=== PATIENT | female | born 1950 | race Caucasian/White ===

== ENCOUNTER 2017-09-06 06:12 | Inpatient (IN) | payer MEDICARE ==
[~2017-09-06] VITALS: Ht 167.6 cm; Wt 57.2 kg
[2017-09-06] VITALS (16 sets, daily range): BP systolic 103–135; BP diastolic 53–79
[~2017-09-06 06:12] MED LIST: AMLODIPINE-BEN1 EAC5 ORAL; AZELASTINE137 MCG/0. NS; DIAZEPAM5 MG ORAL; FLUOXETINE HCL20 M2 ORAL; SOMA350 MG PO
[2017-09-06] MEDS ORDERED: Vancomycin 1gm inj IVPB ONE (06:18)
[2017-09-06] MEDS ORDERED: LR 1000ml 1,000 ML IVLG SCH (06:37)
[2017-09-06] MEDS ORDERED: Acetaminophen (Non formulary) 100 ML IV ONE (06:45)
[2017-09-06] MEDS ORDERED: Atropine Inj 1mg/10ml Syr IV PRN (06:45)
[2017-09-06] MEDS ORDERED: Ketorolac 30mg Inj IV PRN ×2 (06:45)
[2017-09-06] MEDS ORDERED: Labetalol 5mg/ml 20ml vial IV PRN (06:45)
[2017-09-06] MEDS ORDERED: DiphenhydrAMINE 50mg/ml Inj IVP PRN (06:45)
[2017-09-06] MEDS ORDERED: HYDROcodone/Acetamin 7.5/325 tab ORAL PRN ×2 (06:45→10:45)
[2017-09-06] MEDS ORDERED: oxyCODONE HCL/Acetaminophen 5/325mg ORAL PRN (06:45)
[2017-09-06] MEDS ORDERED: LORazepam Inj 2mg/ml 1ml IV PRN (06:45)
[2017-09-06] MEDS ORDERED: Midazolam 2mg/2ml Inj IVP PRN (06:45)
[2017-09-06] MEDS ORDERED: Norco 5mg/325mg tab ORAL PRN (06:45)
[2017-09-06] MEDS ORDERED: Hydromorphone 0.5mg/0.5ml inj IVP PRN (06:45)
[2017-09-06] MEDS ORDERED: Zemuron 50mg/5ml Inj IV ONE ×2 (06:47→07:00)
[2017-09-06 06:49] LABS: APPEARANCE,URINE SLIGHTLY CLOUDY; BILIRUBIN, URINE NEGATIVE (NEGATIVE); GLUCOSE, URINE (UA) NEGATIVE (NEGATIVE); KETONES,URINE 1+ (NEGATIVE); LEUKOCYTE ESTERASE ,URINE 3+ (NEGATIVE); NITRITE,URINE NEGATIVE (NEGATIVE); PH,URINE 6.5 (4.5-8.0); PROTEIN,URINE 1+ (NEGATIVE); UROBILINOGEN,URINE NORMAL MG/DL (0.0-1.0)
[2017-09-06 06:58] LABS: COLOR,URINE YELLOW
[2017-09-06] MEDS ORDERED: Dexamethasone 4mg/ml vial ONE (07:00)
[2017-09-06] MEDS ORDERED: Pantoprazole Inj IVP ONE (07:00)
[2017-09-06] MEDS ORDERED: Lidocaine 1% MPF 10mg/ml 5ml ONE (07:00)
[2017-09-06] MEDS ORDERED: Neostigmine 1mg/ml 10ml Inj ONE (07:00)
[2017-09-06] MEDS ORDERED: Ketamine 500mg Inj ONE (07:00)
[2017-09-06] MEDS ORDERED: Vancomycin 1gm/D5W 275ml IVPB ONE ×2 (07:00)
[2017-09-06] MEDS ORDERED: NS Irrig 1000ml ONE (07:00)
[2017-09-06] MEDS ORDERED: Sterile Water Irrig 1000ml IRRIG ONE (07:00)
[2017-09-06] MEDS ORDERED: Midazolam 2mg/2ml Inj ONE (07:00)
[2017-09-06] MEDS ORDERED: Glycopyrrolate 0.2mg/ml 1ml Vial ONE (07:00)
[2017-09-06] MEDS ORDERED: LR 1000ml ONE (07:00)
[2017-09-06] MEDS ORDERED: Propofol 200mg/20ml IV ONE (07:00)
--- NOTE | 2017-09-06 07:08 | Anethesia Preoperative Eval ---
Anesthesia Pre-op PMH/ROS General Date of Evaluation: Sep 06, 2017 Time of Evaluation: 07:41 Anesthesiologist: Cristine ASA Score: ASA 2 Mallampati Score Class I : Soft palate, uvula, fauces, pillars visible Class II: Soft palate, uvula, fauces visible Class III: Soft palate, base of uvula visible Class IV: Only hard plate visible Mallampati Classification: Class I Surgeon: Kellee Diagnosis: Neck Pain Surgical Procedure: ACDF C2-3 Anesthesia History: none Family History: no anesthesia problems Allergies: Coded Allergies: SULFA (SULFONAMIDE ANTIBIOTICS) (Verified Allergy, Severe, 09/06/17) hives hives and itching Medications: see eMAR Anesthesia Pre-op Phys. Exam Physician Exam Constitutional: NAD Neurologic: CN 2-12 intact Cardiovascular: RRR Respiratory: CTA Gastrointestinal: S/NT/ND Airway Exam Mallampati Score: Class I MO: full ROM: limited Teeth: intact Anesthesia Pre-op A/P Risk Assessment & Plan Assessment: ASA 2 Plan: GA, BIS, GlideScope Go Status Change Before Surgery: No Pre-Antibiotics Dru Gram Vancomycin IV Given Within 1 Hr of Incision: Yes Time Given: 08:06 Handy Colunga MD Sep 06, 2017 07:08
[2017-09-06] MEDS ORDERED: NORCO 10-325 T1 EACH ORAL (07:15)
[2017-09-06] MEDS ORDERED: EPINEPHrine 1mg/1ml Amp ONE (07:16)
[2017-09-06] MEDS ORDERED: VITAMIN C500 M1 ORAL (07:17)
[2017-09-06] MEDS ORDERED: Thrombin 5000 units TOPIC ONE ×2 (07:17→08:35)
[2017-09-06] MEDS ORDERED: Thrombin 5000 units spray kit TOPIC ONE ×2 (07:17→08:35)
[2017-09-06] MEDS ORDERED: VITAMIN D1000 UNI1 ORAL (07:17)
[2017-09-06] MEDS ORDERED: MULTIVITAMINS1 EA14 PO (07:17)
[2017-09-06] MEDS ORDERED: Gelfoam Absorbable 1gm powder pkt TOPIC ONE ×2 (07:17→08:35)
[2017-09-06] MEDS ORDERED: Bupivacaine 0.5% Inj 30 ml vial INJ ONE ×2 (07:17→08:35)
[2017-09-06] MEDS ORDERED: Bacitracin 50000 Units Vial ONE (07:18)
[2017-09-06] MEDS ORDERED: Heparin 1000 units/ml 1ml Vial ONE (07:20)
--- NOTE | 2017-09-06 07:35 | Immediate Post-Op Evaluation ---
Immediate Post-Op Evalulation Immediate Post-Op Evalulation Procedure: ACDF C2-3 Date of Evaluation: Sep 06, 2017 Time of Evaluation: 10:29 IV Fluids: 500 LR Blood Products: 0 Estimated Blood Loss: 15 Urinary Output: 0 Blood Pressure Systolic: 114 Blood Pressure Diastolic: 75 Pulse Rate: 79 Respiratory Rate: 16 O2 Sat by Pulse Oximetry: 96 Temperature (Fahrenheit): 97.5 Pain Score (1-10): 2 Nausea: No Vomiting: No Complications 0 Patient Status: awake, reacts, patent, extubated, none Hydration Status: adequate Dru Gram Vancomycin IV Given Within 1 Hr of Incision: Yes Time Given: 08:06 Handy Colunga MD Sep 06, 2017 07:35
[2017-09-06] MEDS ORDERED: Propofol 1,000mg/ 100ml btl IV ONE (07:45)
--- NOTE | 2017-09-06 07:50 | Pre-Procedure Note/Attestation ---
Pre-Procedure Note/Attestation Complete Prior to Procedure Planned Procedure: bilateral Procedure Narrative: Anterior cervical discectomy and interbody fusion with use of PEEK, allograft and autograft at the C2-3 level. Attestation I attest that I discussed the nature of the procedure; its benefits; risks and complications; and alternatives (and the risks and benefits of such alternatives ), prior to the procedure, with the patient (or the patient's legal packaging sales representative). I attest that, if there was a reasonable possibility of needing a blood transfusion, the patient (or the patient's legal packaging sales representative) was given the [facility] standardized written summary, pursuant to the [place] Blood Safety Act ([place] Health and Safety Code # 1645, as amended). I attest that I re-evaluated the patient just prior to the surgery and that there has been no change in the patient's H&P, except as documented below: CARLY HOUGH Sep 06, 2017 07:50
[2017-09-06] MEDS ORDERED: Bacitracin 50000 Units Vial IRRIG ONE (08:35)
[2017-09-06] MEDS ORDERED: EPINEPHrine 1mg/1ml Amp INJ ONE (08:35)
--- NOTE | 2017-09-06 10:44 | General Progress Note ---
Progress Note Progress Note Neurosurgery Recovery Room S/ No arm pain. Incision pain under control O/ Vs Last 24 Hour Vital Signs Date Time Temp Pulse Resp B/P (MAP) Pulse Ox O2 Delivery O2 Flow Rate FiO2 09/06/17 10:18 207.5 79 16 96 09/06/17 07:07 98.3 83 18 135/79 98 Room Air 98.3 Alert and oriented x 4 Moves all extremities well Incision dressing C/D/I doing well Pt's updated Observe. Pain control CARLY HOUGH Sep 06, 2017 10:43
[2017-09-06] MEDS ORDERED: Milk of Magnesia 30ml Ud ORAL PRN (10:45)
[2017-09-06] MEDS ORDERED: Cyclobenzaprine 10mg Tab ORAL PRN (10:45)
[2017-09-06] MEDS: fentaNYL 100 mcg/2 mL IV PRN ×2 (11:06→11:40)
[2017-09-06] MEDS ORDERED: D5 1/2NS w/KCl 20mEq 1,000 ML IV SCH (14:00)
[2017-09-06] MEDS: HYDROcodone/Acetamin 7.5/325 tab ORAL PRN ×3 (14:02→21:44)
--- NOTE | 2017-09-06 14:02 | Diagnostic Imaging Report ---
Indication: Neck Pain Findings: 5 fluoroscopic obtained views of the cervical spine were obtained. Images demonstrating localization followed by anterior fusion at C2-3. IMPRESSION: Intraoperative imaging
[2017-09-06] MEDS: Docusate 100mg cap ORAL SCH (18:08)
[2017-09-06] MEDS: Docusate Sod/Senna tab ORAL SCH (18:08)
--- NOTE | 2017-09-06 19:30 | Operative Note - Dictated ---
DATE OF OPERATION: 09/06/2017 PREOPERATIVE DIAGNOSES: 1. Cervical myelopathy, severe cord compression at C2-C3 level. 2. Progressive upper extremity weakness with poor balance. 3. Disk herniation of the thoracolumbar region. 4. History of prior lumbar fusion. POSTOPERATIVE DIAGNOSES: 1. Cervical myelopathy, severe cord compression at C2-C3 level. 2. Progressive upper extremity weakness with poor balance. 3. Disk herniation of the thoracolumbar region. 4. History of prior lumbar fusion. PROCEDURES: 1. Right-sided retropharyngeal approach with total diskectomy at the C2-C3 level. 2. Resection of posterior osteophyte at C2-C3 level and central canal decompression. 3. Insertion of biomechanical device cage, PEEK, 8 x 15 x 15.5 mm, LDR System at C2-C3 level under fluoroscopic guidance. 4. Anterior arthrodesis using 11 mm plates at C2-C3 level under fluoroscopic guidance. 5. Aspiration of bone marrow from the C3 vertebral body for grafting. 6. [place] of bone from vertebral body for grafting. 7. Intraoperative use, supervision and interpretation of fluoroscopy for localization of spine using instruments. 8. Microdissection using operative microscope. 9. Neuromonitoring, somatosensory evoked potentials, and dermatomals. 10. Modifier 22 for degree of difficulty in approach for the high cervical diskectomy. 11. Plastic surgical closure of an 8 cm cervical wound. SURGEON: Aleta Goodson M.D. GARDEN MACHINERY MECHANIC: Teddy Izquierdo M.D. ANESTHESIOLOGIST: Handy Colunga M.D. ANESTHESIA TYPE: Video-assisted intubation and general endotracheal anesthesia. EBL: Minimal. IV FLUIDS: 500 mL. SPECIMEN: Disk. INDICATION: The patient is a pleasant 67-year-old woman with neck pain, lower back pain, difficulty with ambulation, poor balance, and upper extremity weakness. She had a significant workup including MRI of the cervical, thoracic, and lumbar spine. There was evidence of severe cord compression with myelomalacia involving the C2-C3 level. Risk of the operation including, but not limited to risk of infection, bleeding, nerve damage, paralysis, pseudoarthrosis/nonunion requiring revision surgery, adjacent segment disease requiring revision surgery or additional surgery were all discussed with her in detail. Other risks such as vocal cord injury or hoarseness were also discussed as well. The patient voiced understanding of these risks, signed the consent to proceed. DETAILS OF PROCEDURE: The patient was taken to the operating room. She was identified. She underwent an uneventful video assisted endotracheal intubation. Neuromonitoring leads were attached. She was placed in gentle axial cervical traction using a Holter system. Neck was pre-prepped. The radiopaque markers were attached to the skin and fluoroscopic images were obtained to localize the cervical region. Neck was then prepped and draped in sterile fashion. Time-out was observed and the circulating nurse called the time-out. Microscope was brought to the field. The incision site was infiltrated using local anesthetic. Using a #15 blade, a curvilinear incision was made on the right side of the neck in one of the natural lines of the neck in the high cervical region. Dissection was carried down to the level of the platysma. Platysma muscle was opened and subplatysmal dissection was carried out cephalad and caudad. A bloodless plane was then created to the prevertebral fascia. Careful attention was given to the critical structures of the neck, particularly to get the carotid artery laterally and the esophagus medially. Modifier 22 will be used to denote degree of difficulty and the approach. Longus colli muscles were identified. The prevertebral fascia was incised and opened. The midline of the cervical spine was identified using intraoperative fluoroscopic images. The correct level was identified using a spinal needle with lateral images. Longus colli muscles were then elevated adjacent to the C2-C3 level bilaterally. The Shadow-Line retractor was then used. Shadow Line blades were padded using Gelfoam to protect the esophagus and the carotid artery. Then, using a #15 blade, the diskectomy was carried out at the C2-C3 level. The C2 vertebral body was unstable relative to the C3 with anterolisthesis. Using Kerrison punch, the osteophytes were removed anteriorly. Using angled curettes, the cartilage was removed from the C2 and C3 endplates. Using high-speed drill, the endplates were decorticated. The intervertebral distractor was then introduced. Osteophytes from the C2 and C3 vertebral body were removed using Kerrison punches for central decompression. Foraminotomies were carried out using a 2 Kerrison punch laterally. Posterior longitudinal ligament was maintained medially and was opened laterally. Epidural bleeding was controlled with a Gelfoam without incident. The intervertebral cage was then sized using sequential sizers. An 8 mm LDR cage was then filled with autologous bone graft and bone marrow aspirate obtained from the C3 vertebrae. A 10 mL of bone marrow was obtained from the C3 vertebral body using a Jamshidi needle. Jamshidi needle was inserted and the insertion site was sealed using a FloSeal and bone wax. Bone marrow aspirate was then mixed. The combination of harvested bone from the vertebral body with [place] and bone marrow aspirate was then packed within the center portion of the PEEK cage. PEEK cage was then inserted under fluoroscopic guidance at the C2-C3 level. Excellent height reconstruction was obtained and the anterolisthesis was also resolved at the C2 level. Using 11 mm plates, arthrodesis was performed at the C2 and C3 levels. Final x-rays showed excellent placement of the graft. Neuromonitoring remained stable throughout the case. Wound was washed with antibiotic irrigation. Meticulous hemostasis was obtained using bipolar cautery along with Surgiflo. Incision was closed in multiple layers in plastic surgical manner. The subcutaneous layers were closed using 3-0 Vicryl stitches in multiple layers. The subcuticular layer was closed with 4-0 Monocryl in a running fashion. Dermabond was used to seal the incision. Steri-Strips were then used to seal the top portion of the incision as well. Sterile dressing was applied. The patient was placed in a cervical collar. She was extubated. At the end the case moving all extremities. COMPLICATIONS: None. Aleta Goodson M.D. DR: CLEMENTE JOB#: [id number] CC: RICHELLE
[2017-09-06] MEDS ORDERED: Zolpidem 5mg tab ORAL PRN (23:00)
[2017-09-07] VITALS: BP 123/71
[2017-09-07 04:00] VITALS: BP 120/70
[2017-09-07 08:00] VITALS: BP 121/72
[2017-09-07] MEDS ORDERED: Vancomycin 1 GM in D5W 275 ML IVPB SCH (08:00)
[2017-09-07] MEDS: Docusate 100mg cap ORAL SCH (09:12)
[2017-09-07] MEDS: Docusate Sod/Senna tab ORAL SCH (09:13)
--- NOTE | 2017-09-07 09:56 | General Progress Note ---
Progress Note Progress Note Neurosuregry POD #1 S/ Ambulating, Voided, No arm pain. Tolerating po's. No dysuria. O/ Last 24 Hour Vital Signs Date Time Temp Pulse Resp B/P (MAP) Pulse Ox O2 Delivery O2 Flow Rate FiO2 09/07/17 09:12 121/72 09/07/17 09:12 96 121/72 09/07/17 08:00 97.3 96 19 121/72 97 Room Air 97.3 09/07/17 04:00 97.9 82 17 120/70 95 Room Air 97.9 09/07/17 00:00 97.7 104 18 123/71 95 Room Air 97.7 09/06/17 20:22 98.1 97 18 127/78 97 Room Air 98.1 09/06/17 16:41 97.8 77 16 120/74 96 Nasal Cannula 3.0 97.8 09/06/17 12:30 98.0 88 16 107/63 98 Nasal Cannula 3.0 98.0 09/06/17 12:00 97.6 85 16 106/59 95 Nasal Cannula 3.0 97.6 09/06/17 11:55 98.9 79 13 114/63 97 Nasal Cannula 3.0 98.9 09/06/17 11:55 98.9 09/06/17 11:40 76 15 103/60 98 Nasal Cannula 3.0 09/06/17 11:40 98.3 09/06/17 11:35 90 19 120/56 98 Nasal Cannula 3.0 09/06/17 11:20 75 20 117/61 98 Nasal Cannula 3.0 09/06/17 11:06 69 16 125/66 98 Simple Mask 6.0 09/06/17 11:06 98.3 09/06/17 10:55 82 18 122/73 98 Simple Mask 6.0 09/06/17 10:45 74 18 109/53 98 Simple Mask 6.0 09/06/17 10:45 98.3 09/06/17 10:35 83 20 127/55 98 Simple Mask 6.0 09/06/17 10:28 71 16 120/66 98 Simple Mask 6.0 09/06/17 10:23 80 18 123/66 97 Simple Mask 6.0 09/06/17 10:18 98.0 76 18 106/74 97 Simple Mask 6.0 98.0 09/06/17 10:18 207.5 79 16 96 Exam Alert and Oriented Voice is normal Dressing dry and supple. Motor exam 5/5 in the upper extremities Moves all extremities well Doing Well. D/c instructions reviewed with patient and her No clinical evidence of UTI. Patient asked to follow-up with PMD in case of dysuria Continue with cervical collar. CARLY HOUGH Sep 07, 2017 09:56
--- NOTE | 2017-09-07 10:18 | General Progress Note ---
Progress Note Progress Note Addendum to progress note Pt had a recent UTI that was treated by PMD. Will send urine culture. Pt is provided with Cipro 500 mg BID for d days to treat. labs Labs Test 09/06/17 06:30 Urine Color Yellow Urine Appearance Slightly cloudy Urine pH 6.5 (4.5-8.0) Urine Specific [place] 1.010 (1.005-1.035) Urine Protein 1+ (NEGATIVE) Urine Glucose (UA) Negative (NEGATIVE) Urine Ketones 1+ (NEGATIVE) Urine Occult Blood 2+ (NEGATIVE) Urine Nitrite Negative (NEGATIVE) Urine Bilirubin Negative (NEGATIVE) Urine Urobilinogen Normal MG/DL (0.0-1.0) Urine Leukocyte Esterase 3+ (NEGATIVE) Urine RBC 2-4 /HPF (0 - 2) Urine WBC 40-60 /HPF (0 - 2) Urine Squamous Epithelial Cells Few /LPF (NONE/OCC) Urine Bacteria Few /HPF (NONE) CARLY HOUGH Sep 07, 2017 10:18
[2017-09-07] MEDS ORDERED: NORCO 10-325 T1 EACH ORAL (11:08)
[2017-09-07] MEDS ORDERED: CIPRO500 MG PO (11:10)
[2017-09-07 11:56] VITALS: BP 139/89
[2017-09-07] MEDS ORDERED: fentaNYL 100 mcg/2 mL IV ONE (12:59)
[2017-09-07 16:03] VITALS: BP 136/74
--- NOTE | 2017-09-07 16:03 | 48 Hour Post Anesthesia Eval ---
Post Anesthesia Evaluation Procedure: ACDF C2-3 Date of Evaluation: Sep 07, 2017 Time of Evaluation: 11:25 Blood Pressure Systolic: 136 0: 74 Pulse Rate: 62 Respiratory Rate: 20 Temperature (Fahrenheit): 97.6 O2 Sat by Pulse Oximetry: 98 Airway: patent Nausea: No Vomiting: No Pain Intensity: 2 Hydration Status: adequate Cardiopulmonary Status: Stable Mental Status/LOC: patient returned to baseline Follow-up Care/Observations: n/a Post-Anesthesia Complications: none Follow-up care needed: ready to discharge HARSHAL ORDOÑEZ M.D. Sep 07, 2017 16:03
--- NOTE | 2017-09-07 23:45 | Discharge Summary ---
DATE OF ADMISSION: 09/06/2017 DATE OF DISCHARGE: 09/07/2017 DISCHARGE DIAGNOSES: 1. Status post anterior cervical diskectomy, fusion, stabilization at the C2-3 level. 2. History of cervical myeloradiculopathy. 3. History of lumbar fusion. 4. 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 HISTORY OF PRESENT ILLNESS: Please refer to the chart for detailed History and Physical. The patient was admitted on 09/06/2017 and underwent an uneventful anterior cervical diskectomy, fusion, and stabilization at the C2-3 level. The patient has done well postoperatively. She is ambulating. She is tolerating p.o. intake. She is being discharged home with appropriate discharge instructions. DISPOSITION: Home. DISCHARGE MEDICATIONS: The patient is to continue home medications. She is also prescribed [place] with appropriate usage instructions. DISCHARGE INSTRUCTIONS: The patient is instructed regarding diet to have soft mechanical diet until her swelling improves. She is encouraged to have high-protein diet. She is instructed to wear a cervical collar. In case of fever more than 101, the patient is to call Dr. Goodson and go to the nearest ER. In case of signs of symptoms of dysuria, the patient is to contact her primary medical doctor for urinalysis. CONDITION: Stable. COMPLICATIONS: None. Aleta Goodson M.D. DR: CHIDI JOB#: [id number] CC:
== END 2017-09-07 13:00 | disposition home or self-care (01) | DRG 473 ==
LOC: SDSOVERFLO 06:12 → 3E 12:06
PROC: 0RB30ZZ Excision of Cervical Vertebral Disc, Open Approach (ICD-10-PCS; principal; 2017-09-06 07:30)
PROC: 0RG10A0 Fusion of Cervical Vertebral Joint with Interbody Fusion Device, Anterior Approach, Anterior Column, Open Approach (ICD-10-PCS; principal; 2017-09-06 07:30)
DX: M50.01 Cervical disc disorder with myelopathy, high cervical region (principal); M50.11 Cervical disc disorder with radiculopathy, high cervical region; M48.02 Spinal stenosis, cervical region; Z88.2 Allergy status to sulfonamides
CPT/HCPCS: 72040; 76001; 81003; 87081; 87086; 87181; C9399; J2250; J2405; J2710

== ENCOUNTER 2018-01-17 09:14 | Inpatient (IN) | payer MEDICARE, OTHER ==
[2018-01-17] VITALS (11 sets, daily range): BP systolic 100–142; BP diastolic 60–89
[~2018-01-17] VITALS: Ht 165.1 cm; Wt 56.7 kg
[~2018-01-17 09:14] MED LIST changes: +CIPRO500 MG PO; +MULTIVITAMINS1 EA14 PO; +NORCO 10-325 T1 EACH ORAL; +Pantoprazole Inj IVP ONE; +VITAMIN C500 M1 ORAL; +VITAMIN D1000 UNI1 ORAL; +Vancomycin 1gm/D5W 275ml IVPB ONE
[2018-01-17] MEDS ORDERED: LISINOPRIL40 MG ORAL (10:26)
[2018-01-17] MEDS ORDERED: LR 1000ml 1,000 ML IVLG SCH (11:36)
--- NOTE | 2018-01-17 11:37 | Anethesia Preoperative Eval ---
Anesthesia Pre-op PMH/ROS General Date of Evaluation: Jan 17, 2018 Time of Evaluation: 13:06 Anesthesiologist: Cristine ASA Score: ASA 2 Mallampati Score Class I : Soft palate, uvula, fauces, pillars visible Class II: Soft palate, uvula, fauces visible Class III: Soft palate, base of uvula visible Class IV: Only hard plate visible Mallampati Classification: Class I Surgeon: Kellee Diagnosis: Back Pain Surgical Procedure: T12-L1 Post. Decompression Anesthesia History: none Family History: no anesthesia problems Allergies: Coded Allergies: SULFA (SULFONAMIDE ANTIBIOTICS) (Verified Allergy, Severe, 09/06/17) hives hives and itching Medications: see eMAR Past Medical History Cardiovascular: Reports: HTN Neurologic/Psychiatric: Reports: depression/anxiety Musculoskeletal/Integumentary: Reports: OA PSxH Narrative: Lumbar Fusion, Cervical Fusion, Foot SX, DIMITRIOS Anesthesia Pre-op Phys. Exam Physician Exam Last Vital Signs Date Time Temp Pulse Resp B/P (MAP) Pulse Ox O2 Delivery O2 Flow Rate FiO2 01/17/18 10:29 Room Air 01/17/18 10:16 97.9 77 18 129/89 (102) 95 97.9 Constitutional: NAD Neurologic: CN 2-12 intact Cardiovascular: RRR Respiratory: CTA Gastrointestinal: S/NT/ND Airway Exam Mallampati Score: Class I MO: full ROM: limited Teeth: missing, intact Anesthesia Pre-op A/P Risk Assessment & Plan Assessment: ASA 2 Plan: GA, BIS, GlideScope Status Change Before Surgery: No Pre-Antibiotics Dru Gram Vancomycin IV Time Given: 13:21 Handy Colunga MD Jan 17, 2018 11:37
[2018-01-17] MEDS ORDERED: Sodium Chloride 10ml vial INJ ONE (11:44)
[2018-01-17] MEDS ORDERED: Lidocaine 1% MPF 10mg/ml 5ml ONE (11:44)
[2018-01-17] MEDS ORDERED: Lidocaine 1% Plain 30 ml INJ ONE ×2 (11:44→15:41)
[2018-01-17] MEDS ORDERED: LORazepam Inj 2mg/ml 1ml IV PRN (11:45)
[2018-01-17] MEDS ORDERED: Acetaminophen (Non formulary) 100 ML IV ONE (11:45)
[2018-01-17] MEDS ORDERED: Ketorolac 30mg Inj IV PRN ×2 (11:45)
[2018-01-17] MEDS ORDERED: Hydromorphone 0.5mg/0.5ml inj IVP PRN (11:45)
[2018-01-17] MEDS ORDERED: fentaNYL 100 mcg/2 mL IV PRN (11:45)
[2018-01-17] MEDS ORDERED: Atropine Inj 1mg/10ml Syr IV PRN (11:45)
[2018-01-17] MEDS ORDERED: DiphenhydrAMINE 50mg/ml Inj IVP PRN (11:45)
[2018-01-17] MEDS ORDERED: Labetalol 5mg/ml 20ml vial IV PRN (11:45)
[2018-01-17] MEDS ORDERED: oxyCODONE HCL/Acetaminophen 5/325mg ORAL PRN (11:45)
[2018-01-17] MEDS ORDERED: HYDROcodone/Acetamin 7.5/325 tab ORAL PRN ×2 (11:45→20:00)
[2018-01-17] MEDS ORDERED: Norco 5mg/325mg tab ORAL PRN (11:45)
[2018-01-17] MEDS ORDERED: fentaNYL 100 mcg/2 mL IV ONE ×4 (11:45→17:32)
[2018-01-17] MEDS ORDERED: Metoclopramide 10mg/2ml Inj IVP PRN (11:45)
[2018-01-17] MEDS ORDERED: Midazolam 2mg/2ml Inj IVP PRN (11:45)
[2018-01-17] MEDS ORDERED: Thrombin 5000 units spray kit TOPIC ONE (12:32)
[2018-01-17] MEDS ORDERED: Bacitracin Oint 15gm Tube TOPIC ONE (12:32)
[2018-01-17] MEDS ORDERED: EPINEPHrine 1mg/1ml Amp ONE (12:32)
[2018-01-17] MEDS ORDERED: Gelfoam Absorbable 1gm powder pkt TOPIC ONE (12:33)
[2018-01-17] MEDS ORDERED: Thrombin 5000 units TOPIC ONE ×2 (12:33→12:34)
[2018-01-17] MEDS ORDERED: Gelfoam Size TOPIC ONE (12:33)
[2018-01-17] MEDS ORDERED: Bupivacaine 0.5% Inj 30 ml vial INJ ONE (12:33)
[2018-01-17] MEDS ORDERED: Bacitracin 50000 Units Vial ONE (12:33)
--- NOTE | 2018-01-17 12:45 | Pre-Procedure Note/Attestation ---
Pre-Procedure Note/Attestation Complete Prior to Procedure Planned Procedure: bilateral Procedure Narrative: Posterior T12-L1 decompression with possible instrumented fusion with pedicle screws and posterolateral arthrodesis with, autograft and allograft. Attestation I attest that I discussed the nature of the procedure; its benefits; risks and complications; and alternatives (and the risks and benefits of such alternatives ), prior to the procedure, with the patient (or the patient's legal jewelry sales representative). I attest that, if there was a reasonable possibility of needing a blood transfusion, the patient (or the patient's legal jewelry sales representative) was given the [facility] standardized written summary, pursuant to the [place] Blood Safety Act ([place] Health and Safety Code # 1645, as amended). I attest that I re-evaluated the patient just prior to the surgery and that there has been no change in the patient's H&P, except as documented below: Aleta Goodson MD Jan 17, 2018 12:45
[2018-01-17] MEDS ORDERED: Zemuron 50mg/5ml Inj IV ONE (12:48)
[2018-01-17] MEDS ORDERED: Pantoprazole Inj ONE (12:51)
[2018-01-17] MEDS ORDERED: Propofol 1,000mg/ 100ml btl IV ONE (13:00)
[2018-01-17] MEDS ORDERED: Sterile Water Irrig 1000ml IRRIG ONE (13:00)
[2018-01-17] MEDS ORDERED: LR 1000ml ONE (13:00)
[2018-01-17] MEDS ORDERED: NS Irrig 1000ml ONE (13:00)
--- NOTE | 2018-01-17 14:18 | Immediate Post-Op Evaluation ---
Immediate Post-Op Evalulation Immediate Post-Op Evalulation Procedure: T12-L1 Post. Decompression Date of Evaluation: Jan 17, 2018 Time of Evaluation: 18:20 IV Fluids: 1200 LR Blood Products: 0 Estimated Blood Loss: 100 Urinary Output: 200 Blood Pressure Systolic: 142 Blood Pressure Diastolic: 68 Pulse Rate: 61 Respiratory Rate: 16 O2 Sat by Pulse Oximetry: 100 Temperature (Fahrenheit): 97.8 Pain Score (1-10): 2 Nausea: No Vomiting: No Complications 0 Patient Status: awake, reacts, patent, extubated, none Hydration Status: adequate Dru Gram Ancef IV Given Within 1 Hr of Incision: Yes Time Given: 13:21 Handy Colunga MD Jan 17, 2018 14:18
--- NOTE | 2018-01-17 18:23 | Brief Operative Note ---
Immediate Post Operative Note Operative Note Chief Complaint: left-sided thoracic to Abd pain Pre-op Diagnosis: Cervical myelopathy chronic back pain Extruded disc at T12-L1 with thoracic myelopathy History of L4 to S1 fusion. Procedure: 1. Bilateral T12 hemilaminectomies, medial facetectomies, central ligamentectomies with lateral and central decompression. 2. Bilateral transpedicular approach for resection of extruded disc and osteophytes T12-L1. 3. Posterolateral arthrodesis T12-L1 with allograft and autograft. 4. [place] of local bone from laminectomy 5. Neurolysis of T12 and L1 roots bilaterally with wide foraminotomies 5. Intra-op supervision, use and interpretation of fluoroscopy for localization of spine. 6. Intra-op neuromonitoring, including, SSEPs, MEPs and free run EMG 7. Application of epidural fat graft bilaterally T12-L1. 8. Modifier 22 due degree of difficulty of the case. Post-op Diagnosis: same as pre-op Findings: consistent w/pre-op dx studies Surgeon: Aleta Goodson M.D Superintendent Marine: Teddy Izquierdo M.D. Anesthesiologist: Dr. Colunga Anesthesia: general Specimen: yes - disc Complications: none Condition: stable Fluids: 1200 Estimated Blood Loss: volume - 50 cc Drains: none Implant(s) used?: Yes - Aleta Baldwin MD Jan 17, 2018 18:23
--- NOTE | 2018-01-17 18:52 | General Progress Note ---
Progress Note Progress Note Neurosurgery Post-op S/ No incisonal pain. Comfortable O/ vs: Last 24 Hour Vital Signs Date Time Temp Pulse Resp B/P (MAP) Pulse Ox O2 Delivery O2 Flow Rate FiO2 01/17/18 18:45 67 13 112/63 100 Nasal Cannula 3 01/17/18 18:19 65 16 119/60 100 Simple Mask 8 01/17/18 18:14 73 16 129/65 100 Simple Mask 8 01/17/18 18:11 208.0 61 16 100 01/17/18 18:09 97.8 61 16 142/88 100 Simple Mask 8 97.8 01/17/18 10:29 Room Air 01/17/18 10:16 97.9 77 18 129/89 (102) 95 97.9 Arousable oriented Moves all extremities well normal sensation doing well admit Pt's updated Aleta Goodson MD Jan 17, 2018 18:52
[2018-01-17] MEDS ORDERED: Cyclobenzaprine 10mg Tab ORAL PRN (20:00)
[2018-01-17] MEDS ORDERED: Milk of Magnesia 30ml Ud ORAL PRN (20:00)
[2018-01-17] MEDS ORDERED: Lisinopril 20mg tab ORAL SCH (20:00)
--- NOTE | 2018-01-17 21:15 | Operative Note - Dictated ---
DATE OF OPERATION: 01/17/2018 PREOPERATIVE DIAGNOSES: 1. History of cervical myelopathy status post anterior cervical diskectomy fusion at C2-3 level. 2. 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 3. Lack of improvement from conservative measures, physical therapy, and narcotic medications. POSTOPERATIVE DIAGNOSES: 1. History of cervical myelopathy status post anterior cervical diskectomy fusion at C2-3 level. 2. 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 3. Lack of improvement from conservative measures, physical therapy, and narcotic medications. PROCEDURES: 1. Bilateral T12 hemilaminectomies, medial facetectomies, and foraminotomies with central ligamentectomy with central decompression and lateral decompression. 2. Bilateral transpedicular approach for resection of extruded disc and osteophytes at T12-L1. 3. Posterolateral arthrodesis at T12-L1 with allograft and autograft bilaterally. 4. Hardin of local bone from laminectomy for grafting. 5. Neurolysis of the T12 and L1 nerve roots bilaterally. 6. Intraoperative supervision use and interpretation of fluoroscopy for localization of spine. 7. Intraoperative neuro monitoring including somatosensory-evoked potentials, motor-evoked potentials, and free-run EMG. 8. Application of epidural fat graft bilaterally at T12-L1 laminectomy. 9. Modifier 22 will be used due to the degree of difficulty of the case. SURGEON: Aleta Goodson M.D. TANGIBLE PERSONAL PROPERTY APPRAISER SURGEON: Teddy Izquierdo M.D. ANESTHESIOLOGIST: Handy Colunga M.D. ANESTHESIA TYPE: General endotracheal anesthesia. EBL: Less than 50 mL. IV FLUIDS: 1.2 liters. URINE OUTPUT: 200 mL. SPECIMEN: Disc. INDICATION: The patient is a pleasant 67-year-old woman with a history of chronic back pain. She developed a cervical myelopathy, underwent a successful anterior cervical diskectomy, fusion, and stabilization of C2-3 level. She has developed thoracic myelopathy with left-sided thoracic radiculopathy with radiation of pain to the flank and abdomen. MRI and CT scans of the thoracic spine were obtained. There was evidence of an extruded disc at the T12-L1 level. There was significant severe compression of the spinal cord at this level as well. After discussions with the patient and her and review of risks, benefits, and alternatives to surgery, she has elected to proceed with the above procedure and signed the consent. The risks of the operation including, but not limited to risk of infection, bleeding, nerve damage, paralysis, spinal fluid leakage requiring revision surgery, and worsening back pain requiring instrumented fusion were all discussed with her in detail. DETAILS OF PROCEDURE: The patient was taken to the operating room. She was identified. She underwent an uneventful endotracheal intubation. Neuro monitoring leads were attached. Alonso catheter was inserted. The patient was then placed prone on a Guero frame. Care was taken to pad all pressure points from the top of the head to the tip of the toes. Back was pre-prepped. Radiopaque markers were attached to the skin and the thoracolumbar junction was localized. The back was then prepped and draped in the sterile fashion. Time-out was observed and the circulating nurse, read out the intended procedure. Microscope was brought to the field. The incision was infiltrated using Marcaine with epinephrine. Incision was made in the midline using a #15 blade. Dissection was carried down to the level of the subcutaneous fascia. The subcutaneous fat fascia was opened and the deep fat layer was encountered. A fat specimen was then removed with sharp dissection using #15 blade and placed in antibiotic irrigation solution. The thoracolumbar fascia was then opened using a Bovie knife. Subperiosteal dissection was carried out and the T12 hemilamina along with the T12-L1 facets were exposed bilaterally. Using a high-speed drill, bilateral T12 hemilaminectomies were performed. Using angled curettes, the ligamentum flavum was undermined and removed using pituitary rongeurs and #2 Kerrison punches. This provided significant decompression of the central canal bilaterally. Attention was given to the T12-L1 facet. A complete medial facetectomy of the T12 facet joint was performed. The L1 superior articulating facet was exposed. Using high-speed drill, the medial facet was completely removed and the L1 pedicle was identified. Intraoperative fluoroscopic image was performed to verify the correct level using a spinal needle. Using high-speed drill, the pedicle was entered. The pedicular resection was carried out to the level of the T12-L1 disc space. There was a large extruded disc osteophyte complex on the left side, which was mobilized using micro instrument and down pushing curette. Using pituitary rongeurs, the disc fragments were removed piecemeal. Throughout the diskectomy and removal of the osteophyte, the dura was completely intact without any pressure. There was ample room created by the resection of the pedicle superiorly. The transpedicular approach was performed bilaterally. The T12 and L1 nerve roots were removed from the adhesions in the epidural space. The T12 nerve roots were completely freed within the foramen and neurolysis was necessary to mobilize the T12 nerve root cephalad in order to expose the disk space. After diskectomy, both T12 and L1 nerve roots were completely free from compression. Epidural bleeding was controlled with bipolar cautery and FloSeal. The fat specimen was then incised and placed over the dura at the laminectomy defects bilaterally. The posterolateral T12-L1 facet was decorticated. Using the harvested bone from the laminectomies and [place] allograft, a bone putty was created and placed in the posterolateral gutters bilaterally. The wound was irrigated with copious amount of antibiotic irrigation. Incision was closed using 0, 2-0, and 3-0 Vicryl stitches in intraoperative fashion. Skin was dressed with Dermabond and Steri-Strips. Sterile dressing was applied. Modifier 22 will be used due to the degree of difficulty imposed by the depth of the incision and part of the calcified disc and osteophytic overgrowth that needed to be taken down prior to the diskectomy. The neuro monitoring was used throughout the case. Motor-evoked potentials remained stable throughout the case. The patient was extubated at the end of the case and moving all extremities. COMPLICATIONS: None. Aleta Goodson M.D. DR: CHIDI JOB#: [id number] CC:
[2018-01-17] MEDS: NS w/KCl 20mEq 1,000 ML IV SCH (21:32)
[2018-01-17] MEDS: ceFAZolin sod 2 GM in D5W 110 ML IV SCH (21:32)
[2018-01-18] VITALS: BP 110/60
[2018-01-18] MEDS: HYDROcodone/Acetamin 7.5/325 tab ORAL PRN ×3 (00:05→16:05)
[2018-01-18 03:53] VITALS: BP 112/61
[2018-01-18] MEDS: ceFAZolin sod 2 GM in D5W 110 ML IV SCH ×2 (06:22→13:34)
[2018-01-18 07:46] LABS: ANION GAP 8 mmol/L (5-15); BLOOD UREA NITROGEN 10 mg/dL (7-18); CALCIUM 7.5 MG/DL (8.5-10.1); CARBON DIOXIDE 27 MMOL/L (21-32); CHLORIDE 104 MMOL/L (98-107); CREATININE 0.8 MG/DL (0.55-1.30); POTASSIUM 3.4 MMOL/L (3.5-5.1); SODIUM 139 MMOL/L (136-145)
[2018-01-18 08:00] VITALS: BP 131/73
--- NOTE | 2018-01-18 08:10 | Diagnostic Imaging Report ---
Indication: Back pain, intraoperative Technique: Intraoperative images Comparison: none Findings: Intraoperative images demonstrate localizer needle projected posterior to what appears to be the superior aspect of L1. Subsequent images demonstrate surgical retractors and fusion hardware. Pre-existing fusion hardware is seen in the lower lumbar spine Impression: Intraoperative imaging, as described
[2018-01-18] MEDS ORDERED: Docusate Sod/Senna tab ORAL SCH (09:00)
[2018-01-18] MEDS ORDERED: Docusate 100mg cap ORAL SCH (09:00)
[2018-01-18] MEDS: HYDROmorphone 1mg/ml Carpuject IVP PRN ×2 (09:49→13:35)
[2018-01-18] MEDS: NS w/KCl 20mEq 1,000 ML IV SCH (09:49)
[2018-01-18 12:00] VITALS: BP 122/76
[2018-01-18 12:48] VITALS: BP 122/76
--- NOTE | 2018-01-18 12:48 | 48 Hour Post Anesthesia Eval ---
Post Anesthesia Evaluation Procedure: T12-L1 Post. Decompression Date of Evaluation: Jan 18, 2018 Time of Evaluation: 12:00 Blood Pressure Systolic: 122 0: 76 Pulse Rate: 86 Respiratory Rate: 19 Temperature (Fahrenheit): 98 O2 Sat by Pulse Oximetry: 97 Airway: patent Nausea: No Vomiting: No Pain Intensity: 0 Hydration Status: adequate Mental Status/LOC: patient returned to baseline Post-Anesthesia Complications: none Follow-up care needed: N/A Nessa Concepcion M.D. Jan 18, 2018 12:47
--- NOTE | 2018-01-18 13:27 | General Progress Note ---
Progress Note Progress Note Neurosurgery POD#1 S/ Ambulated with PT. Improved balance. Radiating left flank pain resolved. O/ Vs. Last 24 Hour Vital Signs Date Time Temp Pulse Resp B/P (MAP) Pulse Ox O2 Delivery O2 Flow Rate FiO2 01/18/18 12:48 208.4 86 19 97 01/18/18 12:37 98.0 01/18/18 12:00 98.0 86 19 122/76 (91) 97 98.0 01/18/18 11:38 97.2 01/18/18 10:19 97.2 01/18/18 09:49 97.2 01/18/18 09:00 Room Air Room Air 01/18/18 08:00 97.2 78 18 131/73 (92) 96 97.2 01/18/18 03:53 97.3 71 17 112/61 (78) 94 97.3 01/18/18 00:00 97.8 79 19 110/60 (77) 96 97.8 01/17/18 21:00 Nasal Cannula 2.0 Nasal Cannula 2.0 01/17/18 20:30 97.9 81 18 108/62 (77) 95 97.9 01/17/18 20:00 97.6 81 18 111/64 (80) 95 97.6 01/17/18 20:00 100/60 01/17/18 19:30 97.6 77 18 100/60 (73) 99 97.6 01/17/18 18:50 68 14 112/60 100 Nasal Cannula 3 01/17/18 18:45 67 13 112/63 100 Nasal Cannula 3 01/17/18 18:35 69 15 111/63 100 Simple Mask 8 01/17/18 18:25 66 16 113/62 100 Simple Mask 8 01/17/18 18:19 65 16 119/60 100 Simple Mask 8 01/17/18 18:14 73 16 129/65 100 Simple Mask 8 01/17/18 18:11 208.0 61 16 100 01/17/18 18:09 97.8 61 16 142/88 100 Simple Mask 8 97.8 Alert and oriented x 4 Moves all extremities. Lowers are strong, distally and proximally normal sensation in the lowers. Numbness in the lateral arm at baseline. Incision is completely dry Labs. Laboratory Tests Test 01/18/18 06:15 Sodium Level 139 MMOL/L (136-145) Potassium Level 3.4 MMOL/L (3.5-5.1) L Chloride Level 104 MMOL/L (98-107) Carbon Dioxide Level 27 MMOL/L (21-32) Anion Gap 8 mmol/L (5-15) Blood Urea Nitrogen 10 mg/dL (7-18) Creatinine 0.8 MG/DL (0.55-1.30) Estimat Glomerular Filtration Rate > 60 mL/min (>60) Glucose Level 86 MG/DL (74-106) Calcium Level 7.5 MG/DL (8.5-10.1) L doing well d/c instructions reviewed with pt and nursing Aleta Goodson MD Jan 18, 2018 13:27
--- NOTE | 2018-01-18 17:14 | Discharge Summary ---
Discharge Summary Discharge Summary _ DATE OF ADMISSION: 01/17/2018 DATE OF DISCHARGE: 01/18/2018 BRIEF HOSPITAL COURSE: Patient is a 67-year-old female, with history of chronic back pain. She developed cervical myelopathy and underwent successful anterior cervical discectomy, fusion and stabilization of C2-3 level. She developed thoracic myelopathy with left sided thoracic radiculopathy with radiation of pain to the flank and abdomen. MRI and CT scan of the thoracic spine were obtained. There was evidence of extruded disc at the T12-L1 level. There was significant severe compression of the spinal cord at this level. She failed conservative measures such as physical therapy and narcotic medications. Surgical intervention was elected. She was admitted on 01/17/2018 and underwent bilateral T12 hemilaminectomy, medial facetectomy and foraminotomy with central ligamentectomy with central decompression and lateral decompression. She tolerated procedure well. Postoperatively she was given pain management. She was encouraged use of incentive spirometry. She was seen by PT and OT. Diet was advanced. She had low potassium and was given potassium replacement. She ambulated with PT well with improved balance. Radiating left flank pain resolved. She was able to move all extremities. She had normal strength and sensation in lower extremities. Numbness in bilateral arm was at baseline. Surgical incision was completely dry. She was cleared for discharge home. FINAL DIAGNOSES: History of cervical myelopathy status post anterior cervical discectomy fusion at C2-3 level Extruded thoracic disc, T12-L1 with left-sided flank to abdomen pain and thoracic myelopathy Lack of improvement from conservative measures, physical therapy and narcotic medications Status post bilateral T12 hemilaminectomy, medial facetectomy, central ligament neck dummies lateral and central decompression Bilateral transpedicular approach for resection of extruded disc and osteophytes T12-L1 (Refer to operative report) DISPOSITION: Patient was discharged home. DISCHARGE MEDICATIONS: Refer to Discharge Medication List. DISCHARGE INSTRUCTIONS: Home diet: High-protein low-carb diet may use muscle milk 70 g of protein per day; wear binder for 3 weeks; in case of fever, redness or chills call Dr. Goodson or go to ER; avoid NSAIDs for 7 days; icepack to incision site 30 minutes every 2 hours as needed; keep wound dry for 4 days then change top dressing. Follow-up with Dr. Goodson call for appointment. I have been assigned to dictate discharge summary on this account, and I was not involved in the patient's management. Priscilla Contreras NP Jan 18, 2018 17:14
--- NOTE | 2018-01-19 00:45 | Discharge Summary ---
DATE OF ADMISSION: 01/17/2018 DATE OF DISCHARGE: 01/18/2018 DISCHARGE DIAGNOSIS: Status post bilateral transpedicular approach at T12-L1 for removal of extruded disc and osteophyte. HISTORY OF PRESENT ILLNESS: Refer to chart for History and Physical. HOSPITAL COURSE: The patient was admitted on 01/17/2018, underwent uneventful bilateral T12-L1 transpedicular decompression and diskectomy. The patient has done very well postoperatively. Her balance has improved. Her thoracic radiculopathy has resolved. She is being discharged home with appropriate discharge instructions. DISPOSITION: Home. DISCHARGE INSTRUCTIONS: The patient is asked not to do any bending, lifting, or twisting. She is asked to wear a binder for the next three weeks. She is asked to keep the incision dry for four days. In case of fever, chills, or drainage from the incision, the patient is instructed to call Dr. Goodson or go to the nearest ER. Follow up with Dr. Goodson in two weeks. DIET: High-protein low carb diet. MEDICATIONS: The patient is taking [place] for pain. She also is on blood pressure medications and nasal decongestant, which was reviewed in the chart and has been deemed safe for her to take. COMPLICATIONS: None. CONSULTATIONS: Included physical therapy. Aleta Goodson M.D. DR: ULI JOB#: [id number] CC:
== END 2018-01-18 16:00 | disposition home or self-care (01) | DRG 460 ==
LOC: SDSOVERFLO 09:19 → 3E 19:15
PROC: 4A11X4G Monitoring of Peripheral Nervous Electrical Activity, Intraoperative, External Approach (ICD-10-PCS; principal; 2018-01-17 10:30)
PROC: 0RTB0ZZ Resection of Thoracolumbar Vertebral Disc, Open Approach (ICD-10-PCS; principal; 2018-01-17 10:30)
PROC: 0RGA071 Fusion of Thoracolumbar Vertebral Joint with Autologous Tissue Substitute, Posterior Approach, Posterior Column, Open Approach (ICD-10-PCS; principal; 2018-01-17 10:30)
DX: M51.04 Intervertebral disc disorders with myelopathy, thoracic region (principal); I10 Essential (primary) hypertension; Z98.1 Arthrodesis status
CPT/HCPCS: 36415; 72020; 76001; 80048; 86850; 86900; 86901; 87081; C9399; J2405; J8499

== ENCOUNTER 2018-01-20 13:57 | Inpatient (IN) | payer MEDICARE, OTHER ==
[~2018-01-20] VITALS: Ht 162.6 cm; Wt 36.3 kg
[~2018-01-20 13:57] MED LIST changes: +LISINOPRIL40 MG ORAL; -Pantoprazole Inj IVP ONE; -Vancomycin 1gm/D5W 275ml IVPB ONE
[2018-01-20 14:30] VITALS: BP 205/111
[2018-01-20] MEDS ORDERED: HYDROmorphone 1mg/ml Carpuject IVP ONE (14:30)
--- NOTE | 2018-01-20 14:31 | Emergency Room Report ---
History of Present Illness General Chief Complaint: Pain Source: Patient Present Illness HPI 67-year-old female presents with severe back pain, worse with movement, sharp, constant, nonradiating, reports she's had this pain ever since her recent discectomy, she was sent here by Dr. Goodson for admission because she was just discharged today and couldn't tolerate the pain so she needs to be admitted. Allergies: Coded Allergies: SULFA (SULFONAMIDE ANTIBIOTICS) (Verified Allergy, Severe, 09/06/17) hives hives and itching Patient History Past Medical History: see triage record Reviewed Nursing Documentation: PMH: Agreed; PSxH: Agreed Nursing Documentation-PMH Past Medical History: No History, Except For Hx Cardiac Problems: Yes Hx Hypertension: Yes Hx Cancer: No Hx Gastrointestinal Problems: No Hx Neurological Problems: No - back surgery Review of Systems All Other Systems: negative except mentioned in HPI Physical Exam Vital Signs Date Time Temp Pulse Resp B/P (MAP) Pulse Ox O2 Delivery O2 Flow Rate FiO2 01/20/18 14:07 98.2 86 19 205/111 98 Room Air 98.2 Sp02 EP Interpretation: reviewed, normal General Appearance: no apparent distress, alert, non-toxic Head: normocephalic Eyes: bilateral eye normal inspection, bilateral eye PERRL, bilateral eye EOMI ENT: normal ENT inspection, hearing grossly normal, normal pharynx, no angioedema, normal voice, moist mucus membranes Neck: normal inspection, full range of motion, supple, supple/symm/no masses Respiratory: chest non-tender, lungs clear, normal breath sounds, chest symmetrical, palpation of chest normal Cardiovascular #1: normal peripheral pulses, regular rate, rhythm Cardiovascular #2: 2+ radial (R), 2+ radial (L), 2+ dorsalis pedis (R), 2+ dorsalis pedis (L) Gastrointestinal: normal inspection, non tender, soft, no mass, no guarding, no rebound Rectal: deferred Genitourinary: normal inspection, no CVA tenderness Musculoskeletal: back normal, gait/station normal, normal range of motion, non- tender, no calf tenderness Neurologic: alert, responsive, 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 Patient neurologically intact, surgically site intact without signs of breakdown or infection. Dr. Goodson will readmit, requests thoracolumbar 2V xr's. Other X-Ray Diagnostic Results Other X-Ray Diagnostic Results #1: X-Ray ordered: Thoracic spine # of Views/Limited Vs Complete: 2 View Indication: Pain EP Interpretation: Yes Interpretation: no dislocation, no soft tissue swelling, no fractures, nonspecific bowel gas Impression: No acute disease Electronically Signed by: Javon Fonseca MD Other X-Ray Diagnostic Results #2: X-Ray ordered: Lumbar Spine # of Views/Limited Vs Complete: Limited Indication: Pain EP Interpretation: Yes Interpretation: no dislocation, no soft tissue swelling, no fractures, nonspecific bowel gas, no sbo Impression: No acute disease Electronically Signed by: Javon Fonseca MD Last Vital Signs Date Time Temp Pulse Resp B/P (MAP) Pulse Ox O2 Delivery O2 Flow Rate FiO2 01/20/18 14:07 98.2 86 19 205/111 98 Room Air 98.2 Disposition: ADMITTED INPATIENT Admit Decision Time: 14:41 Condition: Stable Signed Out To: JAVON Bean M.D Jan 20, 2018 14:31
[2018-01-20 15:26] LABS: HEMATOCRIT 44.4 % (37.0-47.0); HEMOGLOBIN 15.2 G/DL (12.0-16.0); MEAN CORPUSCULAR VOLUME 96 FL (80-99); PLATELET COUNT 279 K/UL (150-450); RED BLOOD COUNT 4.61 M/UL (4.20-5.40); RED CELL DISTRIBUTION WIDTH 11.7 % (11.6-14.8); WHITE BLOOD COUNT 13.1 K/UL (4.8-10.8)
[2018-01-20 15:27] LABS: EOSINOPHILS % (AUTO) 0.5 % (0.0-3.0); LYMPHOCYTES % (AUTO) 5.5 % (20.0-45.0); MONOCYTES % (AUTO) 7.5 % (1.0-10.0); NEUTROPHILS % (AUTO) 85.5 % (45.0-75.0)
[2018-01-20 15:38] LABS: ANION GAP 9 mmol/L (5-15); BLOOD UREA NITROGEN 3 mg/dL (7-18); CALCIUM 8.7 MG/DL (8.5-10.1); CARBON DIOXIDE 25 MMOL/L (21-32); CHLORIDE 97 MMOL/L (98-107); CREATININE 0.5 MG/DL (0.55-1.30); POTASSIUM 5.6 MMOL/L (3.5-5.1); SODIUM 131 MMOL/L (136-145)
[2018-01-20 15:43] LABS: ALANINE AMINOTRANSFERASE 27 U/L (12-78); ALBUMIN 3.1 G/DL (3.4-5.0); ALBUMIN/GLOBULIN RATIO 0.7 (1.0-2.7); ALKALINE PHOSPHATASE 68 U/L (46-116); ASPARTATE AMINO TRANSFERASE 74 U/L (15-37); BILIRUBIN,TOTAL 0.9 MG/DL (0.2-1.0)
[2018-01-20 15:58] VITALS: BP 145/82
[2018-01-20 16:00] VITALS: BP 160/99
[2018-01-20] MEDS ORDERED: Milk of Magnesia 30ml Ud ORAL PRN (16:45)
[2018-01-20] MEDS ORDERED: Lisinopril 20mg tab ORAL SCH (16:58)
[2018-01-20] MEDS: Docusate 250mg cap ORAL SCH (17:29)
[2018-01-20] MEDS ORDERED: Flonase Nasal Inhaler 16gm NASAL SCH (18:00)
[2018-01-20 20:00] VITALS: BP 152/64
[2018-01-20 20:28] LABS: APPEARANCE,URINE CLEAR; BILIRUBIN, URINE NEGATIVE (NEGATIVE); COLOR,URINE PALE YELLOW; GLUCOSE, URINE (UA) NEGATIVE (NEGATIVE); KETONES,URINE 4+ (NEGATIVE); LEUKOCYTE ESTERASE ,URINE 1+ (NEGATIVE); NITRITE,URINE NEGATIVE (NEGATIVE); PH,URINE 8 (4.5-8.0); PROTEIN,URINE 1+ (NEGATIVE); UROBILINOGEN,URINE NORMAL MG/DL (0.0-1.0)
[2018-01-20] MEDS: oxyCONTIN 10mg tab ORAL SCH (21:17)
--- NOTE | 2018-01-20 21:45 | History and Physical Report ---
DATE OF ADMISSION: 01/20/2018 CHIEF COMPLAINT: Localized back pain, severe pain with spasms with movements. History of thoracolumbar decompressive surgery on January 17. HISTORY OF PRESENT ILLNESS: The patient is a pleasant 67-year-old woman with history of chronic low back pain, cervical and thoracic myelopathy. She was admitted recently for a thoracic decompressive surgery. She had an uneventful posterior cervical lumbar decompressive surgery at T12-L1 with bilateral transpedicular approaches, diskectomy for thoracic myeloradiculopathy. She did very well postoperatively. She was able to ambulate. Her pain was well controlled and she was discharged home. The next day, she had severe pain with spasms, particularly with movement. I spoke to her. She went to the emergency room at [facility]. She was admitted under the care of Dr. Patricio. I was in communication with Dr. Patricio regarding pain management. She was stabilized as far as her pain and then the patient came to [place] ER for further evaluation. She is now being admitted for pain control. She does not report any fevers. She does not report any chills, drainage, or redness at the incision site. She does not report any weakness in her extremities except for spasms which she experiences in the front of the legs with movement. PAST MEDICAL HISTORY: Significant for hypertension which is controlled with medications. She has history of degenerative disk disease in the cervical, thoracic, and lumbar spine. PAST SURGICAL HISTORY: Significant for prior cervical diskectomy and fusion at C2-C3 level. History of lumbar fusion from L4 through S1 level. Recent history of thoracolumbar decompression, diskectomy, and posterolateral arthrodesis. MEDICATIONS: Include vitamin D3, [place], nasal inhaler, Zoloft, and lisinopril. ALLERGIES: Sulfa. REVIEW OF SYSTEMS: She denies fever, chills, or drainage from the incision. She has history of hypertension controlled with medication. She denies shortness of breath or chest pain. She denies swelling in her legs. She denies hemoptysis, hematuria, or hematochezia. She has not had a bowel movement since the surgery. PHYSICAL EXAMINATION: GENERAL: She is pleasant, interactive. Her pain is well controlled while flat in bed. She does experience spasms with movement side to side. BACK: Shows a clean, dry, and intact incision in the thoracolumbar region. There is evidence of subcutaneous fluid collection. Under sterile conditions, about 20 mL of bloody seroma was drained with immediate relief of localized pain. NEUROLOGIC: Motor examination of lower extremity shows good strength in the proximal and distal muscle groups, 5/5. Sensory examination is grossly normal. LABORATORY FINDINGS: White count is 13.1, hemoglobin is 15.2, hematocrit is 44.4%, platelet count 279,000. Serum sodium is 131, potassium is 5.6, BUN is 3, creatinine 0.5, serum glucose is 104, serum calcium is 8.7, serum albumin is 3.1. IMAGING STUDIES: I reviewed the AP, lateral x-rays of the thoracic and lumbar spine personally. Studies were reviewed in Radiology department. There is evidence of thoracic scoliosis which is longstanding. The thoracolumbar junction shows no evidence of gross instability or slippage at the T12-L1 level. There is evidence of prior surgical intervention in the lumbar region from L4 through S1 with hardware intact. IMPRESSION: 1. Status post T12-L1 lumbar decompressive surgery, diskectomy with postoperative pain. 2. Hyponatremia. Sodium 131. 3. Hypoalbuminemia. DISCUSSION AND RECOMMENDATIONS: I reviewed the findings with the patient and in detail at bedside. Internal Medicine, Dr. Caba, has been asked to consult as well. Presently, the patient is on a regimen of pain control with narcotic medications and muscle relaxants. Additionally, the patient is on free water restriction with addition of salt to her diet to correct her hyponatremia. She will be placed on protein supplementation for her low albumin as well. As soon as her pain is better controlled, she will be evaluated and ambulated with help of physical therapy. Venous Doppler studies have also been ordered to rule out deep venous thrombosis. I will follow the patient closely along with Internal Medicine. Aleta Goodson M.D. DR: Keerthi JOB#: [id number] CC:
[2018-01-20] MEDS: Cyclobenzaprine 10mg Tab ORAL PRN (22:19)
[2018-01-21] VITALS: BP 142/77
[2018-01-21] MEDS: Zolpidem 5mg tab ORAL PRN (00:35)
[2018-01-21] MEDS: oxyCONTIN 10mg tab ORAL PRN ×3 (01:35→10:50)
[2018-01-21 04:00] VITALS: BP 173/81
[2018-01-21 05:36] LABS: HEMATOCRIT 44.6 % (37.0-47.0); HEMOGLOBIN 15.1 G/DL (12.0-16.0); MEAN CORPUSCULAR VOLUME 95 FL (80-99); PLATELET COUNT 340 K/UL (150-450); RED BLOOD COUNT 4.67 M/UL (4.20-5.40); RED CELL DISTRIBUTION WIDTH 11.3 % (11.6-14.8); WHITE BLOOD COUNT 13.9 K/UL (4.8-10.8)
[2018-01-21 05:58] LABS: ALANINE AMINOTRANSFERASE 102 U/L (12-78); ALBUMIN 3.3 G/DL (3.4-5.0); ALBUMIN/GLOBULIN RATIO 0.8 (1.0-2.7); ALKALINE PHOSPHATASE 72 U/L (46-116); ANION GAP 8 mmol/L (5-15); ASPARTATE AMINO TRANSFERASE 32 U/L (15-37); BILIRUBIN,TOTAL 0.7 MG/DL (0.2-1.0); BLOOD UREA NITROGEN 8 mg/dL (7-18); CALCIUM 8.3 MG/DL (8.5-10.1); CARBON DIOXIDE 28 MMOL/L (21-32); CHLORIDE 96 MMOL/L (98-107); CREATININE 0.8 MG/DL (0.55-1.30); POTASSIUM 4.1 MMOL/L (3.5-5.1); SODIUM 132 MMOL/L (136-145)
[2018-01-21 08:00] VITALS: BP 176/111
[2018-01-21] MEDS: Docusate 250mg cap ORAL SCH ×2 (08:34→17:31)
[2018-01-21] MEDS: oxyCONTIN 10mg tab ORAL SCH (08:35)
[2018-01-21] MEDS: Vitamin D 1000 IU Tab ORAL SCH (08:36)
[2018-01-21] MEDS ORDERED: Lisinopril 20mg tab ORAL SCH (09:00)
[2018-01-21] MEDS: Cyclobenzaprine 10mg Tab ORAL PRN (09:23)
--- NOTE | 2018-01-21 10:45 | History and Physical Report ---
DATE OF ADMISSION: 01/20/2018 HISTORY OF PRESENT ILLNESS: I was asked to evaluate this patient by Dr. Aleta Goodson. Vital signs also obtained on the patient, temperature of 98.2 degrees, pulse of 74, blood pressure 145/82 to 170/70, respirations 16, and saturating 98% to 99%. REVIEW OF SYSTEMS: Status post thoracolumbar spine surgery few days ago at [facility]. She was subsequently sent home and then had very progressive pain. She was brought into the hospital. She denies any nausea. She denies any vomiting. She has not had any bowel movement since last . She denies double vision, blurred vision. PAST MEDICAL HISTORY: Includes hypertension, on lisinopril. PAST SURGICAL HISTORY: Includes, 1. Foot surgery. 2. Total abdominal hysterectomy. 3. Cervical fusion and recent lumbar fusion. ALLERGIES: Sulfa. SOCIAL HISTORY: She does not abuse alcohol or illicit drugs. PHYSICAL EXAMINATION: GENERAL: The patient is well developed and well nourished female in some distress. HEENT: Normocephalic. No jugular venous distention. CARDIAC: S1 and S2. Regular rate. LUNGS: Clear. ABDOMEN: Soft. EXTREMITIES: No clubbing, cyanosis or edema. IMPRESSION AND PLAN: 1. Postoperative 01:31, status post thoracolumbar surgery with postoperative pain. Monitor patient closely. She is noted to have a postoperative white count of 13.2. 2. Chest x-ray will be ordered on the patient. 3. Venous Doppler to be ordered to make sure if she has DVT. 4. Urinalysis. Urine culture will be ordered on the patient. 5. The patient has a preoperative 01:56, it was capped. We will monitor and check culture results when they are available. 6. Hyperkalemia with history of lisinopril on board. Discontinue lisinopril. We will put her on Norvasc for blood pressure and p.r.n. clonidine. We will monitor the patient closely. 7. Hyponatremia. She is getting IV normal saline. We will monitor her sodium. 8. Avoid taking too much fluid. Consideration of putting the patient on fluid restriction. 9. Case was discussed with the patient at length. Hilario Mark Caba DR: VINCE JOB#: [id number] CC:
--- NOTE | 2018-01-21 10:48 | General Progress Note ---
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 stress leukiocytosis post op comnsider starting her on antibiotic for pyuria Subjective Date patient seen: Jan 21, 2018 Time patient seen: 10:44 Constitutional: Reports: no symptoms HEENT: Reports: no symptoms Cardiovascular: Reports: no symptoms Allergies: Coded Allergies: SULFA (SULFONAMIDE ANTIBIOTICS) (Verified Allergy, Severe, 09/06/17) hives hives and itching Subjective has been having a lot of pain no fever no chills no ches tpain has been haivng pain no nausea noted to have wbc of 13.9 has positive leukocyte estrace on the urine no fever urine culture not seen chest xray not done the aspiraiton results are pending Objective Last 24 Hour Vital Signs Date Time Temp Pulse Resp B/P (MAP) Pulse Ox O2 Delivery O2 Flow Rate FiO2 01/21/18 09:00 Room Air 01/21/18 08:36 87 149/87 01/21/18 08:00 99.5 90 16 176/111 (132) 95 99.5 01/21/18 07:43 176/111 01/21/18 04:00 98.1 96 18 173/81 (111) 93 98.1 01/21/18 00:00 98.1 84 18 142/77 (98) 93 98.1 01/20/18 21:00 Room Air 01/20/18 20:00 98.6 81 18 152/64 (93) 95 98.6 01/20/18 19:00 74 154/70 01/20/18 17:30 170/70 01/20/18 16:16 98.0 74 20 145/82 99 Room Air 208.8 01/20/18 16:00 Room Air 01/20/18 16:00 98.2 93 18 160/99 (119) 95 98.2 01/20/18 15:58 208.8 74 20 145/82 99 Room Air 208.8 01/20/18 15:58 Room Air 01/20/18 15:13 98.2 01/20/18 15:00 Room Air 8/26/18 14:30 98.2 86 205/111 98 Room Air 98.2 01/20/18 14:07 98.2 86 205/111 98 Room Air 98.2 Intake and Output 01/20/18 01/21/18 19:00 07:00 Intake Total 150 ml 780 ml Output Total 0 ml Balance 150 ml 780 ml Intake Oral 120 ml 480 ml IV Total 30 ml 300 ml Output Urine Total 0 ml # Voids 2 Laboratory Tests 01/20/18 14:52: White Blood Count 13.1H, Red Blood Count 4.61, Hemoglobin 15.2, Hematocrit 44.4 , Mean Corpuscular Volume 96, Mean Corpuscular Hemoglobin 33.0H, Mean Corpuscular Hemoglobin Concent 34.3, Red Cell Distribution Width 11.7, Platelet Count 279, Mean Platelet Volume 7.1, Neutrophils (%) (Auto) 85.5H, Lymphocytes ( %) (Auto) 5.5L, Monocytes (%) (Auto) 7.5, Eosinophils (%) (Auto) 0.5, Basophils (%) (Auto) 1.0, Sodium Level 131L, Potassium Level 5.6H, Chloride Level 97L, Carbon Dioxide Level 25, Anion Gap 9, Blood Urea Nitrogen 3L, Creatinine 0.5L, Estimat Glomerular Filtration Rate > 60, Glucose Level 104, Calcium Level 8.7, Total Bilirubin 0.9, Aspartate Amino Transf (AST/SGOT) 74H, Alanine Aminotransferase (ALT/SGPT) 27, Alkaline Phosphatase 68, Total Protein 7.5, Albumin 3.1L, Globulin 4.4, Albumin/Globulin Ratio 0.7L 01/20/18 20:16: Urine Color Pale yellow, Urine Appearance Clear, Urine pH 8, Urine Specific [place] 1.010, Urine Protein 1+H, Urine Glucose (UA) Negative, Urine Ketones 4+H , Urine Blood 1+H, Urine Nitrite Negative, Urine Bilirubin Negative, Urine Urobilinogen Normal, Urine Leukocyte Esterase 1+H, Urine RBC 2-4H, Urine WBC 2-4 , Urine Squamous Epithelial Cells Few, Urine Bacteria None 01/21/18 04:50: White Blood Count 13.9H, Red Blood Count 4.67, Hemoglobin 15.1, Hematocrit 44.6 , Mean Corpuscular Volume 95, Mean Corpuscular Hemoglobin 32.4H, Mean Corpuscular Hemoglobin Concent 33.9, Red Cell Distribution Width 11.3L, Platelet Count 340, Mean Platelet Volume 7.4, Neutrophils (%) (Auto) , Lymphocytes (%) (Auto) , Monocytes (%) (Auto) , Eosinophils (%) (Auto) , Basophils (%) (Auto) , Sodium Level 132L, Potassium Level 4.1, Chloride Level 96L, Carbon Dioxide Level 28, Anion Gap 8, Blood Urea Nitrogen 8, Creatinine 0.8 #, Estimat Glomerular Filtration Rate > 60, Glucose Level 137H, Calcium Level 8.3L, Total Bilirubin 0.7, Aspartate Amino Transf (AST/SGOT) 32, Alanine Aminotransferase (ALT/SGPT) 102H, Alkaline Phosphatase 72, Total Protein 7.7, Albumin 3.3L, Globulin 4.4, Albumin/Globulin Ratio 0.8L, Differential Total Cells Counted 100, Neutrophils % (Manual) 89H, Lymphocytes % (Manual) 7L, Monocytes % (Manual) 4, Eosinophils % (Manual) 0, Basophils % (Manual) 0, Band Neutrophils 0, Platelet Estimate Adequate, Platelet Morphology Normal, Red Blood Cell Morphology Normal, Cortisol [Pending] Height (Feet): 5 Height (Inches): 4.00 Weight (Pounds): 123 General Appearance: WD/WN Neck: normal alignment Cardiovascular: normal rate, regular rhythm, no JVD Respiratory/Chest: lungs clear Abdomen: soft Extremities: other - no edemqa Hilario Caba MD Jan 21, 2018 10:48
--- NOTE | 2018-01-21 11:09 | Diagnostic Imaging Report ---
Indication: Chest pain Comparison: None A single view chest radiograph was obtained. Findings: Cardiomediastinal appearance is within normal limits for age. Aorta is mildly ectatic. Pulmonary vascularity is appropriate. The diaphragmatic contour is smooth and costophrenic angles are sharp. No pleural effusions are identified. The bones are mildly osteopenic. Impression: No acute cardiopulmonary findings
--- NOTE | 2018-01-21 11:12 | Diagnostic Imaging Report ---
Indication: Back pain Comparison: None Findings: 3 views of the lumbar spine were obtained. Relatively recent lumbar surgery was performed, 01/17/2018. The current study demonstrates 3 level fusion with pedicle screws fusion rods L4, L5 and S1. Disc replacement at L4-5 noted. Probable laminotomy at L4 noted. Moderate osteopenia is present. Multilevel degenerative disc disease with vacuum phenomena and endplate osteophyte formation demonstrated within the lumbar spine and the visualized part of the lower thoracic spine. Hardware alignment and position appear unremarkable on the basis of the limited plain film evaluation. IMPRESSION: Status post L4-S1 fusion. Multilevel degenerative disease involving the intervertebral discs as described above.
--- NOTE | 2018-01-21 11:14 | Diagnostic Imaging Report ---
Indication: Back pain Comparison: None Findings: 2 views of the thoracic spine were obtained. Moderate to severe degenerative disc disease demonstrated with vacuum phenomena and narrowing, accompanying endplate osteophyte formation multiple levels throughout the thoracic and visualized upper lumbar spine. The bones are osteopenic. There is a mild scoliosis slightly convex to the right at about the mid thoracic spine level. Hypertrophic facets noted at multiple levels. IMPRESSION: Degenerative spondylosis as described above
[2018-01-21] MEDS ORDERED: Fleet's Enema 133ml RECTAL PRN (12:30)
[2018-01-21] MEDS: oxyCONTIN 20mg tab ORAL SCH ×2 (13:31→21:44)
[2018-01-21 13:35] VITALS: BP 180/110
[2018-01-21] MEDS ORDERED: HydrALAZINE 25mg tab ORAL SCH (15:30)
[2018-01-21 16:00] VITALS: BP 134/96
[2018-01-21] MEDS ORDERED: oxyCONTIN 10mg tab ORAL PRN (17:45)
--- NOTE | 2018-01-21 19:07 | General Progress Note ---
Progress Note Progress Note Neurosurgery S/ Incisional pain requiring IV pain medications. Lower extremity spasms better controlled. Ambulated to bathroom. Had a bowel movement. Tolerating po 's supplemented with hi protein drinks. O/ vs. Last 24 Hour Vital Signs Date Time Temp Pulse Resp B/P (MAP) Pulse Ox O2 Delivery O2 Flow Rate FiO2 01/21/18 17:31 97 126/89 01/21/18 16:00 97.7 95 19 134/96 (109) 95 97.7 01/21/18 15:36 177/100 01/21/18 14:00 180/110 01/21/18 13:35 98.5 93 18 180/110 (133) 98 98.5 01/21/18 09:00 Room Air 01/21/18 08:36 87 149/87 01/21/18 08:00 99.5 90 16 176/111 (132) 95 99.5 01/21/18 07:43 176/111 01/21/18 04:00 98.1 96 18 173/81 (111) 93 98.1 01/21/18 00:00 98.1 84 18 142/77 (98) 93 98.1 01/20/18 21:00 Room Air 01/20/18 20:00 98.6 81 18 152/64 (93) 95 98.6 Alert and oriented. Pleasant and smiling Incision is dry. Fluctuance present. 15 cc of serosanguinous fluid tapped under sterile conditions. Specimen sent for cell count and microbiology. Patient tolerated the tap very well. On neuro exam of extremities, pt has 5/5 strength in th eupper and lower extremities, in the distal and proximal muscle groups. Labs: Laboratory Tests Test 01/20/18 20:16 01/21/18 04:50 Urine Color Pale yellow Urine Appearance Clear Urine pH 8 (4.5-8.0) Urine Specific [place] 1.010 (1.005-1.035) Urine Protein 1+ (NEGATIVE) H Urine Glucose (UA) Negative (NEGATIVE) Urine Ketones 4+ (NEGATIVE) H Urine Blood 1+ (NEGATIVE) H Urine Nitrite Negative (NEGATIVE) Urine Bilirubin Negative (NEGATIVE) Urine Urobilinogen Normal MG/DL (0.0-1.0) Urine Leukocyte Esterase 1+ (NEGATIVE) H Urine RBC 2-4 /HPF (0 - 2) H Urine WBC 2-4 /HPF (0 - 2) Urine Squamous Epithelial Cells Few /LPF (NONE/OCC) Urine Bacteria None /HPF (NONE) White Blood Count 13.9 K/UL (4.8-10.8) H Red Blood Count 4.67 M/UL (4.20-5.40) Hemoglobin 15.1 G/DL (12.0-16.0) Hematocrit 44.6 % (37.0-47.0) Mean Corpuscular Volume 95 FL (80-99) Mean Corpuscular Hemoglobin 32.4 PG (27.0-31.0) H Mean Corpuscular Hemoglobin Concent 33.9 G/DL (32.0-36.0) Red Cell Distribution Width 11.3 % (11.6-14.8) L Platelet Count 340 K/UL (150-450) Mean Platelet Volume 7.4 FL (6.5-10.1) Neutrophils (%) (Auto) % (45.0-75.0) Lymphocytes (%) (Auto) % (20.0-45.0) Monocytes (%) (Auto) % (1.0-10.0) Eosinophils (%) (Auto) % (0.0-3.0) Basophils (%) (Auto) % (0.0-2.0) Differential Total Cells Counted 100 Neutrophils % (Manual) 89 % (45-75) H Lymphocytes % (Manual) 7 % (20-45) L Monocytes % (Manual) 4 % (1-10) Eosinophils % (Manual) 0 % (0-3) Basophils % (Manual) 0 % (0-2) Band Neutrophils 0 % (0-8) Platelet Estimate Adequate Platelet Morphology Normal Red Blood Cell Morphology Normal Sodium Level 132 MMOL/L (136-145) L Potassium Level 4.1 MMOL/L (3.5-5.1) Chloride Level 96 MMOL/L (98-107) L Carbon Dioxide Level 28 MMOL/L (21-32) Anion Gap 8 mmol/L (5-15) Blood Urea Nitrogen 8 mg/dL (7-18) Creatinine 0.8 MG/DL (0.55-1.30) # Estimat Glomerular Filtration Rate > 60 mL/min (>60) Glucose Level 137 MG/DL (74-106) H Calcium Level 8.3 MG/DL (8.5-10.1) L Total Bilirubin 0.7 MG/DL (0.2-1.0) Aspartate Amino Transf (AST/SGOT) 32 U/L (15-37) Alanine Aminotransferase (ALT/SGPT) 102 U/L (12-78) H Alkaline Phosphatase 72 U/L (46-116) Total Protein 7.7 G/DL (6.4-8.2) Albumin 3.3 G/DL (3.4-5.0) L Globulin 4.4 g/dL Albumin/Globulin Ratio 0.8 (1.0-2.7) L Cortisol 27.8 UG/DL Post-op pain UTI-on IV Levaquin PT/OT optimize protein intake Electrolytes improving. Increase salt intake d/c planning Aleta Goodson MD Jan 21, 2018 19:07
[2018-01-21 20:00] VITALS: BP 128/84
[2018-01-21] MEDS: HydrALAZINE 25mg tab ORAL SCH (21:38)
[2018-01-22] VITALS: BP 135/78
[2018-01-22] MEDS: Cyclobenzaprine 10mg Tab ORAL PRN ×2 (02:12→11:59)
[2018-01-22 04:00] VITALS: BP 160/87
[2018-01-22] MEDS: HydrALAZINE 25mg tab ORAL SCH ×3 (05:13→21:17)
[2018-01-22] MEDS: oxyCONTIN 20mg tab ORAL SCH ×3 (05:14→21:17)
[2018-01-22 08:00] VITALS: BP 159/91
[2018-01-22] MEDS: Vitamin D 1000 IU Tab ORAL SCH (08:26)
[2018-01-22] MEDS: Hydromorphone 0.5mg/0.5ml inj IVP PRN ×2 (08:26→13:23)
[2018-01-22] MEDS: Docusate 250mg cap ORAL SCH ×2 (08:27→17:53)
[2018-01-22 12:00] VITALS: BP 163/87
[2018-01-22 16:00] VITALS: BP 163/97
[2018-01-22] MEDS ORDERED: Dexamethasone 4mg/ml vial IM SCH (19:20)
--- NOTE | 2018-01-22 19:23 | General Progress Note ---
Progress Note Progress Note Neurosurgery S/ Ambulated in the layne. No incisional pain. Complains of spasms affecting the groins and anterior thighs, right > left. Had confusion this evening. Now clear after stopping pain medications. Complains of white discharge introitus/ vaginal O/ vs. Last 24 Hour Vital Signs Date Time Temp Pulse Resp B/P (MAP) Pulse Ox O2 Delivery O2 Flow Rate FiO2 01/22/18 17:53 98 163/97 01/22/18 16:00 98.5 98 22 163/97 (119) 97 98.5 01/22/18 15:21 171/99 01/22/18 14:00 171/99 01/22/18 13:23 97.7 01/22/18 12:00 98.3 60 22 163/87 (112) 95 98.3 01/22/18 09:00 Room Air 01/22/18 08:32 92 159/91 01/22/18 08:00 97.7 92 18 159/91 (113) 97 97.7 01/22/18 05:13 160/84 01/22/18 04:00 98.3 84 17 160/87 (111) 96 98.3 01/22/18 00:00 99.5 92 19 135/78 (97) 96 99.5 01/21/18 21:38 128/84 01/21/18 21:00 Room Air 01/21/18 20:00 99.0 96 19 128/84 (99) 96 99.0 Alert and oriented x4. Interactive at bedside Incision is dry and intact. No fluctuance Lower extremity strength is 5/5 in the proximal and distal muscle groups. Normal sensation Labs: Microbiology Date/Time Source Procedure Growth Status 01/21/18 19:09 Drainage Fluid Gram Stain - Final Resulted 01/21/18 19:09 Drainage Fluid Body Fluid Culture - Preliminary NO GROWTH Resulted 01/21/18 19:09 Wound Gram Stain - Final Resulted 01/21/18 19:09 Wound Wound Culture - Preliminary NO GROWTH Resulted 01/20/18 15:42 Nasal Nares MRSA Culture - Final NO METHICILLIN RESISTANT STAPH AUREUS... Complete 01/21/18 11:30 Urine,Clean Catch Urine Culture - Preliminary Resulted 01/20/18 15:42 Rectum VRE Culture - Final NO VANCOMYCIN RESISTANT ENTEROCOCCUS ... Complete 8/26/18 15:42 Rectum - Final NO CARBAPENEM-RESISTANT ENTEROBACTERI... Complete Lower extremity post-op spasms will change pain meds to IV Tylenol for less TIME CHECKER side effects Diflucan vaginal suppository Decadron for post-op radiculitis CT of T10 to L4 Continue with PT encourage PO intake. IV MgSO4 for spasms will likely need SNIF Care plan d/w nursing, pt and her Aleta Goodson MD Jan 22, 2018 19:23
--- NOTE | 2018-01-22 19:50 | General Progress Note ---
Assessment/Plan Assessment/Plan popstop pain hyponatremia stres leukocytosis pyuria await culture resuklt plan dc dilaudid tommorow decrease rthe oxycontin and likley to send to snf Subjective Date patient seen: Jan 22, 2018 Time patient seen: 19:49 Constitutional: Reports: no symptoms HEENT: Reports: no symptoms Cardiovascular: Reports: no symptoms Respiratory: Reports: no symptoms Allergies: Coded Allergies: SULFA (SULFONAMIDE ANTIBIOTICS) (Verified Allergy, Severe, 09/06/17) hives hives and itching Subjective was altered inthe middle of night andnow better no ches tpain no headache no diplopia Objective Last 24 Hour Vital Signs Date Time Temp Pulse Resp B/P (MAP) Pulse Ox O2 Delivery O2 Flow Rate FiO2 01/22/18 17:53 98 163/97 01/22/18 16:00 98.5 98 22 163/97 (119) 97 98.5 01/22/18 15:21 171/99 01/22/18 14:00 171/99 01/22/18 13:23 97.7 01/22/18 12:00 98.3 60 22 163/87 (112) 95 98.3 01/22/18 09:00 Room Air 01/22/18 08:32 92 159/91 01/22/18 08:00 97.7 92 18 159/91 (113) 97 97.7 01/22/18 05:13 160/84 01/22/18 04:00 98.3 84 17 160/87 (111) 96 98.3 01/22/18 00:00 99.5 92 19 135/78 (97) 96 99.5 01/21/18 21:38 128/84 01/21/18 21:00 Room Air 01/21/18 20:00 99.0 96 19 128/84 (99) 96 99.0 Intake and Output 01/21/18 01/22/18 19:00 07:00 Intake Total 360 ml 90 ml Balance 360 ml 90 ml Intake Oral 240 ml IV Total 120 ml 90 ml # Voids 1 2 Height (Feet): 5 Height (Inches): 4.00 Weight (Pounds): 123 General Appearance: WD/WN Neck: supple Cardiovascular: no JVD Respiratory/Chest: lungs clear Hilario Caba MD Jan 22, 2018 19:50
[2018-01-22 20:00] VITALS: BP 150/80
[2018-01-22] MEDS ORDERED: Acetaminophen (Non formulary) 100 ML IV ONE (20:00)
[2018-01-22 20:15] LABS: EOSINOPHILS % (AUTO) 0.4 % (0.0-3.0); HEMATOCRIT 40.8 % (37.0-47.0); HEMOGLOBIN 14.4 G/DL (12.0-16.0); MEAN CORPUSCULAR VOLUME 95 FL (80-99); MONOCYTES % (AUTO) 10.7 % (1.0-10.0); NEUTROPHILS % (AUTO) 79.9 % (45.0-75.0); PLATELET COUNT 345 K/UL (150-450); RED BLOOD COUNT 4.29 M/UL (4.20-5.40); RED CELL DISTRIBUTION WIDTH 11.3 % (11.6-14.8); WHITE BLOOD COUNT 13.6 K/UL (4.8-10.8)
[2018-01-22 21:28] LABS: ALANINE AMINOTRANSFERASE 28 U/L (12-78); ALBUMIN 2.9 G/DL (3.4-5.0); ALBUMIN/GLOBULIN RATIO 0.7 (1.0-2.7); ALKALINE PHOSPHATASE 64 U/L (46-116); ANION GAP 9 mmol/L (5-15); ASPARTATE AMINO TRANSFERASE 34 U/L (15-37); BILIRUBIN,TOTAL 0.8 MG/DL (0.2-1.0); BLOOD UREA NITROGEN 15 mg/dL (7-18); CALCIUM 8.3 MG/DL (8.5-10.1); CARBON DIOXIDE 28 MMOL/L (21-32); CHLORIDE 94 MMOL/L (98-107); CREATININE 0.8 MG/DL (0.55-1.30); POTASSIUM 3.6 MMOL/L (3.5-5.1); SODIUM 131 MMOL/L (136-145)
[2018-01-22] MEDS: Zolpidem 5mg tab ORAL PRN (21:57)
[2018-01-23] VITALS: BP 142/87
[2018-01-23 04:00] VITALS: BP 137/82
[2018-01-23] MEDS: HydrALAZINE 25mg tab ORAL SCH ×3 (05:48→21:50)
[2018-01-23] MEDS: oxyCONTIN 10mg tab ORAL SCH ×2 (05:48→13:11)
[2018-01-23] MEDS ORDERED: LORazepam 1mg tab ORAL SCH (08:06)
[2018-01-23] MEDS: Docusate 250mg cap ORAL SCH (08:17)
[2018-01-23] MEDS: Magnesium Sulfate 1gm/100ml IVPB SCH ×2 (08:18→10:22)
[2018-01-23] MEDS: Vitamin D 1000 IU Tab ORAL SCH (08:18)
[2018-01-23 08:43] VITALS: BP 179/111
--- NOTE | 2018-01-23 09:11 | General Progress Note ---
Progress Note Progress Note Neurosurgery S/ Lower extremity spasms Improved and patient ambulated several times. However, she had hallucination after Decadron. She has improved after Ativan and stopping Decadron O/ vs. Last 24 Hour Vital Signs Date Time Temp Pulse Resp B/P (MAP) Pulse Ox O2 Delivery O2 Flow Rate FiO2 01/23/18 08:43 98.0 74 19 179/111 (133) 96 98.0 01/23/18 08:18 74 174/111 01/23/18 05:48 137/82 01/23/18 04:00 98.6 104 20 137/82 (100) 100 98.6 01/23/18 00:00 98.0 102 20 142/87 (105) 97 98.0 01/22/18 21:17 150/80 01/22/18 21:00 Room Air 01/22/18 20:00 99.2 100 20 150/80 (103) 98 99.2 01/22/18 17:53 98 163/97 01/22/18 16:00 98.5 98 22 163/97 (119) 97 98.5 01/22/18 15:21 171/99 01/22/18 14:00 171/99 01/22/18 13:23 97.7 01/22/18 12:00 98.3 60 22 163/87 (112) 95 98.3 On exam, She is alert and oriented. Cooperative. pt's at bedside. Incision is dry and intact upper and lower extremities are strong proximal and distal muscle groups, 5/5 sensory exam normal to light touch Laboratory Tests Test 01/22/18 19:55 White Blood Count 13.6 K/UL (4.8-10.8) H Red Blood Count 4.29 M/UL (4.20-5.40) Hemoglobin 14.4 G/DL (12.0-16.0) Hematocrit 40.8 % (37.0-47.0) Mean Corpuscular Volume 95 FL (80-99) Mean Corpuscular Hemoglobin 33.7 PG (27.0-31.0) H Mean Corpuscular Hemoglobin Concent 35.4 G/DL (32.0-36.0) Red Cell Distribution Width 11.3 % (11.6-14.8) L Platelet Count 345 K/UL (150-450) Mean Platelet Volume 7.2 FL (6.5-10.1) Neutrophils (%) (Auto) 79.9 % (45.0-75.0) H Lymphocytes (%) (Auto) 8.0 % (20.0-45.0) L Monocytes (%) (Auto) 10.7 % (1.0-10.0) H Eosinophils (%) (Auto) 0.4 % (0.0-3.0) Basophils (%) (Auto) 1.0 % (0.0-2.0) Sodium Level 131 MMOL/L (136-145) L Potassium Level 3.6 MMOL/L (3.5-5.1) Chloride Level 94 MMOL/L (98-107) L Carbon Dioxide Level 28 MMOL/L (21-32) Anion Gap 9 mmol/L (5-15) Blood Urea Nitrogen 15 mg/dL (7-18) Creatinine 0.8 MG/DL (0.55-1.30) Estimat Glomerular Filtration Rate > 60 mL/min (>60) Glucose Level 163 MG/DL (74-106) H Calcium Level 8.3 MG/DL (8.5-10.1) L Total Bilirubin 0.8 MG/DL (0.2-1.0) Aspartate Amino Transf (AST/SGOT) 34 U/L (15-37) Alanine Aminotransferase (ALT/SGPT) 28 U/L (12-78) Alkaline Phosphatase 64 U/L (46-116) Total Protein 6.9 G/DL (6.4-8.2) Albumin 2.9 G/DL (3.4-5.0) L Globulin 4.0 g/dL Albumin/Globulin Ratio 0.7 (1.0-2.7) L Thyroid Stimulating Hormone (TSH) 0.690 uiU/mL (0.358-3.740) Microbiology Date/Time Source Procedure Growth Status 01/21/18 11:45 Blood Blood Culture - Preliminary NO GROWTH AFTER 24 HOURS Resulted 01/21/18 11:35 Blood Blood Culture - Preliminary NO GROWTH AFTER 24 HOURS Resulted 01/21/18 19:09 Drainage Fluid Gram Stain - Final Resulted 01/21/18 19:09 Drainage Fluid Body Fluid Culture - Preliminary NO GROWTH Resulted 01/21/18 19:09 Wound Gram Stain - Final Resulted 8/27/18 19:09 Wound Wound Culture - Preliminary NO GROWTH Resulted 01/20/18 15:42 Nasal Nares MRSA Culture - Final NO METHICILLIN RESISTANT STAPH AUREUS... Complete 01/21/18 11:30 Urine,Clean Catch Urine Culture - Final Mixed Urogenital Contaminants Complete 01/20/18 15:42 Rectum VRE Culture - Final NO VANCOMYCIN RESISTANT ENTEROCOCCUS ... Complete 01/20/18 15:42 Rectum - Final NO CARBAPENEM-RESISTANT ENTEROBACTERI... Complete Pain control...IV tylenol will minimize narcotics due to confusion Decadron stopped due to hallucination Hyponatremia - on NS. oral electrolyte enhanced fluids PT/OT when pt more cooperative history of EtOH intake - will start Diazepam 5 mg Q6 po Microbiology - no growth leukocytosis - post-op Nutrition - on oral protein supplementation CT thoracolumbar ordered will await until pt able to tolerate the test Aleta Goodson MD Jan 23, 2018 09:11
[2018-01-23 09:33] LABS: HEMATOCRIT 46.1 % (37.0-47.0); HEMOGLOBIN 15.1 G/DL (12.0-16.0); MEAN CORPUSCULAR VOLUME 93 FL (80-99); PLATELET COUNT 383 K/UL (150-450); RED BLOOD COUNT 4.95 M/UL (4.20-5.40); WHITE BLOOD COUNT 14.1 K/UL (4.8-10.8)
[2018-01-23 09:48] LABS: ANION GAP 7 mmol/L (5-15); BLOOD UREA NITROGEN 17 mg/dL (7-18); CALCIUM 9.7 MG/DL (8.5-10.1); CARBON DIOXIDE 29 MMOL/L (21-32); CHLORIDE 97 MMOL/L (98-107); CREATININE 0.9 MG/DL (0.55-1.30); POTASSIUM 3.7 MMOL/L (3.5-5.1); SODIUM 133 MMOL/L (136-145)
[2018-01-23] MEDS ORDERED: NS w/KCl 20mEq 1,000 ML IV SCH ×2 (10:00→16:57)
[2018-01-23] MEDS ORDERED: Acetaminophen (Non formulary) 100 ML IV SCH (10:00)
[2018-01-23 12:00] VITALS: BP 142/75
[2018-01-23] MEDS ORDERED: Folic Acid 1 MG, Magnesium Sulfate 2,000 MG, Multivitamin - 12 Injection 10 ML in NS 10... IV SCH (12:00)
[2018-01-23] MEDS ORDERED: Thiamine HCl 100 MG in D5W 110 ML IVPB SCH (12:00)
[2018-01-23] MEDS ORDERED: Sodium Chloride 500ML 500 ML IV SCH (15:11)
--- NOTE | 2018-01-23 15:16 | Consultation ---
History of Present Illness General Date patient seen: Jan 23, 2018 Chief Complaint: Pain Present Illness HPI 67-year-old woman with history of chronic low back pain, cervical and thoracic myelopathy and thoracic decompressive surgery. The pt is severely agitated, coming out of bed, hallucinating however is able to answer the questions appropriately. The pt was able to understand, process, appreciate and was able to communicate appropriately. The pt stated that she would take the medications that I would recommend. the pt is able to make decisions. Allergies: Coded Allergies: SULFA (SULFONAMIDE ANTIBIOTICS) (Verified Allergy, Severe, 09/06/17) hives hives and itching Medication History Scheduled Ascorbic Acid* (Vitamin C*), 500 MG ORAL DAILY, (Reported) Azelastine Hcl (Azelastine Hcl), 137 MCG NS BID, (Reported) Cholecalciferol (Vitamin D3)* (Vitamin D*), 1,000 UNIT ORAL DAILY, (Reported) Fluoxetine Hcl* (Fluoxetine Hcl*), 40 MG ORAL DAILY, (Reported) Lisinopril* (Lisinopril*), 40 MG ORAL DAILY, (Reported) Multivitamin (Multivitamins), 1 EACH PO DAILY, (Reported) Scheduled PRN Hydrocodone Bit/Acetaminophen 10-325* ([place] 10-325*), 1 TAB ORAL Q6H PRN for For Pain, (Reported) Discontinued Medications Amlodipine Besylate/Benazepril 5-40 Mg (Amlodipine-Benazepril 5-40 Mg), 1 CAP ORAL DAILY, (Reported) Discontinued Reason: MD discontinued med Ciprofloxacin* (Cipro*), 500 MG PO BID, (Reported) Discontinued Reason: Therapy completed Patient History Limited by: medical condition History Provided By: Patient, Medical Record, PMD Healthcare decision maker Resuscitation status Chemical (Meds Only) Advanced Directive on File Past Medical/Surgical History Past Medical/Surgical History: (1) Pain (2) S/P cervical spinal fusion (3) S/P fusion of thoracic spine Review of Systems Psychiatric: Reports: prior hx, anxiety, depressed feelings, emotional problems Physical Exam General Appearance: no apparent distress, alert, agitated Neurologic: oriented x 3, responsive Last 24 Hour Vital Signs Date Time Temp Pulse Resp B/P (MAP) Pulse Ox O2 Delivery O2 Flow Rate FiO2 01/23/18 13:36 130/77 01/23/18 12:00 98.0 113 21 142/75 (97) 96 98.0 01/23/18 11:47 98.0 01/23/18 10:48 98.0 01/23/18 09:00 Room Air 01/23/18 08:43 98.0 74 19 179/111 (133) 96 98.0 01/23/18 08:18 74 174/111 01/23/18 05:48 137/82 01/23/18 04:00 98.6 104 20 137/82 (100) 100 98.6 01/23/18 00:00 98.0 102 20 142/87 (105) 97 98.0 01/22/18 21:17 150/80 01/22/18 21:00 Room Air 01/22/18 20:00 99.2 100 20 150/80 (103) 98 99.2 01/22/18 17:53 98 163/97 01/22/18 16:00 98.5 98 22 163/97 (119) 97 98.5 01/22/18 15:21 171/99 Intake and Output 01/22/18 01/23/18 19:00 07:00 Intake Total 610 ml 300 ml Balance 610 ml 300 ml Intake Oral 480 ml IV Total 130 ml 300 ml # Voids 3 6 # Bowel Movements 1 Laboratory Tests Test 01/22/18 19:55 01/23/18 09:15 White Blood Count 13.6 K/UL (4.8-10.8) H 14.1 K/UL (4.8-10.8) H Red Blood Count 4.29 M/UL (4.20-5.40) 4.95 M/UL (4.20-5.40) Hemoglobin 14.4 G/DL (12.0-16.0) 15.1 G/DL (12.0-16.0) Hematocrit 40.8 % (37.0-47.0) 46.1 % (37.0-47.0) Mean Corpuscular Volume 95 FL (80-99) 93 FL (80-99) Mean Corpuscular Hemoglobin 33.7 PG (27.0-31.0) H 30.5 PG (27.0-31.0) Mean Corpuscular Hemoglobin Concent 35.4 G/DL (32.0-36.0) 32.8 G/DL (32.0-36.0) Red Cell Distribution Width 11.3 % (11.6-14.8) L 11.0 % (11.6-14.8) L Platelet Count 345 K/UL (150-450) 383 K/UL (150-450) Mean Platelet Volume 7.2 FL (6.5-10.1) 7.0 FL (6.5-10.1) Neutrophils (%) (Auto) 79.9 % (45.0-75.0) H % (45.0-75.0) Lymphocytes (%) (Auto) 8.0 % (20.0-45.0) L % (20.0-45.0) Monocytes (%) (Auto) 10.7 % (1.0-10.0) H % (1.0-10.0) Eosinophils (%) (Auto) 0.4 % (0.0-3.0) % (0.0-3.0) Basophils (%) (Auto) 1.0 % (0.0-2.0) % (0.0-2.0) Sodium Level 131 MMOL/L (136-145) L 133 MMOL/L (136-145) L Potassium Level 3.6 MMOL/L (3.5-5.1) 3.7 MMOL/L (3.5-5.1) Chloride Level 94 MMOL/L (98-107) L 97 MMOL/L (98-107) L Carbon Dioxide Level 28 MMOL/L (21-32) 29 MMOL/L (21-32) Anion Gap 9 mmol/L (5-15) 7 mmol/L (5-15) Blood Urea Nitrogen 15 mg/dL (7-18) 17 mg/dL (7-18) Creatinine 0.8 MG/DL (0.55-1.30) 0.9 MG/DL (0.55-1.30) Estimat Glomerular Filtration Rate > 60 mL/min (>60) > 60 mL/min (>60) Glucose Level 163 MG/DL (74-106) H 215 MG/DL (74-106) H Calcium Level 8.3 MG/DL (8.5-10.1) L 9.7 MG/DL (8.5-10.1) Total Bilirubin 0.8 MG/DL (0.2-1.0) Aspartate Amino Transf (AST/SGOT) 34 U/L (15-37) Alanine Aminotransferase (ALT/SGPT) 28 U/L (12-78) Alkaline Phosphatase 64 U/L (46-116) Total Protein 6.9 G/DL (6.4-8.2) Albumin 2.9 G/DL (3.4-5.0) L Globulin 4.0 g/dL Albumin/Globulin Ratio 0.7 (1.0-2.7) L Thyroid Stimulating Hormone (TSH) 0.690 uiU/mL (0.358-3.740) Differential Total Cells Counted 100 Neutrophils % (Manual) 90 % (45-75) H Lymphocytes % (Manual) 3 % (20-45) L Monocytes % (Manual) 7 % (1-10) Eosinophils % (Manual) 0 % (0-3) Basophils % (Manual) 0 % (0-2) Band Neutrophils 0 % (0-8) Platelet Estimate Adequate Platelet Morphology Normal Red Blood Cell Morphology Normal Magnesium Level 2.6 MG/DL (1.8-2.4) H Height (Feet): 5 Height (Inches): 4.00 Weight (Pounds): 125 Medications Current Medications Medications (Trade) Dose Ordered Sig/Terrell Route PRN Reason Start Time Stop Time Status Last Admin Dose Admin Acetaminophen 100 ml @ 400 mls/hr DAILY IV 01/23/18 10:00 01/25/18 09:14 01/23/18 10:48 Amlodipine Besylate (Norvasc) 5 mg BID ORAL 01/23/18 09:00 02/22/18 08:59 01/23/18 08:18 Clonidine HCl (Catapres Tab) 0.1 mg Q6H PRN ORAL For High Blood Pressure 01/20/18 17:02 02/19/18 17:01 01/22/18 15:21 Cyclobenzaprine HCl (Flexeril) 10 mg Q8H PRN ORAL Muscle Spasm 01/20/18 17:00 02/19/18 16:59 01/22/18 11:59 Diazepam (Valium) 10 mg EVERY 4 HOURS ORAL 01/23/18 17:00 01/30/18 16:59 Docusate Sodium (Colace) 250 mg BID ORAL 01/20/18 18:00 02/19/18 17:59 01/23/18 08:17 Folic Acid 1 mg/ Magnesium Sulfate 2000 mg/ Multivitamins 10 ml/Sodium Chloride 1,014.2 ml @ 50 mls/hr Q24H IV 01/23/18 12:00 02/22/18 11:59 01/23/18 12:00 Gabapentin (Neurontin) 300 mg TID ORAL 01/20/18 18:00 02/19/18 17:59 01/23/18 13:35 Hydralazine HCl (Apresoline) 25 mg Q8HR ORAL 01/21/18 22:00 02/20/18 15:29 01/23/18 05:48 Levofloxacin (Levaquin) 250 mg DAILY ORAL 01/23/18 11:00 01/30/18 10:59 01/23/18 11:52 Magnesium Hydroxide (Mom) 30 ml DAILYPRN PRN ORAL Constipation 01/20/18 16:45 02/19/18 16:44 Magnesium Sulfate 100 ml @ 100 mls/hr Q1H IVPB 01/24/18 09:00 01/24/18 10:59 Multivitamins (Multivitamins) 1 tab DAILY ORAL 01/21/18 09:00 02/20/18 08:59 01/23/18 08:18 Oxycodone HCl (OxyCONTIN) 10 mg Q4H PRN ORAL SEVERE BREAKTHROUGH PAIN 01/21/18 17:45 01/27/18 16:59 01/22/18 10:37 Oxycodone HCl (OxyCONTIN) 10 mg Q8HR ORAL 01/23/18 06:00 01/28/18 13:59 01/23/18 05:48 Oxycodone/ Acetaminophen (Percocet 10/325) 1 tab Q4H PRN ORAL Moderate Breakthru Pain (4-6) 01/21/18 17:45 01/28/18 17:44 01/23/18 01:23 Sodium Chloride 1,000 ml @ 30 mls/hr Q24H IV 01/23/18 10:00 02/22/18 09:59 01/23/18 10:47 Sodium Phosphate (Fleet's Sodium Phosl Enema) 133 ml DAILYPRN PRN RECTAL Constipation 01/21/18 12:30 02/20/18 12:29 01/21/18 12:50 Thiamine HCl 100 mg/Dextrose 111 ml @ 222 mls/hr Q24H IVPB 01/23/18 12:00 02/22/18 11:59 01/23/18 11:52 Vitamin D (Vitamin D) 1,000 intlu DAILY ORAL 01/21/18 09:00 02/20/18 08:59 01/23/18 08:18 Assessment/Plan Assessment/Plan Alcohol dependence 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
[2018-01-23 16:00] VITALS: BP 168/107
[2018-01-23] MEDS ORDERED: Metoprolol Tartrate 50mg tab ORAL SCH (16:54)
--- NOTE | 2018-01-23 16:55 | General Progress Note ---
Assessment/Plan Assessment/Plan impending delirium tremons banan bag valium rtransfer to the monitor bed metoprolol 50 bid will follow doug banana bag Subjective Date patient seen: Jan 23, 2018 Allergies: Coded Allergies: SULFA (SULFONAMIDE ANTIBIOTICS) (Verified Allergy, Severe, 09/06/17) hives hives and itching Subjective note didctated Objective Last 24 Hour Vital Signs Date Time Temp Pulse Resp B/P (MAP) Pulse Ox O2 Delivery O2 Flow Rate FiO2 01/23/18 16:00 98.9 115 20 168/107 (127) 97 98.9 01/23/18 13:36 130/77 01/23/18 12:00 98.0 113 21 142/75 (97) 96 98.0 01/23/18 11:47 98.0 01/23/18 10:48 98.0 01/23/18 09:00 Room Air 01/23/18 08:43 98.0 74 19 179/111 (133) 96 98.0 01/23/18 08:18 74 174/111 01/23/18 05:48 137/82 01/23/18 04:00 98.6 104 20 137/82 (100) 100 98.6 01/23/18 00:00 98.0 102 20 142/87 (105) 97 98.0 01/22/18 21:17 150/80 01/22/18 21:00 Room Air 01/22/18 20:00 99.2 100 20 150/80 (103) 98 99.2 01/22/18 17:53 98 163/97 Intake and Output 01/22/18 01/23/18 19:00 07:00 Intake Total 610 ml 300 ml Balance 610 ml 300 ml Intake Oral 480 ml IV Total 130 ml 300 ml # Voids 3 6 # Bowel Movements 1 Laboratory Tests 01/22/18 19:55: White Blood Count 13.6H, Red Blood Count 4.29, Hemoglobin 14.4, Hematocrit 40.8 , Mean Corpuscular Volume 95, Mean Corpuscular Hemoglobin 33.7H, Mean Corpuscular Hemoglobin Concent 35.4, Red Cell Distribution Width 11.3L, Platelet Count 345, Mean Platelet Volume 7.2, Neutrophils (%) (Auto) 79.9H, Lymphocytes (%) (Auto) 8.0L, Monocytes (%) (Auto) 10.7H, Eosinophils (%) (Auto) 0.4, Basophils (%) (Auto) 1.0, Sodium Level 131L, Potassium Level 3.6, Chloride Level 94L, Carbon Dioxide Level 28, Anion Gap 9, Blood Urea Nitrogen 15, Creatinine 0.8, Estimat Glomerular Filtration Rate > 60, Glucose Level 163H, Calcium Level 8.3L, Total Bilirubin 0.8, Aspartate Amino Transf (AST/SGOT) 34, Alanine Aminotransferase (ALT/SGPT) 28, Alkaline Phosphatase 64, Total Protein 6.9, Albumin 2.9L, Globulin 4.0, Albumin/Globulin Ratio 0.7L, Thyroid Stimulating Hormone (TSH) 0.690 01/23/18 09:15: White Blood Count 14.1H, Red Blood Count 4.95, Hemoglobin 15.1, Hematocrit 46.1 , Mean Corpuscular Volume 93, Mean Corpuscular Hemoglobin 30.5, Mean Corpuscular Hemoglobin Concent 32.8, Red Cell Distribution Width 11.0L, Platelet Count 383, Mean Platelet Volume 7.0, Neutrophils (%) (Auto) , Lymphocytes (%) (Auto) , Monocytes (%) (Auto) , Eosinophils (%) (Auto) , Basophils (%) (Auto) , Sodium Level 133L, Potassium Level 3.7, Chloride Level 97L, Carbon Dioxide Level 29, Anion Gap 7, Blood Urea Nitrogen 17, Creatinine 0.9, Estimat Glomerular Filtration Rate > 60, Glucose Level 215H, Calcium Level 9.7, Differential Total Cells Counted 100, Neutrophils % (Manual) 90H, Lymphocytes % (Manual) 3L, Monocytes % (Manual) 7, Eosinophils % (Manual) 0, Basophils % (Manual) 0, Band Neutrophils 0, Platelet Estimate Adequate, Platelet Morphology Normal, Red Blood Cell Morphology Normal, Magnesium Level 2.6H Height (Feet): 5 Height (Inches): 4.00 Weight (Pounds): 125 Hilario Caba MD Jan 23, 2018 16:55
[2018-01-23] MEDS ORDERED: Norco 5mg/325mg tab ORAL PRN ×2 (17:00→23:00)
[2018-01-23] MEDS: NS w/KCl 20mEq 1,000 ML IV SCH ×2 (18:15→19:46)
[2018-01-23] MEDS ORDERED: Fleet's Enema 133ml RECTAL PRN (18:18)
[2018-01-23 20:00] VITALS: BP 137/101
[2018-01-23] MEDS ORDERED: Metoprolol 25mg tab ORAL SCH (21:00)
[2018-01-23] MEDS: Norco 5mg/325mg tab ORAL PRN (21:52)
[2018-01-24] VITALS: BP 116/63
[2018-01-24 04:00] VITALS: BP 149/79
--- NOTE | 2018-01-24 04:00 | History and Physical Report ---
DATE OF ADMISSION: 01/20/2018 HISTORY OF PRESENT ILLNESS: The patient was admitted to the hospital with a lot of spasm and postoperative pain. This is an unfortunate female, who has had history of chronic [place] use in the past, who comes in to the hospital. The patient's last alcohol was 7 to 10 days ago. She drinks 2 glasses every night, sometimes on weekends a bottle, and sometimes less and sometimes more. She has had a history of depression, history of chronic disc disease, and has had increased pain, and was admitted for further evaluation. She was seen and evaluated today by Dr. Aleta Goodson. The patient has a tremor, maybe early DT and was started on banana bag, intravenous fluid, and was given Valium 5 mg q.6 h. She is having audio hallucinations. She is having visual hallucinations. She does have tremor. She does not look good at this time. CURRENT MEDICATIONS: 1. Tylenol IV. 2. Flexeril 10 q.8 hours p.r.n. 3. Docusate. 4. Fleet enema. 5. Folic acid. 6. Gabapentin. 7. Hydralazine. 8. Levofloxacin. 9. Mag sulfate. 10. Multivitamin. 11. Zyprexa was started p.r.n. 12. Diazepam 10 q.6 hours. 13. Clonidine, she has. 14. Oxycodone. The following will be done on the patient. 15. I will stop the Flexeril as Valium works as a muscle relaxant as well. 16. I will stop the Zyprexa that has not been started on the patient. 17. I will stop the clonidine p.r.n. 18. I will stop the oxycodone and OxyContin. 19. For pain, we will put her on [place] 5 mg 3 times a day as needed for severe pain and try not to give it as much as possible. 20. IV fluids will be given to the patient. Banana bag will be given to the patient. Serum magnesium and potassium will be checked daily. Serum sodium will be checked on the patient daily. 21. The patient will be put on aspiration precaution. 22. The patient will be put on seizure precaution. 23. Keep the head of the bed elevated at 30 degrees. 24. Case was discussed at length with the patient. 25. The case was discussed with Dr. Goodson. CONDITION: Guarded. The patient will be transferred to the monitored bed. The patient is on pulse ox monitor. Temperature is 98.9, heart rate is 115, and blood pressure 168/107. Metoprolol will be given to the patient as soon as possible. Microbiology lab that was obtained on the patient, urine culture showed mixed urogenital contaminants. The patient is negative for vancomycin-resistant enterococcus. The patient is negative for methicillin-resistant Staphylococcus aureus screen. Blood cultures that was obtained on the patient was reviewed. Laboratory data shows white blood cells 14.1, RDW 11, hemoglobin 15, and platelets 383,000. Sodium 132, potassium 3.7, chloride 97, bicarb 29, creatinine 0.9, and glucose is noted to be at 215. Magnesium is 2.6. Case was discussed with the patient and family. Plan is to transfer the patient. Hilario Caba M.D. DR: YEE JOB#: [id number] CC:
[2018-01-24] MEDS: HydrALAZINE 25mg tab ORAL SCH ×3 (06:14→22:18)
[2018-01-24 06:55] LABS: BASOPHILS % (AUTO) 0.8 % (0.0-2.0); EOSINOPHILS % (AUTO) 0.9 % (0.0-3.0); HEMATOCRIT 43.7 % (37.0-47.0); HEMOGLOBIN 14.6 G/DL (12.0-16.0); LYMPHOCYTES % (AUTO) 11.1 % (20.0-45.0); MEAN CORPUSCULAR VOLUME 93 FL (80-99); MONOCYTES % (AUTO) 11.2 % (1.0-10.0); PLATELET COUNT 374 K/UL (150-450); RED CELL DISTRIBUTION WIDTH 11.1 % (11.6-14.8); WHITE BLOOD COUNT 12.2 K/UL (4.8-10.8)
[2018-01-24] MEDS: Norco 5mg/325mg tab ORAL PRN (07:20)
[2018-01-24 07:30] LABS: ALANINE AMINOTRANSFERASE 45 U/L (12-78); ALBUMIN 2.9 G/DL (3.4-5.0); ALBUMIN/GLOBULIN RATIO 0.7 (1.0-2.7); ALKALINE PHOSPHATASE 70 U/L (46-116); ANION GAP 10 mmol/L (5-15); ASPARTATE AMINO TRANSFERASE 45 U/L (15-37); BLOOD UREA NITROGEN 15 mg/dL (7-18); CALCIUM 8.8 MG/DL (8.5-10.1); CARBON DIOXIDE 24 MMOL/L (21-32); CHLORIDE 102 MMOL/L (98-107); CREATININE 0.6 MG/DL (0.55-1.30); POTASSIUM 3.4 MMOL/L (3.5-5.1); SODIUM 135 MMOL/L (136-145)
[2018-01-24 08:00] VITALS: BP 151/92
[2018-01-24] MEDS ORDERED: HYDROmorphone 1mg/ml Carpuject IVP SCH (08:15)
[2018-01-24] MEDS: Docusate 250mg cap ORAL SCH ×2 (08:54→18:02)
[2018-01-24] MEDS: Vitamin D 1000 IU Tab ORAL SCH (08:54)
[2018-01-24] MEDS: Metoprolol Tartrate 50mg tab ORAL SCH ×2 (08:55→20:24)
[2018-01-24] MEDS ORDERED: Magnesium Sulfate 1gm/100ml IVPB SCH (09:00)
[2018-01-24] MEDS ORDERED: Metoprolol Tartrate 50mg tab ORAL SCH (09:00)
--- NOTE | 2018-01-24 09:17 | General Progress Note ---
Progress Note Progress Note Neurosurgery S/ Feeling better. No more hallucination this am. No back or incisional pain. Complains of spasms in the right leg. Slept well last night. O/ vs. Last 24 Hour Vital Signs Date Time Temp Pulse Resp B/P (MAP) Pulse Ox O2 Delivery O2 Flow Rate FiO2 01/24/18 08:55 87 151/92 01/24/18 08:54 87 151/92 01/24/18 08:23 98.2 01/24/18 08:23 98.2 01/24/18 08:19 98.2 01/24/18 08:00 99.3 87 23 151/92 (111) 97 99.3 01/24/18 06:14 138/72 01/24/18 04:00 98.2 89 22 149/79 (102) 98 98.2 01/24/18 04:00 87 01/24/18 00:00 90 01/24/18 00:00 96.4 89 22 116/63 (80) 97 96.4 01/23/18 21:50 138/97 01/23/18 21:00 Room Air 01/23/18 20:00 97.7 93 22 137/101 (113) 95 97.7 01/23/18 20:00 88 01/23/18 17:01 115 168/107 01/23/18 16:00 98.9 115 20 168/107 (127) 97 98.9 01/23/18 13:36 130/77 01/23/18 12:00 98.0 113 21 142/75 (97) 96 98.0 01/23/18 11:47 98.0 01/23/18 10:48 98.0 On exam, Alert and oriented and coherent. Face symmetric No pronator drift Moves all extremities well Incision dressing changed. No erythema, drainage or fluctuance. Non-tender labs Laboratory Tests Test 01/23/18 09:15 01/24/18 06:35 White Blood Count 14.1 K/UL (4.8-10.8) H 12.2 K/UL (4.8-10.8) H Red Blood Count 4.95 M/UL (4.20-5.40) 4.70 M/UL (4.20-5.40) Hemoglobin 15.1 G/DL (12.0-16.0) 14.6 G/DL (12.0-16.0) Hematocrit 46.1 % (37.0-47.0) 43.7 % (37.0-47.0) Mean Corpuscular Volume 93 FL (80-99) 93 FL (80-99) Mean Corpuscular Hemoglobin 30.5 PG (27.0-31.0) 31.1 PG (27.0-31.0) H Mean Corpuscular Hemoglobin Concent 32.8 G/DL (32.0-36.0) 33.4 G/DL (32.0-36.0) Red Cell Distribution Width 11.0 % (11.6-14.8) L 11.1 % (11.6-14.8) L Platelet Count 383 K/UL (150-450) 374 K/UL (150-450) Mean Platelet Volume 7.0 FL (6.5-10.1) 7.0 FL (6.5-10.1) Neutrophils (%) (Auto) % (45.0-75.0) 76.0 % (45.0-75.0) H Lymphocytes (%) (Auto) % (20.0-45.0) 11.1 % (20.0-45.0) L Monocytes (%) (Auto) % (1.0-10.0) 11.2 % (1.0-10.0) H Eosinophils (%) (Auto) % (0.0-3.0) 0.9 % (0.0-3.0) Basophils (%) (Auto) % (0.0-2.0) 0.8 % (0.0-2.0) Differential Total Cells Counted 100 Neutrophils % (Manual) 90 % (45-75) H Lymphocytes % (Manual) 3 % (20-45) L Monocytes % (Manual) 7 % (1-10) Eosinophils % (Manual) 0 % (0-3) Basophils % (Manual) 0 % (0-2) Band Neutrophils 0 % (0-8) Platelet Estimate Adequate Platelet Morphology Normal Red Blood Cell Morphology Normal Sodium Level 133 MMOL/L (136-145) L 135 MMOL/L (136-145) L Potassium Level 3.7 MMOL/L (3.5-5.1) 3.4 MMOL/L (3.5-5.1) L Chloride Level 97 MMOL/L (98-107) L 102 MMOL/L (98-107) Carbon Dioxide Level 29 MMOL/L (21-32) 24 MMOL/L (21-32) Anion Gap 7 mmol/L (5-15) 10 mmol/L (5-15) Blood Urea Nitrogen 17 mg/dL (7-18) 15 mg/dL (7-18) Creatinine 0.9 MG/DL (0.55-1.30) 0.6 MG/DL (0.55-1.30) Estimat Glomerular Filtration Rate > 60 mL/min (>60) > 60 mL/min (>60) Glucose Level 215 MG/DL (74-106) H 106 MG/DL (74-106) # Calcium Level 9.7 MG/DL (8.5-10.1) 8.8 MG/DL (8.5-10.1) Magnesium Level 2.6 MG/DL (1.8-2.4) H 2.1 MG/DL (1.8-2.4) Total Bilirubin 1.0 MG/DL (0.2-1.0) Aspartate Amino Transf (AST/SGOT) 45 U/L (15-37) H Alanine Aminotransferase (ALT/SGPT) 45 U/L (12-78) Alkaline Phosphatase 70 U/L (46-116) Total Protein 7.1 G/DL (6.4-8.2) Albumin 2.9 G/DL (3.4-5.0) L Globulin 4.2 g/dL Albumin/Globulin Ratio 0.7 (1.0-2.7) L Microbiology Date/Time Source Procedure Growth Status 01/21/18 11:45 Blood Blood Culture - Preliminary NO GROWTH AFTER 48 HOURS Resulted 01/21/18 11:35 Blood Blood Culture - Preliminary NO GROWTH AFTER 48 HOURS Resulted 01/21/18 19:09 Drainage Fluid Gram Stain - Final Resulted 01/21/18 19:09 Drainage Fluid Body Fluid Culture - Preliminary Resulted 01/21/18 19:09 Wound Gram Stain - Final Resulted 01/21/18 19:09 Wound Wound Culture - Preliminary NO GROWTH AFTER 24 HOURS Resulted 01/21/18 11:30 Urine,Clean Catch Urine Culture - Final Mixed Urogenital Contaminants Complete Feeling better pain control increase [place] and dilaudid for breakthrough pain PT/OT CT TL spine when pt able to tolerate the test. Improvement in hyponatremia improved WBC on Abx for pyuria DT improved with diazepam Aleta Goodosn MD Jan 24, 2018 09:17
[2018-01-24] MEDS: Acetaminophen (Non formulary) 100 ML IV SCH (10:03)
--- NOTE | 2018-01-24 11:48 | General Progress Note ---
Assessment/Plan Status: stable Assessment/Plan Alcohol w/d Alcohol dependence Subjective Date patient seen: Jan 24, 2018 Neurologic/Psychiatric: Reports: anxiety Allergies: Coded Allergies: SULFA (SULFONAMIDE ANTIBIOTICS) (Verified Allergy, Severe, 09/06/17) hives hives and itching Subjective the pts much improved vitals normalized not hallucinating. pain meds were increase. not agitated. poor memory unable to recall the events occurred yesterday. the pt has been calm and asleep not combative attempted to get up. manageable Objective Last 24 Hour Vital Signs Date Time Temp Pulse Resp B/P (MAP) Pulse Ox O2 Delivery O2 Flow Rate FiO2 01/24/18 11:07 98.2 01/24/18 10:03 98.2 01/24/18 09:00 Room Air 01/24/18 08:55 87 151/92 01/24/18 08:54 87 151/92 01/24/18 08:23 98.2 01/24/18 08:23 98.2 01/24/18 08:19 98.2 01/24/18 08:00 99.3 87 23 151/92 (111) 97 99.3 01/24/18 08:00 98 01/24/18 06:14 138/72 01/24/18 04:00 98.2 89 22 149/79 (102) 98 98.2 01/24/18 04:00 87 01/24/18 00:00 90 01/24/18 00:00 96.4 89 22 116/63 (80) 97 96.4 01/23/18 21:50 138/97 01/23/18 21:00 Room Air 01/23/18 20:00 97.7 93 22 137/101 (113) 95 97.7 01/23/18 20:00 88 01/23/18 17:01 115 168/107 01/23/18 16:00 98.9 115 20 168/107 (127) 97 98.9 01/23/18 13:36 130/77 01/23/18 12:00 98.0 113 21 142/75 (97) 96 98.0 01/23/18 11:47 98.0 Intake and Output 01/23/18 01/24/18 19:00 07:00 Intake Total 120 ml 1660 ml Balance 120 ml 1660 ml Intake Oral 120 ml 660 ml IV Total 1000 ml # Voids 5 # Bowel Movements 5 Laboratory Tests 01/24/18 06:35: White Blood Count 12.2H, Red Blood Count 4.70, Hemoglobin 14.6, Hematocrit 43.7 , Mean Corpuscular Volume 93, Mean Corpuscular Hemoglobin 31.1H, Mean Corpuscular Hemoglobin Concent 33.4, Red Cell Distribution Width 11.1L, Platelet Count 374, Mean Platelet Volume 7.0, Neutrophils (%) (Auto) 76.0H, Lymphocytes (%) (Auto) 11.1L, Monocytes (%) (Auto) 11.2H, Eosinophils (%) (Auto ) 0.9, Basophils (%) (Auto) 0.8, Sodium Level 135L, Potassium Level 3.4L, Chloride Level 102, Carbon Dioxide Level 24, Anion Gap 10, Blood Urea Nitrogen 15, Creatinine 0.6, Estimat Glomerular Filtration Rate > 60, Glucose Level 106# , Calcium Level 8.8, Magnesium Level 2.1, Total Bilirubin 1.0, Aspartate Amino Transf (AST/SGOT) 45H, Alanine Aminotransferase (ALT/SGPT) 45, Alkaline Phosphatase 70, Total Protein 7.1, Albumin 2.9L, Globulin 4.2, Albumin/Globulin Ratio 0.7L Height (Feet): 5 Height (Inches): 4.00 Weight (Pounds): 125 General Appearance: no apparent distress, alert Neurologic: oriented x 3, responsive, depressed affect Rebecca Abbott MD Jan 24, 2018 11:48
[2018-01-24 12:12] VITALS: BP 113/63
[2018-01-24] MEDS: Folic Acid 1 MG, Magnesium Sulfate 2,000 MG, Multivitamin - 12 Injection 10 ML in NS 10... IV SCH (12:19)
--- NOTE | 2018-01-24 13:59 | Diagnostic Imaging Report ---
APPROVED REPORT CPT Code: 39039 Present Symptoms Lower Extremity Pain: Bilateral Comments: HIP PAIN BILATERAL: Imaging reveals a patent deep venous system bilaterally. There is no evidence of thrombus within the femoral, popliteal or tibial segments. The greater saphenous veins are also within normal limits. Doppler indicates normal spontaneous flow within these segments.
[2018-01-24] MEDS: Thiamine HCl 100 MG in D5W 110 ML IVPB SCH (14:17)
[2018-01-24] MEDS: HYDROcodone/Acetamin 10/325 tab ORAL PRN ×2 (14:20→20:33)
--- NOTE | 2018-01-24 15:26 | Diagnostic Imaging Report ---
Indications: Severe back pain with spasms, status post recent thoracolumbar junction decompressive surgery Technique: Spiral acquisitions obtained through the lumbar spine. Multiplanar reconstructions were generated. No IV contrast utilized. Total dose length product 411.05 mGycm. CTDIvol(s) 11.48 mGy. Dose reduction achieved using automated exposure control Comparison: Plain radiographs dated 01/20/2018. 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 There is a laminotomy defect of T12, involving the superior lamina essentially, as well as the inferior facets bilaterally. There is moderate right and mild to moderate left neural foraminal stenosis at the T11-12 level. No definite spinal stenosis. The T12-L1 disc is narrowed. There is extensive superior and inferior endplate irregularity as well as extensive subchondral sclerosis. Some vacuum formation is seen within the disc. There is evidence of resection of the bilateral L1 superior facets as well as shaving of the medial residual facets and resections of portions of the lamina. High attenuation material in the soft tissues posterior to the thecal sac, left greater than right, may indicate small hematomas or could indicate faint soft tissue calcifications. A few gas bubbles are seen in this area. Due to lack of inherent soft tissue contrast in this area, the confines of the thecal sac are difficult to assess. The neural foramina are patent. There is a posterior osteophyte on the right leg off of T12 which could impinge upon the right lateral recess. At L1-2, there is mild degenerative disc narrowing with vacuum formation. There is irregularity of the L1 inferior endplate and considerable degenerative sclerosis of the adjacent vertebral bodies. There are posterior osteophytes. There is circumferential annular bulge, as well as right-sided foraminal disc protrusion. The osteophytes, bulging disc, in combination with short pedicles and facet arthrosis, results in at least moderate narrowing of the spinal canal at this level, too minimal of 6 mm AP dimension. There is mild narrowing of the left neural foramen. There is spinal stenosis at this level. There is bilateral facet arthrosis. At L2-3, there is moderate to severe degenerative disc narrowing with vacuum formation and considerable subchondral sclerosis. There is irregularity of the adjacent inferior and superior endplates. Circumferential annular bulge, posterior osteophytes, and short pedicles results in mild to moderate narrowing of the spinal canal. Facet arthrosis and the bulging disc results in mild to moderate narrowing of the bilateral neural foramina. At L3-4, there is severe degenerative disc narrowing with vacuum formation. Posterior osteophytes which do not significantly narrow the spinal canal. The neural foramina are preserved. There is slight posterior offset of L4 on L5. There is bilateral cysts facet arthrosis. There is evidence of prior posterior fusion surgery between L4, L5, and S1. The pedicle screws appear to be entirely intrapedicular, terminating within the vertebral bodies. Is ankylosis of the L4-5 and L5-S1 discs. Disc spacers seen within the L4-5 disc. There is also evidence of prior L4 hemilaminotomy on the left. There is ankylosis of the L4-5 and L5-S1 facets bilaterally. At L4-5, no significant disc bulge or protrusion, spinal stenosis, or neural foraminal stenosis. At L5-S1, no significant disc bulge or protrusion, spinal stenosis, or neural foraminal stenosis. The vertebral body heights are preserved. There is degenerative narrowing and vacuum formation of all of the visualized lower thoracic discs. Impression: Evidence of recent decompressive surgery at T12-L1. No definite CT evidence of acute complication at this level. High attenuation material in the adjacent soft tissues could represent faint calcifications or small hematomas, but these are remote from the spinal canal. Severe endplate irregularities of the superior T12 and inferior L1 endplates. Most likely on the basis of severe degenerative changes, particularly given similar although less extensive appearance at other levels. The presence of vacuum formation also strongly favors degenerative etiology. Nonetheless the possibility of acute spondylo-discitis should be considered. Comparison with any prior outside studies that may be available could be useful Multilevel degenerative changes, with multilevel spinal stenosis, as described above on a level by level basis Post surgical changes at T11-12 and L4-S1, as detailed above The CT scanner at [facility] is accredited by the [employer] and the scans are performed using protocols designed to limit radiation exposure to as low as reasonably achievable to attain images of sufficient resolution adequate for diagnostic evaluation.
[2018-01-24 16:00] VITALS: BP 120/60
--- NOTE | 2018-01-24 19:53 | General Progress Note ---
Assessment/Plan Assessment/Plan dt better banan bag valium rtransfer to the monitor bed metoprolol 50 bid will follow doug banana bag post op dc plannibng to ecf Subjective Date patient seen: Jan 24, 2018 Time patient seen: 19:50 Constitutional: Reports: no symptoms HEENT: Reports: no symptoms Cardiovascular: Reports: no symptoms Respiratory: Reports: no symptoms Allergies: Coded Allergies: SULFA (SULFONAMIDE ANTIBIOTICS) (Verified Allergy, Severe, 09/06/17) hives hives and itching Subjective luna swan has a loto f pain Objective Last 24 Hour Vital Signs Date Time Temp Pulse Resp B/P (MAP) Pulse Ox O2 Delivery O2 Flow Rate FiO2 01/24/18 18:00 75 120/60 01/24/18 16:00 75 01/24/18 16:00 97.5 71 23 120/60 (80) 93 97.5 01/24/18 15:19 98.1 01/24/18 14:20 98.1 01/24/18 14:00 110/61 01/24/18 12:12 98.1 67 23 113/63 (80) 95 98.1 01/24/18 12:00 73 01/24/18 11:07 98.2 01/24/18 10:03 98.2 01/24/18 09:00 Room Air 01/24/18 08:55 87 151/92 01/24/18 08:54 87 151/92 01/24/18 08:23 98.2 01/24/18 08:23 98.2 01/24/18 08:19 98.2 01/24/18 08:00 99.3 87 23 151/92 (111) 97 99.3 01/24/18 08:00 98 01/24/18 06:14 138/72 01/24/18 04:00 98.2 89 22 149/79 (102) 98 98.2 01/24/18 04:00 87 01/24/18 00:00 90 01/24/18 00:00 96.4 89 22 116/63 (80) 97 96.4 01/23/18 21:50 138/97 01/23/18 21:00 Room Air 01/23/18 20:00 97.7 93 22 137/101 (113) 95 97.7 01/23/18 20:00 88 Intake and Output 01/23/18 01/24/18 19:00 07:00 Intake Total 120 ml 1660 ml Balance 120 ml 1660 ml Intake Oral 120 ml 660 ml IV Total 1000 ml # Voids 5 # Bowel Movements 5 Laboratory Tests 01/24/18 06:35: White Blood Count 12.2H, Red Blood Count 4.70, Hemoglobin 14.6, Hematocrit 43.7 , Mean Corpuscular Volume 93, Mean Corpuscular Hemoglobin 31.1H, Mean Corpuscular Hemoglobin Concent 33.4, Red Cell Distribution Width 11.1L, Platelet Count 374, Mean Platelet Volume 7.0, Neutrophils (%) (Auto) 76.0H, Lymphocytes (%) (Auto) 11.1L, Monocytes (%) (Auto) 11.2H, Eosinophils (%) (Auto ) 0.9, Basophils (%) (Auto) 0.8, Sodium Level 135L, Potassium Level 3.4L, Chloride Level 102, Carbon Dioxide Level 24, Anion Gap 10, Blood Urea Nitrogen 15, Creatinine 0.6, Estimat Glomerular Filtration Rate > 60, Glucose Level 106# , Calcium Level 8.8, Magnesium Level 2.1, Total Bilirubin 1.0, Aspartate Amino Transf (AST/SGOT) 45H, Alanine Aminotransferase (ALT/SGPT) 45, Alkaline Phosphatase 70, Total Protein 7.1, Albumin 2.9L, Globulin 4.2, Albumin/Globulin Ratio 0.7L Height (Feet): 5 Height (Inches): 4.00 Weight (Pounds): 125 General Appearance: WD/WN EENT: normal ENT inspection Neck: normal alignment Cardiovascular: normal rate Respiratory/Chest: lungs clear Abdomen: soft Objective no issue smoer alert not hallucinating no jvd cta no termor s1,s2,rrr soft Hilario Caba MD Jan 24, 2018 19:52
[2018-01-24 20:00] VITALS: BP 148/68
[2018-01-24] MEDS: Hydromorphone 0.5mg/0.5ml inj IVP PRN (23:38)
[2018-01-25] VITALS: BP 142/67
[2018-01-25] MEDS: HYDROcodone/Acetamin 10/325 tab ORAL PRN (02:36)
[2018-01-25 04:00] VITALS: BP 144/76
[2018-01-25] MEDS: Milk of Magnesia 30ml Ud ORAL PRN (04:11)
[2018-01-25] MEDS: Hydromorphone 0.5mg/0.5ml inj IVP PRN (04:25)
[2018-01-25] MEDS ORDERED: HYDROmorphone 1mg/ml Carpuject IVP SCH ×3 (05:20→14:38)
[2018-01-25] MEDS ORDERED: Hydromorphone 0.5mg/0.5ml inj IVP PRN (05:30)
[2018-01-25] MEDS: HydrALAZINE 25mg tab ORAL SCH ×3 (05:48→22:40)
[2018-01-25] MEDS ORDERED: HYDROmorphone 1mg/ml Carpuject IVP ONE (06:00)
[2018-01-25 08:00] VITALS: BP 140/71
--- NOTE | 2018-01-25 08:25 | General Progress Note ---
Progress Note Progress Note S/ Lower extremity spasms/pain with straining, ambulation. Resting this am O/ vs. Last 24 Hour Vital Signs Date Time Temp Pulse Resp B/P (MAP) Pulse Ox O2 Delivery O2 Flow Rate FiO2 01/25/18 05:48 131/62 01/25/18 04:00 98.4 79 20 144/76 (98) 95 98.4 01/25/18 04:00 77 01/25/18 00:00 69 01/25/18 00:00 98.2 67 20 142/67 (92) 97 98.2 01/24/18 22:18 142/67 01/24/18 21:00 Room Air 01/24/18 20:24 77 145/82 01/24/18 20:00 98.0 77 20 148/68 (94) 96 98.0 01/24/18 20:00 75 01/24/18 18:00 75 120/60 01/24/18 16:00 75 01/24/18 16:00 97.5 71 23 120/60 (80) 93 97.5 01/24/18 15:19 98.1 01/24/18 14:20 98.1 01/24/18 14:00 110/61 01/24/18 12:12 98.1 67 23 113/63 (80) 95 98.1 01/24/18 12:00 73 01/24/18 11:07 98.2 01/24/18 10:03 98.2 01/24/18 09:00 Room Air 01/24/18 08:55 87 151/92 01/24/18 08:54 87 151/92 01/24/18 08:23 98.2 01/24/18 08:23 98.2 On exam, labs Microbiology Date/Time Source Procedure Growth Status 01/21/18 11:45 Blood Blood Culture - Preliminary NO GROWTH AFTER 72 HOURS Resulted 01/21/18 19:09 Drainage Fluid Gram Stain - Final Resulted 01/21/18 19:09 Drainage Fluid Body Fluid Culture - Preliminary NO GROWTH AFTER 24 HOURS Resulted 01/21/18 19:09 Wound Gram Stain - Final Resulted 01/21/18 19:09 Wound Wound Culture - Preliminary NO GROWTH AFTER 48 HOURS Resulted 01/20/18 15:42 Nasal Nares MRSA Culture - Final NO METHICILLIN RESISTANT STAPH AUREUS... Complete 01/21/18 11:30 Urine,Clean Catch Urine Culture - Final Mixed Urogenital Contaminants Complete 01/20/18 15:42 Rectum VRE Culture - Final NO VANCOMYCIN RESISTANT ENTEROCOCCUS ... Complete Imaging studies: I reviewed the CT of the thoracolumbar spine personally. Study shows the T12- L1 bilateral transpedicular decompression. Central canal is fully decompressed. No evidence of hematoma or fluid collection. Bone graft materila visualized bilaterally in the posterolateral recess. Post-op pain and spasms Will adjust pain medications, limited due to pt confusion on higher doses DT under control with valium. Hallucinations resolved PT. will order thoracic shahida brace. care paln discussed with nursing Aleta Goodson MD Jan 25, 2018 08:25
[2018-01-25 09:24] LABS: BASOPHILS % (AUTO) 0.6 % (0.0-2.0); EOSINOPHILS % (AUTO) 4.1 % (0.0-3.0); HEMATOCRIT 39.8 % (37.0-47.0); HEMOGLOBIN 13.5 G/DL (12.0-16.0); LYMPHOCYTES % (AUTO) 16.6 % (20.0-45.0); MEAN CORPUSCULAR VOLUME 93 FL (80-99); MONOCYTES % (AUTO) 12.7 % (1.0-10.0); PLATELET COUNT 382 K/UL (150-450); RED BLOOD COUNT 4.28 M/UL (4.20-5.40); RED CELL DISTRIBUTION WIDTH 11.4 % (11.6-14.8); WHITE BLOOD COUNT 8.7 K/UL (4.8-10.8)
[2018-01-25] MEDS: Acetaminophen (Non formulary) 100 ML IV SCH (09:26)
[2018-01-25] MEDS: Docusate 250mg cap ORAL SCH ×2 (09:28→18:03)
[2018-01-25] MEDS: Metoprolol Tartrate 50mg tab ORAL SCH ×2 (09:28→20:58)
[2018-01-25] MEDS: Vitamin D 1000 IU Tab ORAL SCH (09:28)
[2018-01-25 09:51] LABS: ALANINE AMINOTRANSFERASE 42 U/L (12-78); ALBUMIN 2.4 G/DL (3.4-5.0); ALBUMIN/GLOBULIN RATIO 0.6 (1.0-2.7); ALKALINE PHOSPHATASE 75 U/L (46-116); ANION GAP 8 mmol/L (5-15); ASPARTATE AMINO TRANSFERASE 32 U/L (15-37); BILIRUBIN,TOTAL 0.6 MG/DL (0.2-1.0); BLOOD UREA NITROGEN 13 mg/dL (7-18); CALCIUM 8.1 MG/DL (8.5-10.1); CARBON DIOXIDE 25 MMOL/L (21-32); CHLORIDE 102 MMOL/L (98-107); CREATININE 0.6 MG/DL (0.55-1.30); POTASSIUM 3.4 MMOL/L (3.5-5.1); SODIUM 135 MMOL/L (136-145)
[2018-01-25] MEDS: HYDROmorphone 4mg tab ORAL PRN (09:53)
[2018-01-25] MEDS: HYDROmorphone 1mg/ml Carpuject IVP PRN ×5 (10:00→22:01)
[2018-01-25] MEDS: NS w/KCl 20mEq 1,000 ML IV SCH (10:15)
[2018-01-25 12:00] VITALS: BP 141/70
[2018-01-25] MEDS: Thiamine HCl 100 MG in D5W 110 ML IVPB SCH (13:17)
--- NOTE | 2018-01-25 14:58 | General Progress Note ---
Progress Note Progress Note Neurosurgery S/ Comfortable in Bed. More tolerable with [id number] movements. Leg spasms and spasms in the groin can become severe 01/04. Pt on po and IV dilaudid and Valium po. Earlier today had "hardness" in the lower legs. Bilat LE u/s ordered O/ Vs. Last 24 Hour Vital Signs Date Time Temp Pulse Resp B/P (MAP) Pulse Ox O2 Delivery O2 Flow Rate FiO2 01/25/18 13:57 98.4 01/25/18 13:27 98.4 01/25/18 13:27 142/71 01/25/18 11:15 Room Air 01/25/18 11:14 98.4 01/25/18 10:55 98.4 01/25/18 10:00 98.4 01/25/18 09:53 98.4 01/25/18 09:28 77 140/71 01/25/18 09:28 77 140/71 01/25/18 09:26 98.4 01/25/18 08:00 71 01/25/18 08:00 98.1 77 20 140/71 (94) 97 98.1 01/25/18 05:48 131/62 01/25/18 04:00 98.4 79 20 144/76 (98) 95 98.4 01/25/18 04:00 77 01/25/18 00:00 69 01/25/18 00:00 98.2 67 20 142/67 (92) 97 98.2 01/24/18 22:18 142/67 01/24/18 21:00 Room Air 01/24/18 20:24 77 145/82 01/24/18 20:00 98.0 77 20 148/68 (94) 96 98.0 01/24/18 20:00 75 01/24/18 18:00 75 120/60 01/24/18 16:00 75 01/24/18 16:00 97.5 71 23 120/60 (80) 93 97.5 01/24/18 15:19 98.1 On exam, Alert and oriented. No hallucinations. Face symmetric Upper and lower extremities at 5/5. Excellenet distal and proximal strength in bilateral lower extremities Incision is completely dry. No erythema. Soft. Labs. Laboratory Tests Test 01/25/18 09:05 White Blood Count 8.7 K/UL (4.8-10.8) Red Blood Count 4.28 M/UL (4.20-5.40) Hemoglobin 13.5 G/DL (12.0-16.0) Hematocrit 39.8 % (37.0-47.0) Mean Corpuscular Volume 93 FL (80-99) Mean Corpuscular Hemoglobin 31.6 PG (27.0-31.0) H Mean Corpuscular Hemoglobin Concent 33.9 G/DL (32.0-36.0) Red Cell Distribution Width 11.4 % (11.6-14.8) L Platelet Count 382 K/UL (150-450) Mean Platelet Volume 6.6 FL (6.5-10.1) Neutrophils (%) (Auto) 66.0 % (45.0-75.0) Lymphocytes (%) (Auto) 16.6 % (20.0-45.0) L Monocytes (%) (Auto) 12.7 % (1.0-10.0) H Eosinophils (%) (Auto) 4.1 % (0.0-3.0) H Basophils (%) (Auto) 0.6 % (0.0-2.0) Sodium Level 135 MMOL/L (136-145) L Potassium Level 3.4 MMOL/L (3.5-5.1) L Chloride Level 102 MMOL/L (98-107) Carbon Dioxide Level 25 MMOL/L (21-32) Anion Gap 8 mmol/L (5-15) Blood Urea Nitrogen 13 mg/dL (7-18) Creatinine 0.6 MG/DL (0.55-1.30) Estimat Glomerular Filtration Rate > 60 mL/min (>60) Glucose Level 99 MG/DL (74-106) Calcium Level 8.1 MG/DL (8.5-10.1) L Magnesium Level 2.0 MG/DL (1.8-2.4) Total Bilirubin 0.6 MG/DL (0.2-1.0) Aspartate Amino Transf (AST/SGOT) 32 U/L (15-37) Alanine Aminotransferase (ALT/SGPT) 42 U/L (12-78) Alkaline Phosphatase 75 U/L (46-116) Total Protein 6.3 G/DL (6.4-8.2) L Albumin 2.4 G/DL (3.4-5.0) L Globulin 3.9 g/dL Albumin/Globulin Ratio 0.6 (1.0-2.7) L Microbiology Date/Time Source Procedure Growth Status 01/21/18 11:45 Blood Blood Culture - Preliminary NO GROWTH AFTER 72 HOURS Resulted 01/21/18 19:09 Drainage Fluid Gram Stain - Final Resulted 01/21/18 19:09 Drainage Fluid Body Fluid Culture - Preliminary NO GROWTH AFTER 48 HOURS Resulted 01/21/18 19:09 Wound Gram Stain - Final Resulted 01/21/18 19:09 Wound Wound Culture - Preliminary NO GROWTH AFTER 72 HOURS Resulted 01/20/18 15:42 Nasal Nares MRSA Culture - Final NO METHICILLIN RESISTANT STAPH AUREUS... Complete 01/21/18 11:30 Urine,Clean Catch Urine Culture - Final Mixed Urogenital Contaminants Complete 01/20/18 15:42 Rectum VRE Culture - Final NO VANCOMYCIN RESISTANT ENTEROCOCCUS ... Complete Current Medications Medications (Trade) Dose Ordered Sig/Terrell Route PRN Reason Start Time Stop Time Status Last Admin Dose Admin Amlodipine Besylate (Norvasc) 5 mg BID ORAL 01/24/18 09:00 02/22/18 08:59 01/25/18 09:28 Diazepam (Valium) 10 mg Q4H ORAL 01/24/18 12:00 01/31/18 11:59 01/25/18 13:17 Docusate Sodium (Colace) 250 mg BID ORAL 01/24/18 09:00 02/19/18 17:59 01/25/18 09:28 Folic Acid 1 mg/ Magnesium Sulfate 2000 mg/ Multivitamins 10 ml/Sodium Chloride 1,014.2 ml @ 50 mls/hr Q24H IV 01/24/18 12:00 02/22/18 11:59 01/24/18 12:19 Gabapentin (Neurontin) 300 mg TID ORAL 01/24/18 09:00 02/19/18 17:59 01/25/18 13:17 Hydralazine HCl (Apresoline) 25 mg Q8HR ORAL 01/23/18 22:00 02/20/18 15:29 01/25/18 13:27 Hydromorphone HCl (Dilaudid) 1 mg ONCE IVP 01/25/18 14:38 01/25/18 15:38 Hydromorphone HCl (Dilaudid) 1 mg Q2H PRN IVP Severe Breakthru Pain (>7) 01/25/18 05:45 02/01/18 05:44 01/25/18 13:27 Hydromorphone HCl (Dilaudid) 4 mg Q4H PRN ORAL Moderate Pain (Pain Scale 4-6) 01/25/18 05:30 02/01/18 05:29 01/25/18 09:53 Levofloxacin (Levaquin) 250 mg DAILY ORAL 01/24/18 09:00 01/30/18 10:59 01/25/18 09:28 Magnesium Hydroxide (Mom) 30 ml DAILYPRN PRN ORAL Constipation 01/23/18 18:19 02/22/18 18:18 01/25/18 04:11 Metoprolol Tartrate (Lopressor) 50 mg Q12HR ORAL 01/24/18 09:00 02/23/18 08:59 01/25/18 09:28 Multivitamins (Multivitamins) 1 tab DAILY ORAL 01/24/18 09:00 02/20/18 08:59 01/25/18 09:28 Sodium Chloride 1,000 ml @ 50 mls/hr Q20H IV 01/23/18 18:15 02/22/18 16:56 01/23/18 19:46 Sodium Phosphate (Fleet's Sodium Phosl Enema) 133 ml DAILYPRN PRN RECTAL Constipation 01/23/18 18:18 02/22/18 18:17 Thiamine HCl 100 mg/Dextrose 111 ml @ 222 mls/hr Q24H IVPB 01/24/18 12:00 02/22/18 11:59 01/25/18 13:17 Vitamin D (Vitamin D) 1,000 intlu DAILY ORAL 01/24/18 09:00 02/20/18 08:59 01/25/18 09:28 Post-op pain and lower extremity spasm- On Valium and IV and po Dilaudid ID- white count normalized on po levaquin Nutrition - low albumin on protein leon supplementation Ambulation - Pt was fitted in upper thoracic brace. I had a detailed discussion with pacheco jaimes's family re: care plan and Mrs. Xiao condition. She is having persistent post-operative pain in the lower extremities, without local pain at the surgical site. The post-operative X- rays and Ct of the thoracolumbar spine do not show overt instability at the thoracolumbar junction. Fluid cultures and analysis do not show wound infection and her wound continues to be clean and dry. Her lab findings show improvement in her hyponatremia 131 to 135. She has excellent motor function on neurological exam throughout her poost-operative case. Given her long-standing narcotic use, componded with history of EtOH use, she has high tolerance to pain medications. However, she becomes confused on scheduled oxycontin. After answering family questions and speaking to the patient, patient will be transferred to [facility] inpatient. After reduction of her pain, she will be a candidate for pos-op rehab at [facility], which will be facilitated by the virtue of being an inpatient at [facility]. I have discussed the case with Dr. Caba at length. I will be available to update the spine consultants at [facility] . Aleta Goodson MD Jan 25, 2018 14:58
[2018-01-25] MEDS: Folic Acid 1 MG, Magnesium Sulfate 2,000 MG, Multivitamin - 12 Injection 10 ML in NS 10... IV SCH (16:36)
[2018-01-25 20:00] VITALS: BP 115/57
[2018-01-25] MEDS ORDERED: Tubing IV Secondary IV ONE (21:28)
[2018-01-25] MEDS ORDERED: NS 500ML ONE (21:28)
[2018-01-26] VITALS: BP 127/70
[2018-01-26] MEDS: HYDROmorphone 1mg/ml Carpuject IVP PRN ×8 (00:47→21:44)
[2018-01-26 04:00] VITALS: BP 133/69
[2018-01-26] MEDS: HydrALAZINE 25mg tab ORAL SCH ×3 (05:21→21:43)
[2018-01-26] MEDS: NS w/KCl 20mEq 1,000 ML IV SCH (05:47)
[2018-01-26 07:19] LABS: BASOPHILS % (AUTO) 0.6 % (0.0-2.0); EOSINOPHILS % (AUTO) 4.6 % (0.0-3.0); HEMATOCRIT 38.1 % (37.0-47.0); HEMOGLOBIN 12.8 G/DL (12.0-16.0); LYMPHOCYTES % (AUTO) 11.4 % (20.0-45.0); MEAN CORPUSCULAR VOLUME 93 FL (80-99); MONOCYTES % (AUTO) 12.1 % (1.0-10.0); NEUTROPHILS % (AUTO) 71.2 % (45.0-75.0); PLATELET COUNT 407 K/UL (150-450); RED BLOOD COUNT 4.11 M/UL (4.20-5.40); RED CELL DISTRIBUTION WIDTH 11.5 % (11.6-14.8); WHITE BLOOD COUNT 9.2 K/UL (4.8-10.8)
[2018-01-26 07:34] LABS: ALANINE AMINOTRANSFERASE 45 U/L (12-78); ALBUMIN 2.4 G/DL (3.4-5.0); ALBUMIN/GLOBULIN RATIO 0.6 (1.0-2.7); ALKALINE PHOSPHATASE 98 U/L (46-116); ANION GAP 7 mmol/L (5-15); ASPARTATE AMINO TRANSFERASE 40 U/L (15-37); BILIRUBIN,TOTAL 0.5 MG/DL (0.2-1.0); BLOOD UREA NITROGEN 14 mg/dL (7-18); CALCIUM 8.3 MG/DL (8.5-10.1); CARBON DIOXIDE 26 MMOL/L (21-32); CHLORIDE 98 MMOL/L (98-107); CREATININE 0.6 MG/DL (0.55-1.30); POTASSIUM 4.3 MMOL/L (3.5-5.1); SODIUM 131 MMOL/L (136-145)
[2018-01-26 08:00] VITALS: BP 156/78
--- NOTE | 2018-01-26 08:34 | General Progress Note ---
Assessment/Plan Assessment/Plan postop pain dt resolving hisotyro fnorcotic intake historyof alcohol use plan iincrease th gabapenmtin 400 qid form 300 tid and follow Subjective Date patient seen: Jan 26, 2018 Time patient seen: 08:32 Constitutional: Reports: no symptoms Allergies: Coded Allergies: SULFA (SULFONAMIDE ANTIBIOTICS) (Verified Allergy, Severe, 09/06/17) hives hives and itching Subjective says has a lotof pain but describes it aas ache and some needle sensation no bowel or baldder oncontinenet Objective Last 24 Hour Vital Signs Date Time Temp Pulse Resp B/P (MAP) Pulse Ox O2 Delivery O2 Flow Rate FiO2 01/26/18 05:21 133/69 01/26/18 04:00 97.7 79 19 133/69 (90) 93 97.7 01/26/18 04:00 79 01/26/18 00:00 97.6 79 18 127/70 (89) 93 97.6 01/26/18 00:00 76 01/25/18 22:40 138/75 01/25/18 21:00 Room Air 01/25/18 20:58 77 115/57 01/25/18 20:00 96.6 77 19 115/57 (76) 99 96.6 01/25/18 20:00 79 01/25/18 19:06 98.4 01/25/18 18:03 77 142/71 01/25/18 17:14 98.4 01/25/18 16:44 98.4 01/25/18 16:00 77 01/25/18 15:12 98.4 01/25/18 14:42 98.4 01/25/18 13:27 98.4 01/25/18 13:27 142/71 01/25/18 12:00 69 01/25/18 12:00 98.1 79 22 141/70 (93) 96 98.1 01/25/18 11:15 Room Air 01/25/18 11:14 98.4 01/25/18 10:55 98.4 01/25/18 10:00 98.4 01/25/18 09:53 98.4 01/25/18 09:28 77 140/71 01/25/18 09:28 77 140/71 01/25/18 09:26 98.4 Intake and Output 01/25/18 01/26/18 19:00 07:00 Intake Total 585 ml 1001 ml Balance 585 ml 1001 ml Intake Oral 485 ml 240 ml IV Total 100 ml 761 ml # Voids 1 2 # Bowel Movements 1 Laboratory Tests 01/25/18 09:05: White Blood Count 8.7, Red Blood Count 4.28, Hemoglobin 13.5, Hematocrit 39.8, Mean Corpuscular Volume 93, Mean Corpuscular Hemoglobin 31.6H, Mean Corpuscular Hemoglobin Concent 33.9, Red Cell Distribution Width 11.4L, Platelet Count 382, Mean Platelet Volume 6.6, Neutrophils (%) (Auto) 66.0, Lymphocytes (%) (Auto) 16.6L, Monocytes (%) (Auto) 12.7H, Eosinophils (%) (Auto) 4.1H, Basophils (%) ( Auto) 0.6, Sodium Level 135L, Potassium Level 3.4L, Chloride Level 102, Carbon Dioxide Level 25, Anion Gap 8, Blood Urea Nitrogen 13, Creatinine 0.6, Estimat Glomerular Filtration Rate > 60, Glucose Level 99, Calcium Level 8.1L, Magnesium Level 2.0, Total Bilirubin 0.6, Aspartate Amino Transf (AST/SGOT) 32, Alanine Aminotransferase (ALT/SGPT) 42, Alkaline Phosphatase 75, Total Protein 6.3L, Albumin 2.4L, Globulin 3.9, Albumin/Globulin Ratio 0.6L 01/26/18 06:25: White Blood Count 9.2, Red Blood Count 4.11L, Hemoglobin 12.8, Hematocrit 38.1, Mean Corpuscular Volume 93, Mean Corpuscular Hemoglobin 31.1H, Mean Corpuscular Hemoglobin Concent 33.5, Red Cell Distribution Width 11.5L, Platelet Count 407, Mean Platelet Volume 7.2, Neutrophils (%) (Auto) 71.2, Lymphocytes (%) (Auto) 11.4L, Monocytes (%) (Auto) 12.1H, Eosinophils (%) (Auto) 4.6H, Basophils (%) ( Auto) 0.6, Sodium Level 131L, Potassium Level 4.3, Chloride Level 98, Carbon Dioxide Level 26, Anion Gap 7, Blood Urea Nitrogen 14, Creatinine 0.6, Estimat Glomerular Filtration Rate > 60, Glucose Level 105, Calcium Level 8.3L, Magnesium Level 1.7L, Total Bilirubin 0.5, Aspartate Amino Transf (AST/SGOT) 40H , Alanine Aminotransferase (ALT/SGPT) 45, Alkaline Phosphatase 98, Total Protein 6.4, Albumin 2.4L, Globulin 4.0, Albumin/Globulin Ratio 0.6L Height (Feet): 5 Height (Inches): 4.00 Weight (Pounds): 125 Objective thin built lady no jvd cta moving all 4 extremity Hilario Caba MD Jan 26, 2018 08:34
[2018-01-26] MEDS: Docusate 250mg cap ORAL SCH ×2 (09:00→17:47)
[2018-01-26] MEDS: Vitamin D 1000 IU Tab ORAL SCH (09:54)
[2018-01-26] MEDS: Metoprolol Tartrate 50mg tab ORAL SCH ×2 (09:55→20:26)
[2018-01-26] MEDS: Lyrica 50mg cap ORAL SCH ×2 (10:28→20:26)
[2018-01-26] MEDS: Folic Acid 1 MG, Magnesium Sulfate 2,000 MG, Multivitamin - 12 Injection 10 ML in NS 10... IV SCH (11:53)
[2018-01-26] MEDS: Thiamine HCl 100 MG in D5W 110 ML IVPB SCH (11:54)
[2018-01-26 12:00] VITALS: BP 153/71
[2018-01-26 16:00] VITALS: BP 128/72
--- NOTE | 2018-01-26 16:16 | Diagnostic Imaging Report ---
History: ABD PAIN Exam: US ABDOMEN Comparison: None available FINDINGS: Pancreatic duct proximally measures around 3.7 mm. The visualized pancreas otherwise appears unremarkable. The liver measures 16.1 cm. CBD measures 3 mm. No gallstones, wall thickening or pericholecystic free fluid. The right kidney measures 9.9 cm, and the left kidney measures 11.6 cm. No hydronephrosis. Visualized abdominal aorta appears unremarkable. The spleen measures 8.4 cm. No free fluid seen. IMPRESSION: Pancreatic duct proximally measures around 3.7 mm. The visualized pancreas otherwise appears unremarkable. CBD measures 3 mm. No gallstones, wall thickening or pericholecystic free fluid.
[2018-01-26 20:00] VITALS: BP 143/74
--- NOTE | 2018-01-26 23:18 | General Progress Note ---
Assessment/Plan Status: stable, progressing Assessment/Plan Alcohol w/d Alcohol dependence valium standing thiamine folate Subjective Date patient seen: Jan 25, 2018 Neurologic/Psychiatric: Reports: anxiety, depressed Allergies: Coded Allergies: SULFA (SULFONAMIDE ANTIBIOTICS) (Verified Allergy, Severe, 09/06/17) hives hives and itching Subjective she complained of pain sister and son were in the room they were condescending and stated that the pt doesn't need Valium. the pt is improving. The pt is not having dt Objective Last 24 Hour Vital Signs Date Time Temp Pulse Resp B/P (MAP) Pulse Ox O2 Delivery O2 Flow Rate FiO2 01/26/18 21:43 143/74 01/26/18 21:00 Room Air 01/26/18 20:26 82 143/74 01/26/18 20:00 88 01/26/18 20:00 97.5 82 20 143/74 (97) 96 97.5 01/26/18 17:47 76 128/72 01/26/18 16:00 98.2 76 21 128/72 (90) 93 98.2 01/26/18 15:26 75 01/26/18 13:27 153/71 01/26/18 12:00 97.9 71 21 153/71 (98) 97 97.9 01/26/18 11:52 66 01/26/18 09:55 78 156/78 01/26/18 09:54 78 156/78 01/26/18 09:00 Room Air 01/26/18 08:29 97.7 01/26/18 08:00 79 01/26/18 08:00 98.4 78 22 156/78 (104) 98 98.4 01/26/18 05:21 133/69 01/26/18 04:00 97.7 79 19 133/69 (90) 93 97.7 01/26/18 04:00 79 01/26/18 00:00 97.6 79 18 127/70 (89) 93 97.6 01/26/18 00:00 76 Intake and Output 01/25/18 01/26/18 19:00 07:00 Intake Total 585 ml 1001 ml Balance 585 ml 1001 ml Intake Oral 485 ml 240 ml IV Total 100 ml 761 ml # Voids 1 2 # Bowel Movements 1 Laboratory Tests 01/26/18 06:25: White Blood Count 9.2, Red Blood Count 4.11L, Hemoglobin 12.8, Hematocrit 38.1, Mean Corpuscular Volume 93, Mean Corpuscular Hemoglobin 31.1H, Mean Corpuscular Hemoglobin Concent 33.5, Red Cell Distribution Width 11.5L, Platelet Count 407, Mean Platelet Volume 7.2, Neutrophils (%) (Auto) 71.2, Lymphocytes (%) (Auto) 11.4L, Monocytes (%) (Auto) 12.1H, Eosinophils (%) (Auto) 4.6H, Basophils (%) ( Auto) 0.6, Sodium Level 131L, Potassium Level 4.3, Chloride Level 98, Carbon Dioxide Level 26, Anion Gap 7, Blood Urea Nitrogen 14, Creatinine 0.6, Estimat Glomerular Filtration Rate > 60, Glucose Level 105, Calcium Level 8.3L, Magnesium Level 1.7L, Total Bilirubin 0.5, Aspartate Amino Transf (AST/SGOT) 40H , Alanine Aminotransferase (ALT/SGPT) 45, Alkaline Phosphatase 98, Total Protein 6.4, Albumin 2.4L, Globulin 4.0, Albumin/Globulin Ratio 0.6L Height (Feet): 5 Height (Inches): 4.00 Weight (Pounds): 125 General Appearance: no apparent distress, alert Neurologic: oriented x 3, responsive, depressed affect Rebecca Abbott MD Jan 26, 2018 23:18
--- NOTE | 2018-01-26 23:20 | General Progress Note ---
Assessment/Plan Status: stable, progressing Assessment/Plan Alcohol w/d Alcohol dependence valium standing thiamine folate decrease valium to q 6 Subjective Date patient seen: Jan 26, 2018 Neurologic/Psychiatric: Reports: anxiety Allergies: Coded Allergies: SULFA (SULFONAMIDE ANTIBIOTICS) (Verified Allergy, Severe, 09/06/17) hives hives and itching Subjective she complained of pain Objective Last 24 Hour Vital Signs Date Time Temp Pulse Resp B/P (MAP) Pulse Ox O2 Delivery O2 Flow Rate FiO2 01/26/18 21:43 143/74 01/26/18 21:00 Room Air 01/26/18 20:26 82 143/74 01/26/18 20:00 88 01/26/18 20:00 97.5 82 20 143/74 (97) 96 97.5 01/26/18 17:47 76 128/72 01/26/18 16:00 98.2 76 21 128/72 (90) 93 98.2 01/26/18 15:26 75 01/26/18 13:27 153/71 01/26/18 12:00 97.9 71 21 153/71 (98) 97 97.9 01/26/18 11:52 66 01/26/18 09:55 78 156/78 01/26/18 09:54 78 156/78 01/26/18 09:00 Room Air 01/26/18 08:29 97.7 01/26/18 08:00 79 01/26/18 08:00 98.4 78 22 156/78 (104) 98 98.4 01/26/18 05:21 133/69 01/26/18 04:00 97.7 79 19 133/69 (90) 93 97.7 01/26/18 04:00 79 01/26/18 00:00 97.6 79 18 127/70 (89) 93 97.6 01/26/18 00:00 76 Intake and Output 01/25/18 01/26/18 19:00 07:00 Intake Total 585 ml 1001 ml Balance 585 ml 1001 ml Intake Oral 485 ml 240 ml IV Total 100 ml 761 ml # Voids 1 2 # Bowel Movements 1 Laboratory Tests 01/26/18 06:25: White Blood Count 9.2, Red Blood Count 4.11L, Hemoglobin 12.8, Hematocrit 38.1, Mean Corpuscular Volume 93, Mean Corpuscular Hemoglobin 31.1H, Mean Corpuscular Hemoglobin Concent 33.5, Red Cell Distribution Width 11.5L, Platelet Count 407, Mean Platelet Volume 7.2, Neutrophils (%) (Auto) 71.2, Lymphocytes (%) (Auto) 11.4L, Monocytes (%) (Auto) 12.1H, Eosinophils (%) (Auto) 4.6H, Basophils (%) ( Auto) 0.6, Sodium Level 131L, Potassium Level 4.3, Chloride Level 98, Carbon Dioxide Level 26, Anion Gap 7, Blood Urea Nitrogen 14, Creatinine 0.6, Estimat Glomerular Filtration Rate > 60, Glucose Level 105, Calcium Level 8.3L, Magnesium Level 1.7L, Total Bilirubin 0.5, Aspartate Amino Transf (AST/SGOT) 40H , Alanine Aminotransferase (ALT/SGPT) 45, Alkaline Phosphatase 98, Total Protein 6.4, Albumin 2.4L, Globulin 4.0, Albumin/Globulin Ratio 0.6L Height (Feet): 5 Height (Inches): 4.00 Weight (Pounds): 125 General Appearance: no apparent distress, alert Rebecca Abbott MD Jan 26, 2018 23:20
[2018-01-27] VITALS (7 sets, daily range): BP systolic 95–146; BP diastolic 52–78
[2018-01-27] MEDS: HYDROmorphone 1mg/ml Carpuject IVP PRN ×10 (00:20→23:57)
[2018-01-27] MEDS: NS w/KCl 20mEq 1,000 ML IV SCH ×2 (02:06→21:31)
[2018-01-27] MEDS: HYDROmorphone 4mg tab ORAL PRN ×2 (02:06→11:29)
[2018-01-27] MEDS: HydrALAZINE 25mg tab ORAL SCH ×3 (06:04→21:35)
[2018-01-27 07:30] LABS: BASOPHILS % (AUTO) 1.3 % (0.0-2.0); EOSINOPHILS % (AUTO) 7.5 % (0.0-3.0); HEMATOCRIT 40.4 % (37.0-47.0); LYMPHOCYTES % (AUTO) 15.9 % (20.0-45.0); MEAN CORPUSCULAR VOLUME 93 FL (80-99); NEUTROPHILS % (AUTO) 63.3 % (45.0-75.0); PLATELET COUNT 335 K/UL (150-450); RED BLOOD COUNT 4.34 M/UL (4.20-5.40); RED CELL DISTRIBUTION WIDTH 11.4 % (11.6-14.8); WHITE BLOOD COUNT 7.6 K/UL (4.8-10.8)
[2018-01-27 07:56] LABS: ALANINE AMINOTRANSFERASE 46 U/L (12-78); ALBUMIN 2.5 G/DL (3.4-5.0); ALBUMIN/GLOBULIN RATIO 0.6 (1.0-2.7); ALKALINE PHOSPHATASE 110 U/L (46-116); ANION GAP 8 mmol/L (5-15); ASPARTATE AMINO TRANSFERASE 27 U/L (15-37); BILIRUBIN,TOTAL 0.4 MG/DL (0.2-1.0); BLOOD UREA NITROGEN 10 mg/dL (7-18); CALCIUM 8.8 MG/DL (8.5-10.1); CARBON DIOXIDE 24 MMOL/L (21-32); CHLORIDE 99 MMOL/L (98-107); CREATININE 0.6 MG/DL (0.55-1.30); POTASSIUM 4.1 MMOL/L (3.5-5.1); SODIUM 131 MMOL/L (136-145)
[2018-01-27] MEDS: Docusate 250mg cap ORAL SCH ×2 (08:05→17:05)
[2018-01-27] MEDS: Vitamin D 1000 IU Tab ORAL SCH (08:05)
[2018-01-27] MEDS: Metoprolol Tartrate 50mg tab ORAL SCH ×2 (08:06→21:36)
[2018-01-27] MEDS: Lyrica 50mg cap ORAL SCH ×2 (08:53→21:34)
[2018-01-27] MEDS: Thiamine HCl 100 MG in D5W 110 ML IVPB SCH (11:03)
[2018-01-27] MEDS: Folic Acid 1 MG, Magnesium Sulfate 2,000 MG, Multivitamin - 12 Injection 10 ML in NS 10... IV SCH (11:03)
[2018-01-27] MEDS ORDERED: oxyCODONE 5mg IR tab ORAL PRN (11:45)
[2018-01-27] MEDS: Milk of Magnesia 30ml Ud ORAL PRN (12:46)
[2018-01-27] MEDS ORDERED: Gadavist 7.5mMol/7.5ml vial IV PRN ×2 (15:15)
[2018-01-27] MEDS ORDERED: Sodium Chloride 500ML 500 ML IV ONE (15:15)
--- NOTE | 2018-01-27 15:59 | General Progress Note ---
Progress Note Progress Note S/ Patient had a good day yesterday and was able to ambulate with PT and family memebers, although requiring significant pain medications. She has a poor appetite. Sh edrinks one ensure can daily and 1/2 her meals. At bedside with encourage ment she drank two cans of ensure 700 ronald. O/ vs. Last 24 Hour Vital Signs Date Time Temp Pulse Resp B/P (MAP) Pulse Ox O2 Delivery O2 Flow Rate FiO2 01/27/18 14:00 135/69 01/27/18 13:13 98.1 01/27/18 12:43 98.1 01/27/18 11:59 98.1 73 20 135/69 (91) 96 98.1 01/27/18 11:52 71 01/27/18 11:29 98.1 01/27/18 10:31 98.1 01/27/18 08:17 98.1 01/27/18 08:06 82 129/63 01/27/18 08:05 82 129/63 01/27/18 07:51 83 01/27/18 07:45 98.1 82 20 129/63 (85) 96 98.1 01/27/18 07:16 Room Air 01/27/18 06:04 146/78 01/27/18 04:00 97.9 77 20 146/78 (100) 96 97.9 01/27/18 04:00 76 01/27/18 00:00 78 01/27/18 00:00 98.3 81 19 132/64 (86) 97 98.3 01/26/18 21:43 143/74 01/26/18 21:00 Room Air 01/26/18 20:26 82 143/74 01/26/18 20:00 88 01/26/18 20:00 97.5 82 20 143/74 (97) 96 97.5 01/26/18 17:47 76 128/72 01/26/18 16:00 98.2 76 21 128/72 (90) 93 98.2 Alert, oriented to time , place and person and date. Face symmetric No pronator drift lower extremity strength is 5/5 in th eproximal and distal lower extremities. Decreased sensation in the left lateral thigh and leg. No hyperesthesia. Thoracolumbar incision is completely dry. No evidence of sacral erythema, or ulceration Labs. Laboratory Tests Test 01/27/18 06:55 White Blood Count 7.6 K/UL (4.8-10.8) Red Blood Count 4.34 M/UL (4.20-5.40) Hemoglobin 14.0 G/DL (12.0-16.0) Hematocrit 40.4 % (37.0-47.0) Mean Corpuscular Volume 93 FL (80-99) Mean Corpuscular Hemoglobin 32.2 PG (27.0-31.0) H Mean Corpuscular Hemoglobin Concent 34.5 G/DL (32.0-36.0) Red Cell Distribution Width 11.4 % (11.6-14.8) L Platelet Count 335 K/UL (150-450) Mean Platelet Volume 6.8 FL (6.5-10.1) Neutrophils (%) (Auto) 63.3 % (45.0-75.0) Lymphocytes (%) (Auto) 15.9 % (20.0-45.0) L Monocytes (%) (Auto) 12.0 % (1.0-10.0) H Eosinophils (%) (Auto) 7.5 % (0.0-3.0) H Basophils (%) (Auto) 1.3 % (0.0-2.0) Sodium Level 131 MMOL/L (136-145) L Potassium Level 4.1 MMOL/L (3.5-5.1) Chloride Level 99 MMOL/L (98-107) Carbon Dioxide Level 24 MMOL/L (21-32) Anion Gap 8 mmol/L (5-15) Blood Urea Nitrogen 10 mg/dL (7-18) Creatinine 0.6 MG/DL (0.55-1.30) Estimat Glomerular Filtration Rate > 60 mL/min (>60) Glucose Level 111 MG/DL (74-106) H Calcium Level 8.8 MG/DL (8.5-10.1) Magnesium Level 1.9 MG/DL (1.8-2.4) Total Bilirubin 0.4 MG/DL (0.2-1.0) Aspartate Amino Transf (AST/SGOT) 27 U/L (15-37) Alanine Aminotransferase (ALT/SGPT) 46 U/L (12-78) Alkaline Phosphatase 110 U/L (46-116) Total Protein 6.8 G/DL (6.4-8.2) Albumin 2.5 G/DL (3.4-5.0) L Globulin 4.3 g/dL Albumin/Globulin Ratio 0.6 (1.0-2.7) L protracted post-operative radiculitis. Pt requiring significant amiunt of narcotics and Valium. Nutrition. Protein trending down. Pt encouraged to continue with high protein diet. At bedside with help of family pt drank two cans of ensure normally. ID Normalized WBC. MgSO4 2gms IVP today. Will order STAT thoracolumbar MRI with and without contrast to rule out soft tissue edema/inflammatory changes. Potential reaction to the Cassie. I had a detailed and long discussion with family and patient regarding wound re- exploration, and possible additional decompression. Patient and family are in agreement. Other options such as continuation with pain medications, epidural injections versus the surgical option were fully and detail explored with pt and her family. Risk of the operation, including but not limited to infection, bleeding, nerve damage, paralysis, continued pain, need for addiional surgery and potentila instrumented fusion, risk of anesthesia, including coma and were explained in detail to pt and her family. I spoke with the nursing and house nursing night shift supervisor to schedulae STAT MRI and arrange for the surgery for tomorrow. Aleta Goodson MD Jan 27, 2018 15:59
[2018-01-27] MEDS ORDERED: HYDROmorphone 1mg/ml Carpuject IVP SCH ×2 (20:00→20:30)
[2018-01-28] VITALS (12 sets, daily range): BP systolic 104–147; BP diastolic 57–81
--- NOTE | 2018-01-28 00:31 | Diagnostic Imaging Report ---
EXAM: MR Lumbar Spine Without And With Intravenous Contrast CLINICAL HISTORY: PAIN TECHNIQUE: Magnetic resonance images of the lumbar spine without and with intravenous contrast in multiple planes. COMPARISON: 01/24/2018 CT lumbar spine. FINDINGS: Limitations: Limited due to metallic and motion artifact. Vertebrae: Status post L4-S1 posterior fusion. Posterior paraspinal irregular fluid near L1 level approximately 6 x 3 cm which may be postop versus infection/inflammation, cannot exclude developing abscess. Spinal cord: No definite abnormal signal or enhancement. Soft tissues: See below. DISCS/SPINAL CANAL/NEURAL FORAMINA: T12-L1: T12-L1 mild endplate edema/enhancement and small disc-space fluid, cannot exclude mild or early discitis/osteomyelitis. Status post T12-L1 posterior element surgical decompression/resection. Prominent disc-osteophyte complex. Facet arthropathy. Severe spinal canal stenosis. Moderate bilateral neuroforaminal stenosis. L1-L2: Degenerative disc space narrowing. Prominent disc-osteophyte complex. Facet arthropathy. Severe spinal canal stenosis. Moderate bilateral neuroforaminal stenosis. L2-L3: Degenerative disc space narrowing. Prominent disc-osteophyte complex. Facet arthropathy. Severe spinal canal stenosis. Moderate bilateral neuroforaminal stenosis. L3-L4: Degenerative disc space narrowing. Facet arthropathy. Mild disc-osteophyte complex. Mild spinal canal stenosis. Mild bilateral neuroforaminal stenosis. L4-L5: Degenerative disc space narrowing. Facet arthropathy. Postop changes. No spinal canal stenosis. Bilateral neuroforamen obscured by metallic artifact. L5-S1: Degenerative disc space narrowing. Facet arthropathy. Postop changes. No spinal canal stenosis. Bilateral neuroforamen obscured by metallic artifact. IMPRESSION: 1. Status post L4-S1 posterior fusion. T12-L1 postop changes. Severely limited study due to motion and metallic artifact. 2. Posterior paraspinal irregular fluid near L1 level approximately 6 x 3 cm which may be postop versus infection/inflammation, cannot exclude developing abscess. 3. T12-L1 mild endplate edema/enhancement and small disc-space fluid, cannot exclude mild or early discitis/osteomyelitis. 4. Multilevel degenerative changes. Severe spinal canal stenosis at T12- L1, L1-2, L2-3.
[2018-01-28] MEDS: HYDROmorphone 1mg/ml Carpuject IVP PRN ×3 (01:55→07:35)
[2018-01-28] MEDS: HydrALAZINE 25mg tab ORAL SCH ×3 (05:10→22:50)
[2018-01-28] MEDS ORDERED: Thrombin 5000 units spray kit TOPIC ONE (08:32)
[2018-01-28] MEDS ORDERED: Gelfoam Absorbable 1gm powder pkt TOPIC ONE (08:33)
[2018-01-28] MEDS ORDERED: Thrombin 5000 units TOPIC ONE (08:33)
[2018-01-28] MEDS ORDERED: Bupivacaine 0.5% Inj 30 ml vial INJ ONE (08:33)
[2018-01-28] MEDS ORDERED: Gelfoam Size TOPIC ONE (08:33)
[2018-01-28] MEDS ORDERED: Bacitracin 50000 Units Vial ONE (08:34)
[2018-01-28] MEDS ORDERED: Vancomycin 1gm inj IVPB ONE ×2 (08:54→10:12)
[2018-01-28] MEDS ORDERED: EPINEPHrine 1mg/1ml Amp ONE (08:54)
[2018-01-28] MEDS ORDERED: Lidocaine 1% MPF 10mg/ml 5ml ONE (08:55)
[2018-01-28] MEDS ORDERED: Dexamethasone 4mg/ml vial ONE (08:55)
[2018-01-28] MEDS ORDERED: Sodium Chloride 10ml vial INJ ONE (08:55)
--- NOTE | 2018-01-28 08:56 | Pre-Procedure Note/Attestation ---
Pre-Procedure Note/Attestation Complete Prior to Procedure Planned Procedure: bilateral Procedure Narrative: Posterior thoracolumbar wound Irrigation and debridement Attestation I attest that I discussed the nature of the procedure; its benefits; risks and complications; and alternatives (and the risks and benefits of such alternatives ), prior to the procedure, with the patient (or the patient's legal jewelry sales representative). I attest that, if there was a reasonable possibility of needing a blood transfusion, the patient (or the patient's legal jewelry sales representative) was given the [facility] standardized written summary, pursuant to the Tony Maritza Blood Safety Act ([place] Health and Safety Code # 1645, as amended). I attest that I re-evaluated the patient just prior to the surgery and that there has been no change in the patient's H&P, except as documented below: Aleta Goodson MD Jan 28, 2018 08:56
[2018-01-28] MEDS ORDERED: fentaNYL 100 mcg/2 mL IV ONE (08:57)
[2018-01-28] MEDS ORDERED: Ketamine 500mg Inj ONE (08:58)
[2018-01-28] MEDS ORDERED: LR 1000ml 1,000 ML IVLG SCH (08:59)
[2018-01-28] MEDS ORDERED: Norco 5mg/325mg tab ORAL PRN ×2 (09:00→13:00)
[2018-01-28] MEDS ORDERED: oxyCODONE HCL/Acetaminophen 5/325mg ORAL PRN ×2 (09:00→13:00)
[2018-01-28] MEDS ORDERED: HYDROcodone/Acetamin 7.5/325 tab ORAL PRN ×4 (09:00→13:45)
[2018-01-28] MEDS ORDERED: Midazolam 2mg/2ml Inj IVP PRN ×2 (09:00→12:15)
[2018-01-28] MEDS ORDERED: LORazepam Inj 2mg/ml 1ml IV PRN ×2 (09:00→12:15)
[2018-01-28] MEDS ORDERED: Labetalol 5mg/ml 20ml vial IV PRN ×2 (09:00→12:30)
[2018-01-28] MEDS ORDERED: Atropine Inj 1mg/10ml Syr IV PRN ×2 (09:00→12:15)
[2018-01-28] MEDS ORDERED: NS Irrig 1000ml IRRIG ONE (09:00)
[2018-01-28] MEDS ORDERED: Neostigmine 1mg/ml 10ml Inj ONE (09:00)
[2018-01-28] MEDS ORDERED: NS Irrig 1000ml ONE (09:00)
[2018-01-28] MEDS ORDERED: DiphenhydrAMINE 50mg/ml Inj IVP PRN ×4 (09:00→12:27)
[2018-01-28] MEDS ORDERED: Hydromorphone 0.5mg/0.5ml inj IVP PRN ×2 (09:00→12:15)
[2018-01-28] MEDS ORDERED: Sterile Water Irrig 1000ml IRRIG ONE (09:00)
[2018-01-28] MEDS: Lyrica 50mg cap ORAL SCH ×2 (09:00→23:03)
[2018-01-28] MEDS ORDERED: fentaNYL 100 mcg/2 mL IV PRN ×2 (09:00→12:30)
[2018-01-28] MEDS: Docusate 250mg cap ORAL SCH (09:00)
[2018-01-28] MEDS: Metoprolol Tartrate 50mg tab ORAL SCH ×2 (09:00→23:04)
[2018-01-28] MEDS: Vitamin D 1000 IU Tab ORAL SCH (09:00)
[2018-01-28] MEDS ORDERED: Zemuron 50mg/5ml Inj IV ONE (09:00)
[2018-01-28] MEDS ORDERED: Acetaminophen (Non formulary) 100 ML IV ONE (09:00)
[2018-01-28] MEDS ORDERED: Propofol 200mg/20ml IV ONE (09:00)
[2018-01-28] MEDS ORDERED: Glycopyrrolate 0.2mg/ml 1ml Vial ONE ×2 (09:47→10:16)
[2018-01-28] MEDS ORDERED: Naloxone 0.4mg/ml Inj ONE (09:47)
--- NOTE | 2018-01-28 09:51 | Anethesia Preoperative Eval ---
Anesthesia Pre-op PMH/ROS General Date of Evaluation: Jan 28, 2018 Time of Evaluation: 08:54 Anesthesiologist: Cristine ASA Score: ASA 3 - Emergency Mallampati Score Class I : Soft palate, uvula, fauces, pillars visible Class II: Soft palate, uvula, fauces visible Class III: Soft palate, base of uvula visible Class IV: Only hard plate visible Mallampati Classification: Class I Surgeon: Kellee Diagnosis: Back Pain Surgical Procedure: Thoracolumbar I and D Anesthesia History: none Family History: no anesthesia problems Allergies: Coded Allergies: SULFA (SULFONAMIDE ANTIBIOTICS) (Verified Allergy, Severe, 09/06/17) hives hives and itching Medications: see eMAR Past Medical History Cardiovascular: Reports: HTN Neurologic/Psychiatric: Reports: depression/anxiety PSxH Narrative: Foot Sx, DIMITRIOS, Cervical, Lumbar, Thoracic Sx Anesthesia Pre-op Phys. Exam Physician Exam Last Vital Signs Date Time Temp Pulse Resp B/P (MAP) Pulse Ox O2 Delivery O2 Flow Rate FiO2 01/28/18 09:00 Room Air 01/28/18 08:00 85 01/28/18 06:54 98.5 18 117/65 (82) 95 98.5 Constitutional: NAD Neurologic: CN 2-12 intact Cardiovascular: RRR Respiratory: CTA Gastrointestinal: S/NT/ND Airway Exam Mallampati Score: Class II MO: limited ROM: limited Teeth: missing, intact Anesthesia Pre-op A/P Labs Coagulation Test 01/27/18 21:30 Prothrombin Time 10.3 SEC (9.30-11.50) Prothromb Time International Ratio 1.0 (0.9-1.1) Risk Assessment & Plan Assessment: ASA 3E Plan: GA, SED, GlideScope Go Status Change Before Surgery: No Pre-Antibiotics Drug: Handy Nino MD Jan 28, 2018 09:51
--- NOTE | 2018-01-28 09:58 | Immediate Post-Op Evaluation ---
Immediate Post-Op Evalulation Immediate Post-Op Evalulation Procedure: Thoracolumbar I and D Date of Evaluation: Jan 28, 2018 Time of Evaluation: 11:00 IV Fluids: 600 NS Blood Products: 0 Estimated Blood Loss: 20 Urinary Output: 0 Blood Pressure Systolic: 115 Blood Pressure Diastolic: 60 Pulse Rate: 83 Respiratory Rate: 16 O2 Sat by Pulse Oximetry: 99 Temperature (Fahrenheit): 99.9 Pain Score (1-10): 3 Nausea: No Vomiting: No Complications 0 Patient Status: awake, reacts, patent, extubated, none Hydration Status: adequate Drug: Genatamicin 80 mg, Vancomycin 1 g IV Given Within 1 Hr of Incision: Yes Time Given: 09:24 Handy Colunga MD Jan 28, 2018 09:58
[2018-01-28] MEDS ORDERED: LORazepam 1mg tab ORAL PRN ×2 (10:30→14:30)
[2018-01-28] MEDS ORDERED: Naloxone 0.4mg/ml Inj IVP PRN ×2 (10:30→12:16)
[2018-01-28] MEDS ORDERED: PCA Education Pamphlet MISC ONE (10:30)
[2018-01-28] MEDS ORDERED: Rate Change PCA 1 Each MISC PRN (10:30)
[2018-01-28] MEDS ORDERED: PCA HYDROmorphone 1mg/ml 30 ML IV PRN (10:30)
[2018-01-28] MEDS ORDERED: NS w/KCl 20mEq 1,000 ML IV SCH ×2 (10:44→12:15)
[2018-01-28] MEDS ORDERED: Milk of Magnesia 30ml Ud ORAL PRN ×2 (10:45→18:30)
[2018-01-28] MEDS ORDERED: HYDROmorphone 1mg/ml Carpuject IVP PRN ×3 (10:45→13:45)
--- NOTE | 2018-01-28 11:03 | Brief Operative Note ---
Immediate Post Operative Note Operative Note Chief Complaint: Intracable pain, radiculitis. S/p T12-L1 decompression and posterolateral f Pre-op Diagnosis: Inflammatory response to allograft vs infection Procedure: Irrigation and debridement of T12-L1 wound. placement of drain Post-op Diagnosis: same Post-op Diagnosis: same as pre-op Findings: other - No evidence of purulence. Clear fluid seroma. Surgeon: Aleta Goodson M.D. Circulation Librarian: None Anesthesiologist: Dr. Soto Anesthesia: general Specimen: yes - Tissue cultures; superficial and deep wound cultures Complications: none Condition: stable Fluids: 1.0 liter crytalloids Estimated Blood Loss: minimal Drains: hemovac Implant(s) used?: No Aleta Goodson MD Jan 28, 2018 11:03
--- NOTE | 2018-01-28 11:17 | General Progress Note ---
Progress Note Progress Note Neurosurgery Post op S/ Comfortable. No pain O/ vs. Last 24 Hour Vital Signs Date Time Temp Pulse Resp B/P (MAP) Pulse Ox O2 Delivery O2 Flow Rate FiO2 01/28/18 11:10 85 20 122/65 98 Simple Mask 6 01/28/18 11:10 99.9 01/28/18 10:59 85 19 119/64 98 Simple Mask 6 01/28/18 10:54 83 15 111/58 98 Simple Mask 6 01/28/18 10:52 211.8 83 16 99 01/28/18 10:49 99.9 84 16 115/60 98 Simple Mask 6 99.9 01/28/18 09:00 Room Air 01/28/18 08:00 85 01/28/18 06:54 98.5 75 18 117/65 (82) 95 98.5 01/28/18 05:10 147/74 01/28/18 05:00 97.9 81 20 147/74 (98) 96 97.9 80 01/28/18 04:00 98.2 81 20 119/61 (80) 96 98.2 01/28/18 04:00 79 01/28/18 00:00 97.9 78 18 113/62 (79) 95 97.9 01/28/18 00:00 77 01/27/18 21:36 89 141/71 01/27/18 21:35 141/71 01/27/18 21:15 Room Air 01/27/18 21:15 141/71 (94) 01/27/18 21:15 84 01/27/18 20:00 97.3 79 20 95/52 (66) 95 97.3 01/27/18 19:04 98.1 01/27/18 17:05 78 119/65 01/27/18 16:53 98.1 01/27/18 16:50 98.1 78 20 119/65 (83) 96 98.1 01/27/18 16:23 98.1 01/27/18 16:15 78 01/27/18 14:00 135/69 01/27/18 12:43 98.1 01/27/18 11:59 98.1 73 20 135/69 (91) 96 98.1 01/27/18 11:52 71 01/27/18 11:29 98.1 Arousable. Moves all extremities HV about 20 cc bloody fluid Admit HYDRAULIC ASSEMBLER for pain control Pt's informed Aleta Goodson MD Jan 28, 2018 11:17
[2018-01-28] MEDS: NS w/KCl 20mEq 1,000 ML IV SCH ×2 (12:12→12:15)
[2018-01-28] MEDS ORDERED: oxyCODONE 5mg IR tab ORAL PRN (12:32)
--- NOTE | 2018-01-28 13:00 | Operative Note - Dictated ---
DATE OF OPERATION: 01/28/2018 PREOPERATIVE DIAGNOSES: 1. Intractable postoperative pain and radiculitis. 2. Inflammatory response to allograft versus wound infection. POSTOPERATIVE DIAGNOSES: 1. Intractable postoperative pain and radiculitis. 2. Inflammatory response to allograft versus wound infection. PROCEDURE: Irrigation and debridement of surgical wound T12-L1, placement of epidural drain. SURGEON: Aleta Goodson M.D. [place] SURGEON: None. ANESTHESIOLOGIST: Handy Colunga M.D. ANESTHESIA TYPE: General endotracheal anesthesia. ESTIMATED BLOOD LOSS: Minimal. IV FLUIDS: One liter of crystalloid. SPECIMEN: Included superficial and deep wound cultures including aerobic, anaerobic, and acid-fast stain and Gram stain. Tissue cultures of deep wound. FINDINGS: Subcutaneous clear fluid seroma with no evidence of purulence, evidence of inflammatory response and seroma fluid at the surgical site. INDICATION: The patient is a pleasant 67-year-old woman with history of cervical and thoracic myelopathy, status post anterior cervical fusion and recent thoracic decompressive surgery at T12-L1 and posterolateral arthrodesis. The most recent procedure was done on January 17, 2018. She did extremely well postoperatively and was discharged postop day 1 with minimal pain and full ambulatory status. She presented to an outside hospital approximately 24 to 48 hours after the discharge with severe onset of pain in her lower extremities, spasms, and radiculitis type picture. She was transferred back to the [facility]. Extensive workup was obtained. She was found to have hyponatremia, electrolyte disturbance along with imaging studies, which were significant for local fluid collection. Her incision was tapped initially, fluids were sent off with no evidence of infection. She had evidence of pyuria and was treated for potential urinary tract infection. She also had abdominal ultrasound, two separate lower extremity Doppler venous studies, which showed no evidence of blood clots. Her abdominal ultrasound was also negative for any type of obstruction at the level of the gallbladder or evidence of liver abnormalities. She had an MRI with and without contrast, which showed evidence of enhancing tissue in the paralumbar and thoracic region consistent with postoperative changes, also consistent with inflammatory response versus potential infection. After a long discussion with the family and the patient, she elected to proceed with the irrigation and debridement procedure. Risks of the operation including, but not limited to, the risk of infection, bleeding, nerve damage, paralysis, spinal fluid leakage causing meningitis or need for additional surgery, spinal instability requiring additional surgeries in the future such as instrumented fusion were all discussed with the patient and her family. Consent was signed. The patient was taken to the operating room. DETAILS OF PROCEDURE: The patient was identified. She was taken to the operating room. She underwent uneventful video-assisted endotracheal intubation. She was placed prone on a Guero frame. Care was taken to pad all pressure points from the top of the head to the tip of the toes including shoulders, hips, and knee areas. Previous surgical incision site was identified. It was prepped and draped in sterile fashion. Time-out was observed and the circulating nurse called the time-out. Incision of the thoracicolumbar region was reopened using a #10 blade. Upon opening of the wound, there was evidence of clear fluid consistent with sterile seroma. Subcutaneous fluid cultures were sent off as well as deep tissue cultures for Gram stain and acid-fast bacillus stain as well. There was no evidence of purulence. The dorsal fascia was then opened using #15 blade. There was evidence of fluid collection over the epidural space and facet joints bilaterally. Fluid was drained. Using a pulsatile irrigation system, about a liter of antibiotic solution was used to irrigate the wound completely. Using a curette, the epidural space and the areas over the facet joints were debrided and tissue was sent off for tissue culture as well. A Hemovac drain was then introduced. A 1 gram of vancomycin powder was placed in the deep portion of the wound. Fascia was closed using 0 Vicryl stitches. Subcutaneous and subcuticular layers were closed with 2-0 and 3-0 Vicryl stitches. Skin was closed with 4-0 running nylon stitch. Steri-Strips were applied. Dressing was applied to the skin. The patient was then transported to the [facility] and the [facility] without any problems. The patient tolerated the procedure well. The patient's also was informed of the operative findings and the patient's condition. COMPLICATIONS: None. Aleta Goodson M.D. DR: ROHINI JOB#: [id number] CC:
[2018-01-28] MEDS ORDERED: HydrALAZINE 25mg tab ORAL SCH (14:00)
[2018-01-28] MEDS ORDERED: Gadavist 7.5mMol/7.5ml vial IV PRN (15:15)
[2018-01-28] MEDS: Folic Acid 1 MG, Magnesium Sulfate 2,000 MG, Multivitamin - 12 Injection 10 ML in NS 10... IV SCH (16:20)
[2018-01-28] MEDS: Thiamine HCl 100 MG in D5W 110 ML IVPB SCH (16:21)
--- NOTE | 2018-01-28 16:30 | Consultation ---
DATE OF CONSULTATION: 01/28/2018 GASTROENTEROLOGY CONSULTATION CONSULTING PHYSICIAN: Viraj Mcguire M.D. CHIEF COMPLAINT: Abdominal pain, vomiting, and need for NG-tube placement. HISTORY OF PRESENT ILLNESS: This is a 67-year-old female with multiple medical problems, recent spine surgery in December 2017. She is having a lot of pain and also she has history of alcoholism, history of narcotic dependency, hypertension. Apparently, the patient needed NG-tube for feeding and the nurses had a hard time placing it, so GI consult was requested for further evaluation. I went to the bedside to help with NG-tube placement. The states the patient is going for surgery today and the nurses confirmed that the patient is going for I and D of the cervical spine surgical site and her family did not want to have NG-tube at this time. PAST MEDICAL HISTORY: 1. Hypertension. 2. Disk disease, status post surgery. 3. History of alcohol usage. PAST SURGICAL HISTORY: 1. Cervical fusion. 2. Hysterectomy. 3. History of foot surgery. ALLERGIES: To sulfa. MEDICATIONS: Please see medication reconciliation list. SOCIAL HISTORY: As above. PHYSICAL EXAMINATION: VITAL SIGNS: Temperature 98.5, pulse 75, respiration 18, and blood pressure 120/65. HEENT: Normocephalic and atraumatic. Sclerae anicteric. NECK: Supple. No obvious evidence of lymphadenopathy. CARDIOVASCULAR: regular rate. Plus S1, S2. LUNGS: Decreased breath sounds bilaterally based on supine exam. ABDOMEN: Soft and nontender. No rebound. No guarding. No peritoneal sign. EXTREMITIES: No cyanosis, no clubbing, no edema. LABORATORY DATA: White count 7.6, hemoglobin 14, hematocrit 40, platelet count 335,000. Chem-7, sodium 131, potassium 4.1, creatinine is 0.6. ASSESSMENT AND PLAN: This is a 67-year-old female with recent spine surgery, now is going down for I and D of the spine surgery. Family refused to put NG-tube at this time. I think if the patient needs an NG-tube, the sedated for the surgery, they can place an NG tube at that point. We will follow if needed again. Later today or tomorrow, we will come back and try to help with that. Meanwhile, we are going to monitor closely. Viraj Mgcuire M.D. DR: Bonnie JOB#: [id number] CC:
[2018-01-28] MEDS: Docusate Sod/Senna tab ORAL SCH (17:15)
[2018-01-28] MEDS: Miconazole 2% Cream 30gm TOPIC SCH (17:16)
[2018-01-28] MEDS ORDERED: Docusate 100mg cap ORAL SCH (18:00)
[2018-01-28] MEDS ORDERED: Docusate Sod/Senna tab ORAL SCH (18:00)
[2018-01-28] MEDS ORDERED: Miconazole 2% Cream 30gm TOPIC SCH (18:00)
[2018-01-28] MEDS ORDERED: Docusate 250mg cap ORAL SCH (18:00)
[2018-01-28] MEDS ORDERED: Fleet's Enema 133ml RECTAL PRN (18:30)
[2018-01-28] MEDS ORDERED: PCA shift volume MISC SCH (19:00)
[2018-01-28] MEDS: PCA shift volume MISC SCH (19:00)
[2018-01-28] MEDS ORDERED: Vancomycin 1 GM in D5W 275 ML IVPB SCH ×4 (21:00)
[2018-01-28] MEDS ORDERED: Vancomycin 1 GM in D5W 275 ML IV SCH (21:00)
[2018-01-29] VITALS (7 sets, daily range): BP systolic 79–107; BP diastolic 45–63
[2018-01-29] MEDS: NS w/KCl 20mEq 1,000 ML IV SCH (01:35)
[2018-01-29] MEDS: HydrALAZINE 25mg tab ORAL SCH ×3 (05:23→20:54)
[2018-01-29 06:17] LABS: BASOPHILS % (AUTO) 0.3 % (0.0-2.0); EOSINOPHILS % (AUTO) 2.4 % (0.0-3.0); HEMATOCRIT 31.8 % (37.0-47.0); HEMOGLOBIN 10.5 G/DL (12.0-16.0); LYMPHOCYTES % (AUTO) 11.1 % (20.0-45.0); MEAN CORPUSCULAR VOLUME 94 FL (80-99); MONOCYTES % (AUTO) 9.2 % (1.0-10.0); PLATELET COUNT 400 K/UL (150-450); RED BLOOD COUNT 3.38 M/UL (4.20-5.40); RED CELL DISTRIBUTION WIDTH 11.2 % (11.6-14.8); WHITE BLOOD COUNT 10.5 K/UL (4.8-10.8)
[2018-01-29 06:26] LABS: ANION GAP 4 mmol/L (5-15); BLOOD UREA NITROGEN 17 mg/dL (7-18); CALCIUM 7.6 MG/DL (8.5-10.1); CARBON DIOXIDE 28 MMOL/L (21-32); CHLORIDE 104 MMOL/L (98-107); CREATININE 0.6 MG/DL (0.55-1.30); POTASSIUM 3.9 MMOL/L (3.5-5.1); SODIUM 136 MMOL/L (136-145)
[2018-01-29] MEDS: PCA shift volume MISC SCH ×2 (07:00→19:00)
--- NOTE | 2018-01-29 08:18 | Diagnostic Imaging Report ---
Indication: Chest pain Technique: One view of the chest Comparison: 01/20/2018 Findings: . Development of bilateral upper lobe infiltrates. The heart size is normal. The pleural spaces are clear Impression: Bilateral upper lobe infiltrates, likely pneumonia This agrees with the preliminary interpretation provided overnight by [facility].
[2018-01-29] MEDS ORDERED: Rate Change PCA 1 Each MISC PRN ×2 (09:00→17:15)
[2018-01-29] MEDS: Miconazole 2% Cream 30gm TOPIC SCH ×2 (09:00→18:15)
[2018-01-29] MEDS: Metoprolol Tartrate 50mg tab ORAL SCH ×2 (09:00→20:54)
--- NOTE | 2018-01-29 09:00 | History and Physical Report ---
DATE OF ADMISSION: 01/20/2018 HISTORY OF PRESENT ILLNESS: The patient was admitted to the hospital for postoperative pain. MEDICATIONS: Current medications on the patient include: 1. Dilaudid 1 mg p.r.n. and Dilaudid for severe p.r.n., these are both oral. 2. Folic acid in IV. 3. Thiamine IV. 4. Valium 10 mg q.4 h. 5. Amlodipine 5 b.i.d. 6. Docusate 250 b.i.d. 7. Gabapentin 300 t.i.d. 8. Levofloxacin 250. 9. Vitamin D. 10. Hydralazine. 11. Magnesium oxide. The patient was admitted for hospital for postoperative care. She has had history of alcohol abuse, has been drinking at least two glasses of wine, sometimes up to a bottle of wine. She is malnourished and has a low albumin state. Nonetheless, she has underwent surgery without difficulty. Subsequently underwent admission to the hospital for further evaluation. The patient was seen and evaluated by Dr. Goodson. She became altered, had tachycardia, tremor, hallucination, 01:53. Prior to that, she was given some Decadron. 01:58 steroid psychosis as well as alcohol withdrawal was entertained. 02:04 more likely alcohol withdrawal type of things, and she was placed on banana bag, and she was given medications, and she was followed up. She denies any nausea or vomiting. She denies any diarrhea. She denies any chest pain at this time. She has a lot of back pain. She says she has muscle pain. She has been ruled out for DVT on 01/21/2018 and repeated one today. She has persistent postoperative pain. X-ray and CT of thoracolumbar has been done, and neurosurgeon has looked at them. Fluid culture analysis do not show wound infection. Wound is 02:50 and dry. PHYSICAL EXAMINATION: VITAL SIGNS: Today, vital signs that were obtained, temperature 98.4, pulse 77, blood pressure 142/71. HEENT: Normocephalic and atraumatic. NECK: Supple. HEART: S1 and S2. LUNGS: Clear. ABDOMEN: Soft. No rebound or guarding. EXTREMITIES: No clubbing or cyanosis. LABORATORY AND DIAGNOSTIC DATA: Laboratory data was obtained on the patient and was reviewed. WBC 8.7, hematocrit 39.8, and platelets 382. ASSESSMENT: This is an unfortunate female who was admitted to the hospital for postoperative pain. 1. Chemistry that was obtained shows sodium 135, potassium 3.4, calcium 8.1, total protein 6.3, and albumin is 2.4. 2. We will get dietitian consultation on the patient. 3. We will get the patient ambulating. 4. Continue pain management. 5. We will follow closely. 6. Family wanted to transfer the patient to [facility], request for transfer has been done. 7. I called the transfer center, they said it is unlikely that we can get a bed today or tomorrow, and maybe this will happen after the weekend. 8. Discussed this with family members. 9. We will control the pain. 10. We will monitor the patient closely. 11. Taper the benzodiazepine and we will follow. 12. Nutrition enhancement needs to be done. 13. We will follow the patient closely. 14. 04:28 follow. Hilario Caba M.D. DR: Mercedes JOB#: [id number] CC:
[2018-01-29] MEDS: Docusate Sod/Senna tab ORAL SCH ×2 (09:19→18:15)
[2018-01-29] MEDS: Lyrica 50mg cap ORAL SCH ×2 (09:20→20:54)
[2018-01-29] MEDS: Vancomycin 1 GM in D5W 275 ML IVPB SCH (09:22)
[2018-01-29] MEDS ORDERED: PCA HYDROmorphone 1mg/ml 30 ML IV PRN ×2 (10:30→17:15)
[2018-01-29] MEDS: Vitamin D 1000 IU Tab ORAL SCH (10:36)
[2018-01-29] MEDS ORDERED: Folic Acid 1 MG, Magnesium Sulfate 2,000 MG, Multivitamin - 12 Injection 10 ML in NS 10... IV SCH (12:00)
[2018-01-29] MEDS ORDERED: Thiamine HCl 100 MG in D5W 110 ML IVPB SCH (12:00)
--- NOTE | 2018-01-29 13:24 | General Progress Note ---
Assessment/Plan Status: stable Assessment/Plan Alcohol w/d Alcohol dependence -valium 10mg bid/prn per pmd -prozac 40mg was resumed today Subjective Date patient seen: Jan 29, 2018 Neurologic/Psychiatric: Reports: anxiety, depressed Allergies: Coded Allergies: SULFA (SULFONAMIDE ANTIBIOTICS) (Verified Allergy, Severe, 09/06/17) hives hives and itching Subjective she complained of pain the pt has severe anxiety the valium has been discont and on prn now per Dr. Simmons Objective Last 24 Hour Vital Signs Date Time Temp Pulse Resp B/P (MAP) Pulse Ox O2 Delivery O2 Flow Rate FiO2 01/29/18 12:53 18 01/29/18 12:40 98.3 01/29/18 09:00 72 101/55 01/29/18 09:00 72 101/55 01/29/18 08:12 98.3 79 18 79/45 (56) 96 98.3 01/29/18 08:00 18 01/29/18 05:23 101/55 01/29/18 04:00 98.0 72 20 101/55 (70) 98 98.0 01/29/18 04:00 18 01/29/18 00:00 17 01/29/18 00:00 98.1 80 20 104/56 (72) 96 98.1 01/28/18 23:04 78 112/70 01/28/18 22:50 112/70 01/28/18 21:00 Room Air 01/28/18 20:00 97.9 76 20 104/57 (73) 96 97.9 01/28/18 20:00 18 01/28/18 17:16 88 136/81 01/28/18 16:00 97.7 20 136/81 (99) 100 97.7 Intake and Output 01/28/18 01/29/18 19:00 07:00 Intake Total 1275 ml 915 ml Output Total 24 ml 2 ml Balance 1251 ml 913 ml Intake Oral 240 ml IV Total 1275 ml 675 ml Output Urine Total 24 ml Drainage Total 2 ml # Voids 1 2 Laboratory Tests 01/29/18 05:10: White Blood Count 10.5, Red Blood Count 3.38L, Hemoglobin 10.5L, Hematocrit 31.8L, Mean Corpuscular Volume 94, Mean Corpuscular Hemoglobin 31.0, Mean Corpuscular Hemoglobin Concent 33.1, Red Cell Distribution Width 11.2L, Platelet Count 400, Mean Platelet Volume 6.6, Neutrophils (%) (Auto) 77.0H, Lymphocytes (%) (Auto) 11.1L, Monocytes (%) (Auto) 9.2, Eosinophils (%) (Auto) 2.4, Basophils (%) (Auto) 0.3, Sodium Level 136, Potassium Level 3.9, Chloride Level 104, Carbon Dioxide Level 28, Anion Gap 4L, Blood Urea Nitrogen 17, Creatinine 0.6, Estimat Glomerular Filtration Rate > 60, Glucose Level 93, Calcium Level 7.6L Height (Feet): 5 Height (Inches): 4.00 Weight (Pounds): 125 General Appearance: no apparent distress, alert, agitated Neurologic: oriented x 3, responsive Rebecca Abbott MD Jan 29, 2018 13:24
[2018-01-29] MEDS: Flonase Nasal Inhaler 16gm NASAL SCH ×2 (13:29→18:15)
--- NOTE | 2018-01-29 13:45 | GI Progress Note ---
Assessment/Plan Problems: (1) S/P cervical spinal fusion ICD Codes: Z98.1 - Arthrodesis status SNOMED: 07949198, 02019572, [id number] (2) Pain ICD Codes: R52 - Pain, unspecified SNOMED: 90027479 (3) S/P fusion of thoracic spine ICD Codes: Z98.1 - Arthrodesis status SNOMED: 48377227057638 Status: stable Status Narrative Discussed with Dr. Mcguire. Assessment/Plan s/p Irrigation and debridement of surgical wound T12-L1, placement of epidural drain. monitor for post operative N/V zofran prn, reglan for persistent vomiting prn transfusion pain mgmt fu surgical recs fu labs Discussed with Dr. Mcguire. Thank you for this patient referral, we will follow. The patient was seen and examined at bedside and all new and available data was reviewed in the patients chart. I agree with the above findings, impression and plan. (Patient seen earlier today. Signature stamp does not reflect patient encounter time.). - Viraj Mcguire MD Subjective Subjective generalized pain Objective Last 24 Hour Vital Signs Date Time Temp Pulse Resp B/P (MAP) Pulse Ox O2 Delivery O2 Flow Rate FiO2 01/29/18 12:53 18 01/29/18 12:40 98.3 01/29/18 09:00 72 101/55 01/29/18 09:00 72 101/55 01/29/18 08:12 98.3 79 18 79/45 (56) 96 98.3 01/29/18 08:00 18 01/29/18 05:23 101/55 01/29/18 04:00 98.0 72 20 101/55 (70) 98 98.0 01/29/18 04:00 18 01/29/18 00:00 17 01/29/18 00:00 98.1 80 20 104/56 (72) 96 98.1 01/28/18 23:04 78 112/70 01/28/18 22:50 112/70 01/28/18 21:00 Room Air 01/28/18 20:00 97.9 76 20 104/57 (73) 96 97.9 01/28/18 20:00 18 01/28/18 17:16 88 136/81 01/28/18 16:00 97.7 20 136/81 (99) 100 97.7 Intake and Output 01/28/18 01/29/18 19:00 07:00 Intake Total 1275 ml 915 ml Output Total 24 ml 2 ml Balance 1251 ml 913 ml Intake Oral 240 ml IV Total 1275 ml 675 ml Output Urine Total 24 ml Drainage Total 2 ml # Voids 1 2 Laboratory Tests Test 01/29/18 05:10 White Blood Count 10.5 K/UL (4.8-10.8) Red Blood Count 3.38 M/UL (4.20-5.40) L Hemoglobin 10.5 G/DL (12.0-16.0) L Hematocrit 31.8 % (37.0-47.0) L Mean Corpuscular Volume 94 FL (80-99) Mean Corpuscular Hemoglobin 31.0 PG (27.0-31.0) Mean Corpuscular Hemoglobin Concent 33.1 G/DL (32.0-36.0) Red Cell Distribution Width 11.2 % (11.6-14.8) L Platelet Count 400 K/UL (150-450) Mean Platelet Volume 6.6 FL (6.5-10.1) Neutrophils (%) (Auto) 77.0 % (45.0-75.0) H Lymphocytes (%) (Auto) 11.1 % (20.0-45.0) L Monocytes (%) (Auto) 9.2 % (1.0-10.0) Eosinophils (%) (Auto) 2.4 % (0.0-3.0) Basophils (%) (Auto) 0.3 % (0.0-2.0) Sodium Level 136 MMOL/L (136-145) Potassium Level 3.9 MMOL/L (3.5-5.1) Chloride Level 104 MMOL/L (98-107) Carbon Dioxide Level 28 MMOL/L (21-32) Anion Gap 4 mmol/L (5-15) L Blood Urea Nitrogen 17 mg/dL (7-18) Creatinine 0.6 MG/DL (0.55-1.30) Estimat Glomerular Filtration Rate > 60 mL/min (>60) Glucose Level 93 MG/DL (74-106) Calcium Level 7.6 MG/DL (8.5-10.1) L Height (Feet): 5 Height (Inches): 4.00 Weight (Pounds): 125 General Appearance: WD/WN, no apparent distress, alert Cardiovascular: normal rate Respiratory/Chest: normal breath sounds, no respiratory distress Abdominal Exam: normal bowel sounds, non tender, soft Extremities: non-tender Viji Bello NP Jan 29, 2018 13:45
--- NOTE | 2018-01-29 14:30 | General Progress Note ---
Progress Note Progress Note Neurosuregry S/p I&D Thoracolumbar wound POD#1 S/ Incisional pain with significant improvement in the leg symptoms. Bilateral groin pain and leg aches and pain almost completely resolved. Ambulated with PT earlier with increase in incisional pain levl. Tolerating po' s and tolerating upto 4 cans of ensure O/ vs. Last 24 Hour Vital Signs Date Time Temp Pulse Resp B/P (MAP) Pulse Ox O2 Delivery O2 Flow Rate FiO2 01/29/18 12:53 18 01/29/18 12:40 98.3 01/29/18 12:06 98.0 85 19 100/60 (73) 95 98.0 01/29/18 09:00 72 101/55 01/29/18 09:00 72 101/55 01/29/18 08:12 98.3 79 18 79/45 (56) 96 98.3 01/29/18 08:00 18 01/29/18 05:23 101/55 01/29/18 04:00 98.0 72 20 101/55 (70) 98 98.0 01/29/18 04:00 18 01/29/18 00:00 17 01/29/18 00:00 98.1 80 20 104/56 (72) 96 98.1 01/28/18 23:04 78 112/70 01/28/18 22:50 112/70 01/28/18 21:00 Room Air 01/28/18 20:00 97.9 76 20 104/57 (73) 96 97.9 01/28/18 20:00 18 01/28/18 17:16 88 136/81 01/28/18 16:00 97.7 20 136/81 (99) 100 97.7 Alert oriented x 3 Incision dressing changed. Wound is completely dry HV 20 cc last night 10 cc additional serosang fluid in the drain Motor exam shows 5/5 in the upper and lowers, bilaterally normal sensation improvement in lower extremity numbness Labs: Laboratory Tests Test 01/29/18 05:10 White Blood Count 10.5 K/UL (4.8-10.8) Red Blood Count 3.38 M/UL (4.20-5.40) L Hemoglobin 10.5 G/DL (12.0-16.0) L Hematocrit 31.8 % (37.0-47.0) L Mean Corpuscular Volume 94 FL (80-99) Mean Corpuscular Hemoglobin 31.0 PG (27.0-31.0) Mean Corpuscular Hemoglobin Concent 33.1 G/DL (32.0-36.0) Red Cell Distribution Width 11.2 % (11.6-14.8) L Platelet Count 400 K/UL (150-450) Mean Platelet Volume 6.6 FL (6.5-10.1) Neutrophils (%) (Auto) 77.0 % (45.0-75.0) H Lymphocytes (%) (Auto) 11.1 % (20.0-45.0) L Monocytes (%) (Auto) 9.2 % (1.0-10.0) Eosinophils (%) (Auto) 2.4 % (0.0-3.0) Basophils (%) (Auto) 0.3 % (0.0-2.0) Sodium Level 136 MMOL/L (136-145) Potassium Level 3.9 MMOL/L (3.5-5.1) Chloride Level 104 MMOL/L (98-107) Carbon Dioxide Level 28 MMOL/L (21-32) Anion Gap 4 mmol/L (5-15) L Blood Urea Nitrogen 17 mg/dL (7-18) Creatinine 0.6 MG/DL (0.55-1.30) Estimat Glomerular Filtration Rate > 60 mL/min (>60) Glucose Level 93 MG/DL (74-106) Calcium Level 7.6 MG/DL (8.5-10.1) L post op radiculitis - improved with I&D will continue IV Abx until wound cultures results come back Hyponatremia improving Na 136 post-op anemia - start FeSo4 Post-op pain 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 Internal med input appreciated case technician - inpatient rehab consult Aleta Goodson MD Jan 29, 2018 14:30
[2018-01-29] MEDS ORDERED: DiphenhydrAMINE 50mg/ml Inj IVP PRN (17:15)
[2018-01-29] MEDS ORDERED: Naloxone 0.4mg/ml Inj IVP PRN (17:15)
[2018-01-29] MEDS ORDERED: LORazepam 1mg tab ORAL PRN (17:15)
[2018-01-29] MEDS ORDERED: PCA Education Pamphlet MISC ONE (17:30)
--- NOTE | 2018-01-29 19:58 | General Progress Note ---
Assessment/Plan Assessment/Plan postop pain dt resolving hisotyro fnorcotic intake historyof alcohol use plan iincrease th gabapenmtin 400 qid form 300 tid and follow Subjective Date patient seen: Jan 29, 2018 Time patient seen: 19:56 Constitutional: Reports: no symptoms HEENT: Reports: no symptoms Cardiovascular: Reports: no symptoms Allergies: Coded Allergies: SULFA (SULFONAMIDE ANTIBIOTICS) (Verified Allergy, Severe, 09/06/17) hives hives and itching Subjective has a lot of pain s/p surgery Objective Last 24 Hour Vital Signs Date Time Temp Pulse Resp B/P (MAP) Pulse Ox O2 Delivery O2 Flow Rate FiO2 01/29/18 19:43 98.3 01/29/18 18:00 85 100/60 01/29/18 16:00 98.7 86 18 107/63 (78) 97 98.7 01/29/18 14:00 100/60 01/29/18 12:53 18 01/29/18 12:40 98.3 01/29/18 12:06 98.0 85 19 100/60 (73) 95 98.0 01/29/18 09:00 72 101/55 01/29/18 09:00 72 101/55 01/29/18 09:00 Room Air 01/29/18 08:40 101/62 (75) 01/29/18 08:12 98.3 79 18 79/45 (56) 96 98.3 01/29/18 08:00 18 01/29/18 05:23 101/55 01/29/18 04:00 98.0 72 20 101/55 (70) 98 98.0 01/29/18 04:00 18 01/29/18 00:00 17 01/29/18 00:00 98.1 80 20 104/56 (72) 96 98.1 01/28/18 23:04 78 112/70 01/28/18 22:50 112/70 01/28/18 21:00 Room Air 01/28/18 20:00 97.9 76 20 104/57 (73) 96 97.9 01/28/18 20:00 18 Intake and Output 01/28/18 01/29/18 19:00 07:00 Intake Total 1275 ml 915 ml Output Total 24 ml 2 ml Balance 1251 ml 913 ml Intake Oral 240 ml IV Total 1275 ml 675 ml Output Urine Total 24 ml Drainage Total 2 ml # Voids 1 2 Laboratory Tests 01/29/18 05:10: White Blood Count 10.5, Red Blood Count 3.38L, Hemoglobin 10.5L, Hematocrit 31.8L, Mean Corpuscular Volume 94, Mean Corpuscular Hemoglobin 31.0, Mean Corpuscular Hemoglobin Concent 33.1, Red Cell Distribution Width 11.2L, Platelet Count 400, Mean Platelet Volume 6.6, Neutrophils (%) (Auto) 77.0H, Lymphocytes (%) (Auto) 11.1L, Monocytes (%) (Auto) 9.2, Eosinophils (%) (Auto) 2.4, Basophils (%) (Auto) 0.3, Sodium Level 136, Potassium Level 3.9, Chloride Level 104, Carbon Dioxide Level 28, Anion Gap 4L, Blood Urea Nitrogen 17, Creatinine 0.6, Estimat Glomerular Filtration Rate > 60, Glucose Level 93, Calcium Level 7.6L Height (Feet): 5 Height (Inches): 4.00 Weight (Pounds): 125 General Appearance: WD/WN Cardiovascular: no JVD Respiratory/Chest: lungs clear Abdomen: soft - back slightly swollen and has hemovac Objective thin built lady no jvd cta moving all 4 extremity Hilario Caba MD Jan 29, 2018 19:58
--- NOTE | 2018-01-29 23:45 | Progress Note ---
DATE: 01/29/2018 SUBJECTIVE: The patient has been having a lot of pain status post procedure yesterday. Intraoperative cultures still pending. PHYSICAL EXAMINATION: vitals reviewed nc Atraumatic. no jvd cta s1,s2,rrr Wound is dry, but slightly swollen. Hemovac in place. HEART: S1 and S2. ABDOMEN: Soft. IMPRESSION AND PLAN: Postoperative pain, has a lot of pain moving all extremities. We will discuss with the spine and follow closely. DVT prophylaxis with sequential compression stockings. The patient has a lot of pain medications. We will try to taper the medication. Hilario Caba M.D. DR: VINCE JOB#: [id number] CC: RICHELLE
[2018-01-30] VITALS: BP 108/55
--- NOTE | 2018-01-30 03:55 | General Progress Note ---
Progress Note Progress Note Neurosurgery s/p I&D thoracolumbar wound s/ Continues to have significant incisional pain, controlled intermittently by BAKER HEAD. Able to void. No incontinence. Called by nurse that the wound was swollen. O/ vs. Last 24 Hour Vital Signs Date Time Temp Pulse Resp B/P (MAP) Pulse Ox O2 Delivery O2 Flow Rate FiO2 01/30/18 01:31 99.1 01/30/18 01:00 99.1 01/30/18 00:00 16 01/30/18 00:00 98.9 87 20 108/55 (72) 97 98.9 01/29/18 21:00 Room Air 01/29/18 20:54 103/51 01/29/18 20:54 83 103/51 01/29/18 20:22 99.1 83 16 103/51 (68) 99 99.1 01/29/18 20:00 18 01/29/18 19:43 98.3 01/29/18 18:00 85 100/60 01/29/18 16:00 98.7 86 18 107/63 (78) 97 98.7 01/29/18 14:00 100/60 01/29/18 12:53 18 01/29/18 12:40 98.3 01/29/18 12:06 98.0 85 19 100/60 (73) 95 98.0 01/29/18 09:00 72 101/55 01/29/18 09:00 72 101/55 01/29/18 09:00 Room Air 01/29/18 08:40 101/62 (75) 01/29/18 08:12 98.3 79 18 79/45 (56) 96 98.3 01/29/18 08:00 18 01/29/18 05:23 101/55 01/29/18 04:00 98.0 72 20 101/55 (70) 98 98.0 01/29/18 04:00 18 Alert and oriented. Pt at bedside Incision is completely dry. No drainage. No erythema. Positive fluctuance, slightly larger compared to yesterday am Drain in place with about 10 cc output Moves all extremities well The skin around the incision was prepped and with sterile technique 30 cc of bloody tinged clear fluid was tapped and sent for studies. Pressure dressing was applied. will maintain the drain. Pt tolerated the procedure well labs. Microbiology Date/Time Source Procedure Growth Status 01/28/18 09:46 Tissue Gram Stain - Final Resulted 01/28/18 09:46 Tissue Surgical Biopsy Culture Pending Resulted 01/28/18 09:46 Back Gram Stain - Final Resulted 01/28/18 09:46 Back Wound Culture - Preliminary NO GROWTH AFTER 24 HOURS Resulted 01/28/18 09:46 Back Aerobic Culture - Preliminary NO GROWTH AFTER 24 HOURS Resulted 01/28/18 09:46 Back Anaerobic Culture - Preliminary NO GROWTH Resulted Laboratory Tests Microbiology Date/Time Source Procedure Growth Status 01/21/18 11:45 Blood Blood Culture - Final NO GROWTH AFTER 5 DAYS Complete 01/21/18 19:09 Drainage Fluid Gram Stain - Final Complete 01/21/18 19:09 Drainage Fluid Body Fluid Culture - Final NO GROWTH Complete 01/21/18 19:09 Wound Gram Stain - Final Complete 01/21/18 19:09 Wound Wound Culture - Final NO GROWTH Complete 01/20/18 15:42 Nasal Nares MRSA Culture - Final NO METHICILLIN RESISTANT STAPH AUREUS... Complete 01/21/18 11:30 Urine,Clean Catch Urine Culture - Final Mixed Urogenital Contaminants Complete 01/28/18 09:46 Tissue Gram Stain - Final Resulted 01/28/18 09:46 Tissue Surgical Biopsy Culture Pending Resulted Microbiology Date/Time Source Procedure Growth Status 01/28/18 09:46 Tissue Gram Stain - Final Resulted 01/28/18 09:46 Tissue Surgical Biopsy Culture Pending Resulted 01/28/18 09:46 Back Gram Stain - Final Resulted 01/28/18 09:46 Back Wound Culture - Preliminary NO GROWTH AFTER 24 HOURS Resulted 01/28/18 09:46 Back Aerobic Culture - Preliminary NO GROWTH AFTER 24 HOURS Resulted 01/28/18 09:46 Back Anaerobic Culture - Preliminary NO GROWTH Resulted s/p I&D of thoracolumbar wound incisional pain, with improvement in the lower extremity pain encourage PO intake. pt able to drink 4 ensures a day PT ID on vancomycin. Cultures thus far all negative. bowel care Aleta Goodson MD Jan 30, 2018 03:55
[2018-01-30] MEDS ORDERED: HYDROmorphone 1mg/ml Carpuject IVP SCH (04:30)
[2018-01-30 04:35] VITALS: BP 107/56
[2018-01-30] MEDS ORDERED: HYDROmorphone 1mg/ml Carpuject IVP PRN (04:45)
[2018-01-30] MEDS: HydrALAZINE 25mg tab ORAL SCH ×3 (06:00→22:00)
[2018-01-30] MEDS: PCA shift volume MISC SCH ×2 (07:08→19:00)
[2018-01-30 08:00] VITALS: BP 109/59
[2018-01-30] MEDS: Vancomycin 1 GM in D5W 275 ML IVPB SCH (08:41)
--- NOTE | 2018-01-30 08:52 | General Progress Note ---
Progress Note Progress Note Neurosurgery follow-up S/ Incisional pain somewhat better but has pain radiating into tail bone Earlier this am 30 cc o subcutaneous seroma was tapped O/ vs: Last 24 Hour Vital Signs Date Time Temp Pulse Resp B/P (MAP) Pulse Ox O2 Delivery O2 Flow Rate FiO2 01/30/18 08:04 98.8 01/30/18 06:00 107/56 01/30/18 04:57 98.8 01/30/18 04:35 98.8 84 19 107/56 (73) 97 98.8 01/30/18 04:27 99.1 01/30/18 04:03 18 01/30/18 01:31 99.1 01/30/18 01:00 99.1 01/30/18 00:00 16 01/30/18 00:00 98.9 87 20 108/55 (72) 97 98.9 01/29/18 21:00 Room Air 01/29/18 20:54 103/51 01/29/18 20:54 83 103/51 01/29/18 20:22 99.1 83 16 103/51 (68) 99 99.1 01/29/18 20:00 18 01/29/18 19:43 98.3 01/29/18 18:00 85 100/60 01/29/18 16:00 98.7 86 18 107/63 (78) 97 98.7 01/29/18 14:00 100/60 01/29/18 12:53 18 01/29/18 12:40 98.3 01/29/18 12:06 98.0 85 19 100/60 (73) 95 98.0 01/29/18 09:00 72 101/55 01/29/18 09:00 72 101/55 01/29/18 09:00 Room Air Alert, drowsy Incision is completely flat. No erythema HV drain no more drainage. HV removed t bedside without complication moves all extremities well Labs Microbiology Date/Time Source Procedure Growth Status 01/21/18 11:45 Blood Blood Culture - Final NO GROWTH AFTER 5 DAYS Complete 01/21/18 19:09 Drainage Fluid Gram Stain - Final Complete 01/21/18 19:09 Drainage Fluid Body Fluid Culture - Final NO GROWTH Complete 01/21/18 19:09 Wound Gram Stain - Final Complete 01/21/18 19:09 Wound Wound Culture - Final NO GROWTH Complete 01/20/18 15:42 Nasal Nares MRSA Culture - Final NO METHICILLIN RESISTANT STAPH AUREUS... Complete 01/21/18 11:30 Urine,Clean Catch Urine Culture - Final Mixed Urogenital Contaminants Complete 01/28/18 09:46 Tissue Gram Stain - Final Resulted 01/28/18 09:46 Tissue Surgical Biopsy Culture Pending Resulted No Growth after 48hrs from the surgical biopsy. Gram stain rare WBC no Organism from the wound specimen ( I spoke to microbiology lab this am) A/p Intractable pain. On Dilaudid DEPUTY SHERIFF GENERALIST/BAILIFF and breakthrough pain coverage on Valium prn Keep flat in bed with PT in bed encourage PO intake FeSo4 for decreased Hgb on IV Abx - will await culture results Aleta Goodson MD Jan 30, 2018 08:52
[2018-01-30] MEDS: Metoprolol Tartrate 50mg tab ORAL SCH ×2 (09:00→20:57)
[2018-01-30] MEDS: Flonase Nasal Inhaler 16gm NASAL SCH ×2 (09:00→18:08)
--- NOTE | 2018-01-30 09:14 | Physician Query ---
--------- THIS DOCUMENT IS A PERMANENT PART OF THE MEDICAL RECORD --------- PLEASE COMPLETE DOCUMENT BEFORE SIGNING Dear Dr. Goodson Date: 2017 [employer] Name: Ofelia Evans [employer] Phone No.: [phone] Exercise your independent professional judgment when responding to the query. Questions asked do not imply a particular answer is desired or expected. We greatly appreciate your clarification on this issue. CLINICAL DOCUMENTATION STATES: H&P and progress notes plan includes " Nutritional enhancement needed". CLINICAL FINDINGS SHOW: BMI: 16.1, Lymphocytes: 5.5 -----> 15.9, Albumin: 2.4 -- ----> 3.3 Can you please select the most appropriate option for the above findings: a. Severity b. Type [ ] Mild [ ] Protein Malnutrition [x ] Moderate [ ] Protein/Calorie Malnutrition [ ] Severe Criteria: Mild to Moderate Malnutrition >Serum albumin 2.8 to 3.4 g/dL or Pre-albumin 5 to 7 mg/dl (3) >Inadequate nutritional intake (1, 2, 3, 4) >NPO > 5 days >Weight loss: 5% in 1 month or 7.5% in 3 months or 10% in 6 months (1,3,4) >BMI 16 to 18.4 or Weight <90 of ideal body weight (1,2,3,4) Criteria: Moderate to Severe Malnutrition >Serum Albumin < 2.8 g/dL (1,2) >Lymphocytes < 1500/uL (2) >Inadequate nutritional intake3 , high stress e.g. major trauma, sepsis, pancreatitis, orellana etc. >Decubitus ulcers (1,2) , skin breakdown(2), easy hair pluckability >Weight <80% standard for height (2) >Triceps skin fold <3 mm2 >Mid-arm muscle circumference <25 cm2 >Creatinine-height index <60% standard (2) [x] Hypoalbuminemia [] Emancipated w/ Malnutrition [] Kwashiorkor (rare in [place]) [] Marasmus [] Other [] Unable to determine [] Not Applicable Condition Present on Admission: [] Yes [x] No [ ] Unable to determine Please also document in your Progress Notes and/or Discharge Summary and indicate if the condition was present on admission. __Aleta Goodson M.D. Mark References: 1 [facility] [place] Board. (2007). Nutritional support strategy for protein -energy malnutrition in the elderly. Clinical Practice Guidelines. 2 Jose Antonio Viera (2011). Malnutrition and nutritional assessment. In Efraín Dhillon (18th Ed.) [employer]ai's Principle of Internal Medicine ([id number]) [place], [place]: [facility] 3 Chester Veloz. (2001). Clinical Nutrition: Protein-energy malnutrition in the inpatient. [place] [employer] Journal, vol. 165 no. 10 (pp. 1345- 1345 ). 4 Yana Norman (2012). Geriactric Nutrition: Nutritional Issues in Older Adults. www.[employer] 2.[employer]
--- NOTE | 2018-01-30 09:20 | General Progress Note ---
Assessment/Plan Assessment/Plan s/p complex spine usrgery s/p bed side aspiration cultures negative s/p i and of the wouind and culture s negative doing good id blanco how ever will continue with periopertabve antibiotic for one more day since started after the surgery abnd just the drain was removed dt better taper t he valium pain mnagement consult pt per neurosurg. Subjective Date patient seen: Jan 30, 2018 Time patient seen: 09:18 Constitutional: Reports: no symptoms HEENT: Reports: no symptoms Cardiovascular: Reports: no symptoms Allergies: Coded Allergies: SULFA (SULFONAMIDE ANTIBIOTICS) (Verified Allergy, Severe, 09/06/17) hives hives and itching Subjective has pain Objective Last 24 Hour Vital Signs Date Time Temp Pulse Resp B/P (MAP) Pulse Ox O2 Delivery O2 Flow Rate FiO2 01/30/18 08:04 98.8 01/30/18 06:00 107/56 01/30/18 04:57 98.8 01/30/18 04:35 98.8 84 19 107/56 (73) 97 98.8 01/30/18 04:27 99.1 01/30/18 04:03 18 01/30/18 01:31 99.1 01/30/18 01:00 99.1 01/30/18 00:00 16 01/30/18 00:00 98.9 87 20 108/55 (72) 97 98.9 01/29/18 21:00 Room Air 01/29/18 20:54 103/51 01/29/18 20:54 83 103/51 01/29/18 20:22 99.1 83 16 103/51 (68) 99 99.1 01/29/18 20:00 18 01/29/18 19:43 98.3 01/29/18 18:00 85 100/60 01/29/18 16:00 98.7 86 18 107/63 (78) 97 98.7 01/29/18 14:00 100/60 01/29/18 12:53 18 01/29/18 12:40 98.3 01/29/18 12:06 98.0 85 19 100/60 (73) 95 98.0 Intake and Output 01/29/18 01/30/18 19:00 07:00 Intake Total 1860 ml Output Total 47 ml Balance 1813 ml Intake Oral 1860 ml Drainage Total 17 ml Other 30 ml # Voids 7 Height (Feet): 5 Height (Inches): 4.00 Weight (Pounds): 94 General Appearance: WD/WN EENT: PERRL/EOMI Neck: non-tender Cardiovascular: no JVD Respiratory/Chest: lungs clear Objective thin built lady no jvd cta moving all 4 extremity Hilario Caba MD Jan 30, 2018 09:20
[2018-01-30] MEDS: Vitamin D 1000 IU Tab ORAL SCH (09:28)
[2018-01-30] MEDS: Lyrica 50mg cap ORAL SCH ×2 (09:28→22:39)
[2018-01-30] MEDS: Ferrous Gluconate 324 MG TAB ORAL SCH ×3 (09:29→18:07)
[2018-01-30] MEDS: Docusate Sod/Senna tab ORAL SCH ×2 (09:29→18:07)
[2018-01-30] MEDS: Docusate 100mg cap ORAL SCH ×3 (09:29→18:07)
[2018-01-30] MEDS: Milk of Magnesia 30ml Ud ORAL PRN (09:37)
[2018-01-30 12:00] VITALS: BP 121/76
[2018-01-30] MEDS: Miconazole 2% Cream 30gm TOPIC SCH ×2 (12:34→18:08)
[2018-01-30 12:56] LABS: BASOPHILS % (AUTO) 1.9 % (0.0-2.0); EOSINOPHILS % (AUTO) 4.7 % (0.0-3.0); HEMATOCRIT 38.2 % (37.0-47.0); HEMOGLOBIN 12.3 G/DL (12.0-16.0); LYMPHOCYTES % (AUTO) 16.2 % (20.0-45.0); MEAN CORPUSCULAR VOLUME 93 FL (80-99); MONOCYTES % (AUTO) 8.3 % (1.0-10.0); NEUTROPHILS % (AUTO) 68.8 % (45.0-75.0); PLATELET COUNT 490 K/UL (150-450); RED BLOOD COUNT 4.09 M/UL (4.20-5.40); RED CELL DISTRIBUTION WIDTH 11.1 % (11.6-14.8); WHITE BLOOD COUNT 10.1 K/UL (4.8-10.8)
--- NOTE | 2018-01-30 13:28 | GI Progress Note ---
Assessment/Plan Problems: (1) S/P cervical spinal fusion ICD Codes: Z98.1 - Arthrodesis status SNOMED: 29714283, 35424304, 2897622477932 (2) Pain ICD Codes: R52 - Pain, unspecified SNOMED: 33549448 (3) S/P fusion of thoracic spine ICD Codes: Z98.1 - Arthrodesis status SNOMED: 76846222344322 Status: unchanged Status Narrative Discussed with Dr. Mcguire. Assessment/Plan s/p Irrigation and debridement of surgical wound T12-L1, placement of epidural drain. fu surgical recs monitor for post operative N/V zofran prn, reglan for persistent vomiting prn transfusion pain mgmt bowel regime fu labs Discussed with Dr. Mcguire. Thank you for this patient referral, we will follow. The patient was seen and examined at bedside and all new and available data was reviewed in the patients chart. I agree with the above findings, impression and plan. (Patient seen earlier today. Signature stamp does not reflect patient encounter time.). - Viraj Mcguire MD Subjective Subjective generalized pain no nausea Objective Last 24 Hour Vital Signs Date Time Temp Pulse Resp B/P (MAP) Pulse Ox O2 Delivery O2 Flow Rate FiO2 01/30/18 12:41 98.8 01/30/18 12:00 98.4 59 20 121/76 (91) 98 98.4 01/30/18 12:00 18 01/30/18 09:00 Room Air 01/30/18 09:00 82 109/59 01/30/18 09:00 82 109/59 01/30/18 08:34 98.8 01/30/18 08:04 98.8 01/30/18 08:00 18 01/30/18 08:00 98.7 82 20 109/59 (76) 96 98.7 01/30/18 06:00 107/56 01/30/18 04:57 98.8 01/30/18 04:35 98.8 84 19 107/56 (73) 97 98.8 01/30/18 04:27 99.1 01/30/18 04:03 18 01/30/18 01:00 99.1 01/30/18 00:00 16 01/30/18 00:00 98.9 87 20 108/55 (72) 97 98.9 01/29/18 21:00 Room Air 01/29/18 20:54 103/51 01/29/18 20:54 83 103/51 01/29/18 20:22 99.1 83 16 103/51 (68) 99 99.1 01/29/18 20:00 18 01/29/18 19:43 98.3 01/29/18 18:00 85 100/60 01/29/18 16:00 98.7 86 18 107/63 (78) 97 98.7 01/29/18 14:00 100/60 Intake and Output 01/29/18 01/30/18 19:00 07:00 Intake Total 1860 ml Output Total 47 ml Balance 1813 ml Intake Oral 1860 ml Drainage Total 17 ml Other 30 ml # Voids 7 Laboratory Tests Test 01/30/18 12:30 White Blood Count 10.1 K/UL (4.8-10.8) Red Blood Count 4.09 M/UL (4.20-5.40) L Hemoglobin 12.3 G/DL (12.0-16.0) Hematocrit 38.2 % (37.0-47.0) Mean Corpuscular Volume 93 FL (80-99) Mean Corpuscular Hemoglobin 30.1 PG (27.0-31.0) Mean Corpuscular Hemoglobin Concent 32.2 G/DL (32.0-36.0) Red Cell Distribution Width 11.1 % (11.6-14.8) L Platelet Count 490 K/UL (150-450) H Mean Platelet Volume 6.2 FL (6.5-10.1) L Neutrophils (%) (Auto) 68.8 % (45.0-75.0) Lymphocytes (%) (Auto) 16.2 % (20.0-45.0) L Monocytes (%) (Auto) 8.3 % (1.0-10.0) Eosinophils (%) (Auto) 4.7 % (0.0-3.0) H Basophils (%) (Auto) 1.9 % (0.0-2.0) Sodium Level Pending Potassium Level Pending Chloride Level Pending Carbon Dioxide Level Pending Blood Urea Nitrogen Pending Creatinine Pending Estimat Glomerular Filtration Rate Pending Glucose Level Pending Calcium Level Pending Total Bilirubin Pending Aspartate Amino Transf (AST/SGOT) Pending Alanine Aminotransferase (ALT/SGPT) Pending Alkaline Phosphatase Pending Total Protein Pending Albumin Pending Globulin Pending Height (Feet): 5 Height (Inches): 4.00 Weight (Pounds): 94 General Appearance: WD/WN, no apparent distress, alert Cardiovascular: normal rate Respiratory/Chest: normal breath sounds, no respiratory distress Abdominal Exam: normal bowel sounds, non tender, soft Extremities: non-tender Viji Bello NP Jan 30, 2018 13:28
[2018-01-30 13:33] LABS: ALANINE AMINOTRANSFERASE 49 U/L (12-78); ALBUMIN 2.4 G/DL (3.4-5.0); ALBUMIN/GLOBULIN RATIO 0.6 (1.0-2.7); ALKALINE PHOSPHATASE 87 U/L (46-116); ANION GAP 5 mmol/L (5-15); ASPARTATE AMINO TRANSFERASE 28 U/L (15-37); BILIRUBIN,TOTAL 0.2 MG/DL (0.2-1.0); BLOOD UREA NITROGEN 18 mg/dL (7-18); CALCIUM 8.9 MG/DL (8.5-10.1); CARBON DIOXIDE 31 MMOL/L (21-32); CHLORIDE 96 MMOL/L (98-107); CREATININE 0.7 MG/DL (0.55-1.30); POTASSIUM 4.4 MMOL/L (3.5-5.1); SODIUM 132 MMOL/L (136-145)
--- NOTE | 2018-01-30 14:36 | Infectious Diseases Prog Note ---
Assessment/Plan Assessment/Plan Full consult to follow: A) 1) inflammatory response to allograft vs post-operative infection 2) s/p cervical spine fusion and T12-L1 decompression spine surgery 3) allergies - sulfa P) 1) post-operative vancomycin for now 2) f/u on cultures 3) thank you Subjective Allergies: Coded Allergies: SULFA (SULFONAMIDE ANTIBIOTICS) (Verified Allergy, Severe, 09/06/17) hives hives and itching Objective Vital Signs Last 24 Hour Vital Signs Date Time Temp Pulse Resp B/P (MAP) Pulse Ox O2 Delivery O2 Flow Rate FiO2 01/30/18 13:43 97/57 01/30/18 13:11 98.8 01/30/18 12:41 98.8 01/30/18 12:00 98.4 59 20 121/76 (91) 98 98.4 01/30/18 12:00 18 01/30/18 09:00 Room Air 01/30/18 09:00 82 109/59 01/30/18 09:00 82 109/59 01/30/18 08:04 98.8 01/30/18 08:00 18 01/30/18 08:00 98.7 82 20 109/59 (76) 96 98.7 01/30/18 06:00 107/56 01/30/18 04:57 98.8 01/30/18 04:35 98.8 84 19 107/56 (73) 97 98.8 01/30/18 04:27 99.1 01/30/18 04:03 18 01/30/18 01:00 99.1 01/30/18 00:00 16 01/30/18 00:00 98.9 87 20 108/55 (72) 97 98.9 01/29/18 21:00 Room Air 01/29/18 20:54 103/51 01/29/18 20:54 83 103/51 01/29/18 20:22 99.1 83 16 103/51 (68) 99 99.1 01/29/18 20:00 18 01/29/18 19:43 98.3 01/29/18 18:00 85 100/60 01/29/18 16:00 98.7 86 18 107/63 (78) 97 98.7 Height (Feet): 5 Height (Inches): 4.00 Weight (Pounds): 94 Microbiology Date/Time Source Procedure Growth Status 01/28/18 09:45 Wound AFB Specimen Processing Tissue - Final Resulted 01/28/18 09:45 Wound Acid Fast Bacilli Smear - Final Resulted 01/28/18 09:45 Wound Acid Fast Bacilli Culture Pending Resulted 01/28/18 09:46 Tissue Gram Stain - Final Resulted 01/28/18 09:46 Tissue Surgical Biopsy Culture - Preliminary NO GROWTH AFTER 48 HOURS Resulted 01/28/18 09:46 Back Gram Stain - Final Resulted 01/28/18 09:46 Back Wound Culture - Preliminary NO GROWTH AFTER 48 HOURS Resulted 01/28/18 09:46 Back Aerobic Culture - Preliminary NO GROWTH AFTER 48 HOURS Resulted 01/28/18 09:46 Back Anaerobic Culture - Preliminary NO GROWTH AFTER 24 HOURS Resulted Laboratory Tests Test 01/30/18 12:30 White Blood Count 10.1 K/UL (4.8-10.8) Red Blood Count 4.09 M/UL (4.20-5.40) L Hemoglobin 12.3 G/DL (12.0-16.0) Hematocrit 38.2 % (37.0-47.0) Mean Corpuscular Volume 93 FL (80-99) Mean Corpuscular Hemoglobin 30.1 PG (27.0-31.0) Mean Corpuscular Hemoglobin Concent 32.2 G/DL (32.0-36.0) Red Cell Distribution Width 11.1 % (11.6-14.8) L Platelet Count 490 K/UL (150-450) H Mean Platelet Volume 6.2 FL (6.5-10.1) L Neutrophils (%) (Auto) 68.8 % (45.0-75.0) Lymphocytes (%) (Auto) 16.2 % (20.0-45.0) L Monocytes (%) (Auto) 8.3 % (1.0-10.0) Eosinophils (%) (Auto) 4.7 % (0.0-3.0) H Basophils (%) (Auto) 1.9 % (0.0-2.0) Sodium Level 132 MMOL/L (136-145) L Potassium Level 4.4 MMOL/L (3.5-5.1) Chloride Level 96 MMOL/L (98-107) L Carbon Dioxide Level 31 MMOL/L (21-32) Anion Gap 5 mmol/L (5-15) Blood Urea Nitrogen 18 mg/dL (7-18) Creatinine 0.7 MG/DL (0.55-1.30) Estimat Glomerular Filtration Rate > 60 mL/min (>60) Glucose Level 103 MG/DL (74-106) Calcium Level 8.9 MG/DL (8.5-10.1) Total Bilirubin 0.2 MG/DL (0.2-1.0) Aspartate Amino Transf (AST/SGOT) 28 U/L (15-37) Alanine Aminotransferase (ALT/SGPT) 49 U/L (12-78) Alkaline Phosphatase 87 U/L (46-116) Total Protein 6.5 G/DL (6.4-8.2) Albumin 2.4 G/DL (3.4-5.0) L Globulin 4.1 g/dL Albumin/Globulin Ratio 0.6 (1.0-2.7) L Current Medications Medications (Trade) Dose Ordered Sig/Terrell Route PRN Reason Start Time Stop Time Status Last Admin Dose Admin Acetaminophen (Tylenol) 650 mg Q4H PRN ORAL headache or temp>101 01/28/18 14:45 02/27/18 10:44 Amlodipine Besylate (Norvasc) 5 mg BID ORAL 01/28/18 18:00 02/22/18 08:59 01/28/18 17:16 Diazepam (Valium) 10 mg Q12HR PRN ORAL muscle spasms 01/28/18 21:00 02/04/18 10:44 01/29/18 22:01 Diphenhydramine HCl (Benadryl) 25 mg Q6H PRN IVP Itching/Pruritis 01/29/18 17:15 01/31/18 17:14 Docusate Sodium (Colace) 100 mg THREE TIMES A DAY ORAL 01/30/18 09:00 03/01/18 08:59 01/30/18 12:34 Ferrous Gluconate (Fergon) 324 mg THREE TIMES A DAY ORAL 01/30/18 09:00 03/01/18 08:59 01/30/18 12:34 Fluoxetine HCl (PROzac) 40 mg DAILY ORAL 01/29/18 09:00 02/26/18 10:59 01/30/18 09:29 Fluticasone Propionate (Flonase) 1 spray TWICE A DAY NASAL 01/29/18 13:00 02/28/18 12:59 01/29/18 18:15 Gabapentin (Neurontin) 300 mg THREE TIMES A DAY ORAL 01/28/18 13:00 02/27/18 12:59 01/30/18 12:34 Hydralazine HCl (Apresoline) 25 mg Q8HR ORAL 01/28/18 22:50 02/27/18 22:49 Hydromorphone HCl 30 ml @ 0 mls/hr Q24H PRN IV For Pain 01/29/18 17:15 01/31/18 17:14 Hydromorphone HCl (Dilaudid) 2 mg Q3H PRN SUBQ Severe Pain (Pain Scale 7-10) 01/29/18 17:15 02/05/18 17:14 Hydromorphone HCl (Dilaudid) 2 mg Q4H PRN IVP Moderate Pain (Pain Scale 4-6) 01/29/18 17:15 01/31/18 17:14 01/30/18 12:41 Magnesium Hydroxide (Mom) 30 ml QIDPRN PRN ORAL Constipation 01/29/18 10:45 02/27/18 10:44 01/30/18 09:37 Metoprolol Tartrate (Lopressor) 50 mg Q12HR ORAL 01/28/18 21:00 02/23/18 08:59 01/28/18 23:04 Miconazole Nitrate (Miconazole Nitrate) 1 applic BID TOPIC 01/28/18 18:00 02/27/18 17:59 01/30/18 12:34 Miscellaneous Medication (WET TRIMMER Rate Change) 1 ea DAILY PRN MISC rate change 01/29/18 17:15 01/31/18 17:14 Miscellaneous Medication (WET TRIMMER shift volume) 1 ea Q12HR@0700,1900 MISC 01/29/18 19:00 01/31/18 18:59 01/30/18 07:08 Multivitamins (Multivitamins) 1 tab DAILY ORAL 01/29/18 09:00 02/20/18 08:59 01/30/18 09:29 Naloxone HCl (Narcan) 0.1 mg Q1M PRN IVP RR<10/min OR SBP<90 mmHg 01/29/18 17:15 01/31/18 17:14 Ondansetron HCl (Zofran) 4 mg Q6H PRN IVP Nausea & Vomiting 01/29/18 17:15 01/31/18 17:14 Pregabalin (Lyrica) 50 mg Q12HR ORAL 01/28/18 21:00 02/25/18 09:59 01/30/18 09:28 Senna/Docusate Sodium (Mary Jane-Colace) 1 tab TWICE A DAY ORAL 01/28/18 18:00 02/27/18 17:59 01/30/18 09:29 Sodium Phosphate (Fleet's Sodium Phosl Enema) 133 ml DAILYPRN PRN RECTAL Constipation 01/28/18 18:30 02/22/18 18:17 Temazepam (Restoril) 7.5 mg HSPRN PRN ORAL Insomnia 01/29/18 17:15 01/31/18 17:14 01/30/18 03:48 Vancomycin HCl 1 gm/Dextrose 275 ml @ 183.3 mls/ hr Q24H IVPB 01/29/18 09:00 02/03/18 08:59 01/30/18 08:41 Vitamin D (Vitamin D) 1,000 intlu DAILY ORAL 01/29/18 09:00 02/20/18 08:59 01/30/18 09:28 Samantha Levy MD Jan 30, 2018 14:36
[2018-01-30 16:00] VITALS: BP 107/57
[2018-01-30] MEDS ORDERED: HydrOXYzine tab 25mg tab ORAL SCH (16:10)
[2018-01-30] MEDS ORDERED: Meperidine 50mg/ml Inj(FOR RIGORS ONLY) IM ONE (16:15)
[2018-01-30] MEDS ORDERED: HYDROXYZINE IM SCH (17:00)
[2018-01-30 20:00] VITALS: BP 102/61
[2018-01-30] MEDS ORDERED: PCA HYDROmorphone 1mg/ml 30 ML IV PRN ×2 (21:00)
--- NOTE | 2018-01-30 22:44 | General Progress Note ---
Assessment/Plan Assessment/Plan Alcohol w/d Alcohol dependence -valium 10mg bid/prn per pmd -prozac 40mg was resumed today -dw family Subjective Date patient seen: Jan 30, 2018 Constitutional: Reports: weakness Neurologic/Psychiatric: Reports: anxiety, depressed Allergies: Coded Allergies: SULFA (SULFONAMIDE ANTIBIOTICS) (Verified Allergy, Severe, 09/06/17) hives hives and itching Subjective she complained of pain the pt has anxiety the does not allow anxiolytics Objective Last 24 Hour Vital Signs Date Time Temp Pulse Resp B/P (MAP) Pulse Ox O2 Delivery O2 Flow Rate FiO2 01/30/18 22:07 99.0 01/30/18 22:00 102/61 01/30/18 21:37 99.0 01/30/18 20:57 94 102/61 01/30/18 20:00 99.0 94 20 102/61 (75) 99 99.0 94 01/30/18 18:00 88 107/57 01/30/18 17:32 98.8 01/30/18 17:02 98.8 01/30/18 16:00 18 01/30/18 16:00 98.3 88 21 107/57 (74) 97 98.3 88 01/30/18 13:43 97/57 01/30/18 12:41 98.8 01/30/18 12:00 98.4 59 20 121/76 (91) 98 98.4 01/30/18 12:00 18 01/30/18 09:00 Room Air 01/30/18 09:00 82 109/59 01/30/18 09:00 82 109/59 01/30/18 08:04 98.8 01/30/18 08:00 18 01/30/18 08:00 98.7 82 20 109/59 (76) 96 98.7 01/30/18 06:00 107/56 01/30/18 04:57 98.8 01/30/18 04:35 98.8 84 19 107/56 (73) 97 98.8 01/30/18 04:27 99.1 01/30/18 04:03 18 01/30/18 01:00 99.1 01/30/18 00:00 16 01/30/18 00:00 98.9 87 20 108/55 (72) 97 98.9 Intake and Output 01/29/18 01/30/18 19:00 07:00 Intake Total 1860 ml Output Total 47 ml Balance 1813 ml Intake Oral 1860 ml Drainage Total 17 ml Other 30 ml # Voids 7 Laboratory Tests 01/30/18 12:30: White Blood Count 10.1, Red Blood Count 4.09L, Hemoglobin 12.3, Hematocrit 38.2 , Mean Corpuscular Volume 93, Mean Corpuscular Hemoglobin 30.1, Mean Corpuscular Hemoglobin Concent 32.2, Red Cell Distribution Width 11.1L, Platelet Count 490H, Mean Platelet Volume 6.2L, Neutrophils (%) (Auto) 68.8, Lymphocytes (%) (Auto) 16.2L, Monocytes (%) (Auto) 8.3, Eosinophils (%) (Auto) 4.7H, Basophils (%) (Auto) 1.9, Sodium Level 132L, Potassium Level 4.4, Chloride Level 96L, Carbon Dioxide Level 31, Anion Gap 5, Blood Urea Nitrogen 18 , Creatinine 0.7, Estimat Glomerular Filtration Rate > 60, Glucose Level 103, Calcium Level 8.9, Total Bilirubin 0.2, Aspartate Amino Transf (AST/SGOT) 28, Alanine Aminotransferase (ALT/SGPT) 49, Alkaline Phosphatase 87, Total Protein 6.5, Albumin 2.4L, Globulin 4.1, Albumin/Globulin Ratio 0.6L Height (Feet): 5 Height (Inches): 4.00 Weight (Pounds): 94 General Appearance: alert, severe distress - the pt c/o incisional pain, stated its worse than natural delivery pain, agitated Neurologic: oriented x 3, responsive, depressed affect Rebecca Abbott MD Jan 30, 2018 22:44
[2018-01-31] VITALS: BP 105/53
[2018-01-31 04:00] VITALS: BP 140/75
[2018-01-31] MEDS: HydrALAZINE 25mg tab ORAL SCH ×3 (06:00→17:55)
[2018-01-31] MEDS: PCA shift volume MISC SCH (07:27)
[2018-01-31 07:30] VITALS: BP 106/72
[2018-01-31 08:08] LABS: ANION GAP 4 mmol/L (5-15); BLOOD UREA NITROGEN 16 mg/dL (7-18); CALCIUM 9.1 MG/DL (8.5-10.1); CARBON DIOXIDE 33 MMOL/L (21-32); CHLORIDE 95 MMOL/L (98-107); CREATININE 0.7 MG/DL (0.55-1.30); POTASSIUM 4.4 MMOL/L (3.5-5.1); SODIUM 132 MMOL/L (136-145)
[2018-01-31] MEDS ORDERED: HYDROmorphone 1mg/ml Carpuject IVP PRN (08:45)
[2018-01-31] MEDS: Docusate Sod/Senna tab ORAL SCH ×2 (09:00→18:00)
[2018-01-31] MEDS ORDERED: oxyCODONE 5mg IR tab ORAL SCH (09:00)
[2018-01-31] MEDS: Metoprolol Tartrate 50mg tab ORAL SCH ×2 (09:00→20:34)
[2018-01-31] MEDS: Flonase Nasal Inhaler 16gm NASAL SCH (09:00)
[2018-01-31] MEDS ORDERED: oxyCODONE 15mg IR tab ORAL PRN (09:00)
[2018-01-31] MEDS: Vancomycin 1 GM in D5W 275 ML IVPB SCH (09:45)
[2018-01-31] MEDS: oxyCONTIN 20mg tab ORAL SCH ×2 (09:48→17:50)
[2018-01-31] MEDS: Docusate 100mg cap ORAL SCH ×3 (09:49→18:00)
[2018-01-31] MEDS: Ferrous Gluconate 324 MG TAB ORAL SCH ×3 (09:49→17:49)
[2018-01-31] MEDS: Vitamin D 1000 IU Tab ORAL SCH (09:49)
[2018-01-31] MEDS: Lyrica 50mg cap ORAL SCH (09:51)
[2018-01-31] MEDS: Miconazole 2% Cream 30gm TOPIC SCH ×2 (10:40→18:45)
--- NOTE | 2018-01-31 10:57 | GI Progress Note ---
Assessment/Plan Problems: (1) S/P cervical spinal fusion ICD Codes: Z98.1 - Arthrodesis status SNOMED: 29074391, 94197982, [id number] (2) Pain ICD Codes: R52 - Pain, unspecified SNOMED: 00204523 (3) S/P fusion of thoracic spine ICD Codes: Z98.1 - Arthrodesis status SNOMED: 66494271114317 (4) Post-operative nausea and vomiting ICD Codes: R11.2 - Nausea with vomiting, unspecified; Z98.890 - Other specified postprocedural states SNOMED: 5142115 Status: stable Status Narrative Discussed with Dr. Mcguire. Assessment/Plan s/p Irrigation and debridement of surgical wound T12-L1, placement of epidural drain. fu surgical recs monitor for post operative N/V zofran prn, reglan for persistent vomiting prn transfusion pain mgmt bowel regime fu labs Discussed with Dr. Mcguire. Thank you for this patient referral, we will follow. The patient was seen and examined at bedside and all new and available data was reviewed in the patients chart. I agree with the above findings, impression and plan. (Patient seen earlier today. Signature stamp does not reflect patient encounter time.). - Viraj Mcguire MD Subjective Subjective generalized pain no nausea constipation Objective Last 24 Hour Vital Signs Date Time Temp Pulse Resp B/P (MAP) Pulse Ox O2 Delivery O2 Flow Rate FiO2 01/31/18 09:48 98.5 01/31/18 09:00 81 107/58 01/31/18 09:00 81 107/58 01/31/18 08:08 98.5 01/31/18 07:30 106/72 (83) 01/31/18 06:00 114/72 01/31/18 04:00 98.5 80 20 140/75 (96) 99 98.5 80 01/31/18 04:00 20 01/31/18 03:57 99.0 01/31/18 03:27 99.0 01/31/18 01:21 99.0 01/31/18 00:51 99.0 01/31/18 00:00 19 01/31/18 00:00 98.8 84 19 105/53 (70) 99 98.8 99 9/5/18 22:51 19 01/30/18 22:00 102/61 01/30/18 21:37 99.0 01/30/18 21:00 Room Air 01/30/18 20:57 94 102/61 01/30/18 20:00 99.0 94 20 102/61 (75) 99 99.0 94 01/30/18 18:00 88 107/57 01/30/18 17:32 98.8 01/30/18 17:02 98.8 01/30/18 16:00 18 01/30/18 16:00 98.3 88 21 107/57 (74) 97 98.3 88 01/30/18 13:43 97/57 01/30/18 12:41 98.8 01/30/18 12:00 98.4 59 20 121/76 (91) 98 98.4 01/30/18 12:00 18 Intake and Output 01/30/18 01/31/18 19:00 07:00 Intake Total 920 ml 240 ml Output Total 400 ml Balance 520 ml 240 ml Intake Oral 645 ml 240 ml IV Total 275 ml Output Urine Total 400 ml # Voids 3 6 Laboratory Tests Test 01/30/18 12:30 01/31/18 07:45 White Blood Count 10.1 K/UL (4.8-10.8) Red Blood Count 4.09 M/UL (4.20-5.40) L Hemoglobin 12.3 G/DL (12.0-16.0) Hematocrit 38.2 % (37.0-47.0) Mean Corpuscular Volume 93 FL (80-99) Mean Corpuscular Hemoglobin 30.1 PG (27.0-31.0) Mean Corpuscular Hemoglobin Concent 32.2 G/DL (32.0-36.0) Red Cell Distribution Width 11.1 % (11.6-14.8) L Platelet Count 490 K/UL (150-450) H Mean Platelet Volume 6.2 FL (6.5-10.1) L Neutrophils (%) (Auto) 68.8 % (45.0-75.0) Lymphocytes (%) (Auto) 16.2 % (20.0-45.0) L Monocytes (%) (Auto) 8.3 % (1.0-10.0) Eosinophils (%) (Auto) 4.7 % (0.0-3.0) H Basophils (%) (Auto) 1.9 % (0.0-2.0) Sodium Level 132 MMOL/L (136-145) L 132 MMOL/L (136-145) L Potassium Level 4.4 MMOL/L (3.5-5.1) 4.4 MMOL/L (3.5-5.1) Chloride Level 96 MMOL/L (98-107) L 95 MMOL/L (98-107) L Carbon Dioxide Level 31 MMOL/L (21-32) 33 MMOL/L (21-32) H Anion Gap 5 mmol/L (5-15) 4 mmol/L (5-15) L Blood Urea Nitrogen 18 mg/dL (7-18) 16 mg/dL (7-18) Creatinine 0.7 MG/DL (0.55-1.30) 0.7 MG/DL (0.55-1.30) Estimat Glomerular Filtration Rate > 60 mL/min (>60) > 60 mL/min (>60) Glucose Level 103 MG/DL (74-106) 115 MG/DL (74-106) H Calcium Level 8.9 MG/DL (8.5-10.1) 9.1 MG/DL (8.5-10.1) Total Bilirubin 0.2 MG/DL (0.2-1.0) Aspartate Amino Transf (AST/SGOT) 28 U/L (15-37) Alanine Aminotransferase (ALT/SGPT) 49 U/L (12-78) Alkaline Phosphatase 87 U/L (46-116) Total Protein 6.5 G/DL (6.4-8.2) Albumin 2.4 G/DL (3.4-5.0) L Globulin 4.1 g/dL Albumin/Globulin Ratio 0.6 (1.0-2.7) L Vancomycin Level Trough 3.8 ug/mL (5.0-12.0) L Height (Feet): 5 Height (Inches): 4.00 Weight (Pounds): 94 General Appearance: WD/WN, no apparent distress, alert Cardiovascular: normal rate Respiratory/Chest: normal breath sounds, no respiratory distress Abdominal Exam: normal bowel sounds, non tender, soft Extremities: non-tender Viji Bello [employer] Jan 31, 2018 10:57
[2018-01-31 12:00] VITALS: BP 127/64
[2018-01-31] MEDS: oxyCODONE 5mg IR tab ORAL SCH ×3 (12:14→20:35)
--- NOTE | 2018-01-31 14:17 | General Progress Note ---
Progress Note Progress Note Neurosuregry S/ In communication with Family and nursing this am. [employer] stopped not providing adequate relief and a few times family had pressed the button despite instructions not to so. Unable to do PT due to pian at the tail bone and intermittent papin in the buttock region. O/ VS: Vital Sign - Last 24 Hours 01/30/18 01/30/18 01/30/18 01/30/18 16:00 16:00 17:02 17:32 Temp 98.3 98.8 98.8 98.3 Pulse 88 88 Resp 21 18 B/P (MAP) 107/57 (74) Pulse Ox 97 01/30/18 01/30/18 01/30/18 01/30/18 18:00 20:00 20:57 21:00 Temp 99.0 99.0 Pulse 88 94 94 94 Resp 20 B/P (MAP) 107/57 102/61 (75) 102/61 Pulse Ox 99 O2 Delivery Room Air 01/30/18 01/30/18 01/30/18 01/31/18 21:37 22:00 22:51 00:00 Temp 99.0 98.8 98.8 Pulse 84 99 Resp 19 19 B/P (MAP) 102/61 105/53 (70) Pulse Ox 99 01/31/18 01/31/18 01/31/18 01/31/18 00:00 00:51 01:21 03:27 Temp 99.0 99.0 99.0 Resp 19 01/31/18 01/31/18 01/31/18 01/31/18 03:57 04:00 04:00 06:00 Temp 99.0 98.5 98.5 Pulse 80 80 Resp 20 20 B/P (MAP) 140/75 (96) 114/72 Pulse Ox 99 01/31/18 01/31/18 01/31/18 01/31/18 07:30 08:00 08:08 09:00 Temp 98.5 Pulse 81 Resp 18 B/P (MAP) 106/72 (83) 107/58 01/31/18 01/31/18 01/31/18 01/31/18 09:00 09:00 09:48 10:30 Temp 98.5 Pulse 81 Resp 18 B/P (MAP) 107/58 O2 Delivery Room Air 01/31/18 01/31/18 13:11 13:19 Temp 98.5 101.0 Intake and Output 01/30/18 01/30/18 01/31/18 15:00 23:00 07:00 Intake Total 700 ml 220 ml 240 ml Output Total 400 ml Balance 300 ml 220 ml 240 ml On exam, Alert and oriented x 4. Face is symmetric EOMI Neck is supple Thoracic incision is clean, dry and no erythema. Soft fluctuance. Under sterile condition 30 cc of fluid was removed and sent for micorbiology. pressure dressing applied. Motor exam shows 5/5 in the iliopsoas, quadriceps, hamstrings, anterior tibialis and plantar flexors bilaterally No edema in the lower extremity sensory exam is grossly normal in the 4 limbs and torso. post-op intractable pain: Pt is switched to long acting and short acting agents with dilaudid IV for breakthrough pain. PT on hold due to pain. Pt to do in bed exercises Pt was able to sit at the bedside commode with assist ID consult appreciated. Care plan D/w Dr. Caba and family fever w/u C-xray, Jesus Culture, Doppler u/s lower extremities Nutrition: Pt and family encouraged to continue with hi protein diet for her. Aleta Goodson MD Jan 31, 2018 14:17
[2018-01-31 14:39] LABS: APPEARANCE,URINE CLOUDY; BILIRUBIN, URINE NEGATIVE (NEGATIVE); COLOR,URINE PALE YELLOW; GLUCOSE, URINE (UA) NEGATIVE (NEGATIVE); KETONES,URINE NEGATIVE (NEGATIVE); LEUKOCYTE ESTERASE ,URINE NEGATIVE (NEGATIVE); NITRITE,URINE NEGATIVE (NEGATIVE); PH,URINE 8 (4.5-8.0); PROTEIN,URINE NEGATIVE (NEGATIVE); UROBILINOGEN,URINE NORMAL MG/DL (0.0-1.0)
--- NOTE | 2018-01-31 15:10 | Consultation ---
History of Present Illness General Date patient seen: Jan 31, 2018 Present Illness Allergies: Coded Allergies: SULFA (SULFONAMIDE ANTIBIOTICS) (Verified Allergy, Severe, 09/06/17) hives hives and itching Medication History Scheduled Ascorbic Acid* (Vitamin C*), 500 MG ORAL DAILY, (Reported) Azelastine Hcl (Azelastine Hcl), 137 MCG NS BID, (Reported) Cholecalciferol (Vitamin D3)* (Vitamin D*), 1,000 UNIT ORAL DAILY, (Reported) Fluoxetine Hcl* (Fluoxetine Hcl*), 40 MG ORAL DAILY, (Reported) Lisinopril* (Lisinopril*), 40 MG ORAL DAILY, (Reported) Multivitamin (Multivitamins), 1 EACH PO DAILY, (Reported) Scheduled PRN Hydrocodone Bit/Acetaminophen 10-325* ([place] 10-325*), 1 TAB ORAL Q6H PRN for For Pain, (Reported) Patient History Healthcare decision maker Resuscitation status Chemical (Meds Only) Advanced Directive on File Physical Exam Last 24 Hour Vital Signs Date Time Temp Pulse Resp B/P (MAP) Pulse Ox O2 Delivery O2 Flow Rate FiO2 01/31/18 14:00 127/64 01/31/18 13:41 101.0 01/31/18 13:19 101.0 01/31/18 13:11 98.5 01/31/18 10:30 18 01/31/18 09:48 98.5 01/31/18 09:00 Room Air 01/31/18 09:00 81 107/58 01/31/18 09:00 81 107/58 01/31/18 08:08 98.5 01/31/18 08:00 18 01/31/18 07:30 106/72 (83) 01/31/18 06:00 114/72 01/31/18 04:00 98.5 80 20 140/75 (96) 99 98.5 80 01/31/18 04:00 20 01/31/18 03:57 99.0 01/31/18 03:27 99.0 01/31/18 01:21 99.0 01/31/18 00:51 99.0 01/31/18 00:00 19 01/31/18 00:00 98.8 84 19 105/53 (70) 99 98.8 99 01/30/18 22:51 19 9/5/18 22:00 102/61 01/30/18 21:37 99.0 01/30/18 21:00 Room Air 01/30/18 20:57 94 102/61 01/30/18 20:00 99.0 94 20 102/61 (75) 99 99.0 94 01/30/18 18:00 88 107/57 01/30/18 17:32 98.8 01/30/18 17:02 98.8 01/30/18 16:00 18 01/30/18 16:00 98.3 88 21 107/57 (74) 97 98.3 88 Intake and Output 01/30/18 01/31/18 19:00 07:00 Intake Total 920 ml 240 ml Output Total 400 ml Balance 520 ml 240 ml Intake Oral 645 ml 240 ml IV Total 275 ml Output Urine Total 400 ml # Voids 3 6 Laboratory Tests Test 01/31/18 07:45 01/31/18 14:25 Sodium Level 132 MMOL/L (136-145) L Potassium Level 4.4 MMOL/L (3.5-5.1) Chloride Level 95 MMOL/L (98-107) L Carbon Dioxide Level 33 MMOL/L (21-32) H Anion Gap 4 mmol/L (5-15) L Blood Urea Nitrogen 16 mg/dL (7-18) Creatinine 0.7 MG/DL (0.55-1.30) Estimat Glomerular Filtration Rate > 60 mL/min (>60) Glucose Level 115 MG/DL (74-106) H Calcium Level 9.1 MG/DL (8.5-10.1) Vancomycin Level Trough 3.8 ug/mL (5.0-12.0) L Urine Color Pale yellow Urine Appearance Cloudy Urine pH 8 (4.5-8.0) Urine Specific [place] 1.015 (1.005-1.035) Urine Protein Negative (NEGATIVE) Urine Glucose (UA) Negative (NEGATIVE) Urine Ketones Negative (NEGATIVE) Urine Blood Negative (NEGATIVE) Urine Nitrite Negative (NEGATIVE) Urine Bilirubin Negative (NEGATIVE) Urine Urobilinogen Normal MG/DL (0.0-1.0) Urine Leukocyte Esterase Negative (NEGATIVE) Height (Feet): 5 Height (Inches): 4.00 Weight (Pounds): 94 Medications Current Medications Medications (Trade) Dose Ordered Sig/Terrell Route PRN Reason Start Time Stop Time Status Last Admin Dose Admin Acetaminophen (Tylenol) 650 mg Q4H PRN ORAL headache or temp>101 01/28/18 14:45 02/27/18 10:44 01/31/18 13:19 Amlodipine Besylate (Norvasc) 5 mg BID ORAL 01/28/18 18:00 02/22/18 08:59 01/28/18 17:16 Baclofen (Lioresal) 10 mg Q8H PRN ORAL muscle spasm 01/31/18 15:00 03/02/18 14:59 Diazepam (Valium) 10 mg Q12HR PRN ORAL muscle spasms 01/28/18 21:00 02/04/18 10:44 01/31/18 11:28 Docusate Sodium (Colace) 100 mg THREE TIMES A DAY ORAL 01/30/18 09:00 03/01/18 08:59 01/31/18 13:13 Ferrous Gluconate (Fergon) 324 mg THREE TIMES A DAY ORAL 01/30/18 09:00 03/01/18 08:59 01/31/18 13:13 Fluoxetine HCl (PROzac) 40 mg DAILY ORAL 01/29/18 09:00 02/26/18 10:59 01/31/18 09:48 Gabapentin (Neurontin) 300 mg QID ORAL 01/31/18 09:00 02/27/18 12:59 01/31/18 13:13 Heparin Sodium (Porcine) (Heparin 5000 units/ml) 5,000 units Q12HR SUBQ 01/31/18 21:00 03/02/18 20:59 Hydralazine HCl (Apresoline) 25 mg Q8HR ORAL 01/28/18 22:50 02/27/18 22:49 Hydromorphone HCl (Dilaudid) 2 mg Q2H PRN IVP BRAKTHROUH PAIN 01/31/18 09:00 02/07/18 08:59 01/31/18 13:11 Lidocaine (Lidoderm 5% PATCH) 1 patch DAILY TDERMAL 01/31/18 15:00 03/02/18 14:59 Magnesium Hydroxide (Mom) 30 ml QIDPRN PRN ORAL Constipation 01/29/18 10:45 02/27/18 10:44 01/30/18 09:37 Metoprolol Tartrate (Lopressor) 50 mg Q12HR ORAL 01/28/18 21:00 02/23/18 08:59 01/28/18 23:04 Miconazole Nitrate (Miconazole Nitrate) 1 applic BID TOPIC 01/28/18 18:00 02/27/18 17:59 01/31/18 10:40 Multivitamins (Multivitamins) 1 tab DAILY ORAL 01/29/18 09:00 02/20/18 08:59 01/31/18 09:49 Non-Formulary Medication (Non-Formulary Med) 1 ea BID ORAL 01/31/18 18:00 03/02/18 17:59 UNV Oxycodone HCl (OxyCONTIN) 20 mg Q8H ORAL 01/31/18 09:30 02/07/18 09:29 01/31/18 09:48 Oxycodone HCl (Roxicodone) 10 mg Q4H ORAL 01/31/18 12:00 02/01/18 00:01 01/31/18 12:14 Oxycodone HCl (Roxicodone) 10 mg Q4H PRN ORAL pain 02/01/18 01:00 02/08/18 00:59 Polyethylene Glycol (Miralax) 17 gm BEDTIME ORAL 01/31/18 21:00 03/02/18 20:59 Pregabalin (Lyrica) 50 mg Q12HR ORAL 01/28/18 21:00 02/25/18 09:59 01/31/18 09:51 Senna/Docusate Sodium (Mary Jane-Colace) 1 tab TWICE A DAY ORAL 01/28/18 18:00 02/27/18 17:59 01/31/18 09:00 Sodium Phosphate (Fleet's Sodium Phosl Enema) 133 ml DAILYPRN PRN RECTAL Constipation 01/28/18 18:30 02/22/18 18:17 Vancomycin HCl 1 gm/Dextrose 275 ml @ 183.3 mls/ hr Q12H IVPB 01/31/18 09:00 02/05/18 08:59 01/31/18 09:45 Vitamin D (Vitamin D) 1,000 intlu DAILY ORAL 01/29/18 09:00 02/20/18 08:59 01/31/18 09:49 Assessment/Plan Assessment/Plan (1) Intractable back pain (2) S/p T12-L1 B/L Laminectomy and decompression (3) S/p Irrigation and debridement of surgical wound T12-L1 (4) Thoracic radiculopathy (5) Thoracic and Lumbar spinal stenosis (6) H/O Cervical and lumbar fusion (7) Muscle spasm Seen dictated. Ever Reeder Jan 31, 2018 15:10
[2018-01-31] MEDS ORDERED: Naloxone 0.4mg/ml Inj IVP PRN (15:30)
[2018-01-31] MEDS ORDERED: LORazepam Inj 2mg/ml 1ml IV SCH (15:45)
[2018-01-31 16:00] VITALS: BP 115/66
--- NOTE | 2018-01-31 16:00 | Diagnostic Imaging Report ---
APPROVED REPORT CPT Code: 13884 Present Symptoms Lower Extremity Pain: Left BILATERAL: Imaging reveals a patent deep venous system bilaterally. There is no evidence of thrombus within the femoral, popliteal or tibial segments. The greater saphenous veins are also within normal limits. Doppler indicates normal spontaneous flow within these segments.
--- NOTE | 2018-01-31 16:27 | Infectious Diseases Prog Note ---
Assessment/Plan Assessment/Plan Full consult dictated: A) 1) inflammatory response to allograft vs post-operative infection 2) s/p cervical spine fusion and T12-L1 decompression spine surgery 3) febrile today - 101.0 4) allergies - sulfa 5) pmh noted P) 1) vancomycin for now 2) pancultured, MRI ordered, check chest x-ray, incision site re-aspirated 3) communicated with Dr. Caba 4) monitor labs 5) d/w RN Subjective Allergies: Coded Allergies: SULFA (SULFONAMIDE ANTIBIOTICS) (Verified Allergy, Severe, 09/06/17) hives hives and itching Objective Vital Signs Last 24 Hour Vital Signs Date Time Temp Pulse Resp B/P (MAP) Pulse Ox O2 Delivery O2 Flow Rate FiO2 01/31/18 15:28 98.5 01/31/18 14:00 127/64 01/31/18 13:41 101.0 01/31/18 13:19 101.0 01/31/18 13:11 98.5 01/31/18 12:00 101.0 96 20 127/64 (85) 96 101.0 01/31/18 10:30 18 01/31/18 09:48 98.5 01/31/18 09:00 Room Air 01/31/18 09:00 81 107/58 01/31/18 09:00 81 107/58 01/31/18 08:08 98.5 01/31/18 08:00 18 01/31/18 07:30 106/72 (83) 01/31/18 06:00 114/72 01/31/18 04:00 98.5 80 20 140/75 (96) 99 98.5 80 01/31/18 04:00 20 01/31/18 03:57 99.0 01/31/18 03:27 99.0 01/31/18 01:21 99.0 01/31/18 00:51 99.0 01/31/18 00:00 19 01/31/18 00:00 98.8 84 19 105/53 (70) 99 98.8 99 01/30/18 22:51 19 01/30/18 22:00 102/61 01/30/18 21:37 99.0 01/30/18 21:00 Room Air 01/30/18 20:57 94 102/61 01/30/18 20:00 99.0 94 20 102/61 (75) 99 99.0 94 01/30/18 18:00 88 107/57 01/30/18 17:32 98.8 01/30/18 17:02 98.8 Height (Feet): 5 Height (Inches): 4.00 Weight (Pounds): 94 Microbiology Date/Time Source Procedure Growth Status 01/30/18 05:00 Body Fluid Lumbar Gram Stain - Final Resulted 01/30/18 05:00 Body Fluid Lumbar Body Fluid Culture - Preliminary Resulted Laboratory Tests Test 01/31/18 07:45 01/31/18 14:20 01/31/18 14:25 Sodium Level 132 MMOL/L (136-145) L Potassium Level 4.4 MMOL/L (3.5-5.1) Chloride Level 95 MMOL/L (98-107) L Carbon Dioxide Level 33 MMOL/L (21-32) H Anion Gap 4 mmol/L (5-15) L Blood Urea Nitrogen 16 mg/dL (7-18) Creatinine 0.7 MG/DL (0.55-1.30) Estimat Glomerular Filtration Rate > 60 mL/min (>60) Glucose Level 115 MG/DL (74-106) H Calcium Level 9.1 MG/DL (8.5-10.1) Vancomycin Level Trough 3.8 ug/mL (5.0-12.0) L Body Fluid Source From back incision Body Fluid Volume 30 mL Body Fluid Appearance Red/turbid (Clear) Body Fluid RBC 21888 /CUMM Body Fluid Total Nucleated Cells 19 /CUMM Body Fluid Polynuclear WBCs (%) Pending Body Fluid Mononuclear WBCs (%) Pending Body Fluid Mesothelial Cells (%) Pending Urine Color Pale yellow Urine Appearance Cloudy Urine pH 8 (4.5-8.0) Urine Specific [place] 1.015 (1.005-1.035) Urine Protein Negative (NEGATIVE) Urine Glucose (UA) Negative (NEGATIVE) Urine Ketones Negative (NEGATIVE) Urine Blood Negative (NEGATIVE) Urine Nitrite Negative (NEGATIVE) Urine Bilirubin Negative (NEGATIVE) Urine Urobilinogen Normal MG/DL (0.0-1.0) Urine Leukocyte Esterase Negative (NEGATIVE) Current Medications Medications (Trade) Dose Ordered Sig/Terrell Route PRN Reason Start Time Stop Time Status Last Admin Dose Admin Acetaminophen (Tylenol) 650 mg Q4H PRN ORAL headache or temp>101 01/28/18 14:45 02/27/18 10:44 01/31/18 13:19 Amlodipine Besylate (Norvasc) 5 mg BID ORAL 01/28/18 18:00 02/22/18 08:59 01/28/18 17:16 Baclofen (Lioresal) 10 mg Q8H PRN ORAL muscle spasm 01/31/18 15:00 03/02/18 14:59 Docusate Sodium (Colace) 100 mg THREE TIMES A DAY ORAL 01/30/18 09:00 03/01/18 08:59 01/31/18 13:13 Ferrous Gluconate (Fergon) 324 mg THREE TIMES A DAY ORAL 01/30/18 09:00 03/01/18 08:59 01/31/18 13:13 Fluoxetine HCl (PROzac) 40 mg DAILY ORAL 01/29/18 09:00 02/26/18 10:59 01/31/18 09:48 Heparin Sodium (Porcine) (Heparin 5000 units/ml) 5,000 units Q12HR SUBQ 01/31/18 21:00 03/02/18 20:59 Hydralazine HCl (Apresoline) 25 mg Q8HR ORAL 01/28/18 22:50 02/27/18 22:49 Hydromorphone HCl (Dilaudid) 2 mg Q2H PRN IVP BRAKTHROUH PAIN 01/31/18 09:00 02/07/18 08:59 01/31/18 13:11 Lidocaine (Lidoderm 5% PATCH) 1 patch DAILY TDERMAL 01/31/18 15:00 03/02/18 14:59 01/31/18 15:34 Lorazepam (Ativan 2mg/ml 1ml) 1 mg ONCE IV 01/31/18 15:45 01/31/18 16:45 01/31/18 15:48 Magnesium Hydroxide (Mom) 30 ml QIDPRN PRN ORAL Constipation 01/29/18 10:45 02/27/18 10:44 01/30/18 09:37 Metoprolol Tartrate (Lopressor) 50 mg Q12HR ORAL 01/28/18 21:00 02/23/18 08:59 01/28/18 23:04 Miconazole Nitrate (Miconazole Nitrate) 1 applic BID TOPIC 01/28/18 18:00 02/27/18 17:59 01/31/18 10:40 Multivitamins (Multivitamins) 1 tab DAILY ORAL 01/29/18 09:00 02/20/18 08:59 01/31/18 09:49 Naloxone HCl (Narcan) 0.2 mg PRN IV Respiratory depression 01/31/18 15:30 02/02/18 15:29 Oxycodone HCl (OxyCONTIN) 20 mg Q8H ORAL 01/31/18 09:30 02/07/18 09:29 01/31/18 09:48 Oxycodone HCl (Roxicodone) 10 mg Q4H ORAL 01/31/18 12:00 02/01/18 00:01 01/31/18 15:48 Oxycodone HCl (Roxicodone) 10 mg Q4H PRN ORAL pain 02/01/18 01:00 02/08/18 00:59 Patient Own Medication (Patient's Own Med) 1 ea BID NASAL 01/31/18 18:00 03/02/18 17:59 Polyethylene Glycol (Miralax) 17 gm BEDTIME ORAL 01/31/18 21:00 03/02/18 20:59 Pregabalin (Lyrica) 75 mg TID ORAL 01/31/18 18:00 02/25/18 09:59 Senna/Docusate Sodium (Mary Jane-Colace) 1 tab TWICE A DAY ORAL 01/28/18 18:00 02/27/18 17:59 01/31/18 09:00 Sodium Phosphate (Fleet's Sodium Phosl Enema) 133 ml DAILYPRN PRN RECTAL Constipation 01/28/18 18:30 02/22/18 18:17 Vancomycin HCl 1 gm/Dextrose 275 ml @ 183.3 mls/ hr Q12H IVPB 01/31/18 09:00 02/05/18 08:59 01/31/18 09:45 Vitamin D (Vitamin D) 1,000 intlu DAILY ORAL 01/29/18 09:00 02/20/18 08:59 01/31/18 09:49 Samantha Levy MD Jan 31, 2018 16:27
[2018-01-31] MEDS ORDERED: PCA HYDROmorphone 1mg/ml 30 ML IV PRN (17:15)
[2018-01-31] MEDS: Lyrica 75mg cap ORAL SCH (17:50)
[2018-01-31] MEDS: Milk of Magnesia 30ml Ud ORAL PRN (17:50)
[2018-01-31 20:27] VITALS: BP 141/71
[2018-01-31] MEDS: Miralax 17gm pkt ORAL SCH (20:34)
[2018-01-31] MEDS: Heparin 5000 units/ml inj SUBQ SCH (20:37)
--- NOTE | 2018-01-31 21:45 | General Progress Note ---
Assessment/Plan Status: stable Assessment/Plan Alcohol w/d Alcohol dependence -valium 10mg bid/prn per pmd -prozac 40mg was resumed today -dw family Subjective Neurologic/Psychiatric: Reports: anxiety, depressed Allergies: Coded Allergies: SULFA (SULFONAMIDE ANTIBIOTICS) (Verified Allergy, Severe, 09/06/17) hives hives and itching Subjective she complained of pain the pt has anxiety Objective Last 24 Hour Vital Signs Date Time Temp Pulse Resp B/P (MAP) Pulse Ox O2 Delivery O2 Flow Rate FiO2 01/31/18 20:34 104 141/71 01/31/18 20:27 99.0 104 20 141/71 (94) 93 99.0 01/31/18 18:20 98.5 01/31/18 18:00 92 115/66 01/31/18 17:55 115/66 01/31/18 17:50 98.5 01/31/18 17:50 98.5 01/31/18 17:18 98.5 01/31/18 16:48 98.5 01/31/18 16:00 99.3 92 20 115/66 (82) 92 99.3 01/31/18 15:28 98.5 01/31/18 14:00 127/64 01/31/18 13:19 101.0 01/31/18 13:11 98.5 01/31/18 12:00 101.0 96 20 127/64 (85) 96 101.0 01/31/18 10:30 18 01/31/18 09:48 98.5 01/31/18 09:00 Room Air 01/31/18 09:00 81 107/58 01/31/18 09:00 81 107/58 01/31/18 08:08 98.5 01/31/18 08:00 18 01/31/18 07:30 106/72 (83) 01/31/18 06:00 114/72 01/31/18 04:00 98.5 80 20 140/75 (96) 99 98.5 80 01/31/18 04:00 20 01/31/18 03:57 99.0 01/31/18 03:27 99.0 01/31/18 01:21 99.0 01/31/18 00:51 99.0 01/31/18 00:00 19 01/31/18 00:00 98.8 84 19 105/53 (70) 99 98.8 99 01/30/18 22:51 19 01/30/18 22:00 102/61 Intake and Output 01/30/18 01/31/18 19:00 07:00 Intake Total 920 ml 240 ml Output Total 400 ml Balance 520 ml 240 ml Intake Oral 645 ml 240 ml IV Total 275 ml Output Urine Total 400 ml # Voids 3 6 Laboratory Tests 01/31/18 07:45: Sodium Level 132L, Potassium Level 4.4, Chloride Level 95L, Carbon Dioxide Level 33H, Anion Gap 4L, Blood Urea Nitrogen 16, Creatinine 0.7, Estimat Glomerular Filtration Rate > 60, Glucose Level 115H, Calcium Level 9.1, Vancomycin Level Trough 3.8L 01/31/18 14:20: Body Fluid Source From back incision, Body Fluid Volume 30, Body Fluid Appearance Red/turbid, [place] [address], Body Fluid Total Nucleated Cells 19 , Body Fluid Polynuclear WBCs (%) 87, Body Fluid Mononuclear WBCs (%) 13, Body Fluid Mesothelial Cells (%) 0 01/31/18 14:25: Urine Color Pale yellow, Urine Appearance Cloudy, Urine pH 8, Urine Specific [place] 1.015, Urine Protein Negative, Urine Glucose (UA) Negative, Urine Ketones Negative, Urine Blood Negative, Urine Nitrite Negative, Urine Bilirubin Negative, Urine Urobilinogen Normal, Urine Leukocyte Esterase Negative Height (Feet): 5 Height (Inches): 4.00 Weight (Pounds): 94 General Appearance: no apparent distress, alert Neurologic: oriented x 3, responsive Rebecca Abbott MD Jan 31, 2018 21:45
[2018-02-01] VITALS: BP 116/64
--- NOTE | 2018-02-01 00:30 | Consultation ---
DATE OF CONSULTATION: 01/31/2018 PAIN MANAGEMENT CONSULTATION CONSULTING PHYSICIAN: Ruba Reddy M.D. REFERRING PHYSICIAN: Hilario Caba M.D. PHYSICIAN AUCTION BLOCK CLERK: Olive Avila CHIEF COMPLAINT: Back pain. HISTORY OF PRESENT ILLNESS: This is a 67-year-old female, who is being seen on the Medical/Surgical floor of [facility] for initial comprehensive pain management consultation. The patient is in the bed with family at bedside reporting that she has been having back and tailbone pain since 01/20/2018 when she was admitted into the hospital status post thoracic decompression and laminectomy, which was done on 01/17/2018 here in [facility] by Dr. Goodson, describing the pain as a stabbing, aching pain increasing with pressure and movement, rating the pain at 10/10, nothing has been relieving the pain. Upon readmission to the hospital, MRI of lumbar spine was ordered showing fluid collection at L1 level approximately 6 x 3 cm, which was possibly postop versus infection-inflammation and cannot exclude a developing abscess as well as T12-L1 mild edema enhancing small disc space fluid, cannot exclude mild to early diskitis or osteomyelitis and showing severe spinal canal stenosis at T12-L1, L1-L2 and L2-L3. At this time, the patient is status post incision and debridement of surgical wound, which was done on 01/28/[address] Goodson, however, after surgery, PESTICIDE CHEMIST was started, which the patient had been using 10 mg Dilaudid in the last 24 hours since it was started with breakthrough medications as well. Today, the patient's medication regimen was changed as per the surgeon. PESTICIDE CHEMIST was discontinued and she was started on OxyContin 10 mg every 8 hours scheduled as well as oxycodone 10 mg every 4 hours [id number] for 4 doses and a p.r.n. as well and also Dilaudid 10 mg IV every 2 hours as needed for breakthrough pain, with Neurontin 200 mg 4 times a day, Lyrica 50 mg every 12 hours as well as Valium 10 mg every 12 hours for muscle spasms. The patient has continued with severe pain even with this regimen and due to this, we were consulted to help the patient to have adequate pain control while here in the hospital. As an outpatient, the patient is being seen by paint mixer receiving Atkins 10 mg tablets, which she said she had been taking 1 to 3 times daily as well as Soma 350 mg once a day as needed. She had a history again of lumbar fusion 6 years ago, a cervical fusion on 09/17/[address] Goodson as well. PAST MEDICAL HISTORY: Hypertension. PAST SURGICAL HISTORY: Foot surgery, exploratory surgery on the pelvic area as well as cervical and lumbar fusion. SOCIAL HISTORY: Denies smoking tobacco, drinking alcohol, or drug abuse. ALLERGIES: Sulfa. MEDICATIONS: Atkins, Soma, and lisinopril. REVIEW OF SYSTEMS: Denies rash, fever, chills, sweating, dizziness, drowsiness, blurred vision, sore throat, or change in her weight. No shortness of breath or chest pain. No nausea, vomiting, diarrhea, blood in the stool or urine. No bowel or bladder incontinence. No dysuria. She is complaining of back and tailbone pain. PHYSICAL EXAMINATION: GENERAL: Alert, awake, and oriented x3. VITAL SIGNS: Blood pressure 127/64, heart rate is 101, oxygen saturation is 99%, respiratory rate is 18, and temperature is 101 degrees Fahrenheit. HEENT: PERRLA. NECK: Range of motion is decreased due to the patient's condition. Tenderness of cervical adenopathy. LUNGS: Decreased breath sounds bilaterally. HEART: Heart sounds regular. ABDOMEN: Benign. BACK: Range of motion is decreased in flexion and extension with bandages applied to the thoracic area as well as well-healed surgical scar noted at midline of lumbar spine. EXTREMITIES: Upper extremity range of motion is full in all directions. No cyanosis. No clubbing. No edema. Sensory is intact. Reflexes are not obtainable. No adenopathy. Lower extremity motion is decreased due to the patient's pain and condition. Motor is 4/5 in all muscles bilaterally. No cyanosis. No clubbing. No edema. Sensory is intact. Reflexes are not obtainable. No adenopathy. ASSESSMENT AND PLAN: This is a 67-year-old female with intractable back pain, status post T12-L1 bilateral laminectomy and decompression, status post irrigation and debridement of surgical wound at T12-L1, thoracic and lumbar spinal stenosis, history of cervical and lumbar fusion, muscle spasm. The patient will be continued on OxyContin, oxycodone and Dilaudid IV. We will discontinue the Valium and the Neurontin, increase Lyrica to 75 mg t.i.d., and start the patient on baclofen 10 mg tablet every 8 hours as needed for muscle spasm as well as order an MRI of the pelvic area without contrast to rule out any pathology in that area. The patient was discussed with Dr. Reddy and Dr. Reddy concurred. We will follow up with the patient. Thank you very much for the courtesy of this consultation. Ruba Reddy M.D. KATIE Avila DR: KARIE JOB#: [id number] CC:
[2018-02-01] MEDS: Vancomycin 1 GM in D5W 275 ML IVPB SCH ×3 (00:33→20:31)
[2018-02-01] MEDS: oxyCODONE 5mg IR tab ORAL SCH (00:34)
[2018-02-01] MEDS: oxyCONTIN 20mg tab ORAL SCH ×3 (02:15→17:44)
[2018-02-01 04:00] VITALS: BP 109/67
--- NOTE | 2018-02-01 04:00 | Consultation ---
DATE OF CONSULTATION: 01/31/2018 INFECTIOUS DISEASE CONSULTATION CONSULTING PHYSICIAN: Samantha Levy M.D. ATTENDING PHYSICIAN: Aleta Goodson M.D. REFERRING PHYSICIAN: Hilario Caba M.D. REASON FOR CONSULTATION: Possible back wound infection at the thoracic lumbar area, also fevers. The patient's chief complaint coming in to the hospital is intractable pain. HISTORY OF PRESENT ILLNESS: This is a very pleasant 67-year-old female, who I saw yesterday and today. The patient is status post MRI today. The patient has a history of cervical fusion surgery and thoracic decompressive surgery at T12-L1, the most recent procedure was done on 01/17/2018. Postoperatively, the patient was at outside hospital, where she had severe pain in the extremities consistent with radiculitis. The patient was transferred to [facility] for further workup. She also was noted to have a fluid collection and the incision was tapped initially and fluids showed no evidence of infection. She had an MRI, which showed evidence of enhancing tissue in the paralumbar and thoracic region consistent with postoperative changes, also consistent with inflammatory response versus potential infection. The patient underwent irrigation and debridement of surgical wound at T12-L1 and placement of epidural drainage done on 01/28/2018. The patient had cultures done from the surgery with all being negative to date. Previous blood cultures are negative to date and urine culture is mixed. She had 2 to 4 white cells on urinalysis. Because of the potential of a wound infection, Infectious Disease consultation requested. I saw the patient yesterday and today. Today, she was febrile up to 101 degrees and was recultured. The patient is currently on vancomycin. I am adding Zosyn. PAST MEDICAL HISTORY: The patient's past medical history includes the history of the following, the patient has a past medical history of depression. She has history of chronic disk disease. She came in with radiculitis or radiculopathy. She is status post cervical spine surgery and decompressive surgery at T12-L1, most recent surgery was 01/17/2018. Depression also. She was anemic. She did have hyponatremia. She has history of hypertension. She has a history of hysterectomy and foot surgery also. MEDICATIONS: Upon reviewing the MAR, she is on following medications. She is on oxycodone, Zosyn, heparin, Lyrica, and vancomycin. I have added Zosyn. She is on Narcan as needed, baclofen, lidocaine, oxycodone, Dilaudid, docusate, ferrous gluconate, magnesium hydroxide, Prozac, multivitamins, vitamin D, Apresoline/hydralazine, metoprolol, amlodipine, Norvasc, acetaminophen, miconazole nitrate, and Mary Jane-Colace. Outside medications noted and reconciliated. ALLERGIES: Include sulfa drugs. FAMILY HISTORY: Noncontributory. Negative for exposure to tuberculosis or cancer. SOCIAL HISTORY: It looks like she has history of alcoholism in the past. She has no history of smoking. IV drug abuse mentioned, but per the records, alcoholism in the past. Also, history of narcotic dependency in the past. REVIEW OF SYSTEMS: GENERAL: The patient is having back pain and she came in with radicular pain consistent with radiculitis in the lower extremities. The patient had a fever of 101. She has no chills mentioned. She had generalized fatigue. No new focal weakness mentioned. HEAD AND NECK: No head pain, neck pain, thrush, dysphagia or sinus tenderness. CARDIAC: No chest pain or palpitations. GASTROINTESTINAL: No nausea, vomiting, or diarrhea. No abdominal pain. GENITOURINARY: No Alonso. PULMONARY: No congestion, short of breath, hemoptysis, or secretions. SKIN: No rash or itching. EXTREMITIES: She came in with lower extremity pain. She has back pain also and this is being controlled by pain management. NEUROLOGICAL: No seizures. PHYSICAL EXAMINATION: VITAL SIGNS: Currently, temperature is 98.5 degrees, blood pressure 127/64, T-max 101 degrees this was earlier today, respiratory rate 20, O2 saturation 96%, and pulse rate 96. GENERAL: She is alert and responsive. HEAD AND NECK: Oral exam, no thrush. Eye exam, no icterus. Neck is supple. No JVD. Normocephalic. No icterus or thrush. HEART: Regular. No obvious gallop or murmur. ABDOMEN: Soft. Positive bowel sounds. Nontender. LUNGS: Few bilateral rhonchi. Fairly clear, but no obvious rales on exam, but limited. She could not breathe deeply. SKIN: No obvious rash. MUSCULOSKELETAL: No effusions. Legs are without cellulitis. PERIPHERAL VASCULAR: No cyanosis or gangrene. GENITOURINARY: I did not see a Alonso. NEUROLOGIC: Nonfocal, alert, and responsive. LINE SITES: Without phlebitis. LABORATORY DATA: UA was negative today, previously had 2 to 4 white cells. Creatinine 0.7 and sodium 132. White count 10.1 and hemoglobin 12.3. Cultures, body fluid culture from 01/28/2018 showed no growth. Urine culture, mixed organisms. Blood culture is negative as are previous blood cultures. Cultures from the surgery on 01/28/2018 are all negative. IMAGING STUDIES: Chest x-ray from today is pending. It will be done today. MRI of the pelvis, I believe it was ordered, the pelvis and back area is pending. Initial chest x-ray from 01/20/2018 was negative, however, from 01/27/2018, chest x-ray showed looks like possible upper lobe infiltrates. She had possible pneumonia, per the report it is likely pneumonia. Other imaging, MRI per the reports here with lumbar spine MRI from 01/27/2018 showed postoperative changes. It showed paraspinal fluid, which could be postoperative versus infection, inflammation, cannot exclude developing abscess. MRI from today is pending. Chest x-ray from today is pending. ASSESSMENT AND PLAN: 1. The patient has, it looks like inflammatory response to allograft versus postoperative infection at the back area at the T12-L1. The patient is status post debridement and irrigation. Cultures from there are so far negative. Upon reviewing the operative report, there was no pus noted. Based on the findings, this is most consistent with inflammatory response allograft. Of note, the fluid analysis also showed mostly RBCs, there were 3463 white cells, mostly polynuclear cells, however, again her cultures were all negative from the surgery cultures from 01/28/2018. Today, she had fevers and the patient has been recultured and chest x-ray has been ordered as well as an MRI and re-aspiration. The re-aspiration fluid had less RBCs and white cells showing had 9 white cells and 87% polys. At this time, because of the fevers, we will continue the vancomycin. I am going to add Zosyn for possible aspiration healthcare-acquired pneumonia coverage. Chest x-ray from 01/27/2018 was positive; however, clinically she is not acting like pneumonia. She does not really have any secretions, but certainly based on the fevers of being 101 degrees, so I want to make sure there is no early sepsis and she does have possible SIRS criteria with heart rate of 96. We will continue vancomycin and Zosyn for now. Check chest x-ray, sputum culture, and blood cultures. UA is unremarkable today. Check followup labs and imaging including the MRI and chest x-ray. 2. The patient has hypertension. Continue blood pressure treatment per primary. 3. Hyponatremia. 4. Pain management. 5. History of cervical spine fusion surgery. 6. History of T12-L1 decompression spine surgery. 7. Anemia. 8. Depression. 9. Chronic disk disease. 10. Social history positive for alcoholism in the past and narcotic dependency. 11. Family history is noncontributory. 12. Allergies to sulfa. 13. MAR was noted. 14. Case discussed with RN. 15. Case communicated with Dr. Caba. 16. Continue treatment per primary consultants. 17. Orders were noted and entered. Samantha Levy M.D. DR: CASTILLO JOB#: [id number] CC: RICHELLE
[2018-02-01] MEDS: HydrALAZINE 25mg tab ORAL SCH ×4 (05:27→21:19)
[2018-02-01 08:00] VITALS: BP 164/78
[2018-02-01] MEDS: Heparin 5000 units/ml inj SUBQ SCH ×2 (08:25→20:33)
[2018-02-01] MEDS: Vitamin D 1000 IU Tab ORAL SCH (08:27)
[2018-02-01] MEDS: Ferrous Gluconate 324 MG TAB ORAL SCH ×3 (08:27→17:45)
[2018-02-01] MEDS: Lyrica 75mg cap ORAL SCH ×3 (08:28→17:45)
[2018-02-01] MEDS: Docusate 100mg cap ORAL SCH ×3 (08:29→18:26)
[2018-02-01] MEDS: Metoprolol Tartrate 50mg tab ORAL SCH ×3 (08:29→20:46)
[2018-02-01] MEDS: Docusate Sod/Senna tab ORAL SCH ×2 (08:30→17:45)
[2018-02-01] MEDS: Miconazole 2% Cream 30gm TOPIC SCH ×2 (08:32→17:47)
--- NOTE | 2018-02-01 09:20 | General Progress Note ---
Assessment/Plan Assessment/Plan (1) Intractable back pain (2) S/p T12-L1 B/L Laminectomy and decompression (3) S/p Irrigation and debridement of surgical wound T12-L1 (4) Thoracic radiculopathy (5) Thoracic and Lumbar spinal stenosis (6) H/O Cervical and lumbar fusion (7) Muscle spasm Patient to be continued on Baclofen, OxyContin, Oxycodone, Dilaudid, Lyrica and Lidoderm patch. MRI results pending. D/w Dr. Reddy and he concurred. Subjective Date patient seen: Feb 01, 2018 Time patient seen: 08:00 - am Allergies: Coded Allergies: SULFA (SULFONAMIDE ANTIBIOTICS) (Verified Allergy, Severe, 09/06/17) hives hives and itching Subjective REVIEW OF SYSTEMS: Denies rash, fever, chills, sweating, dizziness, drowsiness, blurred vision, sore throat, or change in her weight. No shortness of breath or chest pain. No nausea, vomiting, diarrhea, blood in the stool or urine. No bowel or bladder incontinence. No dysuria. She is complaining of back and tailbone pain. SUBJECTIVE: Patient is sitting in bed with family at bed side. She has been feeling better and pain is reducing and more controlled. Rating it a 5/10 sitting in the bed on her back. MRI of Pelvis was performed but pending results. Objective Last 24 Hour Vital Signs Date Time Temp Pulse Resp B/P (MAP) Pulse Ox O2 Delivery O2 Flow Rate FiO2 02/01/18 08:39 99.6 02/01/18 08:29 78 164/78 02/01/18 08:29 78 164/78 02/01/18 08:28 99.6 02/01/18 04:22 99.6 02/01/18 04:00 97.0 79 20 109/67 (81) 92 97.0 02/01/18 03:52 99.6 02/01/18 02:15 99.6 02/01/18 00:00 99.6 80 20 116/64 (81) 94 99.6 01/31/18 22:48 99.0 01/31/18 21:00 Room Air 01/31/18 20:34 104 141/71 01/31/18 20:27 99.0 104 20 141/71 (94) 93 99.0 01/31/18 18:20 98.5 01/31/18 18:00 92 115/66 01/31/18 17:55 115/66 01/31/18 17:50 98.5 01/31/18 17:50 98.5 01/31/18 16:48 98.5 01/31/18 16:00 99.3 92 20 115/66 (82) 92 99.3 01/31/18 15:28 98.5 01/31/18 14:00 127/64 01/31/18 13:19 101.0 01/31/18 13:11 98.5 01/31/18 12:00 101.0 96 20 127/64 (85) 96 101.0 01/31/18 10:30 18 01/31/18 09:48 98.5 Intake and Output 01/31/18 02/01/18 19:00 07:00 Intake Total 1165 ml 540.0 ml Output Total 200 ml Balance 965 ml 540.0 ml Intake Oral 890 ml 240 ml IV Total 275 ml 300.0 ml Output Urine Total 200 ml # Voids 2 3 # Bowel Movements 6 Laboratory Tests 01/31/18 14:20: Body Fluid Source From back incision, Body Fluid Volume 30, Body Fluid Appearance Red/turbid, Body Fl[place] [address], Body Fluid Total Nucleated Cells 19 , Body Fluid Polynuclear WBCs (%) 87, Body Fluid Mononuclear WBCs (%) 13, Body Fluid Mesothelial Cells (%) 0 01/31/18 14:25: Urine Color Pale yellow, Urine Appearance Cloudy, Urine pH 8, Urine Specific [place] 1.015, Urine Protein Negative, Urine Glucose (UA) Negative, Urine Ketones Negative, Urine Blood Negative, Urine Nitrite Negative, Urine Bilirubin Negative, Urine Urobilinogen Normal, Urine Leukocyte Esterase Negative Height (Feet): 5 Height (Inches): 4.00 Weight (Pounds): 94 Objective GENERAL: Alert, awake, and oriented x3. LUNGS: Decreased breath sounds bilaterally. HEART: Heart sounds regular. ABDOMEN: Benign. EXTREMITIES: No cyanosis. No clubbing. No edema. NEURO: No changes. Ever Reeder Feb 01, 2018 09:20
[2018-02-01 09:53] LABS: BASOPHILS % (AUTO) 0.8 % (0.0-2.0); EOSINOPHILS % (AUTO) 3.8 % (0.0-3.0); HEMATOCRIT 37.5 % (37.0-47.0); HEMOGLOBIN 12.4 G/DL (12.0-16.0); LYMPHOCYTES % (AUTO) 10.7 % (20.0-45.0); MEAN CORPUSCULAR VOLUME 94 FL (80-99); MONOCYTES % (AUTO) 10.3 % (1.0-10.0); NEUTROPHILS % (AUTO) 74.5 % (45.0-75.0); PLATELET COUNT 531 K/UL (150-450); RED BLOOD COUNT 3.99 M/UL (4.20-5.40); RED CELL DISTRIBUTION WIDTH 11.3 % (11.6-14.8); WHITE BLOOD COUNT 9.5 K/UL (4.8-10.8)
[2018-02-01 09:56] LABS: ANION GAP 4 mmol/L (5-15); BLOOD UREA NITROGEN 19 mg/dL (7-18); CALCIUM 9.6 MG/DL (8.5-10.1); CARBON DIOXIDE 34 MMOL/L (21-32); CHLORIDE 96 MMOL/L (98-107); CREATININE 0.8 MG/DL (0.55-1.30); SODIUM 134 MMOL/L (136-145)
--- NOTE | 2018-02-01 10:23 | Diagnostic Imaging Report ---
Indication: Back pain Comparison: None Findings: 3 views of the sacrum and coccyx were obtained. Findings: There is lower lumbar hardware with pedicle screws fusion rods extending as low as S1. No obvious fracture identified. The sacral alar appear symmetric. IMPRESSION: Negative evaluation of the sacrum. Multilevel lower lumbar/sacral fusion
--- NOTE | 2018-02-01 10:41 | Diagnostic Imaging Report ---
Indication: Status post recent back surgery. Back pain. Patient is at risk for DVT given bedrest and recent surgery. Technique: Grayscale and duplex Doppler imaging of the veins in both lower extremities performed in real time utilizing compression and augmentation. Comparison: None Findings: Duplex Doppler interrogation of the veins in both lower extremity is performed from the common femoral vein to the popliteal vein. Normal venous compressibility demonstrated throughout. No thrombus identified. Waveform analysis shows good respiratory phasicity and augmentation. IMPRESSION: No evidence of deep venous thrombosis involving the lower extremities.
--- NOTE | 2018-02-01 11:07 | Diagnostic Imaging Report ---
Indication: Severe sacrococcygeal pain. Recent surgery Technique: MRI examination of the pelvis sacrum was performed in a 1.5 Deysi magnet. Sequences obtained include multiplanar T1 and T2 fast spin echo, and STIR. Comparison: none Findings: The study is significantly degraded by motion. There is a moderate degree of superficial extrafascial subcutaneous edema posterior to the sacrum and the visualized portion of the lower lumbar spine presumably on the basis of recent surgery. Magnetic susceptibility hardware artifact from pedicle screws within the lower lumbar spine and upper sacrum are noted. This precludes evaluation of the osseous structures in this region due to the artifact. That said, no evidence of bone marrow edema or acute fracture identified within the sacrum or visualized pelvis. Within the visualized portion of the pelvis, there is no evidence of a hematoma, mass or fluid collection. The urinary bladder is moderately distended. An atrophic uterus is noted but not well evaluated IMPRESSION: No definite findings to account for the given history of sacrococcygeal pain. Dependent, posterior subcutaneous edema probably postsurgical in nature. Status post lower lumbar/upper sacral fusion. No obvious evidence of intrapelvic hematoma or abscess. Limited evaluation due to motion and magnetic susceptibility hardware artifact.
--- NOTE | 2018-02-01 12:32 | GI Progress Note ---
Assessment/Plan Problems: (1) S/P cervical spinal fusion ICD Codes: Z98.1 - Arthrodesis status SNOMED: 88643942, 20855910, 5325737101274 (2) Pain ICD Codes: R52 - Pain, unspecified SNOMED: 29924775 (3) S/P fusion of thoracic spine ICD Codes: Z98.1 - Arthrodesis status SNOMED: 59302279289862 (4) Post-operative nausea and vomiting ICD Codes: R11.2 - Nausea with vomiting, unspecified; Z98.890 - Other specified postprocedural states SNOMED: 8134605 Status: progressing Status Narrative Discussed with Dr. Mcguire. Assessment/Plan s/p Irrigation and debridement of surgical wound T12-L1, placement of epidural drain. fu surgical recs monitor for post operative N/V zofran prn, reglan for persistent vomiting prn transfusion pain mgmt bowel regime fu labs Discussed with Dr. Mcguire. Thank you for this patient referral, we will follow. The patient was seen and examined at bedside and all new and available data was reviewed in the patients chart. I agree with the above findings, impression and plan. (Patient seen earlier today. Signature stamp does not reflect patient encounter time.). - Viraj Mcguire MD Subjective Subjective generalized pain no nausea constipation ambulated with PT tolerating diet Objective Last 24 Hour Vital Signs Date Time Temp Pulse Resp B/P (MAP) Pulse Ox O2 Delivery O2 Flow Rate FiO2 02/01/18 11:28 99.6 02/01/18 10:58 99.6 02/01/18 08:58 99.6 02/01/18 08:39 99.6 02/01/18 08:29 78 164/78 02/01/18 08:29 78 164/78 02/01/18 08:28 99.6 02/01/18 08:00 99.3 78 20 164/78 (106) 97 99.3 02/01/18 04:00 97.0 79 20 109/67 (81) 92 97.0 02/01/18 03:52 99.6 02/01/18 02:15 99.6 02/01/18 00:00 99.6 80 20 116/64 (81) 94 99.6 01/31/18 22:48 99.0 01/31/18 21:00 Room Air 01/31/18 20:34 104 141/71 01/31/18 20:27 99.0 104 20 141/71 (94) 93 99.0 01/31/18 18:00 92 115/66 01/31/18 17:55 115/66 01/31/18 17:50 98.5 01/31/18 17:50 98.5 01/31/18 16:48 98.5 01/31/18 16:00 99.3 92 20 115/66 (82) 92 99.3 01/31/18 15:28 98.5 01/31/18 14:00 127/64 01/31/18 13:19 101.0 01/31/18 13:11 98.5 Intake and Output 01/31/18 02/01/18 19:00 07:00 Intake Total 1165 ml 540.0 ml Output Total 200 ml Balance 965 ml 540.0 ml Intake Oral 890 ml 240 ml IV Total 275 ml 300.0 ml Output Urine Total 200 ml # Voids 2 3 # Bowel Movements 6 Laboratory Tests Test 01/31/18 14:20 01/31/18 14:25 02/01/18 09:00 Body Fluid Source From back incision Body Fluid Volume 30 mL Body Fluid Appearance Red/turbid (Clear) Body Fluid RBC 96576 /CUMM Body Fluid Total Nucleated Cells 19 /CUMM Body Fluid Polynuclear WBCs (%) 87 % Body Fluid Mononuclear WBCs (%) 13 % Body Fluid Mesothelial Cells (%) 0 % Urine Color Pale yellow Urine Appearance Cloudy Urine pH 8 (4.5-8.0) Urine Specific [place] 1.015 (1.005-1.035) Urine Protein Negative (NEGATIVE) Urine Glucose (UA) Negative (NEGATIVE) Urine Ketones Negative (NEGATIVE) Urine Blood Negative (NEGATIVE) Urine Nitrite Negative (NEGATIVE) Urine Bilirubin Negative (NEGATIVE) Urine Urobilinogen Normal MG/DL (0.0-1.0) Urine Leukocyte Esterase Negative (NEGATIVE) White Blood Count 9.5 K/UL (4.8-10.8) Red Blood Count 3.99 M/UL (4.20-5.40) L Hemoglobin 12.4 G/DL (12.0-16.0) Hematocrit 37.5 % (37.0-47.0) Mean Corpuscular Volume 94 FL (80-99) Mean Corpuscular Hemoglobin 31.1 PG (27.0-31.0) H Mean Corpuscular Hemoglobin Concent 33.2 G/DL (32.0-36.0) Red Cell Distribution Width 11.3 % (11.6-14.8) L Platelet Count 531 K/UL (150-450) H Mean Platelet Volume 6.7 FL (6.5-10.1) Neutrophils (%) (Auto) 74.5 % (45.0-75.0) Lymphocytes (%) (Auto) 10.7 % (20.0-45.0) L Monocytes (%) (Auto) 10.3 % (1.0-10.0) H Eosinophils (%) (Auto) 3.8 % (0.0-3.0) H Basophils (%) (Auto) 0.8 % (0.0-2.0) Sodium Level 134 MMOL/L (136-145) L Potassium Level 4.0 MMOL/L (3.5-5.1) Chloride Level 96 MMOL/L (98-107) L Carbon Dioxide Level 34 MMOL/L (21-32) H Anion Gap 4 mmol/L (5-15) L Blood Urea Nitrogen 19 mg/dL (7-18) H Creatinine 0.8 MG/DL (0.55-1.30) Estimat Glomerular Filtration Rate > 60 mL/min (>60) Glucose Level 143 MG/DL (74-106) H Calcium Level 9.6 MG/DL (8.5-10.1) Microbiology Date/Time Source Procedure Growth Status 01/31/18 14:25 Urine,Clean Catch Urine Culture - Preliminary NO GROWTH Resulted 01/31/18 14:20 Back Gram Stain Pending Resulted 01/31/18 14:20 Back Aerobic Culture - Preliminary NO GROWTH Resulted 01/31/18 14:20 Back Anaerobic Culture Pending Resulted Height (Feet): 5 Height (Inches): 4.00 Weight (Pounds): 94 General Appearance: WD/WN, no apparent distress, alert Cardiovascular: normal rate Respiratory/Chest: normal breath sounds, no respiratory distress Abdominal Exam: normal bowel sounds, non tender, soft Extremities: normal range of motion, non-tender Viji Bello [employer] Feb 01, 2018 12:32
[2018-02-01 12:37] VITALS: BP 123/69
--- NOTE | 2018-02-01 13:57 | General Progress Note ---
Assessment/Plan Status: stable, progressing Assessment/Plan Alcohol w/d Alcohol dependence -valium 10mg bid/prn per pmd -prozac 40mg was resumed today -dw family Subjective Date patient seen: Feb 01, 2018 Neurologic/Psychiatric: Reports: anxiety, depressed Allergies: Coded Allergies: SULFA (SULFONAMIDE ANTIBIOTICS) (Verified Allergy, Severe, 09/06/17) hives hives and itching Subjective she was asleep calm Objective Last 24 Hour Vital Signs Date Time Temp Pulse Resp B/P (MAP) Pulse Ox O2 Delivery O2 Flow Rate FiO2 02/01/18 13:35 123/69 02/01/18 13:18 99.0 02/01/18 12:37 99.0 75 20 123/69 (87) 95 99.0 02/01/18 11:28 99.6 02/01/18 10:58 99.6 02/01/18 09:00 Room Air 02/01/18 08:58 99.6 02/01/18 08:39 99.6 02/01/18 08:29 78 164/78 02/01/18 08:29 78 164/78 02/01/18 08:28 99.6 02/01/18 08:00 99.3 78 20 164/78 (106) 97 99.3 02/01/18 04:00 97.0 79 20 109/67 (81) 92 97.0 02/01/18 03:52 99.6 02/01/18 02:15 99.6 02/01/18 00:00 99.6 80 20 116/64 (81) 94 99.6 01/31/18 22:48 99.0 01/31/18 21:00 Room Air 01/31/18 20:34 104 141/71 01/31/18 20:27 99.0 104 20 141/71 (94) 93 99.0 01/31/18 18:00 92 115/66 01/31/18 17:55 115/66 01/31/18 17:50 98.5 01/31/18 17:50 98.5 01/31/18 16:48 98.5 01/31/18 16:00 99.3 92 20 115/66 (82) 92 99.3 01/31/18 15:28 98.5 01/31/18 14:00 127/64 Intake and Output 9/6/18 9/7/18 19:00 07:00 Intake Total 1165 ml 540.0 ml Output Total 200 ml Balance 965 ml 540.0 ml Intake Oral 890 ml 240 ml IV Total 275 ml 300.0 ml Output Urine Total 200 ml # Voids 2 3 # Bowel Movements 6 Laboratory Tests 01/31/18 14:20: Body Fluid Source From back incision, Body Fluid Volume 30, Body Fluid Appearance Red/turbid, Body Fluid [place] 429[address], Body Fluid Total Nucleated Cells 19 , Body Fluid Polynuclear WBCs (%) 87, Body Fluid Mononuclear WBCs (%) 13, Body Fluid Mesothelial Cells (%) 0 01/31/18 14:25: Urine Color Pale yellow, Urine Appearance Cloudy, Urine pH 8, Urine Specific [place] 1.015, Urine Protein Negative, Urine Glucose (UA) Negative, Urine Ketones Negative, Urine Blood Negative, Urine Nitrite Negative, Urine Bilirubin Negative, Urine Urobilinogen Normal, Urine Leukocyte Esterase Negative 02/01/18 09:00: White Blood Count 9.5, Red Blood Count 3.99L, Hemoglobin 12.4, Hematocrit 37.5, Mean Corpuscular Volume 94, Mean Corpuscular Hemoglobin 31.1H, Mean Corpuscular Hemoglobin Concent 33.2, Red Cell Distribution Width 11.3L, Platelet Count 531H , Mean Platelet Volume 6.7, Neutrophils (%) (Auto) 74.5, Lymphocytes (%) (Auto) 10.7L, Monocytes (%) (Auto) 10.3H, Eosinophils (%) (Auto) 3.8H, Basophils (%) ( Auto) 0.8, Sodium Level 134L, Potassium Level 4.0, Chloride Level 96L, Carbon Dioxide Level 34H, Anion Gap 4L, Blood Urea Nitrogen 19H, Creatinine 0.8, Estimat Glomerular Filtration Rate > 60, Glucose Level 143H, Calcium Level 9.6 Height (Feet): 5 Height (Inches): 4.00 Weight (Pounds): 94 General Appearance: no apparent distress, alert Neurologic: oriented x 3, depressed affect Rebecca Abbott MD Feb 01, 2018 13:57
--- NOTE | 2018-02-01 14:31 | General Progress Note ---
Progress Note Progress Note Neurosurgery S/ Feeling MUCH better today. Pain at 4/10. On scheduled oxycontin and Lyrica. Walked with PT in [facility] [address]. Had bowel movement. Drinking upto 6 Ensures a day with meals. yellow sputum when coughed earlier O/ vs. Last 24 Hour Vital Signs Date Time Temp Pulse Resp B/P (MAP) Pulse Ox O2 Delivery O2 Flow Rate FiO2 02/01/18 13:35 123/69 02/01/18 13:18 99.0 02/01/18 12:37 99.0 75 20 123/69 (87) 95 99.0 02/01/18 11:28 99.6 02/01/18 10:58 99.6 02/01/18 09:00 Room Air 02/01/18 08:58 99.6 02/01/18 08:39 99.6 02/01/18 08:29 78 164/78 02/01/18 08:29 78 164/78 02/01/18 08:28 99.6 02/01/18 08:00 99.3 78 20 164/78 (106) 97 99.3 02/01/18 04:00 97.0 79 20 109/67 (81) 92 97.0 02/01/18 03:52 99.6 02/01/18 02:15 99.6 02/01/18 00:00 99.6 80 20 116/64 (81) 94 99.6 01/31/18 22:48 99.0 01/31/18 21:00 Room Air 01/31/18 20:34 104 141/71 01/31/18 20:27 99.0 104 20 141/71 (94) 93 99.0 01/31/18 18:00 92 115/66 01/31/18 17:55 115/66 01/31/18 17:50 98.5 01/31/18 17:50 98.5 01/31/18 16:48 98.5 01/31/18 16:00 99.3 92 20 115/66 (82) 92 99.3 01/31/18 15:28 98.5 On exam, Alert and orineted to time, place and person. Interactive. Sister Tete at bedside Incision is completely dry Moves all extremities well Loweer back/hip pain improved labs: Laboratory Tests Test 02/01/18 09:00 White Blood Count 9.5 K/UL (4.8-10.8) Red Blood Count 3.99 M/UL (4.20-5.40) L Hemoglobin 12.4 G/DL (12.0-16.0) Hematocrit 37.5 % (37.0-47.0) Mean Corpuscular Volume 94 FL (80-99) Mean Corpuscular Hemoglobin 31.1 PG (27.0-31.0) H Mean Corpuscular Hemoglobin Concent 33.2 G/DL (32.0-36.0) Red Cell Distribution Width 11.3 % (11.6-14.8) L Platelet Count 531 K/UL (150-450) H Mean Platelet Volume 6.7 FL (6.5-10.1) Neutrophils (%) (Auto) 74.5 % (45.0-75.0) Lymphocytes (%) (Auto) 10.7 % (20.0-45.0) L Monocytes (%) (Auto) 10.3 % (1.0-10.0) H Eosinophils (%) (Auto) 3.8 % (0.0-3.0) H Basophils (%) (Auto) 0.8 % (0.0-2.0) Sodium Level 134 MMOL/L (136-145) L Potassium Level 4.0 MMOL/L (3.5-5.1) Chloride Level 96 MMOL/L (98-107) L Carbon Dioxide Level 34 MMOL/L (21-32) H Anion Gap 4 mmol/L (5-15) L Blood Urea Nitrogen 19 mg/dL (7-18) H Creatinine 0.8 MG/DL (0.55-1.30) Estimat Glomerular Filtration Rate > 60 mL/min (>60) Glucose Level 143 MG/DL (74-106) H Calcium Level 9.6 MG/DL (8.5-10.1) Post-op pain better controlled. On oxycontin CR and oxycodone IR. Dilaudid for bteakthrough pain. On Lyrica Post-op fever. On Vanco and Zosyn. All wound cultures so far negative PT Bowel care. Had BM today Pain management consult appreciated ID consult appreciated Aleta Goodson MD Feb 01, 2018 14:31
[2018-02-01] MEDS: oxyCODONE 5mg IR tab ORAL PRN ×2 (14:38→22:06)
[2018-02-01 16:00] VITALS: BP 122/73
[2018-02-01] MEDS: HYDROmorphone 1mg/ml Carpuject IVP PRN ×2 (16:20→20:31)
[2018-02-01 20:00] VITALS: BP 125/74
[2018-02-01] MEDS: Miralax 17gm pkt ORAL SCH (20:33)
[2018-02-02] VITALS (7 sets, daily range): BP systolic 108–169; BP diastolic 60–90
[2018-02-02] MEDS: oxyCONTIN 20mg tab ORAL SCH ×3 (01:30→16:32)
[2018-02-02] MEDS: oxyCODONE 5mg IR tab ORAL PRN ×2 (03:46→19:39)
[2018-02-02] MEDS: HydrALAZINE 25mg tab ORAL SCH ×3 (05:35→22:00)
[2018-02-02] MEDS ORDERED: Vancomycin 750mg/NS 250ml IVPB SCH (09:00)
[2018-02-02] MEDS: Miconazole 2% Cream 30gm TOPIC SCH ×2 (09:00→18:00)
[2018-02-02] MEDS: Vitamin D 1000 IU Tab ORAL SCH (09:01)
[2018-02-02] MEDS: Docusate Sod/Senna tab ORAL SCH ×2 (09:02→17:46)
[2018-02-02] MEDS: Docusate 100mg cap ORAL SCH ×3 (09:02→17:46)
[2018-02-02] MEDS: Metoprolol Tartrate 50mg tab ORAL SCH ×2 (09:02→20:28)
[2018-02-02] MEDS: Ferrous Gluconate 324 MG TAB ORAL SCH ×3 (09:02→17:46)
[2018-02-02] MEDS: Lyrica 75mg cap ORAL SCH ×3 (09:03→17:46)
[2018-02-02] MEDS: Heparin 5000 units/ml inj SUBQ SCH ×2 (09:04→20:33)
--- NOTE | 2018-02-02 16:32 | General Progress Note ---
Progress Note Progress Note Neurosurgery s/p T12-L1 Decompression s/p T12-L1 I&D S/ Pain much better. Ambulated with PT wearing brace today. sleeping today. Son at Bedside. O/ Vs. Last 24 Hour Vital Signs Date Time Temp Pulse Resp B/P (MAP) Pulse Ox O2 Delivery O2 Flow Rate FiO2 02/02/18 15:34 97.5 02/02/18 14:11 140/80 02/02/18 14:07 97.5 02/02/18 14:00 98.8 76 18 137/67 (90) 100 98.8 02/02/18 09:03 97.5 02/02/18 09:02 79 140/80 02/02/18 09:02 79 140/80 02/02/18 09:00 Room Air 02/02/18 08:00 97.5 79 18 140/80 (100) 95 97.5 02/02/18 05:35 108/60 02/02/18 04:00 98.3 75 20 108/60 (76) 94 98.3 02/02/18 00:00 97.1 74 17 123/70 (87) 97 97.1 02/01/18 21:19 125/74 02/01/18 21:01 99.0 02/01/18 20:31 Room Air 02/01/18 20:31 99.0 02/01/18 20:00 98.3 76 19 125/74 (91) 96 98.3 02/01/18 17:46 74 122/73 02/01/18 17:45 99.0 02/01/18 17:44 99.0 Abusable. able to interact. Answers questions appropriately Laboratory Tests Test 02/01/18 20:00 Vancomycin Level Trough 12.7 ug/mL (5.0-12.0) H Incision is C/D/I Moves all extremities well LABS: Microbiology Date/Time Source Procedure Growth Status 01/31/18 14:45 Blood Blood Culture - Preliminary NO GROWTH AFTER 24 HOURS Resulted 01/31/18 14:40 Blood Blood Culture - Preliminary NO GROWTH AFTER 24 HOURS Resulted 01/31/18 14:25 Urine,Clean Catch Urine Culture - Final NO GROWTH AFTER 48 HOURS Complete 01/31/18 14:20 Back Gram Stain - Final Resulted 01/31/18 14:20 Back Aerobic Culture - Preliminary NO GROWTH AFTER 24 HOURS Resulted 01/31/18 14:20 Back Anaerobic Culture - Preliminary NO GROWTH AFTER 24 HOURS Resulted Pain improving PT d/c planning Aleta Goodson MD Feb 02, 2018 16:32
--- NOTE | 2018-02-02 16:40 | Infectious Diseases Prog Note ---
Assessment/Plan Assessment/Plan ASSESSMENT AND PLAN: 1. ? inflammatory response to allograft vs back wound infection, s/p spinal surgery, fevers, ? pna on chest x-ray 01/27/18 - vancomycin and zosyn for now - cultures negative to date, surgical cultures all negative - check f/u chest x-ray - monitor labs 2. HTN - bp control per primary 3. Hyponatremia. 4. Pain management. 5. History of cervical spine fusion surgery. 6. History of T12-L1 decompression spine surgery. 7. Anemia. 8. Depression. 9. Chronic disk disease. 10. Social history positive for alcoholism in the past and narcotic dependency. 11. Family history is noncontributory. 12. Allergies to sulfa. 13. MAR was noted. 14. Case discussed with RN. 15. Case communicated with Dr. Caba. 16. Continue treatment per primary consultants. 17. Orders were noted and entered. Subjective Constitutional: Reports: fatigue, other - resting; Denies: fever HEENT: Denies: congestion Respiratory: Denies: shortness of breath Cardiovascular: Denies: chest pain Gastrointestinal/Abdominal: Denies: nausea, vomiting, diarrhea Genitourinary: Reports: other Neurologic: Denies: headache Psychiatric: Denies: depression Hematologic: Denies: bleeding Musculoskeletal: Denies: pain Allergies: Coded Allergies: SULFA (SULFONAMIDE ANTIBIOTICS) (Verified Allergy, Severe, 09/06/17) hives hives and itching Objective Vital Signs Last 24 Hour Vital Signs Date Time Temp Pulse Resp B/P (MAP) Pulse Ox O2 Delivery O2 Flow Rate FiO2 02/02/18 15:34 97.5 02/02/18 14:11 140/80 02/02/18 14:07 97.5 02/02/18 14:00 98.8 76 18 137/67 (90) 100 98.8 02/02/18 09:03 97.5 02/02/18 09:02 79 140/80 02/02/18 09:02 79 140/80 02/02/18 09:00 Room Air 02/02/18 08:00 97.5 79 18 140/80 (100) 95 97.5 02/02/18 05:35 108/60 02/02/18 04:00 98.3 75 20 108/60 (76) 94 98.3 02/02/18 00:00 97.1 74 17 123/70 (87) 97 97.1 02/01/18 21:19 125/74 02/01/18 21:01 99.0 02/01/18 20:31 Room Air 02/01/18 20:31 99.0 02/01/18 20:00 98.3 76 19 125/74 (91) 96 98.3 02/01/18 17:46 74 122/73 02/01/18 17:45 99.0 02/01/18 17:44 99.0 Height (Feet): 5 Height (Inches): 4.00 Weight (Pounds): 94 General Appearance: no acute distress HEENT: normocephalic, atraumatic, anicteric, mucous membranes moist Respiratory/Chest: lungs clear, normal breath sounds, no respiratory distress, no accessory muscle use Cardiovascular: normal rate, regular rhythm, no gallop/murmur, no JVD Abdomen: normal bowel sounds, soft, non tender, no organomegaly, non distended Genitourinary: other - no mendoza Extremities: no cyanosis Skin: no rash Neurologic/Psychiatric: domain architect II-XII grossly normal, alert, oriented x 3, responsive Lymphatic: no neck adenopathy Musculoskeletal: no effusion Objective MRI - pelvis: IMPRESSION: No definite findings to account for the given history of sacrococcygeal pain. Dependent, posterior subcutaneous edema probably postsurgical in nature. Status post lower lumbar/upper sacral fusion. No obvious evidence of intrapelvic hematoma or abscess. Limited evaluation due to motion and magnetic susceptibility hardware artifact. Chest x-ray - 01/27- Findings: . Development of bilateral upper lobe infiltrates. The heart size is normal. The pleural spaces are clear Impression: Bilateral upper lobe infiltrates, likely pneumonia This agrees with the preliminary interpretation provided overnight by [facility] teleradiology service. Microbiology Date/Time Source Procedure Growth Status 01/31/18 14:45 Blood Blood Culture - Preliminary NO GROWTH AFTER 24 HOURS Resulted 01/31/18 14:40 Blood Blood Culture - Preliminary NO GROWTH AFTER 24 HOURS Resulted 01/31/18 14:25 Urine,Clean Catch Urine Culture - Final NO GROWTH AFTER 48 HOURS Complete 01/31/18 14:20 Back Gram Stain - Final Resulted 01/31/18 14:20 Back Aerobic Culture - Preliminary NO GROWTH AFTER 24 HOURS Resulted 01/31/18 14:20 Back Anaerobic Culture - Preliminary NO GROWTH AFTER 24 HOURS Resulted Labs Test 01/31/18 07:45 01/31/18 14:20 01/31/18 14:25 02/01/18 09:00 Sodium Level 132 MMOL/L (136-145) 134 MMOL/L (136-145) Potassium Level 4.4 MMOL/L (3.5-5.1) 4.0 MMOL/L (3.5-5.1) Chloride Level 95 MMOL/L (98-107) 96 MMOL/L (98-107) Carbon Dioxide Level 33 MMOL/L (21-32) 34 MMOL/L (21-32) Anion Gap 4 mmol/L (5-15) 4 mmol/L (5-15) Blood Urea Nitrogen 16 mg/dL (7-18) 19 mg/dL (7-18) Creatinine 0.7 MG/DL (0.55-1.30) 0.8 MG/DL (0.55-1.30) Estimat Glomerular Filtration Rate > 60 mL/min (>60) > 60 mL/min (>60) Glucose Level 115 MG/DL (74-106) 143 MG/DL (74-106) Calcium Level 9.1 MG/DL (8.5-10.1) 9.6 MG/DL (8.5-10.1) Vancomycin Level Trough 3.8 ug/mL (5.0-12.0) Body Fluid Source From back incision Body Fluid Volume 30 mL Body Fluid Appearance Red/turbid (Clear) Body Fluid RBC 53376 /CUMM Body Fluid Total Nucleated Cells 19 /CUMM Body Fluid Polynuclear WBCs (%) 87 % Body Fluid Mononuclear WBCs (%) 13 % Body Fluid Mesothelial Cells (%) 0 % Urine Color Pale yellow Urine Appearance Cloudy Urine pH 8 (4.5-8.0) Urine Specific Mitchell 1.015 (1.005-1.035) Urine Protein Negative (NEGATIVE) Urine Glucose (UA) Negative (NEGATIVE) Urine Ketones Negative (NEGATIVE) Urine Blood Negative (NEGATIVE) Urine Nitrite Negative (NEGATIVE) Urine Bilirubin Negative (NEGATIVE) Urine Urobilinogen Normal MG/DL (0.0-1.0) Urine Leukocyte Esterase Negative (NEGATIVE) White Blood Count 9.5 K/UL (4.8-10.8) Red Blood Count 3.99 M/UL (4.20-5.40) Hemoglobin 12.4 G/DL (12.0-16.0) Hematocrit 37.5 % (37.0-47.0) Mean Corpuscular Volume 94 FL (80-99) Mean Corpuscular Hemoglobin 31.1 PG (27.0-31.0) Mean Corpuscular Hemoglobin Concent 33.2 G/DL (32.0-36.0) Red Cell Distribution Width 11.3 % (11.6-14.8) Platelet Count 531 K/UL (150-450) Mean Platelet Volume 6.7 FL (6.5-10.1) Neutrophils (%) (Auto) 74.5 % (45.0-75.0) Lymphocytes (%) (Auto) 10.7 % (20.0-45.0) Monocytes (%) (Auto) 10.3 % (1.0-10.0) Eosinophils (%) (Auto) 3.8 % (0.0-3.0) Basophils (%) (Auto) 0.8 % (0.0-2.0) Test 02/01/18 20:00 Vancomycin Level Trough 12.7 ug/mL (5.0-12.0) Laboratory Tests Test 02/01/18 20:00 Vancomycin Level Trough 12.7 ug/mL (5.0-12.0) H Current Medications Medications (Trade) Dose Ordered Sig/Terrell Route PRN Reason Start Time Stop Time Status Last Admin Dose Admin Acetaminophen (Tylenol) 650 mg Q4H PRN ORAL headache or temp>101 01/28/18 14:45 02/27/18 10:44 01/31/18 13:19 Amlodipine Besylate (Norvasc) 5 mg BID ORAL 01/28/18 18:00 02/22/18 08:59 02/02/18 09:02 Baclofen (Lioresal) 10 mg Q8H PRN ORAL muscle spasm 01/31/18 15:00 03/02/18 14:59 02/01/18 23:05 Docusate Sodium (Colace) 100 mg THREE TIMES A DAY ORAL 01/30/18 09:00 03/01/18 08:59 02/02/18 14:07 Ferrous Gluconate (Fergon) 324 mg THREE TIMES A DAY ORAL 01/30/18 09:00 03/01/18 08:59 02/02/18 14:07 Fluoxetine HCl (PROzac) 40 mg DAILY ORAL 01/29/18 09:00 02/26/18 10:59 02/02/18 09:03 Heparin Sodium (Porcine) (Heparin 5000 units/ml) 5,000 units Q12HR SUBQ 01/31/18 21:00 03/02/18 20:59 02/02/18 09:04 Hydralazine HCl (Apresoline) 25 mg Q8HR ORAL 01/28/18 22:50 02/27/18 22:49 02/02/18 14:11 Hydromorphone HCl (Dilaudid) 1 mg Q4H PRN IVP For Pain 02/01/18 14:30 02/08/18 14:29 02/01/18 20:31 Lidocaine (Lidoderm 5% PATCH) 1 patch DAILY TDERMAL 01/31/18 15:00 03/02/18 14:59 02/02/18 09:05 Magnesium Hydroxide (Mom) 30 ml QIDPRN PRN ORAL Constipation 01/29/18 10:45 02/27/18 10:44 01/31/18 17:50 Metoprolol Tartrate (Lopressor) 50 mg Q12HR ORAL 01/28/18 21:00 02/23/18 08:59 02/02/18 09:02 Miconazole Nitrate (Miconazole Nitrate) 1 applic BID TOPIC 01/28/18 18:00 02/27/18 17:59 02/01/18 17:47 Multivitamins (Multivitamins) 1 tab DAILY ORAL 01/29/18 09:00 02/20/18 08:59 02/02/18 09:01 Oxycodone HCl (OxyCONTIN) 20 mg Q8H ORAL 01/31/18 09:30 02/07/18 09:29 02/01/18 17:44 Oxycodone HCl (Roxicodone) 10 mg Q4H PRN ORAL pain 02/01/18 01:00 02/08/18 00:59 02/02/18 03:46 Patient Own Medication (Patient's Own Med) 1 ea BID NASAL 01/31/18 18:00 03/02/18 17:59 02/02/18 09:05 Piperacillin Sod/ Tazobactam Sod 3.375 gm/Dextrose 100 ml @ 25 mls/hr EVERY 8 HOURS IVPB 01/31/18 22:00 02/05/18 21:59 02/02/18 15:32 Polyethylene Glycol (Miralax) 17 gm BEDTIME ORAL 01/31/18 21:00 03/02/18 20:59 01/31/18 20:34 Pregabalin (Lyrica) 75 mg TID ORAL 01/31/18 18:00 02/25/18 09:59 02/02/18 14:07 Senna/Docusate Sodium (Mary Jane-Colace) 1 tab TWICE A DAY ORAL 01/28/18 18:00 02/27/18 17:59 02/02/18 09:02 Sodium Phosphate (Fleet's Sodium Phosl Enema) 133 ml DAILYPRN PRN RECTAL Constipation 01/28/18 18:30 02/22/18 18:17 01/31/18 22:49 Vancomycin HCl (Vanco rx to dose) 1 ea DAILY PRN MISC Per rx protocol 01/31/18 16:45 03/02/18 16:44 Vancomycin/Sodium Chloride 250 ml @ 166.667 mls/hr Q8H IVPB 02/02/18 09:00 02/07/18 08:59 02/02/18 09:01 Vitamin D (Vitamin D) 1,000 intlu DAILY ORAL 01/29/18 09:00 02/20/18 08:59 02/02/18 09:01 Samantha Levy MD Feb 02, 2018 16:40
[2018-02-02] MEDS ORDERED: oxyCONTIN 10mg tab ORAL PRN (16:41)
--- NOTE | 2018-02-02 18:01 | Diagnostic Imaging Report ---
EXAM: XR Chest, 1 View CLINICAL HISTORY: INFECT TECHNIQUE: Frontal view of the chest. COMPARISON: Chest x-ray dated 01/27/2018 FINDINGS: Lungs: Improvement of the upper lobe infiltrates with slight interval increase in diffuse airspace opacities which may be inflammatory or infectious. Low lung volumes. Pleural space: Unremarkable. No pneumothorax. Heart: Unremarkable. No cardiomegaly. Mediastinum: Unremarkable. Bones/joints: No acute osseous abnormality. Vasculature: Tortuosity of thoracic aorta. IMPRESSION: Improvement of the upper lobe infiltrates with slight interval increase in diffuse airspace opacities which may be inflammatory or infectious.
[2018-02-02] MEDS ORDERED: Tubing IV Secondary IV ONE (18:40)
--- NOTE | 2018-02-02 18:40 | General Progress Note ---
Assessment/Plan Assessment/Plan Assessment (1) S/P cervical spinal fusion ICD Codes: Z98.1 - Arthrodesis status SNOMED: 46021983, 55367596, 4345771541783 (2) Pain ICD Codes: R52 - Pain, unspecified SNOMED: 69223638 (3) S/P fusion of thoracic spine ICD Codes: Z98.1 - Arthrodesis status SNOMED: 12523444868640 (4) Post-operative nausea and vomiting ICD Codes: R11.2 - Nausea with vomiting, unspecified; Z98.890 - Other specified postprocedural states SNOMED: 3372883 (5) Constipation Assessment/Plan s/p Irrigation and debridement of surgical wound T12-L1, placement of epidural drain. fu surgical recs monitor for post operative N/V zofran prn, reglan for persistent vomiting prn transfusion pain mgmt bowel regime fu labs Subjective Allergies: Coded Allergies: SULFA (SULFONAMIDE ANTIBIOTICS) (Verified Allergy, Severe, 09/06/17) hives hives and itching Subjective d/w sister at bedside no BM patient sedated, arousable Objective Last 24 Hour Vital Signs Date Time Temp Pulse Resp B/P (MAP) Pulse Ox O2 Delivery O2 Flow Rate FiO2 02/02/18 18:16 97.5 02/02/18 17:46 97.5 02/02/18 17:46 87 169/90 02/02/18 16:32 97.5 02/02/18 14:11 140/80 02/02/18 14:07 97.5 02/02/18 14:00 98.8 76 18 137/67 (90) 100 98.8 02/02/18 09:03 97.5 02/02/18 09:02 79 140/80 02/02/18 09:02 79 140/80 02/02/18 09:00 Room Air 02/02/18 08:00 97.5 79 18 140/80 (100) 95 97.5 02/02/18 05:35 108/60 02/02/18 04:00 98.3 75 20 108/60 (76) 94 98.3 02/02/18 00:00 97.1 74 17 123/70 (87) 97 97.1 02/01/18 21:19 125/74 02/01/18 21:01 99.0 02/01/18 20:31 Room Air 02/01/18 20:31 99.0 02/01/18 20:00 98.3 76 19 125/74 (91) 96 98.3 Intake and Output 02/01/18 02/02/18 19:00 07:00 Intake Total 405 ml 375.0 ml Balance 405 ml 375.0 ml Intake Oral 405 ml IV Total 375.0 ml # Voids 2 3 # Bowel Movements 3 1 Laboratory Tests 02/01/18 20:00: Vancomycin Level Trough 12.7H Height (Feet): 5 Height (Inches): 4.00 Weight (Pounds): 94 Objective WDWN NCAT supple CTA RRR soft ND NT no edema Natalie Alvarez MD Feb 02, 2018 18:40
[2018-02-02] MEDS: Augmentin 875mg Tab ORAL SCH (20:27)
[2018-02-02] MEDS: Miralax 17gm pkt ORAL SCH (21:00)
[2018-02-02] MEDS: LORazepam 1mg tab ORAL PRN (21:57)
[2018-02-03 04:00] VITALS: BP 140/76
[2018-02-03] MEDS: HydrALAZINE 25mg tab ORAL SCH ×3 (05:05→22:20)
[2018-02-03 07:15] LABS: BASOPHILS % (AUTO) 0.7 % (0.0-2.0); EOSINOPHILS % (AUTO) 6.1 % (0.0-3.0); HEMATOCRIT 39.4 % (37.0-47.0); HEMOGLOBIN 13.1 G/DL (12.0-16.0); MEAN CORPUSCULAR VOLUME 92 FL (80-99); MONOCYTES % (AUTO) 12.1 % (1.0-10.0); NEUTROPHILS % (AUTO) 66.1 % (45.0-75.0); PLATELET COUNT 565 K/UL (150-450); RED BLOOD COUNT 4.27 M/UL (4.20-5.40); RED CELL DISTRIBUTION WIDTH 11.1 % (11.6-14.8)
[2018-02-03 07:37] LABS: ANION GAP 7 mmol/L (5-15); BLOOD UREA NITROGEN 18 mg/dL (7-18); CALCIUM 9.4 MG/DL (8.5-10.1); CARBON DIOXIDE 30 MMOL/L (21-32); CHLORIDE 102 MMOL/L (98-107); CREATININE 0.8 MG/DL (0.55-1.30); POTASSIUM 3.8 MMOL/L (3.5-5.1); SODIUM 139 MMOL/L (136-145)
[2018-02-03 08:00] VITALS: BP 136/77
[2018-02-03] MEDS: oxyCONTIN 10mg tab ORAL SCH ×2 (08:59→20:59)
[2018-02-03] MEDS: Vitamin D 1000 IU Tab ORAL SCH (08:59)
[2018-02-03] MEDS: Lyrica 75mg cap ORAL SCH ×3 (08:59→17:45)
[2018-02-03] MEDS: Ferrous Gluconate 324 MG TAB ORAL SCH ×3 (09:00→17:41)
[2018-02-03] MEDS: Docusate 100mg cap ORAL SCH ×3 (09:00→17:41)
[2018-02-03] MEDS: Docusate Sod/Senna tab ORAL SCH ×2 (09:00→17:37)
[2018-02-03] MEDS: Augmentin 875mg Tab ORAL SCH ×2 (09:01→20:58)
[2018-02-03] MEDS: Metoprolol Tartrate 50mg tab ORAL SCH ×2 (09:01→20:56)
[2018-02-03] MEDS: Heparin 5000 units/ml inj SUBQ SCH ×2 (09:20→21:01)
--- NOTE | 2018-02-03 09:54 | General Progress Note ---
Assessment/Plan Assessment/Plan (1) Intractable back pain (2) S/p T12-L1 B/L Laminectomy and decompression (3) S/p Irrigation and debridement of surgical wound T12-L1 (4) Thoracic radiculopathy (5) Thoracic and Lumbar spinal stenosis (6) H/O Cervical and lumbar fusion (7) Muscle spasm Patient to be continued on OxyContin, Oxycodone, Dilaudid, Lyrica and Lidoderm patch. An Rx for Lyrica was sent to patients pharmacy of choice. D/w Dr. Reddy and he concurred. Subjective Date patient seen: Feb 03, 2018 Time patient seen: 08:45 - am Allergies: Coded Allergies: SULFA (SULFONAMIDE ANTIBIOTICS) (Verified Allergy, Severe, 09/06/17) hives hives and itching Subjective REVIEW OF SYSTEMS: Denies rash, fever, chills, sweating, dizziness, drowsiness, blurred vision, sore throat, or change in her weight. No shortness of breath or chest pain. No nausea, vomiting, diarrhea, blood in the stool or urine. No bowel or bladder incontinence. No dysuria. She is complaining of back and tailbone pain. SUBJECTIVE: Patient is sitting in bed with family at bed side. Patient was slightly drowsy yesterday and Dr. Goodson reduced the Oxycontin to 10mg BID and Dilaudid to 1mg IV. She does not need an RX for discharge due to having Chalmers at home from her last RX and does not want another RX at this time. I d/w her about continuing the Lyrica at home and she agrees. She is doing PT to the best of her abilities. Objective Last 24 Hour Vital Signs Date Time Temp Pulse Resp B/P (MAP) Pulse Ox O2 Delivery O2 Flow Rate FiO2 02/03/18 09:01 85 136/77 02/03/18 09:00 85 136/77 02/03/18 08:59 98.5 02/03/18 08:59 98.5 02/03/18 08:00 98.5 85 19 136/77 (96) 95 98.5 02/03/18 05:05 140/76 02/03/18 04:00 97.9 72 18 140/76 (97) 94 97.9 02/02/18 21:00 137/75 (95) 02/02/18 21:00 Room Air 02/02/18 20:28 90 139/73 02/02/18 20:00 98.2 87 18 141/75 (97) 94 98.2 02/02/18 18:16 97.5 02/02/18 17:50 98.3 87 18 169/90 (116) 100 98.3 02/02/18 17:46 97.5 02/02/18 17:46 87 169/90 02/02/18 16:32 97.5 02/02/18 14:11 140/80 02/02/18 14:07 97.5 02/02/18 14:00 98.8 76 18 137/67 (90) 100 98.8 Intake and Output 02/02/18 02/03/18 19:00 07:00 Intake Total 615.000 ml Balance 615.000 ml Intake Oral 240 ml IV Total 375.000 ml # Voids 1 2 # Bowel Movements 2 Laboratory Tests 02/03/18 05:05: White Blood Count 9.0, Red Blood Count 4.27, Hemoglobin 13.1, Hematocrit 39.4, Mean Corpuscular Volume 92, Mean Corpuscular Hemoglobin 30.6, Mean Corpuscular Hemoglobin Concent 33.2, Red Cell Distribution Width 11.1L, Platelet Count 565H , Mean Platelet Volume 7.1, Neutrophils (%) (Auto) 66.1, Lymphocytes (%) (Auto) 15.0L, Monocytes (%) (Auto) 12.1H, Eosinophils (%) (Auto) 6.1H, Basophils (%) ( Auto) 0.7, Sodium Level 139, Potassium Level 3.8, Chloride Level 102, Carbon Dioxide Level 30, Anion Gap 7, Blood Urea Nitrogen 18, Creatinine 0.8, Estimat Glomerular Filtration Rate > 60, Glucose Level 92, Calcium Level 9.4 Height (Feet): 5 Height (Inches): 4.00 Weight (Pounds): 94 Objective GENERAL: Alert, awake, and oriented x3. LUNGS: Decreased breath sounds bilaterally. HEART: Heart sounds regular. ABDOMEN: Benign. EXTREMITIES: No cyanosis. No clubbing. No edema. NEURO: No changes. Procedure: MRI Pelvis no Contrast Indication: Severe sacrococcygeal pain. Recent surgery Technique: MRI examination of the pelvis sacrum was performed in a 1.5 Deysi magnet. Sequences obtained include multiplanar T1 and T2 fast spin echo, and STIR. Comparison: none Findings: The study is significantly degraded by motion. There is a moderate degree of superficial extrafascial subcutaneous edema posterior to the sacrum and the visualized portion of the lower lumbar spine presumably on the basis of recent surgery. Magnetic susceptibility hardware artifact from pedicle screws within the lower lumbar spine and upper sacrum are noted. This precludes evaluation of the osseous structures in this region due to the artifact. That said, no evidence of bone marrow edema or acute fracture identified within the sacrum or visualized pelvis. Within the visualized portion of the pelvis, there is no evidence of a hematoma , mass or fluid collection. The urinary bladder is moderately distended. An atrophic uterus is noted but not well evaluated IMPRESSION: No definite findings to account for the given history of sacrococcygeal pain. Dependent, posterior subcutaneous edema probably postsurgical in nature. Status post lower lumbar/upper sacral fusion. No obvious evidence of intrapelvic hematoma or abscess. Limited evaluation due to motion and magnetic susceptibility hardware artifact. Ever Reeder Feb 03, 2018 09:54
[2018-02-03] MEDS: oxyCODONE 5mg IR tab ORAL PRN ×3 (11:57→23:42)
[2018-02-03 11:59] VITALS: BP 110/67
--- NOTE | 2018-02-03 13:16 | General Progress Note ---
Assessment/Plan Assessment/Plan Assessment (1) S/P cervical spinal fusion ICD Codes: Z98.1 - Arthrodesis status SNOMED: 51096471, 43042558, 5321294837832 (2) Pain ICD Codes: R52 - Pain, unspecified SNOMED: 32776637 (3) S/P fusion of thoracic spine ICD Codes: Z98.1 - Arthrodesis status SNOMED: 89534355305899 (4) Post-operative nausea and vomiting ICD Codes: R11.2 - Nausea with vomiting, unspecified; Z98.890 - Other specified postprocedural states SNOMED: 3031520 (5) Constipation Assessment/Plan s/p Irrigation and debridement of surgical wound T12-L1, placement of epidural drain. fu surgical recs monitor for post operative N/V zofran prn, reglan for persistent vomiting prn transfusion pain mgmt bowel regime fu labs Subjective Allergies: Coded Allergies: SULFA (SULFONAMIDE ANTIBIOTICS) (Verified Allergy, Severe, 09/06/17) hives hives and itching Subjective d/w sister at bedside (+) BM tolerating PO pain better Objective Last 24 Hour Vital Signs Date Time Temp Pulse Resp B/P (MAP) Pulse Ox O2 Delivery O2 Flow Rate FiO2 02/03/18 11:59 97.8 74 19 110/67 (81) 96 97.8 02/03/18 09:01 85 136/77 02/03/18 09:00 Room Air 02/03/18 09:00 85 136/77 02/03/18 08:59 98.5 02/03/18 08:59 98.5 02/03/18 08:00 98.5 85 19 136/77 (96) 95 98.5 02/03/18 05:05 140/76 02/03/18 04:00 97.9 72 18 140/76 (97) 94 97.9 02/02/18 21:00 137/75 (95) 02/02/18 21:00 Room Air 02/02/18 20:28 90 139/73 02/02/18 20:00 98.2 87 18 141/75 (97) 94 98.2 02/02/18 18:16 97.5 02/02/18 17:50 98.3 87 18 169/90 (116) 100 98.3 02/02/18 17:46 97.5 02/02/18 17:46 87 169/90 02/02/18 16:32 97.5 02/02/18 14:11 140/80 02/02/18 14:07 97.5 02/02/18 14:00 98.8 76 18 137/67 (90) 100 98.8 Intake and Output 02/02/18 02/03/18 19:00 07:00 Intake Total 615.000 ml Balance 615.000 ml Intake Oral 240 ml IV Total 375.000 ml # Voids 1 2 # Bowel Movements 2 Laboratory Tests 02/03/18 05:05: White Blood Count 9.0, Red Blood Count 4.27, Hemoglobin 13.1, Hematocrit 39.4, Mean Corpuscular Volume 92, Mean Corpuscular Hemoglobin 30.6, Mean Corpuscular Hemoglobin Concent 33.2, Red Cell Distribution Width 11.1L, Platelet Count 565H , Mean Platelet Volume 7.1, Neutrophils (%) (Auto) 66.1, Lymphocytes (%) (Auto) 15.0L, Monocytes (%) (Auto) 12.1H, Eosinophils (%) (Auto) 6.1H, Basophils (%) ( Auto) 0.7, Sodium Level 139, Potassium Level 3.8, Chloride Level 102, Carbon Dioxide Level 30, Anion Gap 7, Blood Urea Nitrogen 18, Creatinine 0.8, Estimat Glomerular Filtration Rate > 60, Glucose Level 92, Calcium Level 9.4 Height (Feet): 5 Height (Inches): 4.00 Weight (Pounds): 94 Objective WDWN NCAT supple CTA RRR soft ND NT no edema Natalie Alvarez MD Feb 03, 2018 13:16
[2018-02-03] MEDS: Miconazole 2% Cream 30gm TOPIC SCH ×2 (14:53→17:38)
[2018-02-03 16:00] VITALS: BP 121/61
[2018-02-03 20:41] VITALS: BP 131/74
[2018-02-03] MEDS: Miralax 17gm pkt ORAL SCH (21:00)
[2018-02-03 22:00] VITALS: BP 152/80
[2018-02-03] MEDS: LORazepam 1mg tab ORAL PRN (22:12)
[2018-02-04] VITALS (7 sets, daily range): BP systolic 126–169; BP diastolic 72–95
[2018-02-04] MEDS: HYDROmorphone 1mg/ml Carpuject IVP PRN (02:00)
[2018-02-04] MEDS: HydrALAZINE 25mg tab ORAL SCH ×3 (05:08→21:07)
[2018-02-04] MEDS: oxyCODONE 5mg IR tab ORAL PRN ×2 (06:08→19:50)
[2018-02-04] MEDS: Augmentin 875mg Tab ORAL SCH ×2 (08:35→21:06)
[2018-02-04] MEDS: Ferrous Gluconate 324 MG TAB ORAL SCH ×3 (08:35→18:38)
[2018-02-04] MEDS: Docusate Sod/Senna tab ORAL SCH ×2 (08:35→18:38)
[2018-02-04] MEDS: Vitamin D 1000 IU Tab ORAL SCH (08:36)
[2018-02-04] MEDS: Docusate 100mg cap ORAL SCH ×3 (08:36→18:38)
[2018-02-04] MEDS: Metoprolol Tartrate 50mg tab ORAL SCH ×2 (08:37→21:08)
[2018-02-04] MEDS: Lyrica 75mg cap ORAL SCH ×3 (08:37→18:37)
[2018-02-04] MEDS: Heparin 5000 units/ml inj SUBQ SCH ×2 (08:42→21:06)
[2018-02-04] MEDS: oxyCONTIN 10mg tab ORAL SCH ×2 (10:00→21:10)
[2018-02-04] MEDS: Miconazole 2% Cream 30gm TOPIC SCH ×2 (10:01→18:34)
--- NOTE | 2018-02-04 13:09 | GI Progress Note ---
Assessment/Plan Problems: (1) S/P cervical spinal fusion ICD Codes: Z98.1 - Arthrodesis status SNOMED: 79037870, 82183089, 3951718377809 (2) Pain ICD Codes: R52 - Pain, unspecified SNOMED: 18959558 (3) S/P fusion of thoracic spine ICD Codes: Z98.1 - Arthrodesis status SNOMED: 16068943613487 (4) Post-operative nausea and vomiting ICD Codes: R11.2 - Nausea with vomiting, unspecified; Z98.890 - Other specified postprocedural states SNOMED: 2518083 Status: stable Status Narrative Discussed with Dr. Mcguire. Assessment/Plan s/p Irrigation and debridement of surgical wound T12-L1, placement of epidural drain. fu surgical recs monitor for post operative N/V zofran prn, reglan for persistent vomiting prn transfusion pain mgmt bowel regime fu labs Discussed with Dr. Mcguire. Thank you for this patient referral, we will follow. The patient was seen and examined at bedside and all new and available data was reviewed in the patients chart. I agree with the above findings, impression and plan. (Patient seen earlier today. Signature stamp does not reflect patient encounter time.). - Viraj Mcguire MD Subjective Gastrointestinal/Abdominal: Reports: no symptoms Subjective generalized pain no nausea constipation ambulated with PT tolerating diet Objective Last 24 Hour Vital Signs Date Time Temp Pulse Resp B/P (MAP) Pulse Ox O2 Delivery O2 Flow Rate FiO2 02/04/18 09:00 Room Air 02/04/18 08:37 91 164/87 02/04/18 08:36 91 164/87 02/04/18 08:00 99.0 91 20 164/87 (112) 98 99.0 02/04/18 06:00 97.2 77 18 144/74 (97) 97 97.2 02/04/18 05:08 164/94 02/04/18 04:00 98.2 78 18 169/94 (119) 98 98.2 02/04/18 02:30 98.3 02/04/18 00:00 98.3 74 18 142/77 (98) 97 98.3 02/03/18 22:20 152/96 02/03/18 22:00 99.0 76 18 152/80 (104) 98 99.0 02/03/18 21:00 Room Air 02/03/18 20:59 98.4 02/03/18 20:56 81 131/74 02/03/18 20:41 98.4 81 18 131/74 (93) 98 98.4 02/03/18 17:45 74 119/71 02/03/18 16:00 92.9 88 19 121/61 (81) 95 92.9 02/03/18 14:00 124/69 Intake and Output 02/03/18 02/04/18 19:00 07:00 Intake Total 240 ml 1280 ml Balance 240 ml 1280 ml Intake Oral 240 ml 1280 ml # Voids 3 7 # Bowel Movements 2 Height (Feet): 5 Height (Inches): 4.00 Weight (Pounds): 94 General Appearance: WD/WN, no apparent distress, alert Cardiovascular: normal rate Respiratory/Chest: normal breath sounds, no respiratory distress Abdominal Exam: normal bowel sounds, non tender, soft Extremities: normal range of motion, non-tender Viji Bello NP Feb 04, 2018 13:09
--- NOTE | 2018-02-04 15:49 | General Progress Note ---
Assessment/Plan Status: stable Assessment/Plan Alcohol dependence anxiety d/o -valium 10mg bid/prn per pmd -prozac 40mg was resumed today -dw family -nurse to contact the pmd regarding antiinflammatory Subjective Date patient seen: Feb 04, 2018 Neurologic/Psychiatric: Reports: anxiety Allergies: Coded Allergies: SULFA (SULFONAMIDE ANTIBIOTICS) (Verified Allergy, Severe, 09/06/17) hives hives and itching Subjective she was asleep calm has episodes of anxiety and pain more severe at night. the pts asked for anti inflammatory meds. The pts was explained that it may thin her blood. he stated the pt is getting blood thinner anyway. Objective Last 24 Hour Vital Signs Date Time Temp Pulse Resp B/P (MAP) Pulse Ox O2 Delivery O2 Flow Rate FiO2 02/04/18 13:19 164/95 02/04/18 12:00 98.5 75 19 164/95 (118) 98 98.5 02/04/18 09:00 Room Air 02/04/18 08:37 91 164/87 02/04/18 08:36 91 164/87 02/04/18 08:00 99.0 91 20 164/87 (112) 98 99.0 02/04/18 06:00 97.2 77 18 144/74 (97) 97 97.2 02/04/18 05:08 164/94 02/04/18 04:00 98.2 78 18 169/94 (119) 98 98.2 02/04/18 02:30 98.3 02/04/18 00:00 98.3 74 18 142/77 (98) 97 98.3 02/03/18 22:20 152/96 02/03/18 22:00 99.0 76 18 152/80 (104) 98 99.0 02/03/18 21:00 Room Air 02/03/18 20:59 98.4 02/03/18 20:56 81 131/74 02/03/18 20:41 98.4 81 18 131/74 (93) 98 98.4 02/03/18 17:45 74 119/71 02/03/18 16:00 92.9 88 19 121/61 (81) 95 92.9 Intake and Output 02/03/18 02/04/18 19:00 07:00 Intake Total 240 ml 1280 ml Balance 240 ml 1280 ml Intake Oral 240 ml 1280 ml # Voids 3 7 # Bowel Movements 2 Height (Feet): 5 Height (Inches): 4.00 Weight (Pounds): 94 General Appearance: no apparent distress, alert Neurologic: oriented x 3, responsive, depressed affect Rebecca Abbott MD Feb 04, 2018 15:49
--- NOTE | 2018-02-04 16:45 | Infectious Diseases Prog Note ---
Assessment/Plan Assessment/Plan ASSESSMENT AND PLAN: 1. ? inflammatory response to allograft vs back wound infection, s/p spinal surgery, fevers better, ? pna - switched to augmentin plus doxycycline x 7 days more - cultures negative to date, surgical cultures all negative - chest x-ray - 02/02 - improved - monitor labs and chest x-ray - monitor mild chest rash 2. HTN - bp control per primary 3. Hyponatremia. 4. Pain management. 5. History of cervical spine fusion surgery. 6. History of T12-L1 decompression spine surgery. 7. Anemia. 8. Depression. 9. Chronic disk disease. 10. Social history positive for alcoholism in the past and narcotic dependency. 11. Family history is noncontributory. 12. Allergies to sulfa. 13. MAR was noted. 14. Case discussed with RN. 15. Case communicated with Dr. Caba. 16. Continue treatment per primary consultants. 17. Orders were noted and entered. Subjective Constitutional: Reports: fatigue; Denies: fever HEENT: Denies: congestion Respiratory: Denies: shortness of breath Cardiovascular: Denies: chest pain Gastrointestinal/Abdominal: Denies: nausea, vomiting, diarrhea Genitourinary: Reports: other - no mendoza Neurologic: Denies: headache Psychiatric: Denies: depression Skin: Reports: rash - mild chest rash Hematologic: Denies: bleeding Musculoskeletal: Reports: pain - controlled today Allergies: Coded Allergies: SULFA (SULFONAMIDE ANTIBIOTICS) (Verified Allergy, Severe, 09/06/17) hives hives and itching Objective Vital Signs Last 24 Hour Vital Signs Date Time Temp Pulse Resp B/P (MAP) Pulse Ox O2 Delivery O2 Flow Rate FiO2 02/04/18 13:19 164/95 02/04/18 12:00 98.5 75 19 164/95 (118) 98 98.5 02/04/18 09:00 Room Air 02/04/18 08:37 91 164/87 02/04/18 08:36 91 164/87 02/04/18 08:00 99.0 91 20 164/87 (112) 98 99.0 02/04/18 06:00 97.2 77 18 144/74 (97) 97 97.2 02/04/18 05:08 164/94 02/04/18 04:00 98.2 78 18 169/94 (119) 98 98.2 02/04/18 02:30 98.3 02/04/18 00:00 98.3 74 18 142/77 (98) 97 98.3 02/03/18 22:20 152/96 02/03/18 22:00 99.0 76 18 152/80 (104) 98 99.0 02/03/18 21:00 Room Air 02/03/18 20:59 98.4 02/03/18 20:56 81 131/74 02/03/18 20:41 98.4 81 18 131/74 (93) 98 98.4 02/03/18 17:45 74 119/71 Height (Feet): 5 Height (Inches): 4.00 Weight (Pounds): 94 General Appearance: no acute distress HEENT: normocephalic, atraumatic, anicteric, mucous membranes moist Respiratory/Chest: crackles/rales - few, rhonchi - bilaterally - few Cardiovascular: normal rate, regular rhythm Abdomen: normal bowel sounds, soft, non tender, no organomegaly, non distended Genitourinary: other - no mendoza Extremities: no cyanosis Skin: rash - mild chest rash Neurologic/Psychiatric: wheel blocker II-XII grossly normal, alert, oriented x 3, responsive Lymphatic: no neck adenopathy Musculoskeletal: no effusion Objective MRI - pelvis: IMPRESSION: No definite findings to account for the given history of sacrococcygeal pain. Dependent, posterior subcutaneous edema probably postsurgical in nature. Status post lower lumbar/upper sacral fusion. No obvious evidence of intrapelvic hematoma or abscess. Limited evaluation due to motion and magnetic susceptibility hardware artifact. Chest x-ray - 01/27- Findings: . Development of bilateral upper lobe infiltrates. The heart size is normal. The pleural spaces are clear Impression: Bilateral upper lobe infiltrates, likely pneumonia This agrees with the preliminary interpretation provided overnight by [facility] teleradiology service. Chest x-ray - 02/02 - COMPARISON: Chest x-ray dated 01/27/2018 FINDINGS: Lungs: Improvement of the upper lobe infiltrates with slight interval increase in diffuse airspace opacities which may be inflammatory or infectious. Low lung volumes. Pleural space: Unremarkable. No pneumothorax. Heart: Unremarkable. No cardiomegaly. Mediastinum: Unremarkable. Bones/joints: No acute osseous abnormality. Vasculature: Tortuosity of thoracic aorta. IMPRESSION: Improvement of the upper lobe infiltrates with slight interval increase in diffuse airspace opacities which may be inflammatory or infectious. Microbiology Date/Time Source Procedure Growth Status 01/31/18 14:45 Blood Blood Culture - Preliminary NO GROWTH AFTER 72 HOURS Resulted 01/30/18 05:00 Body Fluid Lumbar Gram Stain - Final Complete 01/30/18 05:00 Body Fluid Lumbar Body Fluid Culture - Final NO GROWTH Complete 01/24/18 18:00 Vaginal Fungal Culture - Final Complete 01/24/18 18:00 Vaginal Fungal Culture 1 - Final Complete 01/28/18 09:45 Wound AFB Specimen Processing Tissue - Final Resulted 01/28/18 09:45 Wound Acid Fast Bacilli Smear - Final Resulted 01/28/18 09:45 Wound Acid Fast Bacilli Culture Pending Resulted 01/20/18 15:42 Nasal Nares MRSA Culture - Final NO METHICILLIN RESISTANT STAPH AUREUS... Complete 01/31/18 14:25 Urine,Clean Catch Urine Culture - Final NO GROWTH AFTER 48 HOURS Complete 01/31/18 14:20 Back Gram Stain - Final Complete 01/31/18 14:20 Back Aerobic Culture - Final NO GROWTH Complete 01/31/18 14:20 Back Anaerobic Culture - Final NO GROWTH Complete Labs Test 02/01/18 20:00 02/03/18 05:05 Vancomycin Level Trough 12.7 ug/mL (5.0-12.0) White Blood Count 9.0 K/UL (4.8-10.8) Red Blood Count 4.27 M/UL (4.20-5.40) Hemoglobin 13.1 G/DL (12.0-16.0) Hematocrit 39.4 % (37.0-47.0) Mean Corpuscular Volume 92 FL (80-99) Mean Corpuscular Hemoglobin 30.6 PG (27.0-31.0) Mean Corpuscular Hemoglobin Concent 33.2 G/DL (32.0-36.0) Red Cell Distribution Width 11.1 % (11.6-14.8) Platelet Count 565 K/UL (150-450) Mean Platelet Volume 7.1 FL (6.5-10.1) Neutrophils (%) (Auto) 66.1 % (45.0-75.0) Lymphocytes (%) (Auto) 15.0 % (20.0-45.0) Monocytes (%) (Auto) 12.1 % (1.0-10.0) Eosinophils (%) (Auto) 6.1 % (0.0-3.0) Basophils (%) (Auto) 0.7 % (0.0-2.0) Sodium Level 139 MMOL/L (136-145) Potassium Level 3.8 MMOL/L (3.5-5.1) Chloride Level 102 MMOL/L (98-107) Carbon Dioxide Level 30 MMOL/L (21-32) Anion Gap 7 mmol/L (5-15) Blood Urea Nitrogen 18 mg/dL (7-18) Creatinine 0.8 MG/DL (0.55-1.30) Estimat Glomerular Filtration Rate > 60 mL/min (>60) Glucose Level 92 MG/DL (74-106) Calcium Level 9.4 MG/DL (8.5-10.1) Current Medications Medications (Trade) Dose Ordered Sig/Terrell Route PRN Reason Start Time Stop Time Status Last Admin Dose Admin Acetaminophen (Tylenol) 650 mg Q4H PRN ORAL headache or temp>101 01/28/18 14:45 02/27/18 10:44 01/31/18 13:19 Amlodipine Besylate (Norvasc) 5 mg BID ORAL 01/28/18 18:00 02/22/18 08:59 02/04/18 08:36 Amoxicillin/ Clavulanate Potassium (Augmentin) 875 mg EVERY 12 HOURS ORAL 02/02/18 21:00 02/09/18 20:59 02/04/18 08:35 Docusate Sodium (Colace) 100 mg THREE TIMES A DAY ORAL 01/30/18 09:00 03/01/18 08:59 02/04/18 13:19 Doxycycline Monohydrate (Vibramycin) 100 mg EVERY 12 HOURS ORAL 02/02/18 21:00 02/09/18 20:59 02/04/18 08:35 Ferrous Gluconate (Fergon) 324 mg THREE TIMES A DAY ORAL 01/30/18 09:00 03/01/18 08:59 02/04/18 13:20 Fluoxetine HCl (PROzac) 40 mg DAILY ORAL 01/29/18 09:00 02/26/18 10:59 02/04/18 08:35 Heparin Sodium (Porcine) (Heparin 5000 units/ml) 5,000 units Q12HR SUBQ 01/31/18 21:00 03/02/18 20:59 02/04/18 08:42 Hydralazine HCl (Apresoline) 25 mg Q8HR ORAL 01/28/18 22:50 02/27/18 22:49 02/04/18 13:19 Hydromorphone HCl (Dilaudid) 1 mg Q4H PRN IVP For Pain 02/01/18 14:30 02/08/18 14:29 02/04/18 02:00 Lidocaine (Lidoderm 5% PATCH) 1 patch DAILY TDERMAL 01/31/18 15:00 03/02/18 14:59 02/04/18 08:38 Lorazepam (Ativan) 1 mg Q6H PRN ORAL For Anxiety 02/02/18 19:30 02/09/18 19:29 02/03/18 22:12 Magnesium Hydroxide (Mom) 30 ml QIDPRN PRN ORAL Constipation 01/29/18 10:45 02/27/18 10:44 01/31/18 17:50 Metoprolol Tartrate (Lopressor) 50 mg Q12HR ORAL 01/28/18 21:00 02/23/18 08:59 02/04/18 08:37 Miconazole Nitrate (Miconazole Nitrate) 1 applic BID TOPIC 01/28/18 18:00 02/27/18 17:59 02/04/18 10:01 Multivitamins (Multivitamins) 1 tab DAILY ORAL 01/29/18 09:00 02/20/18 08:59 02/04/18 08:37 Oxycodone HCl (OxyCONTIN) 10 mg Q12HR ORAL 02/03/18 09:00 02/10/18 08:59 02/04/18 10:00 Oxycodone HCl (Roxicodone) 10 mg Q6H PRN ORAL Breakthrough Pain 02/02/18 19:30 02/09/18 19:29 02/04/18 06:08 Patient Own Medication (Patient's Own Med) 1 ea BID NASAL 01/31/18 18:00 03/02/18 17:59 02/04/18 10:00 Polyethylene Glycol (Miralax) 17 gm BEDTIME ORAL 01/31/18 21:00 03/02/18 20:59 02/03/18 21:00 Pregabalin (Lyrica) 75 mg TID ORAL 01/31/18 18:00 02/25/18 09:59 02/04/18 13:19 Senna/Docusate Sodium (Mary Jane-Colace) 1 tab TWICE A DAY ORAL 01/28/18 18:00 02/27/18 17:59 02/04/18 08:35 Sodium Phosphate (Fleet's Sodium Phosl Enema) 133 ml DAILYPRN PRN RECTAL Constipation 01/28/18 18:30 02/22/18 18:17 01/31/18 22:49 Vitamin D (Vitamin D) 1,000 intlu DAILY ORAL 01/29/18 09:00 02/20/18 08:59 02/04/18 08:36 Samantha Levy MD Feb 04, 2018 16:45
[2018-02-04] MEDS: Miralax 17gm pkt ORAL SCH (21:06)
[2018-02-04] MEDS: LORazepam 1mg tab ORAL PRN (23:47)
[2018-02-05] VITALS: BP 144/81
[2018-02-05 04:00] VITALS: BP 133/68
[2018-02-05] MEDS: oxyCODONE 5mg IR tab ORAL PRN (04:04)
[2018-02-05] MEDS: HydrALAZINE 25mg tab ORAL SCH ×3 (05:03→21:24)
[2018-02-05 07:06] LABS: BASOPHILS % (AUTO) 0.6 % (0.0-2.0); EOSINOPHILS % (AUTO) 8.5 % (0.0-3.0); HEMATOCRIT 40.4 % (37.0-47.0); HEMOGLOBIN 13.4 G/DL (12.0-16.0); LYMPHOCYTES % (AUTO) 18.8 % (20.0-45.0); MEAN CORPUSCULAR VOLUME 91 FL (80-99); MONOCYTES % (AUTO) 12.3 % (1.0-10.0); NEUTROPHILS % (AUTO) 59.8 % (45.0-75.0); PLATELET COUNT 619 K/UL (150-450); RED BLOOD COUNT 4.43 M/UL (4.20-5.40); RED CELL DISTRIBUTION WIDTH 11.1 % (11.6-14.8); WHITE BLOOD COUNT 5.8 K/UL (4.8-10.8)
[2018-02-05 07:37] LABS: ANION GAP 8 mmol/L (5-15); BLOOD UREA NITROGEN 21 mg/dL (7-18); CALCIUM 9.6 MG/DL (8.5-10.1); CARBON DIOXIDE 28 MMOL/L (21-32); CHLORIDE 101 MMOL/L (98-107); CREATININE 0.9 MG/DL (0.55-1.30); POTASSIUM 3.7 MMOL/L (3.5-5.1); SODIUM 137 MMOL/L (136-145)
[2018-02-05 10:00] VITALS: BP 139/94
[2018-02-05] MEDS: Ferrous Gluconate 324 MG TAB ORAL SCH ×3 (10:09→17:28)
[2018-02-05] MEDS: Augmentin 875mg Tab ORAL SCH ×2 (10:09→21:22)
[2018-02-05] MEDS: Docusate 100mg cap ORAL SCH ×3 (10:09→17:28)
[2018-02-05] MEDS: Vitamin D 1000 IU Tab ORAL SCH (10:09)
[2018-02-05] MEDS: Docusate Sod/Senna tab ORAL SCH ×2 (10:09→17:28)
[2018-02-05] MEDS: Miconazole 2% Cream 30gm TOPIC SCH ×2 (10:10→18:00)
[2018-02-05] MEDS: Lyrica 75mg cap ORAL SCH ×3 (10:11→17:33)
[2018-02-05] MEDS: oxyCONTIN 10mg tab ORAL SCH ×2 (10:11→21:23)
[2018-02-05] MEDS: Metoprolol Tartrate 50mg tab ORAL SCH ×2 (10:12→21:24)
[2018-02-05] MEDS: Heparin 5000 units/ml inj SUBQ SCH ×2 (10:15→21:25)
[2018-02-05 12:00] VITALS: BP 150/82
--- NOTE | 2018-02-05 15:02 | GI Progress Note ---
Assessment/Plan Problems: (1) S/P cervical spinal fusion ICD Codes: Z98.1 - Arthrodesis status SNOMED: 75547194, 87605081, [id number] (2) Pain ICD Codes: R52 - Pain, unspecified SNOMED: 17508798 (3) S/P fusion of thoracic spine ICD Codes: Z98.1 - Arthrodesis status SNOMED: 90112398795975 (4) Post-operative nausea and vomiting ICD Codes: R11.2 - Nausea with vomiting, unspecified; Z98.890 - Other specified postprocedural states SNOMED: 9562728 Status: stable Status Narrative Discussed with Dr. Mcguire. Assessment/Plan s/p Irrigation and debridement of surgical wound T12-L1, placement of epidural drain. fu surgical recs monitor for post operative N/V zofran prn, reglan for persistent vomiting prn transfusion pain mgmt bowel regime fu labs okay for DC per GI standpoint Discussed with Dr. Mcguire. Thank you for this patient referral, we will follow. The patient was seen and examined at bedside and all new and available data was reviewed in the patients chart. I agree with the above findings, impression and plan. (Patient seen earlier today. Signature stamp does not reflect patient encounter time.). - Viraj Mcguire MD Subjective Subjective no nausea overall better ambulated with PT tolerating diet Objective Last 24 Hour Vital Signs Date Time Temp Pulse Resp B/P (MAP) Pulse Ox O2 Delivery O2 Flow Rate FiO2 02/05/18 13:22 150/82 02/05/18 12:00 98.6 86 20 150/82 (104) 96 98.6 02/05/18 10:12 80 139/84 02/05/18 10:12 84 139/94 02/05/18 10:00 98.2 80 20 139/94 (109) 98 98.2 02/05/18 08:00 Room Air 02/05/18 05:03 105/58 02/05/18 04:00 97.9 72 18 133/68 (89) 95 97.9 02/05/18 00:00 98.9 81 16 144/81 (102) 98 98.9 02/04/18 21:08 86 159/88 02/04/18 21:07 159/88 02/04/18 21:00 Room Air 02/04/18 20:26 99.3 86 18 159/88 (111) 98 99.3 02/04/18 18:38 80 155/60 02/04/18 16:00 98.4 72 18 126/72 (90) 96 98.4 Intake and Output 02/04/18 02/05/18 19:00 07:00 Intake Total 700 ml 360 ml Balance 700 ml 360 ml Intake Oral 700 ml 360 ml # Voids 5 3 # Bowel Movements 1 Laboratory Tests Test 02/05/18 06:30 White Blood Count 5.8 K/UL (4.8-10.8) Red Blood Count 4.43 M/UL (4.20-5.40) Hemoglobin 13.4 G/DL (12.0-16.0) Hematocrit 40.4 % (37.0-47.0) Mean Corpuscular Volume 91 FL (80-99) Mean Corpuscular Hemoglobin 30.2 PG (27.0-31.0) Mean Corpuscular Hemoglobin Concent 33.1 G/DL (32.0-36.0) Red Cell Distribution Width 11.1 % (11.6-14.8) L Platelet Count 619 K/UL (150-450) H Mean Platelet Volume 7.1 FL (6.5-10.1) Neutrophils (%) (Auto) 59.8 % (45.0-75.0) Lymphocytes (%) (Auto) 18.8 % (20.0-45.0) L Monocytes (%) (Auto) 12.3 % (1.0-10.0) H Eosinophils (%) (Auto) 8.5 % (0.0-3.0) H Basophils (%) (Auto) 0.6 % (0.0-2.0) Sodium Level 137 MMOL/L (136-145) Potassium Level 3.7 MMOL/L (3.5-5.1) Chloride Level 101 MMOL/L (98-107) Carbon Dioxide Level 28 MMOL/L (21-32) Anion Gap 8 mmol/L (5-15) Blood Urea Nitrogen 21 mg/dL (7-18) H Creatinine 0.9 MG/DL (0.55-1.30) Estimat Glomerular Filtration Rate > 60 mL/min (>60) Glucose Level 104 MG/DL (74-106) Calcium Level 9.6 MG/DL (8.5-10.1) Height (Feet): 5 Height (Inches): 4.00 Weight (Pounds): 94 General Appearance: WD/WN, no apparent distress, alert Cardiovascular: normal rate Respiratory/Chest: normal breath sounds, no respiratory distress Abdominal Exam: normal bowel sounds, non tender, soft Extremities: normal range of motion, non-tender Viji Bello NP Feb 05, 2018 15:02
[2018-02-05 16:00] VITALS: BP 102/56
--- NOTE | 2018-02-05 19:45 | General Progress Note ---
Assessment/Plan Status: stable, progressing Assessment/Plan Alcohol dependence anxiety d/o -valium 10mg bid/prn per pmd -prozac 40mg was resumed today -dw family -nurse to contact the pmd regarding antiinflammatory Subjective Date patient seen: Feb 05, 2018 Neurologic/Psychiatric: Reports: anxiety, depressed, emotional problems Allergies: Coded Allergies: SULFA (SULFONAMIDE ANTIBIOTICS) (Verified Allergy, Severe, 09/06/17) hives hives and itching Objective Last 24 Hour Vital Signs Date Time Temp Pulse Resp B/P (MAP) Pulse Ox O2 Delivery O2 Flow Rate FiO2 02/05/18 17:56 70 102/56 02/05/18 16:00 98.2 70 18 102/56 (71) 96 98.2 02/05/18 13:22 150/82 02/05/18 12:00 98.6 86 20 150/82 (104) 96 98.6 02/05/18 10:12 80 139/84 02/05/18 10:12 84 139/94 02/05/18 10:00 98.2 80 20 139/94 (109) 98 98.2 02/05/18 08:00 Room Air 02/05/18 05:03 105/58 02/05/18 04:00 97.9 72 18 133/68 (89) 95 97.9 02/05/18 00:00 98.9 81 16 144/81 (102) 98 98.9 02/04/18 21:08 86 159/88 02/04/18 21:07 159/88 02/04/18 21:00 Room Air 02/04/18 20:26 99.3 86 18 159/88 (111) 98 99.3 Intake and Output 02/04/18 02/05/18 19:00 07:00 Intake Total 700 ml 360 ml Balance 700 ml 360 ml Intake Oral 700 ml 360 ml # Voids 5 3 # Bowel Movements 1 Laboratory Tests 02/05/18 06:30: White Blood Count 5.8, Red Blood Count 4.43, Hemoglobin 13.4, Hematocrit 40.4, Mean Corpuscular Volume 91, Mean Corpuscular Hemoglobin 30.2, Mean Corpuscular Hemoglobin Concent 33.1, Red Cell Distribution Width 11.1L, Platelet Count 619H , Mean Platelet Volume 7.1, Neutrophils (%) (Auto) 59.8, Lymphocytes (%) (Auto) 18.8L, Monocytes (%) (Auto) 12.3H, Eosinophils (%) (Auto) 8.5H, Basophils (%) ( Auto) 0.6, Sodium Level 137, Potassium Level 3.7, Chloride Level 101, Carbon Dioxide Level 28, Anion Gap 8, Blood Urea Nitrogen 21H, Creatinine 0.9, Estimat Glomerular Filtration Rate > 60, Glucose Level 104, Calcium Level 9.6 Height (Feet): 5 Height (Inches): 4.00 Weight (Pounds): 94 General Appearance: no apparent distress, alert Neurologic: oriented x 3, responsive, depressed affect Rebecca Abbott MD Feb 05, 2018 19:45
[2018-02-05 20:00] VITALS: BP 142/79
--- NOTE | 2018-02-05 20:09 | General Progress Note ---
Progress Note Progress Note Neurosurgery S/ Pt ambulated several times with PT and her . Patient ambulated in the hallway with me using a walker. Patient has not any oxycontin or oxycodone since 4 am. O/ VS. Last 24 Hour Vital Signs Date Time Temp Pulse Resp B/P (MAP) Pulse Ox O2 Delivery O2 Flow Rate FiO2 02/05/18 17:56 70 102/56 02/05/18 16:00 98.2 70 18 102/56 (71) 96 98.2 02/05/18 13:22 150/82 02/05/18 12:00 98.6 86 20 150/82 (104) 96 98.6 02/05/18 10:12 80 139/84 02/05/18 10:12 84 139/94 02/05/18 10:00 98.2 80 20 139/94 (109) 98 98.2 02/05/18 08:00 Room Air 02/05/18 05:03 105/58 02/05/18 04:00 97.9 72 18 133/68 (89) 95 97.9 02/05/18 00:00 98.9 81 16 144/81 (102) 98 98.9 02/04/18 21:08 86 159/88 02/04/18 21:07 159/88 02/04/18 21:00 Room Air 02/04/18 20:26 99.3 86 18 159/88 (111) 98 99.3 Incision is well healed. Sutures removed at bedside 10 cc of subcutaneous fluid aspirated under sterile condition at the bedside. motor strength 5/5 in the upper and lowers. Pressure dressing applied to the incision site. NO ertythema. no dehiscence. Normal sensation imporved balance no thoracic radiculopathy Labs: Laboratory Tests Test 02/05/18 06:30 White Blood Count 5.8 K/UL (4.8-10.8) Red Blood Count 4.43 M/UL (4.20-5.40) Hemoglobin 13.4 G/DL (12.0-16.0) Hematocrit 40.4 % (37.0-47.0) Mean Corpuscular Volume 91 FL (80-99) Mean Corpuscular Hemoglobin 30.2 PG (27.0-31.0) Mean Corpuscular Hemoglobin Concent 33.1 G/DL (32.0-36.0) Red Cell Distribution Width 11.1 % (11.6-14.8) L Platelet Count 619 K/UL (150-450) H Mean Platelet Volume 7.1 FL (6.5-10.1) Neutrophils (%) (Auto) 59.8 % (45.0-75.0) Lymphocytes (%) (Auto) 18.8 % (20.0-45.0) L Monocytes (%) (Auto) 12.3 % (1.0-10.0) H Eosinophils (%) (Auto) 8.5 % (0.0-3.0) H Basophils (%) (Auto) 0.6 % (0.0-2.0) Sodium Level 137 MMOL/L (136-145) Potassium Level 3.7 MMOL/L (3.5-5.1) Chloride Level 101 MMOL/L (98-107) Carbon Dioxide Level 28 MMOL/L (21-32) Anion Gap 8 mmol/L (5-15) Blood Urea Nitrogen 21 mg/dL (7-18) H Creatinine 0.9 MG/DL (0.55-1.30) Estimat Glomerular Filtration Rate > 60 mL/min (>60) Glucose Level 104 MG/DL (74-106) Calcium Level 9.6 MG/DL (8.5-10.1) Micor Microbiology Date/Time Source Procedure Growth Status 01/31/18 14:45 Blood Blood Culture - Preliminary NO GROWTH AFTER 4 DAYS Resulted 01/30/18 05:00 Body Fluid Lumbar Gram Stain - Final Complete 01/30/18 05:00 Body Fluid Lumbar Body Fluid Culture - Final NO GROWTH Complete 01/24/18 18:00 Vaginal Fungal Culture - Final Complete 01/24/18 18:00 Vaginal Fungal Culture 1 - Final Complete 01/28/18 09:45 Wound AFB Specimen Processing Tissue - Final Resulted 01/28/18 09:45 Wound Acid Fast Bacilli Smear - Final Resulted 01/28/18 09:45 Wound Acid Fast Bacilli Culture Pending Resulted 01/20/18 15:42 Nasal Nares MRSA Culture - Final NO METHICILLIN RESISTANT STAPH AUREUS... Complete 01/31/18 14:25 Urine,Clean Catch Urine Culture - Final NO GROWTH AFTER 48 HOURS Complete 01/31/18 14:20 Back Gram Stain - Final Complete 01/31/18 14:20 Back Aerobic Culture - Final NO GROWTH Complete 01/31/18 14:20 Back Anaerobic Culture - Final NO GROWTH Complete Doing much better pain free off narcotics with Ibuprofen and Lyrica ambulating D/c destin. Patient like to go home and not to rehab. I had a detailed discussion with the patient and her family at the bedside. Pt has a supportive and family who will work her and participate with her continued improvement/physical therapy. will arrange with home PT OFF antibiotics. No fever and normal WBC. Aleta Goodson MD Feb 05, 2018 20:09
--- NOTE | 2018-02-05 20:21 | General Progress Note ---
Progress Note Progress Note Neurosurgery Case was discussed with Dr. Caba who will coordinate patient's discharge medications. Aleta Goodson MD Feb 05, 2018 20:21
--- NOTE | 2018-02-05 20:42 | General Progress Note ---
Assessment/Plan Assessment/Plan s/p complex spine surgery s/p bed side aspiration cultures negative s/p i and of the wouind and culture s negative s/p DT doing well pt ot dc planning tyrell eiwht home health Subjective Date patient seen: Feb 05, 2018 Time patient seen: 20:41 Constitutional: Reports: no symptoms HEENT: Reports: no symptoms Cardiovascular: Reports: no symptoms Allergies: Coded Allergies: SULFA (SULFONAMIDE ANTIBIOTICS) (Verified Allergy, Severe, 09/06/17) hives hives and itching Subjective painis much bdtter contyrolled looks much better Objective Last 24 Hour Vital Signs Date Time Temp Pulse Resp B/P (MAP) Pulse Ox O2 Delivery O2 Flow Rate FiO2 02/05/18 17:56 70 102/56 02/05/18 16:00 98.2 70 18 102/56 (71) 96 98.2 02/05/18 13:22 150/82 02/05/18 12:00 98.6 86 20 150/82 (104) 96 98.6 02/05/18 10:12 80 139/84 02/05/18 10:12 84 139/94 02/05/18 10:00 98.2 80 20 139/94 (109) 98 98.2 02/05/18 08:00 Room Air 02/05/18 05:03 105/58 02/05/18 04:00 97.9 72 18 133/68 (89) 95 97.9 02/05/18 00:00 98.9 81 16 144/81 (102) 98 98.9 02/04/18 21:08 86 159/88 02/04/18 21:07 159/88 02/04/18 21:00 Room Air Intake and Output 02/04/18 02/05/18 19:00 07:00 Intake Total 700 ml 360 ml Balance 700 ml 360 ml Intake Oral 700 ml 360 ml # Voids 5 3 # Bowel Movements 1 Laboratory Tests 02/05/18 06:30: White Blood Count 5.8, Red Blood Count 4.43, Hemoglobin 13.4, Hematocrit 40.4, Mean Corpuscular Volume 91, Mean Corpuscular Hemoglobin 30.2, Mean Corpuscular Hemoglobin Concent 33.1, Red Cell Distribution Width 11.1L, Platelet Count 619H , Mean Platelet Volume 7.1, Neutrophils (%) (Auto) 59.8, Lymphocytes (%) (Auto) 18.8L, Monocytes (%) (Auto) 12.3H, Eosinophils (%) (Auto) 8.5H, Basophils (%) ( Auto) 0.6, Sodium Level 137, Potassium Level 3.7, Chloride Level 101, Carbon Dioxide Level 28, Anion Gap 8, Blood Urea Nitrogen 21H, Creatinine 0.9, Estimat Glomerular Filtration Rate > 60, Glucose Level 104, Calcium Level 9.6 Height (Feet): 5 Height (Inches): 4.00 Weight (Pounds): 94 General Appearance: WD/WN Cardiovascular: regular rhythm, regularly irregular, no JVD Respiratory/Chest: lungs clear Abdomen: soft Objective thin built lady no jvd cta moving all 4 extremity Hilario Caba MD Feb 05, 2018 20:42
[2018-02-05] MEDS: Miralax 17gm pkt ORAL SCH (21:22)
[2018-02-06] VITALS: BP 100/53
[2018-02-06 04:00] VITALS: BP 110/70
[2018-02-06] MEDS: HydrALAZINE 25mg tab ORAL SCH (05:11)
[2018-02-06 08:00] VITALS: BP 150/96
[2018-02-06 08:18] LABS: BASOPHILS % (AUTO) 0.6 % (0.0-2.0); EOSINOPHILS % (AUTO) 7.7 % (0.0-3.0); HEMATOCRIT 39.4 % (37.0-47.0); HEMOGLOBIN 13.1 G/DL (12.0-16.0); LYMPHOCYTES % (AUTO) 22.1 % (20.0-45.0); MEAN CORPUSCULAR VOLUME 92 FL (80-99); MONOCYTES % (AUTO) 12.9 % (1.0-10.0); NEUTROPHILS % (AUTO) 56.7 % (45.0-75.0); PLATELET COUNT 561 K/UL (150-450); RED BLOOD COUNT 4.31 M/UL (4.20-5.40); RED CELL DISTRIBUTION WIDTH 11.2 % (11.6-14.8); WHITE BLOOD COUNT 5.2 K/UL (4.8-10.8)
--- NOTE | 2018-02-06 08:45 | General Progress Note ---
Assessment/Plan Assessment/Plan (1) Intractable back pain (2) S/p T12-L1 B/L Laminectomy and decompression (3) S/p Irrigation and debridement of surgical wound T12-L1 (4) Thoracic radiculopathy (5) Thoracic and Lumbar spinal stenosis (6) H/O Cervical and lumbar fusion (7) Muscle spasm Patient to be continued on OxyContin, Oxycodone, Dilaudid, Lyrica and Lidoderm patch. D/w Dr. Reddy and he concurred. Subjective Date patient seen: Feb 06, 2018 Time patient seen: 07:15 - am Allergies: Coded Allergies: SULFA (SULFONAMIDE ANTIBIOTICS) (Verified Allergy, Severe, 09/06/17) hives hives and itching Subjective REVIEW OF SYSTEMS: Denies rash, fever, chills, sweating, dizziness, drowsiness, blurred vision, sore throat, or change in her weight. No shortness of breath or chest pain. No nausea, vomiting, diarrhea, blood in the stool or urine. No bowel or bladder incontinence. No dysuria. She is complaining of back and tailbone pain. SUBJECTIVE: Patient is sitting in bed with family at bed side. Shes doing well, showing no signs of pain or distress. Objective Last 24 Hour Vital Signs Date Time Temp Pulse Resp B/P (MAP) Pulse Ox O2 Delivery O2 Flow Rate FiO2 02/06/18 07:41 Room Air 02/06/18 05:11 110/70 02/06/18 04:00 97.9 80 17 110/70 (83) 98 97.9 02/06/18 00:00 97.7 74 18 100/53 (69) 100 97.7 02/05/18 21:24 142/79 02/05/18 21:24 81 142/79 02/05/18 21:00 Room Air 02/05/18 20:00 98.2 81 19 142/79 (100) 96 98.2 02/05/18 17:56 70 102/56 02/05/18 16:00 98.2 70 18 102/56 (71) 96 98.2 02/05/18 13:22 150/82 02/05/18 12:00 98.6 86 20 150/82 (104) 96 98.6 02/05/18 10:12 80 139/84 02/05/18 10:12 84 139/94 02/05/18 10:00 98.2 80 20 139/94 (109) 98 98.2 Intake and Output 02/05/18 02/06/18 19:00 07:00 Intake Total 600 ml 480 ml Balance 600 ml 480 ml Intake Oral 600 ml 480 ml # Voids 3 3 # Bowel Movements 1 Laboratory Tests 02/06/18 06:20: White Blood Count 5.2, Red Blood Count 4.31, Hemoglobin 13.1, Hematocrit 39.4, Mean Corpuscular Volume 92, Mean Corpuscular Hemoglobin 30.5, Mean Corpuscular Hemoglobin Concent 33.3, Red Cell Distribution Width 11.2L, Platelet Count 561H , Mean Platelet Volume 7.3, Neutrophils (%) (Auto) 56.7, Lymphocytes (%) (Auto) 22.1, Monocytes (%) (Auto) 12.9H, Eosinophils (%) (Auto) 7.7H, Basophils (%) ( Auto) 0.6, Sodium Level [Pending], Potassium Level [Pending], Chloride Level [ Pending], Carbon Dioxide Level [Pending], Blood Urea Nitrogen [Pending], Creatinine [Pending], Estimat Glomerular Filtration Rate [Pending], Glucose Level [Pending], Calcium Level [Pending] Height (Feet): 5 Height (Inches): 4.00 Weight (Pounds): 80 Objective GENERAL: Alert, awake, and oriented x3. LUNGS: Decreased breath sounds bilaterally. HEART: Heart sounds regular. ABDOMEN: Benign. EXTREMITIES: No cyanosis. No clubbing. No edema. NEURO: No changes. Procedure: MRI Pelvis no Contrast Indication: Severe sacrococcygeal pain. Recent surgery Technique: MRI examination of the pelvis sacrum was performed in a 1.5 Deysi magnet. Sequences obtained include multiplanar T1 and T2 fast spin echo, and STIR. Comparison: none Findings: The study is significantly degraded by motion. There is a moderate degree of superficial extrafascial subcutaneous edema posterior to the sacrum and the visualized portion of the lower lumbar spine presumably on the basis of recent surgery. Magnetic susceptibility hardware artifact from pedicle screws within the lower lumbar spine and upper sacrum are noted. This precludes evaluation of the osseous structures in this region due to the artifact. That said, no evidence of bone marrow edema or acute fracture identified within the sacrum or visualized pelvis. Within the visualized portion of the pelvis, there is no evidence of a hematoma , mass or fluid collection. The urinary bladder is moderately distended. An atrophic uterus is noted but not well evaluated IMPRESSION: No definite findings to account for the given history of sacrococcygeal pain. Dependent, posterior subcutaneous edema probably postsurgical in nature. Status post lower lumbar/upper sacral fusion. No obvious evidence of intrapelvic hematoma or abscess. Limited evaluation due to motion and magnetic susceptibility hardware artifact. Ever Reeder Feb 06, 2018 08:44
[2018-02-06 08:48] LABS: ANION GAP 8 mmol/L (5-15); BLOOD UREA NITROGEN 29 mg/dL (7-18); CALCIUM 9.4 MG/DL (8.5-10.1); CARBON DIOXIDE 29 MMOL/L (21-32); CHLORIDE 101 MMOL/L (98-107); CREATININE 0.9 MG/DL (0.55-1.30); POTASSIUM 3.9 MMOL/L (3.5-5.1); SODIUM 138 MMOL/L (136-145)
[2018-02-06] MEDS: Docusate 100mg cap ORAL SCH (09:10)
[2018-02-06] MEDS: Lyrica 75mg cap ORAL SCH (09:10)
[2018-02-06] MEDS: Docusate Sod/Senna tab ORAL SCH (09:10)
[2018-02-06] MEDS: Vitamin D 1000 IU Tab ORAL SCH (09:11)
[2018-02-06] MEDS: Augmentin 875mg Tab ORAL SCH (09:11)
[2018-02-06] MEDS: Ferrous Gluconate 324 MG TAB ORAL SCH (09:11)
[2018-02-06] MEDS: Metoprolol Tartrate 50mg tab ORAL SCH (09:12)
[2018-02-06] MEDS: Miconazole 2% Cream 30gm TOPIC SCH (09:20)
[2018-02-06] MEDS: Heparin 5000 units/ml inj SUBQ SCH (09:20)
--- NOTE | 2018-02-06 09:27 | Discharge Summary ---
Discharge Summary Discharge Summary _ dc summary dictated. Hilario Caba MD Feb 06, 2018 09:27
[2018-02-06] MEDS ORDERED: NORVASC10 MG ORAL (09:43)
[2018-02-06] MEDS ORDERED: TENORMIN50 MG ORAL (09:44)
[2018-02-06] MEDS ORDERED: IBUPROFEN200 MG ORAL (09:45)
[2018-02-06] MEDS ORDERED: VIBRAMYCIN100 MG ORAL (09:48)
[2018-02-06] MEDS ORDERED: AUGMENTIN 875-1 EAC1 ORAL (09:48)
[2018-02-06] MEDS ORDERED: PERCOCET 10-321 EACH ORAL (09:49)
[2018-02-06] MEDS ORDERED: LYRICA75 M1 ORAL (09:49)
[2018-02-06] MEDS ORDERED: LIDODERM700 M1 TOPIC (09:51)
[2018-02-06] MEDS ORDERED: LORAZEPAM1 MG ORAL (09:53)
[2018-02-06] MEDS: oxyCONTIN 10mg tab ORAL SCH (11:49)
--- NOTE | 2018-02-06 11:49 | GI Progress Note ---
Assessment/Plan Problems: (1) S/P cervical spinal fusion ICD Codes: Z98.1 - Arthrodesis status SNOMED: 28120164, 62134378, 2161775859200 (2) Pain ICD Codes: R52 - Pain, unspecified SNOMED: 78738101 (3) S/P fusion of thoracic spine ICD Codes: Z98.1 - Arthrodesis status SNOMED: 79442960799035 (4) Post-operative nausea and vomiting ICD Codes: R11.2 - Nausea with vomiting, unspecified; Z98.890 - Other specified postprocedural states SNOMED: 2240563 Status: stable Status Narrative Discussed with Dr. Mcguire. Assessment/Plan s/p Irrigation and debridement of surgical wound T12-L1, placement of epidural drain. fu surgical recs monitor for post operative N/V zofran prn, reglan for persistent vomiting prn transfusion pain mgmt bowel regime fu labs okay for DC per GI standpoint Discussed with Dr. Mcguire. Thank you for this patient referral, we will follow. The patient was seen and examined at bedside and all new and available data was reviewed in the patients chart. I agree with the above findings, impression and plan. (Patient seen earlier today. Signature stamp does not reflect patient encounter time.). - Viraj Mcguire MD Subjective Subjective no nausea overall better ambulated with PT tolerating diet Objective Last 24 Hour Vital Signs Date Time Temp Pulse Resp B/P (MAP) Pulse Ox O2 Delivery O2 Flow Rate FiO2 02/06/18 09:40 97.9 02/06/18 09:12 100 150/96 02/06/18 09:11 100 150/96 02/06/18 09:10 97.9 02/06/18 08:00 98.2 100 18 150/96 (114) 98 98.2 02/06/18 07:41 Room Air 02/06/18 05:11 110/70 02/06/18 04:00 97.9 80 17 110/70 (83) 98 97.9 02/06/18 00:00 97.7 74 18 100/53 (69) 100 97.7 02/05/18 21:24 142/79 02/05/18 21:24 81 142/79 02/05/18 21:00 Room Air 02/05/18 20:00 98.2 81 19 142/79 (100) 96 98.2 02/05/18 17:56 70 102/56 02/05/18 16:00 98.2 70 18 102/56 (71) 96 98.2 02/05/18 13:22 150/82 02/05/18 12:00 98.6 86 20 150/82 (104) 96 98.6 Intake and Output 02/05/18 02/06/18 19:00 07:00 Intake Total 600 ml 480 ml Balance 600 ml 480 ml Intake Oral 600 ml 480 ml # Voids 3 3 # Bowel Movements 1 Laboratory Tests Test 02/06/18 06:20 White Blood Count 5.2 K/UL (4.8-10.8) Red Blood Count 4.31 M/UL (4.20-5.40) Hemoglobin 13.1 G/DL (12.0-16.0) Hematocrit 39.4 % (37.0-47.0) Mean Corpuscular Volume 92 FL (80-99) Mean Corpuscular Hemoglobin 30.5 PG (27.0-31.0) Mean Corpuscular Hemoglobin Concent 33.3 G/DL (32.0-36.0) Red Cell Distribution Width 11.2 % (11.6-14.8) L Platelet Count 561 K/UL (150-450) H Mean Platelet Volume 7.3 FL (6.5-10.1) Neutrophils (%) (Auto) 56.7 % (45.0-75.0) Lymphocytes (%) (Auto) 22.1 % (20.0-45.0) Monocytes (%) (Auto) 12.9 % (1.0-10.0) H Eosinophils (%) (Auto) 7.7 % (0.0-3.0) H Basophils (%) (Auto) 0.6 % (0.0-2.0) Sodium Level 138 MMOL/L (136-145) Potassium Level 3.9 MMOL/L (3.5-5.1) Chloride Level 101 MMOL/L (98-107) Carbon Dioxide Level 29 MMOL/L (21-32) Anion Gap 8 mmol/L (5-15) Blood Urea Nitrogen 29 mg/dL (7-18) H Creatinine 0.9 MG/DL (0.55-1.30) Estimat Glomerular Filtration Rate > 60 mL/min (>60) Glucose Level 93 MG/DL (74-106) Calcium Level 9.4 MG/DL (8.5-10.1) Height (Feet): 5 Height (Inches): 4.00 Weight (Pounds): 80 General Appearance: WD/WN, no apparent distress, alert Cardiovascular: normal rate Respiratory/Chest: normal breath sounds, no respiratory distress Abdominal Exam: normal bowel sounds, non tender, soft Extremities: normal range of motion, non-tender Viji Bello NP Feb 06, 2018 11:49
[2018-02-06 11:50] VITALS: BP 136/76
--- NOTE | 2018-02-06 20:00 | General Progress Note ---
Assessment/Plan Assessment/Plan Alcohol dependence anxiety d/o -valium 10mg bid/prn per pmd -prozac 40mg was resumed today -dw family -nurse to contact the pmd regarding antiinflammatory Subjective Date patient seen: Feb 06, 2018 Neurologic/Psychiatric: Reports: anxiety, depressed, emotional problems Allergies: Coded Allergies: SULFA (SULFONAMIDE ANTIBIOTICS) (Verified Allergy, Severe, 09/06/17) hives hives and itching Objective Last 24 Hour Vital Signs Date Time Temp Pulse Resp B/P (MAP) Pulse Ox O2 Delivery O2 Flow Rate FiO2 02/06/18 12:57 98.2 02/06/18 12:27 98.2 02/06/18 11:50 98.2 96 18 136/76 (96) 96 98.2 02/06/18 11:49 97.9 02/06/18 09:40 97.9 02/06/18 09:12 100 150/96 02/06/18 09:11 100 150/96 02/06/18 09:10 97.9 02/06/18 08:00 98.2 100 18 150/96 (114) 98 98.2 02/06/18 07:41 Room Air 02/06/18 05:11 110/70 02/06/18 04:00 97.9 80 17 110/70 (83) 98 97.9 02/06/18 00:00 97.7 74 18 100/53 (69) 100 97.7 02/05/18 21:24 142/79 02/05/18 21:24 81 142/79 02/05/18 21:00 Room Air Intake and Output 02/05/18 02/06/18 19:00 07:00 Intake Total 600 ml 480 ml Balance 600 ml 480 ml Intake Oral 600 ml 480 ml # Voids 3 3 # Bowel Movements 1 Laboratory Tests 02/06/18 06:20: White Blood Count 5.2, Red Blood Count 4.31, Hemoglobin 13.1, Hematocrit 39.4, Mean Corpuscular Volume 92, Mean Corpuscular Hemoglobin 30.5, Mean Corpuscular Hemoglobin Concent 33.3, Red Cell Distribution Width 11.2L, Platelet Count 561H , Mean Platelet Volume 7.3, Neutrophils (%) (Auto) 56.7, Lymphocytes (%) (Auto) 22.1, Monocytes (%) (Auto) 12.9H, Eosinophils (%) (Auto) 7.7H, Basophils (%) ( Auto) 0.6, Sodium Level 138, Potassium Level 3.9, Chloride Level 101, Carbon Dioxide Level 29, Anion Gap 8, Blood Urea Nitrogen 29H, Creatinine 0.9, Estimat Glomerular Filtration Rate > 60, Glucose Level 93, Calcium Level 9.4 Height (Feet): 5 Height (Inches): 4.00 Weight (Pounds): 80 Rebecca Abbott MD Feb 06, 2018 20:00
--- NOTE | 2018-02-07 02:45 | Discharge Summary ---
DATE OF ADMISSION: 01/20/2018 DATE OF DISCHARGE: 02/06/2018 HISTORY AND HOSPITAL COURSE: This is an unfortunate female, who was admitted to the hospital after being discharged after undergoing complex spine surgery. The patient was admitted to the hospital with localized pain, severe spasms. The patient is a 67-year-old female with history of chronic low back pain, cervical and thoracic myelopathy. She was admitted status post right thoracic decompressive surgery. She had an uneventful posterior thoracolumbar decompression surgery at T12 through L1 with bilateral transpedicular approach. She did well postoperatively and was sent home. She presented for further evaluation. Upon admission, was status post decompressive surgery of T12 through L1. Hypernatremia. Hypoalbuminemia. Malnutrition. The patient was seen in Neurology for further evaluation. My impression was as above and also the patient was noted to have fever. Chest x-ray was ordered. Venous Doppler was ordered. Urinalysis ordered. Urine culture was ordered. The patient was noted to be hyperkalemic with a history of lisinopril. Medication lisinopril was held and the patient was placed on other antihypertensive. She also was noted to have hyponatremia. IV saline was given to the patient and avoid excessive fluid intake. Progressively, she got worse while she was in the hospital. Next couple days, she got worse and she had been drinking alcohol and she started to be tachycardic and hallucinating, visual and auditory hallucination. The patient was on Flexeril and at that time, Flexeril was held. The patient was put on Valium, was given banana bag. Since she was sedated, the pain medication was reduced. She was transferred to a monitored bed to follow her. She was noted to have a negative vancomycin-resistant enterococcus screen and negative for MRSA. While being in the hospital, multiple cultures were obtained. The patient initially at bedside had incision and drainage, the cultures were negative. Subsequently, the patient underwent OR and had debridement. Intraoperative cultures also been negative. Postoperatively, the patient was monitored closely. Antibiotic was given, although the culture was negative. THE PATIENT WILL BE DISCHARGED HOME WITH THE FOLLOWING DIAGNOSES: 1. Postoperative acute inflammatory response. No signs of infection. Multiple cultures obtained. 2. Postoperative pain. 3. Hypernatremia. 4. Hyperkalemia. 5. Hypertension. 6. Impending delirium tremor. 7. Auditory and visual hallucinations. 8. Tachycardia. 9. The patient has been ruled out for deep venous thrombosis, pulmonary embolism. The patient will be transferred home with home health. DISCHARGE MEDICATIONS: 1. Norvasc 10 mg daily. 2. Atenolol 50 mg daily. 3. Ibuprofen 600 mg t.i.d. for 10 days only. 4. Augmentin 875 mg b.i.d., five more days. 5. Doxycycline 100 mg b.i.d. for five more days. 6. Lorazepam 1 mg b.i.d. p.r.n. 7. Lyrica 75 mg t.i.d. as well as Percocet 10/325 mg q.6 h. p.r.n., #60 of Percocet was given. The patient will be discharged. Case was discussed with family. Hilario Caba M.D. DR: VINCE JOB#: [id number] CC: Aleta Goodson M.D.; Fax#: [phone]
--- NOTE | 2018-02-10 21:55 | Physician Query ---
--------- THIS DOCUMENT IS A PERMANENT PART OF THE MEDICAL RECORD --------- PLEASE COMPLETE THE FORM BEFORE SIGNING Dear Dr. Aleta Goodson Date: 02/10/2018 Lease Operator/CDS Name: Inez Muñiz, CCS, CCDS Exercise your independent professional judgment when responding to query. Questions asked do not imply particular answer is desired or expected. We greatly appreciate your clarification on this issue. Because there is documentation in the medical record of "Debridement", clarification is needed. Please document whether this is "Excisional" or "Nonexcisional" Debridement of the wound, infection or burn. On 01/28, an "irrigation and debridement" of surgical wound T12-L1 was performed. [x] Excisional: The removal of necrotic, devitalized tissue or slough by means of cutting away of tissue (the use of scissors, scalpel or curette are common). [] Nonexcisional: The removal of necrotic, devitalized tissue or slough by means of flushing, brushing or washing (irrigating). Documentation should also include the "depth" of tissue removed, e.g., skin, fascia, muscle or bone. Please document the appropriate type of Debridement on the Progress Notes or on this form as an addendum to the patient's record. (Sign and date all documents). electronically sigend by Aleta Goodson M.D. 02/28/18 Cynthia Goodson MD Date MTDD
== END 2018-02-06 12:50 | disposition home health service (06) | DRG 939 ==
LOC: EMR 14:30 → EDBEDREQ 14:46 → 4E 15:19 → 2E 01-23 17:26 → 3E 01-28 12:20
DX: G89.18 Other acute postprocedural pain (principal); J18.9 Pneumonia, unspecified organism; N39.0 Urinary tract infection, site not specified; E87.1 Hypo-osmolality and hyponatremia; T84.59XA Infection and inflammatory reaction due to other internal joint prosthesis, initial encounter; L76.34 Postprocedural seroma of skin and subcutaneous tissue following other procedure; M50.00 Cervical disc disorder with myelopathy, unspecified cervical region; M51.06 Intervertebral disc disorders with myelopathy, lumbar region; F10.239 Alcohol dependence with withdrawal, unspecified; F11.20 Opioid dependence, uncomplicated; E46 Unspecified protein-calorie malnutrition; Z68.1 Body mass index [BMI] 19.9 or less, adult; E44.0 Moderate protein-calorie malnutrition; E87.5 Hyperkalemia; R44.0 Auditory hallucinations; R44.1 Visual hallucinations; M62.830 Muscle spasm of back; R00.0 Tachycardia, unspecified; G31.2 Degeneration of nervous system due to alcohol; F32.9 Major depressive disorder, single episode, unspecified; F41.9 Anxiety disorder, unspecified; R11.2 Nausea with vomiting, unspecified; E88.09 Other disorders of plasma-protein metabolism, not elsewhere classified
CPT/HCPCS: 36415; 71045; 72020; 72070; 72131; 72158; 72195; 72220; 76700; 80048; 80053; 80202; 81003; 82533; 83735; 84443; 85007; 85025; 85610; 86850; 86900; 86901; 87040; 87070; 87075; 87081; 87086; 87116; 87205; 89051; 93970; 94003; 94150; 99285; A9585; C9399; J2405; J2710; J8499